=== PATIENT | female | born 1955 | race Caucasian/White ===

== ENCOUNTER 2024-07-16 16:19 | Inpatient (IN) | payer OTHER, MEDICARE, SELFPAY ==
[2024-07-16 16:20] VITALS: BP 182/98; PULSE 89; RESP 18; TEMP 37; O2SAT 95; BMI 32.1
--- NOTE | 2024-07-16 16:36 | EX.ED.GENINJ ---
HPI History of Present Illness Chief Complaint: Fall Narrative Narrative: 69-year-old female past medical history of hypertension, hypercholesterolemia, arthritis, previous remote left TKA performed in [place] presents with injury to her right hip status post fall. She states that she fell down a stair or step out onto concrete as she was walking backwards, carrying a chair because she was going to go outside and read a book. She denies hitting of her head or loss of consciousness. She was unable to sit up or move her right lower extremity as she has pain in her hip. She states she might have scraped her left foot as well. Initially, she denied any shoulder pain, neck pain, loss of consciousness, or other injury. The pain is concentrated in her right hip. [facility] Medical History History of diabetes mellitus Obesity GERD (gastroesophageal reflux disease) HLD (hyperlipidemia) Hypertension Home Medications ?Medication ?Instructions ?Recorded ?Last Taken ?Type diclofenac sodium 50 mg 50 mg PO BID 07/16/24 07/16/24 History tablet,delayed release lisinopril 40 mg tablet 40 mg PO DAILY 07/16/24 07/16/24 History metoprolol succinate 50 mg 75 mg PO DAILY 07/16/24 07/16/24 History tablet,extended release 24 hr pantoprazole 40 mg tablet,delayed 40 mg PO DAILY 07/16/24 07/16/24 History release rosuvastatin 20 mg tablet 20 mg PO QHS 07/16/24 07/16/24 History tirzepatide (weight loss) 5 mg/0.5 5 mg subcut QWEEK 07/16/24 07/13/24 History mL subcutaneous pen injector (Zepbound) Allergy/AdvReac Type Severity Reaction Status Date / Time No Known Allergies Allergy Verified 07/16/24 16:20 Family History Mother MORENO (nonalcoholic steatohepatitis) Heart failure Hypertension Heart disease Father Heart disease Hypertension CAD (coronary artery disease) Myocardial infarction Surgical History H/O wrist surgery History of hysterectomy History of left knee replacement S/P left knee arthroscopy Social History household members: spouse Smoking Status: Never smoker alcohol intake: never substance use type: does not use ROS ROS ED ROS Narrative Review of systems, focused, positive for right hip pain worse with any type of movement/unable to move right hip. No hitting of head, no loss of consciousness, denies shoulder pain. May have scraped the left foot. No prodromal symptoms of chest pain or shortness of breath. witnessed fall. EXAM Physical Exam Narrative Exam Narrative: GCS 15. ABCs are intact. Neck soft and supple without vertebral point tenderness or bony step-off. Able to raise arms above head in supine position. Cardiovascular examination regular rate and rhythm. Lungs are clear to auscultation bilaterally anteriorly. Abdomen is soft nontender without guarding or rebound, positive bowel sounds. Pelvis stable. Right hip held in flexion with flexion of right knee. EHL intact bilaterally. Palpable dorsalis pedis pulse, right. Const Vital Signs: 07/16/24 16:20 07/16/24 16:34 07/16/24 17:19 Temperature 98.6 F 98.9 F Temperature Source Oral Oral Pulse Rate 89 64 Respiratory Rate 18 18 Respiratory Effort Normal Respiratory Depth Normal Respiratory Pattern Normal Blood Pressure 182/98 H 167/78 H Blood Pressure Mean 126 107 Pulse Ox 95 97 Oxygen Delivery Method Room Air Room Air Room Air 07/16/24 18:00 07/16/24 18:00 Temperature 97.8 F Temperature Source Pulse Rate 78 66 Respiratory Rate 16 18 Respiratory Effort Respiratory Depth Respiratory Pattern Blood Pressure 138/76 H 138/76 H Blood Pressure Mean 96 96 Pulse Ox 98 100 Oxygen Delivery Method Room Air MDM MDM MDM Narrative Medical decision making narrative: Differential diagnosis includes but not limited to right hip contusion versus fracture versus left foot fracture versus contusion versus abrasion. Patient was administered Dilaudid 1 mg intravenously for analgesia and x-rays were obtained of the right hip as well as the left foot and interpreted by myself independently. On my independent interpretation of the right hip x-ray and pelvis, there is a subcapital/femoral neck fracture noted. X-ray of the left foot on my independent interpretation shows no evidence of fracture. I reviewed the radiology report of the x-ray of the right hip and pelvis which comments on the femoral neck fracture. I reviewed the radiology report of the x-ray of the left foot which confirms my independent interpretation of no acute fracture. On my independent interpretation of the chest x-ray in 1 view preoperatively, no acute disease, no pneumothorax, no pneumonia. Patient stated she needed more pain medication as Dilaudid 1 mg was ineffective so she was administered 50 mcg of fentanyl intravenously. Given the right hip fracture, patient will be discussed with the on-call orthopod, Dr. Eloy Hamm. I will obtain chest x-ray and basic laboratory work with EKG and type and screen for preop clearance, I discussed the patient with the hospitalist for admission. Patient was discussed with Dr. Avendaño. Disposition is admit to medical surgical floor in stable condition. I reviewed her laboratory work she has normal white count of 4.8 with hemoglobin normal at 12.7, electrolyte panel grossly unremarkable, with exception of AST slightly elevated at 35 which I think is nonspecific, blood type a positive. History & Record Review Discussion w/independent historian: Patient and Family Lab Data Attestation: I reviewed the patient's lab results. Labs: Laboratory Results - last 24 hr 07/16/24 07/16/24 17:14 17:17 WBC 4.8 RBC 4.39 Hgb 12.7 Hct 37.5 MCV 85.4 MCH 28.9 MCHC 33.9 RDW Std Deviation 38.1 RDW Coeff of Juany 12.3 Plt Count 179 MPV 9.2 Immature Gran % (Auto) 0.400 Neut % (Auto) 56.8 Lymph % (Auto) 32.5 [place] % (Auto) 6.9 Eos % (Auto) 2.1 Baso % (Auto) 1.3 H Absolute Neuts (auto) 2.7 Absolute Lymphs (auto) 1.55 Nucleated RBC % 0 Sodium 135 Potassium 3.9 Chloride 101 Carbon Dioxide 21.9 Anion Gap 13 BUN 17 Creatinine 1.01 Estim Creat Clear Calc 67.61 Est GFR (MDRD) Non-Af 61 BUN/Creatinine Ratio 16.8 Glucose 92 Calcium 9.4 Total Bilirubin 0.54 AST 35 H ALT 19 Alkaline Phosphatase 80 Troponin T High Sens 6 Total Protein 7.2 Albumin 4.2 Globulin 3.0 Albumin/Globulin Ratio 1.4 Blood Type A POSITIVE Antibody Screen NEGATIVE Radiography Chest X-Ray - ED: 1 View, Read by ED Physician and No Acute Disease Diagnostic Testing: Clinical Impression(s) from Imaging Studies Foot X-Ray 07/16/24 16:45 IMPRESSION: No acute findings. Reading [facility] Hip/Pelvis X-Ray 07/16/24 16:45 IMPRESSION: See above Reading Location: [facility] Chest X-Ray 07/16/24 17:06 IMPRESSION: 1. Central vascular prominence without overt pulmonary edema. 2. Recommend outpatient CT chest, ideally with IV contrast for above mediastinal findings, unless prior outside imaging is available to further delineate or establish long-term stability. 3. Additional description as above. Reading Location: [id number] Management Discussion w/another healthcare provider: Hospitalist (Dr. Mayi Avendaño) and Ski Molder (Dr. Hamm, orthopedics) Discharge Plan Dx/Rx/DC Orders Clinical Impression: Fracture of femoral neck, closed, Fall, Hypertension Disposition Disposition: Acute Care Hospital [facility] Discharge Date/Time: 07/16/24 19:17
[2024-07-16] MEDS: HYDROmorphone 1 MG/ML Syringe IV (16:42)
--- NOTE | 2024-07-16 16:45 | RAD_ITS ---
PROCEDURE: HIP, UNI W/ PELVIS 2-3 VIEWS 07/16/2024 REASON FOR EXAM: TRAUMA TECHNIQUE: 3 views of the right hip COMPARISON: None FINDINGS: Mildly displaced and angulated fracture right femoral neck. There is moderate medial angulation of the proximal fracture fragment. No other fractures are noted. Degenerative changes of the hip joints. Mild degenerative changes SI joints and lower lumbar spine. Indeterminate sclerotic lesion overlying right the femoral head. RAD/HIP, UNI W/ Pelvis 2-3 Views IMPRESSION: See above Reading Location: [facility]
--- NOTE | 2024-07-16 16:45 | RAD_ITS ---
PROCEDURE: FOOT MIN 3 VIEWS 07/16/2024 REASON FOR EXAM: TRAUMA TECHNIQUE: 3 views of the left foot. COMPARISON: None FINDINGS: No acute fracture or dislocation. Mild multifocal osteoarthritis. No significant soft tissue swelling. No radiopaque foreign body. RAD/Foot min 3 Views IMPRESSION: No acute findings. Reading Location: [facility]
--- NOTE | 2024-07-16 17:06 | RAD_ITS ---
PROCEDURE: CHEST 1 VIEW (PORTABLE), 07/16/2024 REASON FOR EXAM: PREOPERATIVE, CAD TECHNIQUE: A single portable AP view of the chest was obtained. COMPARISON: None FINDINGS: Heart: Unremarkable. Mediastinum: Widening of the RIGHT paratracheal stripe could be related to vascular prominence, mediastinal lipomatosis, may be projectional, related to mediastinal lymphadenopathy, or other mediastinal process. Central vascular prominence. Lungs/pleura: No focal consolidation. No sizeable pleural effusion or visible pneumothorax. Suspect a skin fold the RIGHT. Bones: Multilevel spondylosis. Suspected demineralization. Lines and support devices: None. Other: None. RAD/Chest 1 View (Portable) IMPRESSION: 1. Central vascular prominence without overt pulmonary edema. 2. Recommend outpatient CT chest, ideally with IV contrast for above mediastina l findings, unless prior outside imaging is available to further delineate or establish long-term stability. 3. Additional description as above. Reading Location: [id number]
--- NOTE | 2024-07-16 17:06 | EKG12_ITS ---
Test Reason : Blood Pressure : */* mmHG Vent. Rate : 65 BPM Atrial Rate : 65 BPM P-R Int : 172 ms QRS Dur : 88 ms QT Int : 402 ms P-R-T Axes : 48 3 53 degrees QTcB Int : 418 ms Normal sinus rhythm Normal ECG Confirmed by KEVEN GRAY, NANCY ([id number]), marketing editor LAUREN VELIZ ([id number]) on 07/20/2024 8:40:30 AM Referred By: Confirmed By: NANCY BACA MD
[2024-07-16] MEDS: fentaNYL 100 MCG/2 ML Ampul 50 MCG IV ×2 (17:17→18:52)
[2024-07-16 17:19] VITALS: BP 167/78; PULSE 64; RESP 18; TEMP 37.2; O2SAT 97
[2024-07-16 17:48] LABS: Absolute Lymphocyte Count 1.55 X10^3/uL (0.83-4.51); Absolute Neutrophil Count 2.7 X10^3/uL (2.0-7.7); Basophil# 0.06 X10^3/uL; Basophil% 1.3 % (0-1); Eosinophils% 2.1 % (0-5); Hematocrit 37.5 % (37-47); Hemoglobin 12.7 g/dL (12.0-15.0); Lymphocyte # 1.55 X10^3/ul (0.83-4.51); Lymphocyte % 32.5 % (19-41); Mean Corp Hgb Conc 33.9 g/dL (32-36); Mean Corpuscular Hgb 28.9 pg (27.0-32.0); Mean Corpuscular Volume 85.4 fL (81-99); Mean Platelet Vol. 9.2 fl (6.2-12.0); Monocyte# 0.33 X10^3/uL; Monocyte% 6.9 % (0-10); NRBC Flagged by Analyzer 0 % (0-5); Neutrophil # 2.71 X10^3/uL (2.7-7.7); Neutrophil % 56.8 % (47-70); Platelet Count 179 K/mm3 (150-450); RBC Distribution Width CV 12.3 % (11.6-14.6); RBC Distribution Width SD 38.1 fl (35.1-43.9); Red Blood Count 4.39 M/mm3 (4.2-5.4); White Blood Count 4.8 K/mm3 (4.4-11.0)
[2024-07-16 17:58] LABS: Troponin T High Sensitivity 6 ng/L (<=14)
[2024-07-16 18:00] VITALS: BP 138/76; PULSE 66; PULSE 78; RESP 16; RESP 18; TEMP 36.6; O2SAT 100; O2SAT 98
[2024-07-16 18:01] LABS: ALB/GLOB Ratio 1.4 RATIO (0.9-2.4); AST(SGOT) 35 U/L (<=31); Alanine Aminotransfer ALT/SGPT 19 U/L (<=34); Albumin, Serum 4.2 g/dL (3.4-4.8); Alkaline Phosphatase 80 U/L (35-104); Anion Gap 13 (5-15); BUN 17 mg/dL (4-19); BUN/Creat Ratio 16.8 RATIO (10-20); Calcium,Total 9.4 mg/dL (7.6-11.0); Carbon Dioxide 21.9 mmol/L (21.0-32.0); Chloride 101 mmol/L (98-108); Creatinine, Serum 1.01 mg/dL (0.70-1.20); EST Glomerular Filtration Rate 61 (>60); Estimated Creatinine Clearance 67.61 ml/min (50-250); Glucose 92 mg/dL (70-99); Potassium 3.9 mmol/L (3.3-5.1); Protein, Total 7.2 g/dL (5.9-8.4); Sodium Level 135 mmol/L (133-145); Total Bilirubin 0.54 mg/dL (0.00-1.30)
--- NOTE | 2024-07-16 18:10 | PCM.HP.STD ---
HPI - General General Date of Admission: 07/16/24 Date of Service: 07/16/24 Chief Complaint: Fall, Hip pain. HPI Narrative The patient is a 69 y/o F w/ PMHx: HTN, HLD, GERD, Obesity, Hx Diabetes mellitus type II who presents to the [facility] ED on 07/16/2024 with history of unfortunate mechanical fall, taking a chair outside to read a book unfortunately she fell down a stair and stepped on it concrete as she was walking backwards landing on her right lower extremity especially on her hip and potentially twisting her left ankle with significant debility and inability to bear weight prompting ED evaluation. In the ED despite current pain medication being administered she does rate her pain to the right hip is 8 of 10 in severity. She denies any extremity paresthesias. Workup in the ED included T98.6, heart rate 89, BP 182/98 initially, respiratory rate 18, 95% on room air with most recent repeat vitals T98.9, heart rate 64, BP 167/78, respiratory rate 18, 97% on room air, CBC with WC 4.8, hemoglobin 12.7, platelet 179 without marked shift, CMP not marked appearing aside from AST 35, troponin 6, pending EKG upon evaluation, plain film of the left foot with no acute findings, plain film of the right hip and pelvis with a mildly displaced and angulated fracture of the right femoral neck with moderate medial angulation of the proximal fracture fragment. [facility] Medical History History of diabetes mellitus Obesity GERD (gastroesophageal reflux disease) HLD (hyperlipidemia) Hypertension Home Medications ?Medication ?Instructions ?Recorded ?Last Taken ?Type diclofenac sodium 50 mg 50 mg PO BID 07/16/24 07/16/24 History tablet,delayed release lisinopril 40 mg tablet 40 mg PO DAILY 07/16/24 07/16/24 History metoprolol succinate 50 mg 75 mg PO DAILY 07/16/24 07/16/24 History tablet,extended release 24 hr pantoprazole 40 mg tablet,delayed 40 mg PO DAILY 07/16/24 07/16/24 History release rosuvastatin 20 mg tablet 20 mg PO QHS 07/16/24 07/16/24 History tirzepatide (weight loss) 5 mg/0.5 5 mg subcut QWEEK 07/16/24 07/13/24 History mL subcutaneous pen injector (Zepbound) Allergy/AdvReac Type Severity Reaction Status Date / Time No Known Allergies Allergy Verified 07/16/24 16:20 Family History Mother MORENO (nonalcoholic steatohepatitis) Heart failure Hypertension Heart disease Father Heart disease Hypertension CAD (coronary artery disease) Myocardial infarction Surgical History H/O wrist surgery History of hysterectomy History of left knee replacement S/P left knee arthroscopy Social History household members: spouse Smoking Status: Never smoker alcohol intake: never substance use type: does not use ROS ROS Narrative Admission Review of Systems: CONSTITUTIONAL: No weight loss, fever, chills, + weakness or fatigue. HEENT: Eyes: No visual loss, blurred vision, double vision or yellow sclerae. Ears, Nose, Throat: No hearing loss, sneezing, congestion, runny nose or sore throat. SKIN: No rash or itching, lesions, wounds. CARDIOVASCULAR: No chest pain, chest pressure or chest discomfort, palpitations, edema, orthopnea, syncopal events. RESPIRATORY: No shortness of breath, cough or sputum, wheezing, hemoptysis. GASTROINTESTINAL: No anorexia, nausea, vomiting or diarrhea, abdominal pain, melena, BRBPR. GENITOURINARY: No dysuria, frequency, urgency or retention. NEUROLOGICAL: No headache, dizziness, syncope, paralysis, ataxia, numbness or tingling in the extremities, focal weakness, change in bowel or bladder control, seizure. MUSCULOSKELETAL: + muscle, back pain, joint pain or stiffness. HEMATOLOGIC: No anemia, bleeding or bruising. LYMPHATICS: No enlarged nodes. No history of splenectomy. PSYCHIATRIC: No history of depression or anxiety. ENDOCRINOLOGIC: No reports of sweating, cold or heat intolerance. No polyuria or polydipsia. ALLERGIES: No history of asthma, hives, eczema or rhinitis. Vital Signs Vital Signs Vital Signs: 07/16/24 16:20 07/16/24 16:34 07/16/24 17:19 Temperature 98.6 F 98.9 F Temperature Source Oral Oral Pulse Rate 89 64 Respiratory Rate 18 18 Respiratory Effort Normal Respiratory Depth Normal Respiratory Pattern Normal Blood Pressure 182/98 H 167/78 H Blood Pressure Mean 126 107 Pulse Ox 95 97 Oxygen Delivery Method Room Air Room Air Room Air Weight Weight: 217 lb 13.067 oz Body Mass Index (BMI) 32.1 Physical Exam Narrative Physical Examination: General: Awake, alert, oriented x 3 and cooperative, laying in the ED bed, fatigued, notes ongoing right hip pain 8 of 10 in severity Skin: Normal color, normal turgor, no icterus, no cyanosis except various abrasions with recent fall HEENT: AT/NC, EOMI, PERRLA, mildly dry MM, no carotid bruits, difficult to discern JVD given thickened neck. Lungs: Mildly diminished, greater bases, appropriate effort, no rales, ronchi or wheezing. Heart: Regular rate and rhythm; no gallop, rub audible. Abdomen: Soft, obese, NTTP, mildly hyperactive BS, no obvious distention or HSM however habitus makes evaluation difficult. Extremities: No cyanosis, no clubbing, mild bilateral ankle not markedly pitting edema, status post fall with right hip fracture. Neurological: Patient awake, alert, oriented as noted, cognitive function intact; pupils equally reactive to light and accommodation, cranial nerves gross normal, moving all 4 extremities except expected limitation right lower extremity given fall with hip fracture but able to move toes, strength accordingly severely globally decreased. Psychiatric: Affect appears mildly uncomfortable otherwise normal, no acute evidence of depressive or anxiety feelings. Results Lab / Micro Data 07/16/24 17:14 07/16/24 17:14 Labs: Laboratory Results - last 24 hr 07/16/24 17:14: WBC 4.8, RBC 4.39, Hgb 12.7, Hct 37.5, MCV 85.4, MCH 28.9, MCHC 33.9, RDW Std Deviation 38.1, RDW Coeff of Juany 12.3, Plt Count 179, MPV 9.2, Immature Gran % (Auto) 0.400, Neut % (Auto) 56.8, Lymph % (Auto) 32.5, [place] % (Auto) 6.9, Eos % (Auto) 2.1, Baso % (Auto) 1.3 H, Absolute Neuts (auto) 2.7, Absolute Lymphs (auto) 1.55, Nucleated RBC % 0, Sodium 135, Potassium 3.9, Chloride 101, Carbon Dioxide 21.9, Anion Gap 13, BUN 17, Creatinine 1.01, Estim Creat Clear Calc 67.61, Est GFR (MDRD) Non-Af 61, BUN/Creatinine Ratio 16.8, Glucose 92, Calcium 9.4, Total Bilirubin 0.54, AST 35 H, ALT 19, Alkaline Phosphatase 80, Troponin T High Sens 6, Total Protein 7.2, Albumin 4.2, Globulin 3.0, Albumin/Globulin Ratio 1.4 07/16/24 17:17: Blood Type A POSITIVE Imaging Radiology Impression Foot X-Ray 07/16/24 16:45 IMPRESSION: No acute findings. Reading [facility] Hip/Pelvis X-Ray 07/16/24 16:45 IMPRESSION: See above Reading Location: [facility] Assessment & Plan Assessment/Plan (1) Fracture of femoral neck, closed: (2) Fall: PLAN: Plan The patient is a 69 y/o F w/ PMHx: HTN, HLD, GERD, Obesity, Hx Diabetes mellitus type II who presents to the [facility] ED on 07/16/2024 with history of unfortunate mechanical fall, taking a chair outside to read a book unfortunately she fell down a stair and stepped on it concrete as she was walking backwards landing on her right lower extremity especially on her hip and potentially twisting her left ankle with significant debility and inability to bear weight prompting ED evaluation. #1. General debility, right hip pain s/p mechanical fall w/ mildly displaced and angulated fracture of the right femoral neck with moderate medial angulation of the proximal fracture fragment: Orthopedic surgery consulted from ED. Will admit to MS, maintain NPO after midnight, continue gentle IVFs, davis placement, monitor I/Os, frequent positioning, fall precautions, Pain, anti-emetic regimen as needed. PT/OT following operative intervention. CM consulted for discharge planning. Per NSQIP guidelines patient is low risk for transition to OR, healthy, active with no current complaints of dyspnea or routine chest discomfort, awaiting EKG and as long as this is appropriate agree with progression to OR. #2. History of diabetes mellitus type 2: Patient notes that she did have diabetes in the past and has been on weight loss medication with 60 pound weight loss and since then has been under control, will obtain he will A1c to be cautious, in the interim will maintain on ADA diet with Accu-Cheks with insulin sliding scale but may de-escalate off if it is low. #3. Hypertension: Continue home regimen including metoprolol, lisinopril, PRN hydralazine. #4. Hyperlipidemia: Will continue patient on statin therapy. #5. Obesity: Weight loss and lifestyle changes encouraged. #6. GERD: Will continue patient on PPI. #7. DVT prophylaxis: SCDs, hold chemoprophylaxis per surgery intervention planned. #8. CODE status: Patient ISHA is her who is and living will is currently in place. Discussed CODE status at length including difference between FULL code, DNR-CCA and DNR-CC status. Following discussions about the differences in these status, requested Full Code status. Charges/Coding Visit Charges Inpatient E&M: 68842 Init Hosp L3
--- NOTE | 2024-07-16 18:53 | ED.RN ---
UNABLE TO SCAN SECOND DOSE OF FENTANYL D/T COMPUTER DOWNTIME/SCANNER NOT WORKING
[2024-07-16 19:27] VITALS: BMI 30.1
[2024-07-16 19:57] VITALS: BP 191/97; PULSE 81; RESP 22; TEMP 36.5; O2SAT 99
[2024-07-16] MEDS: oxyCODONE 5 MG Tablet PO (20:24)
[2024-07-16] MEDS: Acetaminophen 325 MG Tablet 650 MG PO (20:25)
[2024-07-16] MEDS: MELATONIN 3 MG TABLET PO (20:27)
[2024-07-16] MEDS: Pantoprazole Sodium 40 MG Tablet PO (20:30)
[2024-07-16] MEDS: Senna/Docusate Sodium 1 Tablet 2 TABLET PO (20:31)
[2024-07-16] MEDS: Atorvastatin Calcium 40 MG Tablet PO (20:35)
[2024-07-16 20:37] VITALS: BP 191/97; PULSE 81
[2024-07-16] MEDS: hydrALAZINE 20 MG/ML Vial 10 MG IV (20:37)
[2024-07-16] MEDS: 0.9% Saline Lock 10 ML Syringe IV ×2 (20:44→21:05)
[2024-07-16 21:34] LABS: Bedside Glucose 106 mg/dL (74-106)
[2024-07-16 21:50] LABS: Troponin T High Sens 2 HR 6 ng/L (<=14)
[2024-07-16 21:52] LABS: Anion Gap 11 (5-15); BUN 15 mg/dL (4-19); BUN/Creat Ratio 16.6 RATIO (10-20); Calcium,Total 9.4 mg/dL (7.6-11.0); Carbon Dioxide 25.6 mmol/L (21.0-32.0); Chloride 98 mmol/L (98-108); Creatinine, Serum 0.91 mg/dL (0.70-1.20); EST Glomerular Filtration Rate 69 (>60); Estimated Creatinine Clearance 72.65 ml/min (50-250); Glucose 139 mg/dL (70-99); Potassium 3.9 mmol/L (3.3-5.1); Sodium Level 135 mmol/L (133-145)
[2024-07-16 22:14] VITALS: BMI 30.1
[2024-07-16 23:22] VITALS: BP 142/76; PULSE 88; RESP 20; TEMP 36.5; O2SAT 96
[2024-07-16] MEDS: Morphine 4 MG/ML Syringe IV (23:25)
[2024-07-16 23:27] LABS: Troponin T High Sens 4 HR < 6 ng/L (<=14)
[2024-07-16] MEDS: 0.9% Normal Saline (1000mL) 1,000 ML 100 ML IV (23:28)
[2024-07-17] VITALS (18 sets, daily range): BP systolic 110–163; BP diastolic 66–93; PULSE 72–106; RESP 16–20; TEMP 36.1–37.4; O2SAT 91–99; BMI 30.2
[2024-07-17] MEDS: Acetaminophen 325 MG Tablet 650 MG PO (02:50)
[2024-07-17] MEDS: oxyCODONE 5 MG Tablet PO (02:50)
[2024-07-17 05:06] LABS: Absolute Lymphocyte Count 1.22 X10^3/uL (0.83-4.51); Absolute Neutrophil Count 5.6 X10^3/uL (2.0-7.7); Basophil# 0.03 X10^3/uL; Basophil% 0.4 % (0-1); Eosinophil# 0.01 X10^3/uL; Eosinophils% 0.1 % (0-5); Hematocrit 39.7 % (37-47); Hemoglobin 13.4 g/dL (12.0-15.0); Lymphocyte # 1.22 X10^3/ul (0.83-4.51); Lymphocyte % 16.6 % (19-41); Mean Corp Hgb Conc 33.8 g/dL (32-36); Mean Corpuscular Hgb 28.6 pg (27.0-32.0); Mean Corpuscular Volume 84.6 fL (81-99); Mean Platelet Vol. 9.2 fl (6.2-12.0); Monocyte% 6.8 % (0-10); NRBC Flagged by Analyzer 0 % (0-5); Neutrophil # 5.56 X10^3/uL (2.7-7.7); Neutrophil % 75.8 % (47-70); Platelet Count 194 K/mm3 (150-450); RBC Distribution Width CV 12.4 % (11.6-14.6); RBC Distribution Width SD 37.2 fl (35.1-43.9); Red Blood Count 4.69 M/mm3 (4.2-5.4); White Blood Count 7.3 K/mm3 (4.4-11.0)
[2024-07-17 05:30] LABS: ALB/GLOB Ratio 1.4 RATIO (0.9-2.4); AST(SGOT) 27 U/L (<=31); Alanine Aminotransfer ALT/SGPT 17 U/L (<=34); Albumin, Serum 4.1 g/dL (3.4-4.8); Alkaline Phosphatase 79 U/L (35-104); Anion Gap 11 (5-15); BUN 14 mg/dL (4-19); BUN/Creat Ratio 17.5 RATIO (10-20); Calcium,Total 9.4 mg/dL (7.6-11.0); Carbon Dioxide 22.1 mmol/L (21.0-32.0); Chloride 100 mmol/L (98-108); EST Glomerular Filtration Rate 81 (>60); Estimated Creatinine Clearance 82.65 ml/min (50-250); Globulin 2.8 g/dL (2.2-4.2); Glucose 118 mg/dL (70-99); Potassium 3.9 mmol/L (3.3-5.1); Protein, Total 6.9 g/dL (5.9-8.4); Sodium Level 133 mmol/L (133-145); Total Bilirubin 0.62 mg/dL (0.00-1.30)
[2024-07-17] MEDS: Morphine 4 MG/ML Syringe IV ×2 (06:30→09:22)
[2024-07-17 07:31] LABS: Hemoglobin A1c 5.3 % (<=5.6)
[2024-07-17] MEDS: Metoprolol(XL)Succ 25 MG Tablet 75 MG PO (09:20)
--- NOTE | 2024-07-17 10:48 | CASEMGMT ---
Discharge Planning A list of?SNF providers including quality and resource use data and consistent with the patient's preferred geographic region, medical needs, and insurance network was created in [employer]Port Guide.? This list was provided to the SW. Lorelei Rodriguez Discharge Planning Asst.
[2024-07-17 12:50] LABS: Bedside Glucose 93 mg/dL (74-106)
--- NOTE | 2024-07-17 13:23 | CASEMGMT ---
Social Work SW?to room to meet with patient for initial transition planning/care coordination?assessment.?SW?introduced self and role at [facility].? Pt voices understanding and consents to?assessment.? Pt is A/Ox4 and answers all questions appropriately.?? Care providers, pharmacy, and demographics verified. PCP: Shama Piper ([place], [place]) Specialists: Pain Management, out of the area Preferred Pharmacy: [facility] Insurance: MMO, commercial Prescription Benefit:?yes LNOK: , Zachary Blankenship (lives in [place]) and daughter Leah Guerra (lives in [place]) Living Arrangements: Pt lives in a one story home with one step to enter in [place]. 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 Pt lives with her who is retired and able to assist with transportation and care as needed. Pt and spouse recently bought a house in [place] and are in the process of remodeling this home and this is where the pt fell. Due to previous back issues, pt does not sleep in a bed and has been sleeping in a gravity chair. Transportation:?Pt drives. is able to transport as needed. DME: ? none HHC/SNF: pt has had home health services after a knee replacement a few years ago in [place]. Pt has never been to SNF PLAN: Pt is uncertain of discharge plan at this time. SW educated pt to all levels of care including RU, SNF, Outpatient therapy and home health. SW did explain that MMO is very unlikely to approve RU stay. Pt states that she has had home health in the past and does not feel this will be helpful for her. Pt is leaning toward returning to her home in [place] and following up with Outpt PT. Pt will consider SNF if she does not do well with therapy after surgery. A list of SNF providers including quality and resource use data and consistent with the patient?s preferred geographic region, medical needs, and insurance network were provided from the [employer]Port Guide. SW to follow up after surgery and therapy for discharge planning. KUSH Abbasi
--- NOTE | 2024-07-17 14:44 | PCM.POST.ANE ---
Anesthesia: Postop Eval I Current Vital Signs Temperature: 97 F Pulse Rate: 72 Blood Pressure: 126/76 Respiratory Rate: 16 Pulse Ox: 96 Oxygen Delivery Method: Simple Mask Oxygen Flow Rate (L/min): 6 Assessment Airway patent: Yes Spontaneous unlabored respirations: Yes Mental status: Awake and Calm nausea: No Vomiting: No Anesthesia Complication: No Fluid Hydration Crystalloid volume administer (ml): 2,000 Total IV fluid infused: 2,000 Progress Note Anesthesia document: Postop Eval 1 completed: Yes
--- NOTE | 2024-07-17 15:12 | PCM.PRE.AN2 ---
ASA Classification* ASA Classification ASA Classification: 3 and E Assessment & Plan Anesthesia* Anesthesia Assessment Anesthesia Assessment: Discussed sedation and/or anesthesia options, risks, benefits, and alternatives with patient/parents/legal guardian/POA. Questions invited. The patient/parents/legal guardian/POA seems to understand and agrees to proceed with anesthesia plan. Reviewed the physical assessment, medical history, allergy history and patient home medications list prior to surgery/procedure/anesthetic and documented any changes. Performed airway and anesthesia risk assessments. Anesthesia Type Anesthesia Type: General (glidescope/RSI/induction on hospital bed) Anesthesia Focused Assessment* Temperature: 97 F Pulse Rate: 72 Blood Pressure: 126/76 Respiratory Rate: 16 Pulse Ox: 96 Oxygen Flow Rate (L/min): 6 Airway Assessment Mouth opens: >3 cm Mallampati Score: III Focused Labs Anesthesia Preop lab: CBC WBC 7.3 K/mm3 (4.4-11.0) 07/17/24 04:19 07/17/24 RBC 4.69 M/mm3 (4.2-5.4) 07/17/24 04:19 07/17/24 Hgb 13.4 g/dL (12.0-15.0) 07/17/24 04:19 07/17/24 Hct 39.7 % (37-47) 07/17/24 04:19 07/17/24 Plt Count 194 K/mm3 (150-450) 07/17/24 04:19 07/17/24 CHEMISTRY Potassium 3.9 mmol/L (3.3-5.1) 07/17/24 04:19 07/17/24 Sodium 133 mmol/L (133-145) 07/17/24 04:19 07/17/24 BUN 14 mg/dL (4-19) 07/17/24 04:19 07/17/24 Creatinine 0.80 mg/dL (0.70-1.20) 07/17/24 04:19 07/17/24 Glucose 118 mg/dL (70-99) H 07/17/24 04:19 07/17/24 POC Glucose 93 mg/dL (74-106) 07/17/24 11:21 07/17/24 COAG Pre-Assessment Diagnosis/Proposed Procedure Planned Operative Procedure(s): ORIF of a Hip Anesthesia History 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 When Was Last Pacemaker Check QUESTION #4 FULL TEXT: You/Your Family Experience fever (hyperthermia) with Anesthesia Last Oral Intake Last Oral intake: Last Oral Intake NPO since 00:00 07/17/24 13:26 Meds taken in AM with sips of Yes 07/17/24 13:26 water? 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 Female HX of Motion Sickness HX of N/V After Surgery Non-Smoker Duration of Surgery greater than 60 minutes Number of Risk Factors PONV Score Height & Weight Height & Weight: Anesthesia: Height & Weight Height 5 ft 8.9 in 07/17/24 13:26 Weight: 92.5 kg 07/17/24 13:26 Body Mass Index (BMI) 30.2 07/17/24 13:26 Respiratory Assessment Respiratory Assessment - computer technology teacher: Respiratory Tract Infection Hx - computer technology teacher Hx Respiratory Tract Infection No 07/16/24 19:57 STOP Sleep Apnea STOP Sleep Apnea - computer technology teacher: STOP Sleep Apnea - computer technology teacher Hx Hypertension Yes 07/16/24 19:27 Hx Sleep Apnea No 07/16/24 19:27 CPAP BIPAP Do you snore loudly (louder Yes 07/16/24 19:27 than talking or can be heard Do you often feel tired/ No 07/16/24 19:27 fatigued/ sleepy during daytime? Has anyone observed you stop No 07/16/24 19:27 breathing during sleep? STOP Results Positive 07/16/24 19:27 QUESTION #5 FULL TEXT : Do you snore loudly (louder than talking or can be heard through closed doors)? 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 Specify any problems Hx of Preganancy in last 3 N/A 07/16/24 19:27 Months Nurse Filling Out Transfusion FSTEINER 07/16/24 19:27 & Questions: Date: 07/16/24 07/16/24 19:27 Time: 19:54 07/16/24 19:27 Patient unable to answer at this time (ie. confused, unrespo /Reproduction History /Reproductive History - computer technology teacher: /Reproductive Hx- computer technology teacher Hx Now No 07/16/24 19:57 Gestational Age (in weeks): EDC: Hx Hx Para Hx Section SAB No 07/16/24 19:57 Active Medications Active Medications: Current Medications Generic Name Dose Route Start Last Admin Trade Name Freq PRN Reason Stop Dose Admin Acetaminophen 650 mg 07/16/24 19:37 07/17/24 02:50 Acetaminophen 325 Mg Tablet PO 650 mg Q4H PRN PRN Administration Fever, pain 1-10/10 Al Hydroxide/Mg Hydroxide 30 ml 07/16/24 19:37 Mag Hydrox/Al Hydrox/Simeth 30 Ml Udc PO Q6H PRN PRN Gastric Burning Albuterol Sulfate 2.5 mg 07/16/24 19:37 Albuterol 2.5 Mg/3 Ml Vial.Neb. INHALATION Q2H PRN PRN Dyspnea, wheezing Atorvastatin Calcium 40 mg 07/16/24 22:00 07/16/24 20:35 Atorvastatin Calcium 40 Mg Tablet PO 40 mg QHS RADHA Administration Glucagon 1 mg 07/16/24 19:37 Glucagon 1 Mg/Ml Syringe IM X1 PRN HYPOGLYCEMIA Protocol Guaifenesin 20 ml 07/16/24 19:37 Guaifenesin 10 Ml Udc (200mg/10ml) PO Q4H PRN PRN COUGH Hydralazine HCl 10 mg 07/16/24 19:37 07/16/24 20:37 Hydralazine 20 Mg/Ml Vial IV 10 mg Q4H PRN PRN Administration SBP > 160 Protocol Dextrose 250 mls @ 0 mls/hr 07/16/24 19:37 Dextrose 10%-Water IV .Q0M PRN HYPOGLYCEMIA Protocol As Directed Sodium Chloride 250 mls @ 15 mls/hr 07/16/24 19:42 IV .[id number] PRN Saline Flush Sodium Chloride 250 mls @ 15 mls/hr 07/16/24 19:42 IV .[id number] PRN Additional IVPB Infusion Insulin Human Lispro 0 unit 07/16/24 22:00 07/17/24 05:46 Insulin Lispro 100 Unit/Ml Insuln.Pen SC Not Given ACHS RADHA Protocol Lisinopril 40 mg 07/17/24 10:00 Lisinopril 40 Mg Tablet PO DAILY RADHA Protocol Melatonin 3 mg 07/16/24 19:37 07/16/24 20:27 Melatonin 3 Mg Tablet PO 3 mg QHS PRN PRN Administration INSOMNIA Metoprolol Succinate 75 mg 07/17/24 10:00 07/17/24 09:20 Metoprolol(Xl)Succ 25 Mg Tablet PO 75 mg DAILY RADHA Administration Protocol Morphine Sulfate 2 - 4 mg 07/16/24 19:37 07/17/24 09:22 Morphine 4 Mg/Ml Syringe IV 4 mg Q2H PRN PRN Administration MODSEVPAIN Ondansetron HCl 4 mg 07/16/24 19:37 Ondansetron 4 Mg/2 Ml Vial IV Q8H PRN PRN NAUSEA/VOMITING Oxycodone HCl 5 - 10 mg 07/16/24 19:37 07/17/24 02:50 Oxycodone 5 Mg Tablet PO 10 mg Q4H PRN PRN Administration MODSEVPAIN Pantoprazole Sodium 40 mg 07/16/24 19:37 07/16/24 20:30 Pantoprazole Sodium 40 Mg Tablet PO 40 mg DAILY RADHA Administration Prochlorperazine Edisylate 5 mg 07/16/24 19:37 Prochlorperazine 10 Mg/2 Ml Vial IV Q4H PRN PRN Breakthrough nausea/vomiting Senna/Docusate Sodium 2 tablet 07/16/24 22:00 07/16/24 20:31 Senna/Docusate Sodium 1 Tablet PO 2 tablet BID RADHA Administration Sodium Chloride 10 - 40 ml 07/16/24 19:42 07/16/24 21:05 0.9% Saline Lock 10 Ml Syringe IV 10 ml UD PRN Administration SALINE FLUSH PFS Medical History Non-smoker Hypertension History of diabetes mellitus Obesity GERD (gastroesophageal reflux disease) HLD (hyperlipidemia) Hypertension Home Medications ?Medication ?Instructions ?Recorded ?Last Taken ?Type diclofenac sodium 50 mg 50 mg PO BID 07/16/24 07/16/24 History tablet,delayed release lisinopril 40 mg tablet 40 mg PO DAILY 07/16/24 07/16/24 History metoprolol succinate 50 mg 75 mg PO DAILY 07/16/24 07/16/24 History tablet,extended release 24 hr pantoprazole 40 mg tablet,delayed 40 mg PO DAILY 07/16/24 07/16/24 History release rosuvastatin 20 mg tablet 20 mg PO QHS 07/16/24 07/16/24 History tirzepatide (weight loss) 5 mg/0.5 5 mg subcut QWEEK 07/16/24 07/13/24 History mL subcutaneous pen injector (Zepbound) Allergy/AdvReac Type Severity Reaction Status Date / Time No Known Allergies Allergy Verified 07/16/24 16:20 Family History Mother MORENO (nonalcoholic steatohepatitis) Heart failure Hypertension Heart disease Father Heart disease Hypertension CAD (coronary artery disease) Myocardial infarction Surgical History H/O wrist surgery History of hysterectomy History of left knee replacement S/P left knee arthroscopy Social History household members: spouse Smoking Status: Never smoker alcohol intake: never substance use type: does not use Review of Systems (Anesthesia) ROS Narrative System reviewed and no additional complaints, except as documented.
--- NOTE | 2024-07-17 15:30 | FEM_PTH ---
PATIENT: CAROLEE JIMENEZ LOC: MS3 U#:[id number] AGE/SX: 69/F ROOM: [facility] [place]07/16/[address]: Dr. Conor Noland DO : 1955 BED: 1 DIS: 07/19/2024 SPEC #: [id number] RECD: 07/20/24 07:33 STATUS: DIANA JOVEL #: [id number] JOSEFA: 07/17/24 15:[address]: Conor Noland DEPT: SURGICAL PATHOLOGY RECD BY: [place] ENTERED: 07/20/24 08:15 SP TYPE: FEM HEAD OTHR DR: MD Dr. Eloy Swenson MD Tissues: A - Femoral region, NOS Procedures: Decalcification bone/plaque Surgery Specimen Level IV HEADER OPERATION: Total hip anterior approach PRE-OP DIAGNOSIS: Fracture of femoral neck, closed TISSUE SUBMITTED: A- Right femoral head MICROSCOPIC DIAGNOSIS A. Right femoral head, fracture, total hip arthroplasty: * Articular bone with reactive/degenerative changes, patchy trilineage hematopoiesis, and focal marrow hemorrhage. MICROSCOPIC DESCRIPTION Slides are reviewed. GROSS DESCRIPTION A. Received in formalin in a container labeled with the patient's name, date of , and right femoral head is a 4.8 x 4.7 x 3.8 cm femoral head with partial attached shaggy and hemorrhagic femoral neck measuring approximately 1 cm in length by 3.5 cm in diameter. The cortical surface is cervantes, somewhat pitted and granular, and otherwise smooth. Sectioning reveals firm and focally hemorrhagic cut surfaces.Received in the same container is a 3.7 x 2.5 x 2.5 cm possible additional femoral neck. One surface is shaggy and hemorrhagic and the opposing surface is firm and smooth. Sectioning reveals hemorrhagic and firm cut surfaces. Irrigation Laborer sections of each are submitted in A1 following decalcification. [facility] 07-20-2024 CPT:01903,11562
--- NOTE | 2024-07-17 15:33 | CHAPLAIN ---
Type of Pastoral Visit ___ Initial Visit ___ Follow-up Visit ___ On-call Visit ___ General Patient Visit ___ Spiritual Assessment ___ Family Conference ___ Bereavement ___ Rapid Response ___ Code Blue ___ Other (describe below) Pastoral Care Referral From ___ Patient ___ Family ___ Nurse ___ Physician ___ Enforcement Manager ___ Geomagnetist ___ Other (describe below) Sacrament/Intervention ___ Active listening ___ Anointing ___ Zoroastrianism ___ Bereavement ___ Communion ___ Debbie exploration ___ ___ Life review ___ Prayer ___ Reconciliation ___ Sacrament of Sick ___ Supportive presence ___ Wedding ___ Other (describe below) Pastoral Comments patient is out of the room for surgery; left a calling card
--- NOTE | 2024-07-17 16:31 | CONS.ORTHO ---
HPI Consult Data Date of Consult: 07/17/24 HPI Narrative Reason for Consultation: Right hip pain HPI Narrative: CAROLEE JIMENEZ, is a 69 F who presents with right hip pain status post fall yesterday. Patient lives at home ambulates independently. Prior to yesterday had minimal history of pain. Does have a history of spinal stenosis which patient notes has been under control since radiofrequency ablation. Patient reports they were pushing something yesterday stumbled and fell and sustained an injury to the right hip. They were unable to bear weight. They were brought to the emergency department and had a x-ray which showed a displaced right femoral neck fracture. Patient reports 7 out of 10 pain better with pain medications worse with motion. No numbness and tingling is noted distally. Patient does have a left total knee replacement [facility] Medical History Non-smoker Hypertension History of diabetes mellitus Obesity GERD (gastroesophageal reflux disease) HLD (hyperlipidemia) Hypertension Home Medications ?Medication ?Instructions ?Recorded ?Last Taken ?Type diclofenac sodium 50 mg 50 mg PO BID 07/16/24 07/16/24 History tablet,delayed release lisinopril 40 mg tablet 40 mg PO DAILY 07/16/24 07/16/24 History metoprolol succinate 50 mg 75 mg PO DAILY 07/16/24 07/16/24 History tablet,extended release 24 hr pantoprazole 40 mg tablet,delayed 40 mg PO DAILY 07/16/24 07/16/24 History release rosuvastatin 20 mg tablet 20 mg PO QHS 07/16/24 07/16/24 History tirzepatide (weight loss) 5 mg/0.5 5 mg subcut QWEEK 07/16/24 07/13/24 History mL subcutaneous pen injector (Zepbound) Allergy/AdvReac Type Severity Reaction Status Date / Time No Known Allergies Allergy Verified 07/16/24 16:20 Family History Mother MORENO (nonalcoholic steatohepatitis) Heart failure Hypertension Heart disease Father Heart disease Hypertension CAD (coronary artery disease) Myocardial infarction Surgical History H/O wrist surgery History of hysterectomy History of left knee replacement S/P left knee arthroscopy Social History household members: spouse Smoking Status: Never smoker alcohol intake: never substance use type: does not use ROS Constitutional Constitutional: Reports systems reviewed and no addt'l complaints, except as documented and as per HPI Eyes Eyes: Reports systems reviewed and no addt'l complaints, except as documented ENT HEENT: Reports systems reviewed and no addt'l complaints, except as documented Cardiovascular Cardiovascular: Reports systems reviewed and no addt'l complaints, except as documented Respiratory/Chest Respiratory/Chest: Reports systems reviewed and no addt'l complaints, except as documented Gastrointestinal Gastrointestinal: Reports systems reviewed and no addt'l complaints, except as documented Genitourinary Genitourinary: Reports systems reviewed and no addt'l complaints, except as documented Musculoskeletal Musculoskeletal: Reports systems reviewed and no addt'l complaints, except as documented Integumentary Integumentary: Reports systems reviewed and no addt'l complaints, except as documented Neurologic Neurologic: Reports systems reviewed and no addt'l complaints, except as documented Psychiatric Psychiatric: Reports systems reviewed and no addt'l complaints, except as documented Endocrine Endocrinology: Reports systems reviewed and no addt'l complaints, except as documented Vital Signs Vital Signs Vital Signs: 07/16/24 16:34 07/16/24 17:19 07/16/24 18:00 Temperature 98.9 F Temperature Source Oral Pulse Rate 64 78 Respiratory Rate 18 16 Respiratory Effort Normal Respiratory Depth Normal Respiratory Pattern Normal Blood Pressure 167/78 H 138/76 H Blood Pressure Mean 107 96 Blood Pressure Source Blood Pressure Position Blood Pressure Location Pulse Ox 97 98 Oxygen Delivery Method Room Air Room Air Room Air Oxygen Flow Rate (L/min) 07/16/24 18:00 07/16/24 19:27 07/16/24 19:57 Temperature 97.8 F 97.7 F L Temperature Source Oral Pulse Rate 66 81 Respiratory Rate 18 22 H Respiratory Effort Normal Non-Labored Respiratory Depth Shallow Respiratory Pattern Normal Blood Pressure 138/76 H 191/97 H Blood Pressure Mean 96 128 Blood Pressure Source Monitor Blood Pressure Position Semi-Fowlers Blood Pressure Location Right Arm Pulse Ox 100 99 Oxygen Delivery Method Room Air Room Air Oxygen Flow Rate (L/min) 07/16/24 20:37 07/16/24 23:22 07/17/24 02:47 Temperature 97.7 F L 97.9 F Temperature Source Oral Oral Pulse Rate 81 88 87 Respiratory Rate 20 H 18 Respiratory Effort Respiratory Depth Respiratory Pattern Blood Pressure 191/97 H 142/76 H 148/79 H Blood Pressure Mean 98 102 Blood Pressure Source Monitor Monitor Blood Pressure Position Semi-Fowlers Semi-Fowlers Blood Pressure Location Left Arm Right Arm Pulse Ox 96 96 Oxygen Delivery Method Room Air Room Air Oxygen Flow Rate (L/min) 07/17/24 06:27 07/17/24 07:40 07/17/24 08:53 Temperature 97.7 F L 98.4 F Temperature Source Oral Oral Pulse Rate 79 77 Respiratory Rate 18 16 Respiratory Effort Respiratory Depth Respiratory Pattern Blood Pressure 161/89 H 161/81 H Blood Pressure Mean 113 107 Blood Pressure Source Monitor Monitor Blood Pressure Position Semi-Fowlers Supine Blood Pressure Location Right Arm Right Arm Pulse Ox 99 97 97 Oxygen Delivery Method Room Air Room Air Room Air Oxygen Flow Rate (L/min) 07/17/24 09:20 07/17/24 13:26 07/17/24 14:44 Temperature 97.9 F 97 F L Temperature Source Oral Pulse Rate 77 79 72 Respiratory Rate 16 16 Respiratory Effort Respiratory Depth Respiratory Pattern Blood Pressure 163/81 H 126/76 H Blood Pressure Mean 108 Blood Pressure Source Monitor Blood Pressure Position Semi-Fowlers Blood Pressure Location Right Forearm Pulse Ox 96 96 Oxygen Delivery Method Room Air Simple Mask Oxygen Flow Rate (L/min) 6 07/17/24 15:12 Temperature 97 F L Temperature Source Pulse Rate 72 Respiratory Rate 16 Respiratory Effort Respiratory Depth Respiratory Pattern Blood Pressure 126/76 H Blood Pressure Mean Blood Pressure Source Blood Pressure Position Blood Pressure Location Pulse Ox 96 Oxygen Delivery Method Oxygen Flow Rate (L/min) 6 Weight Weight: 203 lb 14.841 oz Body Mass Index (BMI) 30.2 Physical Exam Const alert and oriented x3 General Appearance: cooperative HEENT normocephalic Eyes PERRL Neck no JVD Resp normal respiratory effort Effort and Inspection: able to speak in complete sentences Cardio regular rate Cardio Narrative: Regular pulse rate distal pulses GI non-distended Extremity Extremity Narrative: Right lower extremity: Skin clean, dry, and intact. Limb is shortened and externally rotated Motor is intact dorsiflexion, EHL and plantar flexion. Sensation is intact to light touch saphenous, kenya,l superficial peroneal, deep peroneal and tibial distributions. Calves are soft and supple. Skin no wounds Neuro CN's II-XII intact bilaterally Psych affect normal Medical Records Data Attestation: I reviewed the patient's medical records Lab / Micro Data Attestation: I reviewed the patient's lab results. 07/17/24 04:19 07/17/24 04:19 Labs: Laboratory Results - last 24 hr 07/16/24 17:14: WBC 4.8, RBC 4.39, Hgb 12.7, Hct 37.5, MCV 85.4, MCH 28.9, MCHC 33.9, RDW Std Deviation 38.1, RDW Coeff of Juany 12.3, Plt Count 179, MPV 9.2, Immature Gran % (Auto) 0.400, Neut % (Auto) 56.8, Lymph % (Auto) 32.5, Toole % (Auto) 6.9, Eos % (Auto) 2.1, Baso % (Auto) 1.3 H, Absolute Neuts (auto) 2.7, Absolute Lymphs (auto) 1.55, Nucleated RBC % 0, Sodium 135, Potassium 3.9, Chloride 101, Carbon Dioxide 21.9, Anion Gap 13, BUN 17, Creatinine 1.01, Estim Creat Clear Calc 67.61, Est GFR (MDRD) Non-Af 61, BUN/Creatinine Ratio 16.8, Glucose 92, Calcium 9.4, Total Bilirubin 0.54, AST 35 H, ALT 19, Alkaline Phosphatase 80, Troponin T High Sens 6, Total Protein 7.2, Albumin 4.2, Globulin 3.0, Albumin/Globulin Ratio 1.4 07/16/24 17:17: Blood Type A POSITIVE, Antibody Screen NEGATIVE 07/16/24 20:42: POC Glucose 106 07/16/24 21:00: Sodium 135, Potassium 3.9, Chloride 98, Carbon Dioxide 25.6, Anion Gap 11, BUN 15, Creatinine 0.91, Estim Creat Clear Calc 72.65, Est GFR (MDRD) Non-Af 69, BUN/Creatinine Ratio 16.6, Glucose 139 H, Calcium 9.4, Troponin T Hi Sens 2 Hr 6 07/16/24 23:00: Troponin T Hi Sens 4Hr < 6 07/17/24 04:19: WBC 7.3, RBC 4.69, Hgb 13.4, Hct 39.7, MCV 84.6, MCH 28.6, MCHC 33.8, RDW Std Deviation 37.2, RDW Coeff of Juany 12.4, Plt Count 194, MPV 9.2, Immature Gran % (Auto) 0.300, Neut % (Auto) 75.8 H, Lymph % (Auto) 16.6 L, Toole % (Auto) 6.8, Eos % (Auto) 0.1, Baso % (Auto) 0.4, Absolute Neuts (auto) 5.6, Absolute Lymphs (auto) 1.22, Nucleated RBC % 0, Sodium 133, Potassium 3.9, Chloride 100, Carbon Dioxide 22.1, Anion Gap 11, BUN 14, Creatinine 0.80, Estim Creat Clear Calc 82.65, Est GFR (MDRD) Non-Af 81, BUN/Creatinine Ratio 17.5, Glucose 118 H, Hemoglobin A1c 5.3, Calcium 9.4, Total Bilirubin 0.62, AST 27, ALT 17, Alkaline Phosphatase 79, Total Protein 6.9, Albumin 4.1, Globulin 2.8, Albumin/Globulin Ratio 1.4 07/17/24 11:21: POC Glucose 93 Imaging Radiology Impression Foot X-Ray 07/16/24 16:45 IMPRESSION: No acute findings. Reading Location: [facility] Hip/Pelvis X-Ray 07/16/24 16:45 IMPRESSION: See above Reading [facility] Chest X-Ray 07/16/24 17:06 IMPRESSION: 1. Central vascular prominence without overt pulmonary edema. 2. Recommend outpatient CT chest, ideally with IV contrast for above mediastinal findings, unless prior outside imaging is available to further delineate or establish long-term stability. 3. Additional description as above. Reading Location: [id number] Independent review of right hip films denotes a displaced right femoral neck fracture with noted degenerative changes of the right hip joint Assessment & Plan Assessment/Plan (1) Fracture of femoral neck, closed: PLAN: Natural history of the disease process and treatment options were discussed the patient. We discussed nonoperative as well as operative interventions. We discussed close duction (pinning which was not recommended based on displacement the fracture pre we discussed hip total replacement versus hemiarthroplasty. Based on patient's age and overall activity level and health I did recommend total replacement as appropriate treatment option. Patient understands a higher dislocation rate with hip dislocation however better longevity. Risks and benefits of the procedure were discussed the patient clued but not limited to blood loss, DVTs, PEs, neurovascular damage, the risk of anesthesia including loss of life, dislocations, fractures and leg length discrepancies. Patient's spouse at the bedside. All parties agree. Antibiotics on-call to the operating room. Patient's been appropriate consented this time. Will proceed with surgery this evening. (2) Osteoarthritis of right hip:
[2024-07-17] MEDS: Cefazolin 2 GM in 0.9% Normal Saline (100mL Bag) 100 ML IV (16:50)
[2024-07-17] MEDS: TXA in NS 100ml (Placed in Wound) OPERA.SITE (17:05)
--- NOTE | 2024-07-17 17:25 | RAD_ITS ---
PROCEDURE: HIP 1 VIEW WITH PELVIS 07/17/2024 REASON FOR EXAM: ANTERIOR HIP TECHNIQUE: Fluoroscopy with 4 spot images right hip replacement FINDINGS: Fluoroscopy time 7.3 seconds Cumulative dose 1.12 mGy 4 spot images with right hip replacement appears intact and anatomic. No fracture or dislocation identified. RAD/Hip 1 view with Pelvis IMPRESSION: Fluoroscopy as above. Reading Location: [id number]
[2024-07-17] MEDS: JPS (Morphine 10mg/ml) OPERA.SITE (18:04)
--- NOTE | 2024-07-17 18:16 | PCM.OPRPT ---
Operative Report (Standard) Operative Information Date of Procedure: 07/17/24 Pre-Operative Diagnosis: Right displaced femoral neck fracture, right hip osteoarthritis Post-Operative Diagnosis: Right displaced femoral neck fracture, right hip osteoarthritis Surgery/Procedure Performed: Right direct anterior total hip replacement realty specialist: Yes Presidential Support Specialist: Jeronimo Barber Tasks completed by retail assistant store manager: Other (See body of operative report) Additional store administrative assistant?: No Type of Anesthesia: General RN Documented Start/Stop Times: Operation Date: 07/17/24 15:30 Case Time Into Pre-Op 07/17/24 14:39 Anesthesia Start 07/17/24 16:36 Into Room 07/17/24 16:36 Procedure Start 07/17/24 17:14 Procedure End 07/17/24 18:38 Anesthesia End 07/17/24 18:47 Out of Room 07/17/24 18:47 Into Recovery 07/17/24 18:51 Out of Recovery 07/17/24 19:47 Procedure Start Time: 17:14 Procedure Stop Time: 18:38 Select all DRAINS/GRAFTS/IMPLANTS that apply: Prosthetic device Prosthetic device details: See body of operative report Special Medications: Ancef, TXA lavage Estimated Blood Loss: 300 mL Fluids Replaced: 1500 mL crystalloid Specimen collected: Yes Description of specimen(s) removed: Femoral head and fracture Description of surgery: Components used: 1. Accolade 2 [place] femoral stem size 5/127 2. Dereje trident 2 acetabular shell size 52 mm 3. [place] X3 polyethylene E 4. [place] Biolox delta 36 mm, 5 mm femoral head Brief history operative indications: 62yo female who sustained a displaced total hip replacement with pre-existing osteoarthritis noted on x-rays. Total hip replacement was discussed with the patient with risks and benefits including but not limited to blood loss, DVTs, PEs, neurovascular damage, dislocation, general risks of anesthesia including loss of life. Patient demonstrated an understanding medical clearance is obtained the patient was consented for surgery. Procedure: On the date of procedure the patient's right hip was marked in the preoperative area. Patient was then taken back to the operating room where anesthesia assumed control of the C-spine and airway and administered anesthetic. Patient was transferred to the operating table and placed in the supine position. The hips were placed at the break of the bed and a sacral bump was placed. The right lower extremity was then prepped out in a sterile fashion using chlorhexidine while the surgeon scrubbed. The PA was vital in the positioning of the patient. Upon reentering the room the right lower extremity was draped in the standard orthopedic fashion and the incision was marked. A timeout was called and everyone agreed upon the side, the site, the procedure be performed, antibody given, and patient's identity. At this time incision was made through skin, subcutaneous tissue, and fat down to fascia. The fascia was then incised and the TFL was retracted laterally. A retractor was placed on the lateral border of the femoral neck. Attention was directed to the inferior portion of the approach and all crossing vessels were identified and appropriately coagulated. A retractor was then placed on the medial portion of the femoral neck. The anterior capsule was then cleared of all soft tissue and then H shaped capsulotomy was made. The retractors were then placed inside the capsule. The femoral neck was identified and a cleanup cut was made. At this time a power corkscrew was used to remove the femoral head. Attention was then turned toward the acetabulum where the soft tissues were appropriately retracted and the acetabulum was sequentially reamed to 52 mm. A 52 mm cup was then selected and impacted into place. Acetabular liner was impacted into place and locking mechanism was verified. The position of the acetabular cup was then verified under live fluoroscopy. Attention was then turned to the femur. Soft tissue releases on the medial and lateral femoral neck were appropriately done, the leg was externally rotated and lateralized. A Lin retractor was placed medially and proximally to the greater trochanter this allowed appropriate visualization and exposure of the femoral canal. Rongeour was then used to remove excess lateral bone. A canal finder and entry broach were used to open the proximal canal. Once we verified we were down the femoral canal we subsequently broached up to a size 5 femur. The appropriate neck was placed in the previously selected head was trialed with a 5 mm neck. Traction was pulled and the hip was reduced with internal rotation. Once it was appropriately reduced and stability was checked. There was minimal shuck, equal leg lengths and appropriate stability with hyperextension and external rotation as well as with 90? flexion and internal rotation. Fluoroscopy was then also used to verify the position of the components and leg lengths using the contralateral side for comparison. The trial components were then dislocated the proximal femur was again exposed and the components were removed from the wound. The final components were verified and opened. The wound was copiously irrigated out with normal saline. The acetabulum was checked for any residual debris. The final components were placed and impacted. Traction and internal rotation were again used to reduce the hip. After adequate reduction the hip remained stable with appropriate leg lengths. The final components were once again checked with live fluoroscopy and were found to be satisfactory. The wound was then copiously irrigated with normal saline once more, and hemostasis was obtained. Closure was then done using #1 Vicryl runner to close the fascia. A 2-0 vicryl interuppted sutures were used to close the subcutaneous skin. A 3-0 barbed Monocryl and nylon were used for final skin closure. A Silverlon dressing was placed. Patient was awakened by anesthesia and transferred to the [facility]. Patient was then transferred to the PACU for recovery. Postoperative plan: Patient will get 24 hours postop antibiotics. Patient will get in-house physical therapy and will be weight-bear as tolerated. Patient will follow up in office in 2 weeks for a wound check and x-rays. Aspirin 81 mg twice daily. During the course of the procedure the physician sticker machine operator (PE) played a vital role. Their intimate knowledge of my steps in the procedure aided in safe and expedient completion of the procedure. The PE played a vital rolls in positioning particularly in obtaining the appropriate positioning of the sacral bump. The PE was also vital in the retraction of soft tissues during the exposure and especially the femoral work as this is a vital part of the procedure to prevent complications and fractures. The PE was also vital and protecting soft tissues during times of bony cuts and reaming. He also played a vital role in closure with my direct supervision. The PE was also important during reduction and dislocation of the joint and trials intraoperatively. Surgical Findings: Complete displaced subcapital femoral neck fracture Complications Complications: No Admit VTE Documentation VTE Present on Admission: No VTE Mechan Device Prophylaxis: SCD's and Thigh High TESS Hose VTE Pharm Prophylaxis ordered?: Yes
--- NOTE | 2024-07-17 18:56 | PCM.POST.ANE ---
Anesthesia: Postop Eval I Current Vital Signs Temperature: 98.2 F Pulse Rate: 103 Blood Pressure: 154/79 Respiratory Rate: 16 Pulse Ox: 91 Assessment Airway patent: Yes Spontaneous unlabored respirations: Yes nausea: No Vomiting: No Anesthesia Complication: No Fluid Hydration Crystalloid volume administer (ml): 1,500 Total IV fluid infused: 1,500 Progress Note Anesthesia document: Postop Eval 1 completed: Yes
--- NOTE | 2024-07-17 18:57 | PCM.POSTANE2 ---
Anesthesia Postop Eval I Sum Postop Eval Completion status Anesthesia document: Postop Eval 1 completed: Yes Anesthesia Postop Eval I Summary Anesthesia Postop Eval I Summary: Anesthesia Postop Eval I: Assessment Summary Airway patent Yes 07/17/24 18:56 Spontaneous unlabored Yes 07/17/24 18:56 respirations Mental status Awake,Calm 07/17/24 14:44 BERNARD nausea No 07/17/24 18:56 Vomiting No 07/17/24 18:56 Anesthesia Postop Eval I: Fluid Summary Crystalloid volume administer 1,500 07/17/24 18:56 (ml) Colloids volume administered ( ml) Blood Product volume administered (ml) Total IV fluid infused 1,500 07/17/24 18:56 Anesthesia Postop Eval I: Summary Notes Anesthesia Complication No 07/17/24 18:56 Anesthesia Complication Comment: Post-operative progress note Anesthesia: Postop Eval II Evaluation Mental status: Awake Pain Level: 0 nausea: No Vomiting: No
--- NOTE | 2024-07-17 19:00 | RAD_ITS ---
PROCEDURE: HIP MIN 2 VIEWS (PORTABLE) 07/17/2024 REASON FOR EXAM: POST OP TECHNIQUE: Two views of the right hip COMPARISON: Right hip radiographs 07/17/2024 FINDINGS: See below. RAD/Hip Min 2 Views (Portable) IMPRESSION: Interval postoperative changes from right total hip arthroplasty, without immed iate hardware complication. Soft tissues are unremarkable. Degenerative changes of the left hip. Reading Location: [facility]
--- NOTE | 2024-07-17 19:26 | PN.HOSP_ITS ---
Reason for Visit Reason for Visit: Diagnoses Unilateral primary osteoarthritis, right hip (07/16/24) Fracture of unspecified part of neck of unspecified femur, initial encounter for closed fracture (07/16/24) Unspecified fall, initial encounter (07/16/24) Subjective Subjective Patient was examined today, her daughter was in the room at the time my examination, patient underwent a right direct anterior total hip replacement today. Patient's insurance will will not approve her to go to the rehab unit at [facility], patient feels that she would like to go home with possible, she may have to go to TCU for rehab services if she does not do well. Objective Data Objective Data Vital Signs: Vital Signs Temp Pulse Resp BP Pulse Ox O2 Del Method O2 Flow Rate 98.2 F 95 16 115/68 96 Nasal Cannula 2 07/17/24 18:56 07/17/24 19:15 07/17/24 19:15 07/17/24 19:15 07/17/24 19:15 07/17/24 19:15 07/17/24 19:15 Oxygen Flow Rate (L/min) 2 Oxygen Delivery Method Nasal Cannula Weight: 92.5 kg Body Mass Index (BMI) 30.2 Intake & Output: Intake and Output for Last 24 Hours 07/15/24 07/16/24 07/17/24 23:59 23:59 23:59 Intake Total 0 / 0 110 / 110 Output Total 600 / 600 500 / 500 Balance -600 / -600 -390 / -390 Lab / Micro Data 07/17/24 04:19 07/17/24 04:19 Labs: Laboratory Results - last 24 hr 07/16/24 20:42: POC Glucose 106 07/16/24 21:00: Sodium 135, Potassium 3.9, Chloride 98, Carbon Dioxide 25.6, Anion Gap 11, BUN 15, Creatinine 0.91, Estim Creat Clear Calc 72.65, Est GFR (MDRD) Non-Af 69, BUN/Creatinine Ratio 16.6, Glucose 139 H, Calcium 9.4, Troponin T Hi Sens 2 Hr 6 07/16/24 23:00: Troponin T Hi Sens 4Hr < 6 07/17/24 04:19: WBC 7.3, RBC 4.69, Hgb 13.4, Hct 39.7, MCV 84.6, MCH 28.6, MCHC 33.8, RDW Std Deviation 37.2, RDW Coeff of Juany 12.4, Plt Count 194, MPV 9.2, Immature Gran % (Auto) 0.300, Neut % (Auto) 75.8 H, Lymph % (Auto) 16.6 L, [place] % (Auto) 6.8, Eos % (Auto) 0.1, Baso % (Auto) 0.4, Absolute Neuts (auto) 5.6, Absolute Lymphs (auto) 1.22, Nucleated RBC % 0, Sodium 133, Potassium 3.9, Chloride 100, Carbon Dioxide 22.1, Anion Gap 11, BUN 14, Creatinine 0.80, Estim Creat Clear Calc 82.65, Est GFR (MDRD) Non-Af 81, BUN/Creatinine Ratio 17.5, G lucose 118 H, Hemoglobin A1c 5.3, Calcium 9.4, Total Bilirubin 0.62, AST 27, ALT 17, Alkaline Phosphatase 79, Total Protein 6.9, Albumin 4.1, Globulin 2.8, Albumin/Globulin Ratio 1.4 07/17/24 11:21: POC Glucose 93 Physical Exam Const alert, oriented x3, no apparent distress and healthy appearing General Appearance: cooperative, well kempt and well developed Orientation / Consciousness: awake, oriented to person, oriented to place and oriented to time HEENT normocephalic, head/scalp atraumatic and moist oral mucous membranes Eyes PERRL, EOMs intact bilaterally and conjunctivae normal Neck supple, no JVD, thyroid normal and no carotid bruits General: trachea midline Resp normal respiratory effort, no retractions, no use of accessory muscles and clear to auscultation bilaterally Auscultation: Negative for rales, rhonchi or wheezes Cardio regular rate, regular rhythm, S1 normal heart sound, S2 normal heart sound, no murmurs, no rub and no gallops GI normal to inspection, nondistended, normoactive bowel sounds, soft to palpation, non-tender and non-distended Extremity no clubbing, cyanosis or edema Skin no rashes or lesions noted General Skin Exam: no breakdown Neuro oriented x3, CN's II-XII intact bilaterally, moves all extremities, no focal motor deficits and no sensory deficits noted Sensorium / Orientation: awake and alert Speech: speech normal Psych affect normal Assessment & Plan Assessment/Plan (1) Fracture of femoral neck, closed: PLAN: Plan 1. Fracture of the femoral neck-patient is expected to undergo surgery today, PT and OT will see the patient afterwards and patient may need temporary placement in a [facility] facility #2 essential hypertension-patient will remain on her present medications, the blood pressure medicines will be adjusted as needed #3 hyperlipidemia-patient is on Crestor as an outpatient, she will receive atorvastatin Total clinical time spent by myself addressing the patient's medical issues, reviewing all of his data, and collaborating with patient's care team: 35 minutes Charges/Coding Visit Charges Inpatient E&M: 33144 Subs Hosp L2
[2024-07-17] MEDS: Senna/Docusate Sodium 1 Tablet 2 TABLET PO (22:41)
[2024-07-17] MEDS: Acetaminophen 500 MG Tablet 1000 MG PO (22:41)
[2024-07-17] MEDS: Atorvastatin Calcium 40 MG Tablet PO (22:41)
[2024-07-17] MEDS: Lisinopril 40 MG Tablet PO (22:42)
[2024-07-17] MEDS: Pantoprazole Sodium 40 MG Tablet PO (22:42)
[2024-07-17] MEDS: Aspirin 81 MG TAB.CHEW PO (22:44)
[2024-07-17 23:18] LABS: Bedside Glucose 136 mg/dL (74-106)
[2024-07-18] VITALS (8 sets, daily range): BP systolic 125–137; BP diastolic 62–82; PULSE 67–78; RESP 16–18; TEMP 36.5–36.9; O2SAT 92–97; BMI 30.7
[2024-07-18] MEDS: Cefazolin 1 GM/50 ML BAG IV ×2 (01:20→08:39)
[2024-07-18] MEDS: Acetaminophen 500 MG Tablet 1000 MG PO ×3 (05:48→20:48)
[2024-07-18] MEDS: oxyCODONE 5 MG Tablet 2.5 MG PO (06:05)
[2024-07-18] MEDS: Senna/Docusate Sodium 1 Tablet 2 TABLET PO ×2 (08:30→20:48)
[2024-07-18] MEDS: Metoprolol(XL)Succ 25 MG Tablet 75 MG PO (08:30)
[2024-07-18] MEDS: Pantoprazole Sodium 40 MG Tablet PO (08:30)
[2024-07-18] MEDS: Lisinopril 40 MG Tablet PO (08:31)
[2024-07-18] MEDS: Famotidine 20 MG Tablet PO (08:32)
[2024-07-18] MEDS: Aspirin 81 MG TAB.CHEW PO ×2 (08:32→16:49)
[2024-07-18] MEDS: Ensure Surgery 237 ML LIQUID PO ×3 (08:39→16:49)
--- NOTE | 2024-07-18 13:30 | CASEMGMT ---
Social Work- SW met with pt to discuss discharge planning. Pt reports that she feels comfortable d/c home to [facility], which is a ranch-style home and accessible. Pt reports that she has a shower chair, elevated toilet seat, walker, and cane at that home from a prior knee surgery. Pt reports that she has a PT that she has worked with in the past. Pt would like to stay until tomorrow so that her can get everything ready today & to ensure that pain will not increase throughout the day to an unmanageable level. AMANUEL collaborated with RNCM for OP script. Pt reports no other needs at this time. KUSH Godoy
--- NOTE | 2024-07-18 13:43 | PN.HOSP_ITS ---
Reason for Visit Reason for Visit: Diagnoses Unilateral primary osteoarthritis, right hip (07/16/24) Fracture of unspecified part of neck of unspecified femur, initial encounter for closed fracture (07/16/24) Unspecified fall, initial encounter (07/16/24) Subjective Subjective Patient was seen and examined today, she states that she has been getting around pretty well since her hip replacement. She would like to be discharged early in the morning so that she can drive to [place] to her old house. Patient will be reevaluated in the morning for possible discharge. Objective Data Objective Data Vital Signs: Vital Signs Temp Pulse Resp BP Pulse Ox O2 Del Method O2 Flow Rate 98.1 F 67 16 126/65 H 94 Room Air 2 07/18/24 11:24 07/18/24 11:24 07/18/24 11:24 07/18/24 11:24 07/18/24 11:24 07/18/24 11:24 07/17/24 20:08 Oxygen Flow Rate (L/min) 2 Oxygen Delivery Method Room Air Weight: 94 kg Body Mass Index (BMI) 30.7 Intake & Output: Intake and Output for Last 24 Hours 07/16/24 07/17/24 07/18/24 23:59 23:59 23:59 Intake Total 0 / 0 1110 / 1110 1850 / 1850 Output Total 600 / 600 775 / 775 600 / 600 Balance -600 / -600 335 / 335 1250 / 1250 Lab / Micro Data 07/17/24 04:19 07/17/24 04:19 Labs: Laboratory Results - last 24 hr 07/17/24 22:40: POC Glucose 136 H Radiography Diagnostic Testing: Radiology Impression Hip/Pelvis X-Ray 07/17/24 17:25 IMPRESSION: Fluoroscopy as above. Reading Location: [id number] Hip X-Ray 07/17/24 19:00 IMPRESSION: Interval postoperative changes from right total hip arthroplasty, without immediate hardware complication. Soft tissues are unremarkable. Degenerative changes of the left hip. Reading Location: [id number] Physical Exam Const alert, oriented x3, no apparent distress, average body habitus and healthy appearing General Appearance: cooperative, well kempt and well developed Orientation / Consciousness: awake, oriented to person, oriented to place and oriented to time HEENT normocephalic, head/scalp atraumatic and moist oral mucous membranes Eyes PERRL, EOMs intact bilaterally and conjunctivae normal Neck supple, no JVD, thyroid normal and no carotid bruits General: trachea midline Resp normal respiratory effort, no retractions, no use of accessory muscles and clear to auscultation bilaterally Auscultation: Negative for rales, rhonchi or wheezes Cardio regular rate, regular rhythm, S1 normal heart sound, S2 normal heart sound, no murmurs, no rub and no gallops GI normal to inspection, nondistended, normoactive bowel sounds, soft to palpation, non-tender and non-distended Extremity no clubbing, cyanosis or edema Skin no rashes or lesions noted General Skin Exam: no breakdown Neuro oriented x3, CN's II-XII intact bilaterally, no focal motor deficits and no sensory deficits noted Sensorium / Orientation: awake and alert Speech: speech normal Psych affect normal Assessment & Plan Assessment/Plan (1) Osteoarthritis of right hip: (2) Fracture of femoral neck, closed: PLAN: Plan 1. Fracture of the right femoral neck-patient underwent a total hip replacement, PT and OT will see the patient afterwards- patient would like to be discharged home rather than go to a rehab facility for short-term rehab #2 essential hypertension-patient will remain on her present medications, the blood pressure medicines will be adjusted as needed #3 hyperlipidemia-patient is on Crestor as an outpatient, she will receive atorvastatin Total clinical time spent by myself addressing the patient's medical issues, reviewing all of his data, and collaborating with patient's care team: 35 minutes Charges/Coding Visit Charges Inpatient E&M: 75267 Subs Hosp L2
--- NOTE | 2024-07-18 14:43 | PN.ORTHO_ITS ---
Subjective Subjective Patient doing well. No acute events overnight. Medically stable. Discussed case with medicine physician. Plan for discharge likely home tomorrow morning. Objective Data Objective Data Vital Signs: Vital Signs Temp Pulse Resp BP Pulse Ox O2 Del Method O2 Flow Rate 97.9 F 77 16 134/62 H 94 Room Air 2 07/18/24 14:25 07/18/24 14:25 07/18/24 14:25 07/18/24 14:25 07/18/24 14:25 07/18/24 14:07/17/24 20:08 Oxygen Flow Rate (L/min) 2 Oxygen Delivery Method Room Air Weight: 207 lb 3.752 oz Body Mass Index (BMI) 30.7 Intake & Output: Intake and Output for Last 24 Hours 07/16/24 07/17/24 07/18/24 23:59 23:59 23:59 Intake Total 0 / 0 1110 / 1110 1850 / 1850 Output Total 600 / 600 775 / 775 600 / 600 Balance -600 / -600 335 / 335 1250 / 1250 Lab / Micro Data Attestation: I reviewed the patient's lab results. 07/17/24 04:19 07/17/24 04:19 Labs: Laboratory Results - last 24 hr 07/17/24 22:40: POC Glucose 136 H Radiography Diagnostic Testing: Radiology Impression Hip/Pelvis X-Ray 07/17/24 17:25 IMPRESSION: Fluoroscopy as above. Reading Location: [facility] Hip X-Ray 07/17/24 19:00 IMPRESSION: Interval postoperative changes from right total hip arthroplasty, without immediate hardware complication. Soft tissues are unremarkable. Degenerative changes of the left hip. Reading Location: [id number] Physical Exam Narrative Right lower extremity: Dressing is clean dry and intact Sensations intact to light touch saphenous, sural, superficial peroneal, deep peroneal, and tibial distributions Motors intact EHL, DF, PF calves are soft and supple Const alert, oriented x3 and no apparent distress Assessment & Plan Assessment/Plan (1) Fracture of femoral neck, closed: PLAN: Postop day 1 direct anterior total replacement right side 1. Pain control: Patient is currently control, primary service manage pain 2. DVT prophylaxis: Patient is currently on aspirin 81 mg p.o. twice daily for DVT prophylaxis continue for 4 weeks postoperatively 3. Physical therapy: Patient is weight-bear as tolerated 4. Disposition: Patient be ready for discharge when medically stable. No further orthopedic intervention needed. Patient should follow-up in the office in 2 weeks. Patient should be set up for outpatient physical therapy upon discharge. Patient can remove dressing on postop day 5. If waterproof dressing remains in place patient can continue to shower. If dressing has to be changed to a nonocclusive dressing discontinue showering till incision is clean dry and intact. Sutures or placido to be removed on postop day 14 this will likely be done in the office at the 2-week postoperative visit. Recommend Ensure type supplements upon discharge till wound is adequately healed. Recommend stool softener upon discharge until bowel movements are regular. Recommend probiotic upon discharge. Please contact orthopedics with any further questions or concerns.
[2024-07-18] MEDS: Atorvastatin Calcium 40 MG Tablet PO (20:48)
[2024-07-19] MEDS: oxyCODONE 5 MG Tablet 2.5 MG PO ×2 (00:35→09:28)
[2024-07-19] MEDS: Acetaminophen 500 MG Tablet 1000 MG PO (05:05)
[2024-07-19 05:40] VITALS: BP 141/63; PULSE 72; RESP 16; TEMP 36.6; O2SAT 96
--- NOTE | 2024-07-19 07:52 | DCINST_ITS ---
Discharge Instructions Diet Discharge Diet: No restrictions DC O2, CPAP, BIPAP needs Home O2 Discharge instructions: No Dressing / Incision Discharge Activity: Return to Normal Activity Weight Bearing Status: Weight bearing as tolerated Follow Up Care Test Results: Test results from this visit will be discussed in further detail at your follow- up appointment, if applicable. Discharge Plan Admission Admit Date/Time: 07/16/24 18:10 Primary Reason for Your Visit: right hip fracture Attending Provider: Conor Noland Primary Care Provider: BEVERLEY WALKER Consulting Providers: Eloy Hamm; Mayi Avendaño Instructions Additional Instructions / Restrictions: Remove dressing on postop day 5, if waterproof dressing remains in place you can continue to shower. If dressing is to be changed to a nonocclusive dressing, discontinue showering until incision is clean and dry Recommend you take Os-Erich 600 (or generic equivalent) twice a day Advise you consider not taking your diclofenac while you are on 1 aspirin twice a day, you can resume it after you finish the aspirin You will need to call Dr. Hamm's office next week and have them set up physical therapy for you, tell them you were released on a Saturday and physical therapy was not set up for you Discharge Orders/Prescriptions Prescriptions: New acetaminophen 500 mg Tablet 1,000 mg PO Q8 Qty: 0 0RF aspirin 81 mg Tablet,Chewable 81 mg PO BIDCM Qty: 0 0RF Rx Instructions: Continue x 30 days then discontinue oxycodone 5 mg Tablet 5 mg PO Q4H PRN PRN (Reason: Pain Score 4-10) 7 Days Qty: 20 0RF Continued metoprolol succinate 50 mg tablet extended release 24 hr 75 mg PO DAILY pantoprazole 40 mg tablet,delayed release (DR/EC) 40 mg PO DAILY diclofenac sodium 50 mg tablet,delayed release (DR/EC) 50 mg PO BID lisinopril 40 mg tablet 40 mg PO DAILY Zepbound 5 mg/0.5 mL pen injector 5 mg SUBCUT QWEEK Patient Comments: [NO ORIGINAL SIG] rosuvastatin 20 mg tablet 20 mg PO QHS Referrals / Follow Up: BEVERLEY WALKER [Other] BEVERLEY WALKER [Other] Eloy Hamm MD [Med Staff - Active Staff] - See Referral Note (In 2 weeks, call for an appointment) Disposition Disposition (needs filled in before D/C Order can be placed): Home, Self Care
--- NOTE | 2024-07-19 08:08 | PCM.DC.SUM ---
Providers Date of Admission: 07/16/24 Date of Discharge: 07/19/24 Primary Care Physician: BEVERLEY WALKER Consultations 07/16/24 19:37 Consult: Orthopedics Routine Consulting Provider: Eloy Hamm Reason for Consult: Fall, hip fracture EMERGENT Consult: No MD Notified: Yes Date Notified: 07/16/24 Time Notified: 18:12 Method of Notification: ED Physician Initiated Reason For Visit: FALL, HIP FRACTURE Diagnosis Discharge Diagnosis (1) Fracture of femoral neck, closed: Status: Acute Code(s): S72.009A - Fracture of unspecified part of neck of unspecified femur, initial encounter for closed fracture Plan 1. Fracture of the right femoral neck secondary to osteoporosis-patient underwent a total hip replacement, PT and OT will see the patient afterwards- patient would like to be discharged home rather than go to a rehab facility for short-term rehab #2 essential hypertension-patient will remain on her present medications, the blood pressure medicines will be adjusted as needed #3 hyperlipidemia-patient is on Crestor as an outpatient, she will receive atorvastatin #4 osteoarthritis Total clinical time spent by myself addressing the patient's medical issues, reviewing all of his data, and collaborating with patient's care team: 35 minutes Medications at Discharge Home Medications diclofenac sodium 50 mg tablet,delayed release 50 mg PO BID 07/16/24 lisinopril 40 mg tablet 40 mg PO DAILY 07/16/24 metoprolol succinate 50 mg tablet,extended release 24 hr 75 mg PO DAILY 07/16/24 pantoprazole 40 mg tablet,delayed release 40 mg PO DAILY 07/16/24 rosuvastatin 20 mg tablet 20 mg PO QHS 07/16/24 tirzepatide (weight loss) 5 mg/0.5 mL subcutaneous pen injector (Zepbound) 5 mg subcut QWEEK 07/16/24 acetaminophen 500 mg tablet 1,000 mg (2 x 500 mg) PO Q8 #0 tabs 07/19/24 aspirin 81 mg chewable tablet 81 mg PO BIDCM #0 tabs 07/19/24 oxycodone 5 mg tablet 5 mg PO Q4H PRN PRN Pain Score 4-10 7 days #20 tabs 07/19/24 Hospital Course Operations - (Right hip arthroplasty) Procedures None Summary of Care Provided Minutes Spent on Discharge: 31 Hospital Course: This 69-year-old white female was seen in the emergency room at [facility] after suffering a fall at home, patient been walking backwards with a chair and fell striking her right hip. She was unable to bear weight and had severe pain in her right hip. Examination in the ER included x-rays of the right hip which showed a femoral neck fracture along with osteoarthritis. Patient was admitted to [place] [id number] and seen in consultation by orthopedic surgery, patient underwent a right hip arthroplasty-there were no complications and the patient did well postop. On 07/19/2024, patient was seen and examined: On examination she appeared in good health and spirits, she does not appear to be in any distress. Vital signs as documented. Skin warm and dry and without overt rashes. Neck without JVD, thyroid appears normal, trachea is midline, neck is supple. Lungs clear, normal air movement was noted. Heart exam notable for regular rhythm, normal sounds and absence of murmurs, rubs or gallops. Abdomen unremarkable and without evidence of organomegaly, masses, or abdominal aortic enlargement, bowel sounds are present in all 4 quadrants, no abdominal tenderness was noted. Extremities nonedematous, no cyanosis was noted, no clubbing was noted. Neuro: Cranial nerves II through XII are grossly intact, no focal motor deficits were noted, sensation to light touch and pinprick is intact, motor exam 5/5 throughout. Psych: Patient is alert and oriented x3, she does not appear anxious or depressed, she does not appear agitated. Patient was discharged in stable condition on 07/19/2024 to home. Weight / BMI Weight Weight: 94 kg Body Mass Index (BMI) 30.7 ABG / Lab / Microbiology Data 07/17/24 04:19 07/17/24 04:19 D/C Instructions Discharge Diet: No restrictions Weight Bearing Status: Weight bearing as tolerated DC O2, CPAP, BIPAP Needs Home O2 Discharge instructions: No Meaningful Use Info Meaningful Use Meaningful Use Diagnoses (Choose all that apply): None applicable Ischemic Stroke Statin Dosing Therapy Reference: STATIN DOSE THERAPY REFERENCE: * Patients > 75 years receive moderate or high dose statin therapy. * Patients 75 years or YOUNGER should receive HIGH intensity statin dose unless contraindicated. You will be required to document reason for non-treatment if statin daily dose does not meet guidelines. HIGH DOSE STATIN THERAPY DAILY Atorvastatin > than or = to 40 mg Rosuvastatin > than or = to 20 mg Amlodipine + Atorvastatin > than or = to 2.5/40 mg Ezetimibe + Simvastatin 10/80 mg Simvastatin 80mg Discharge Plan Admission Admit Date/Time: 07/16/24 18:10 Primary Reason for Your Visit: right hip fracture Attending Provider: Conor Noland Primary Care Provider: BEVERLEY WALKER Consulting Providers: Eloy Hamm; Mayi Avendaño Instructions Additional Instructions / Restrictions: Remove dressing on postop day 5, if waterproof dressing remains in place you can continue to shower. If dressing is to be changed to a nonocclusive dressing, discontinue showering until incision is clean and dry Recommend you take Os-Erich 600 (or generic equivalent) twice a day Advise you consider not taking your diclofenac while you are on 1 aspirin twice a day, you can resume it after you finish the aspirin You will need to call Dr. Hamm's office next week and have them set up physical therapy for you, tell them you were released on a Saturday and physical therapy was not set up for you Discharge Orders/Prescriptions Prescriptions: New acetaminophen 500 mg Tablet 1,000 mg PO Q8 Qty: 0 0RF aspirin 81 mg Tablet,Chewable 81 mg PO BIDCM Qty: 0 0RF Rx Instructions: Continue x 30 days then discontinue oxycodone 5 mg Tablet 5 mg PO Q4H PRN PRN (Reason: Pain Score 4-10) 7 Days Qty: 20 0RF Continued metoprolol succinate 50 mg tablet extended release 24 hr 75 mg PO DAILY pantoprazole 40 mg tablet,delayed release (DR/EC) 40 mg PO DAILY diclofenac sodium 50 mg tablet,delayed release (DR/EC) 50 mg PO BID lisinopril 40 mg tablet 40 mg PO DAILY Zepbound 5 mg/0.5 mL pen injector 5 mg SUBCUT QWEEK Patient Comments: [NO ORIGINAL SIG] rosuvastatin 20 mg tablet 20 mg PO QHS Referrals / Follow Up: BEVERLEY WALKER [Other] BEVERLEY WALKER [Other] Eloy Hamm MD [Med Staff - Active Staff] - See Referral Note (In 2 weeks, call for an appointment) Disposition Disposition (needs filled in before D/C Order can be placed): Home, Self Care Charges/Coding Visit Charges Inpatient E&M: 54982 Disch Hosp >30min
[2024-07-19 09:02] VITALS: BP 120/52; PULSE 77; RESP 18; TEMP 36.7; O2SAT 97
[2024-07-19 09:08] VITALS: BP 120/52; PULSE 77; RESP 18; TEMP 36.7; O2SAT 97
[2024-07-19] MEDS: Famotidine 20 MG Tablet PO (09:12)
[2024-07-19 09:13] VITALS: PULSE 77
[2024-07-19] MEDS: Metoprolol(XL)Succ 25 MG Tablet 75 MG PO (09:13)
[2024-07-19] MEDS: Meloxicam 7.5 MG Tablet PO (09:13)
[2024-07-19] MEDS: Aspirin 81 MG TAB.CHEW PO (09:13)
[2024-07-19] MEDS: Lisinopril 40 MG Tablet PO (09:14)
[2024-07-19] MEDS: Ensure Surgery 237 ML LIQUID PO (09:15)
[2024-07-19] MEDS: Pantoprazole Sodium 40 MG Tablet PO (09:15)
== END 2024-07-19 09:58 | disposition home or self-care (01) | DRG 522 ==
LOC: ED 17:23 → MS3 19:09
PROVIDERS: Specialist; Admitting Provider Family Medicine; Emergency Provider Emergency Medicine; Visit Provider Internal Medicine
PROC: 0SR904A Replacement of Right Hip Joint with Ceramic on Polyethylene Synthetic Substitute, Uncemented, Open Approach (ICD-10-PCS; CPT 27284; principal; 2024-07-17 15:05)
DX: S72.001A Fracture of unspecified part of neck of right femur, initial encounter for closed fracture (principal); E66.9 Obesity, unspecified; I10 Essential (primary) hypertension; E78.00 Pure hypercholesterolemia, unspecified; K21.9 Gastro-esophageal reflux disease without esophagitis; W10.9XXA Fall (on) (from) unspecified stairs and steps, initial encounter; M16.11 Unilateral primary osteoarthritis, right hip; Z79.899 Other long term (current) drug therapy; Z68.32 Body mass index [BMI] 32.0-32.9, adult
CPT/HCPCS: 36415; 71045; 73501; 73502; 73630; 76000; 80048; 80053; 82962; 83036; 84484; 85025; 86850; 86900; 86901; 88304; 88307; 88311; 93005; 94668; 97116; 97162; 97165; 97530; 97535; 99285; C1776; A4216; J2405

== ENCOUNTER 2024-07-31 16:27 | Emergency (ER) | payer OTHER, SELFPAY ==
[2024-07-31] VITALS (7 sets, daily range): BP systolic 148–208; BP diastolic 72–97; PULSE 69–80; RESP 12–18; TEMP 36.8–36.9; O2SAT 89–100; BMI 35.9
--- NOTE | 2024-07-31 16:45 | ED.VIS.LOWEX ---
HPI History of Present Illness Chief Complaint: Lower Extremity Injury Detail of Chief Complaint: Right hip dislocation Informant: patient Narrative Narrative: Patient presents the emergency department complaint of right hip dislocation. Patient states that she was sitting in a chair when it spontaneously popped out of place. She complaining of pain. EMS was called and brought her to the ER to be evaluated. Patient states that she fell and broke her hip about 2 weeks ago and it was repaired by Dr. Hamm at our facility. Patient also lives in [facility] and dislocated the hip 2 days ago and went to their local facility where she had it reduced. Patient had a visit with orthopedics this morning where they took her stitches out. They repeated the x-ray this morning and apparently all looked well. [facility] Medical History Non-smoker Hypertension History of diabetes mellitus Obesity GERD (gastroesophageal reflux disease) HLD (hyperlipidemia) Hypertension Home Medications ?Medication ?Instructions ?Recorded ?Last Taken ?Type diclofenac sodium 50 mg 50 mg PO BID 07/16/24 07/16/24 History tablet,delayed release lisinopril 40 mg tablet 40 mg PO DAILY 07/16/24 07/16/24 History metoprolol succinate 50 mg 75 mg PO DAILY 07/16/24 07/16/24 History tablet,extended release 24 hr pantoprazole 40 mg tablet,delayed 40 mg PO DAILY 07/16/24 07/16/24 History release rosuvastatin 20 mg tablet 20 mg PO QHS 07/16/24 07/16/24 History tirzepatide (weight loss) 5 mg/0.5 5 mg subcut QWEEK 07/16/24 07/13/24 History mL subcutaneous pen injector (Zepbound) acetaminophen 500 mg tablet 1,000 mg (2 x 500 mg) PO Q8 #0 tabs 07/19/24 Unknown Rx aspirin 81 mg chewable tablet 81 mg PO BIDCM #0 tabs 07/19/24 Unknown Rx oxycodone 5 mg tablet 5 mg PO Q4H PRN PRN Pain Score 07/19/24 Unknown Rx 4-10 7 days #20 tabs Allergy/AdvReac Type Severity Reaction Status Date / Time No Known Allergies Allergy Verified 07/31/24 16:32 Family History Mother MORENO (nonalcoholic steatohepatitis) Heart failure Hypertension Heart disease Father Heart disease Hypertension CAD (coronary artery disease) Myocardial infarction Surgical History H/O wrist surgery History of hysterectomy History of left knee replacement S/P left knee arthroscopy Social History household members: spouse Smoking Status: Never smoker alcohol intake: never substance use type: does not use ROS ROS ED Review of Systems ROS Unobtainable: other Constitutional Constitutional ED: Reports lethargy; Denies chills, fever(s), sweats or weight loss Eyes Eyes: Denies blurry vision, change in vision or diplopia ENT ENT ED: Denies rhinorrhea or sore throat Cardiovascular Cardiovascular: Denies chest pain, orthopnea or racing heartbeat Respiratory/Chest Respiratory/Chest: Denies cough, dyspnea, dyspnea on exertion, orthopnea or sputum Gastrointestinal Gastrointestinal: Denies abdominal pain, diarrhea, nausea or vomiting Genitourinary Genitourinary ED: Denies dysuria, hematuria or urinary frequency Musculoskeletal Musculoskeletal: Reports other Details: Right hip dislocation/pain ; Denies arthralgias, back pain, myalgias or neck pain Integumentary Denies abscess, Abrasions or rash Neurologic Neurologic: Denies headache(s) or weakness Psychiatric Psychiatric: Denies anxiety, depression or suicidal thoughts Endocrine Endocrinology: Denies polydipsia, polyphagia or polyuria Hematologic/Lymphatic Hematologic/Lymphatic: Denies easy bleeding, easy bruising or lymphadenopathy Allergic/Immunologic Allergic/Immunologic ED: Denies mouth swelling, tongue swelling or urticaria EXAM Physical Exam Const Vital Signs: 07/31/24 16:28 07/31/24 17:20 07/31/24 17:20 Temperature 98.2 F 98.5 F Temperature Source Oral Pulse Rate 69 73 Respiratory Rate 18 16 Blood Pressure 191/93 H 191/87 H Blood Pressure Mean 125 Baseline BP 191/87 Pulse Ox 98 100 Oxygen Delivery Method Room Air Nasal Cannula Oxygen Flow Rate (L/min) 2 EtCo2 - Document during CPR and with ROSC 38 42 Positive well nourished and well developed General Appearance ED: well developed and NAD HEENT Reports TM's clear and moist mucous membranes normocephalic and atraumatic; Negative for trauma or tenderness Tympanic Membrane ED: Yes TM's clear Eyes PERRL and EOMs intact bilaterally General Eye ED: Negative for pale conjunctiva or scleral icterus Neck no lymphadenopathy, supple and no JVD General: Negative for tenderness Chest Wall inspection of chest normal and palpation of chest normal Chest: Negative for tenderness Resp normal respiratory effort and clear to auscultation bilaterally Effort and Inspection: Negative for respiratory distress or pain with movement Auscultation: Negative for rhonchi, wheezes or diminished lung sounds Cardio regular rate, regular rhythm, S1 normal heart sound, S2 normal heart sound and no murmurs Peripheral Pulses: pulses 2+ throughout GI normal to inspection, nondistended, normoactive bowel sounds, soft to palpation, non-tender, non-distended and no masses Back/Spine no CVA tenderness and no thoracic nor lumbar tenderness Extremity Extremity Narrative: Right hip-right lower extremity held flexed at the hip and the knee is flexed. Pain with range of motion. Neurovascular intact distally. General Extremety ED: Negative for edema General Extremity: Negative for edema Neuro oriented x3, CN's II-XII intact bilaterally, no sensory deficits noted and gait normal Sensorium / Orientation: awake, alert, oriented to person, oriented to place and oriented to time Motor Exam: strength 5/5 throughout and strength abnormal Psych mental status grossly normal Skin no rashes or lesions noted and no wounds MDM MDM MDM Narrative Medical decision making narrative: Patient presents with a dislocated right hip with prior dislocation 2 days ago. Clinically dislocated. X-rays obtained does show dislocation. Patient was consented for procedural sedation. She was given propofol 120 mg IV. She had good sedation. Dr. Chambers help reduce the hip with gentle traction was easily reduced. Patient tolerated procedure well. Post reduction x-rays obtained showed good reduction without fractures. Discussed case with Dr. Serrato. Will place patient in knee immobilizer and advised to sit as high as possible when seated and follow-up with Dr. Hamm in the office in 3 days. Lab Data Attestation: I reviewed the patient's lab results. Radiography Diagnostic Testing: Three-view x-rays of the right hip and pelvis obtained interpreted by myself is dislocation of the prosthetic hip. No fractures noted. Radiology in agreement. 2 view x-rays postreduction x-rays of the right hip obtained interpreted by myself is good reduction without periprosthetic fractures. Radiology in agreement. Procedures Procedural Sedation 1 (Initial Baseline): Consent Signed: Yes Any Problems With Anesthesia: No You/Your family experience fever (hyperthermia) w/anesthesia: No Sedation medication: Propofol Dose: 120 Route: IV Maliampati Score: Class II ASA Classification: II Discharge Plan Triage Chief Complaint: Lower Extremity Injury ED Provider: Arelis Silva Dx/Rx/DC Orders Clinical Impression: Dislocation, hip Instructions: ED Hip Replace Dislocation Reduc Prescriptions: No Action metoprolol succinate 50 mg tablet extended release 24 hr 75 mg PO DAILY pantoprazole 40 mg tablet,delayed release (DR/EC) 40 mg PO DAILY diclofenac sodium 50 mg tablet,delayed release (DR/EC) 50 mg PO BID lisinopril 40 mg tablet 40 mg PO DAILY Zepbound 5 mg/0.5 mL pen injector 5 mg SUBCUT QWEEK Patient Comments: [NO ORIGINAL SIG] rosuvastatin 20 mg tablet 20 mg PO QHS acetaminophen 500 mg Tablet 1,000 mg PO Q8 Qty: 0 0RF aspirin 81 mg Tablet,Chewable 81 mg PO BIDCM Qty: 0 0RF Rx Instructions: Continue x 30 days then discontinue oxycodone 5 mg Tablet 5 mg PO Q4H PRN PRN (Reason: Pain Score 4-10) 7 Days Qty: 20 0RF Primary Care Provider: BEVERLEY WALKER Referrals: BEVERLEY WALKER [Other] Eloy Hamm MD [Med Staff - Active Staff] - 3-5 Days Print Language: Macedonian Disposition Disposition: Home, Self Care
--- NOTE | 2024-07-31 16:55 | RAD_ITS ---
PROCEDURE: HIP, UNI W/ PELVIS 2-3 VIEWS 07/31/2024 REASON FOR EXAM: DISSLOCATION TECHNIQUE: Three views of the right hip. COMPARISON: None. FINDINGS: Right hip arthroplasty. Dislocated femoral component. Mild degenerative changes of the left hip. Partially visualized degenerative changes of the spine. No evidence of acute fracture or dislocation. RAD/HIP, UNI W/ Pelvis 2-3 Views IMPRESSION: Right hip arthroplasty with dislocated femoral component. Reading Location: [id number]
[2024-07-31] MEDS: Morphine 4 MG/ML Syringe IV (17:24)
[2024-07-31] MEDS: Propofol 200 MG/20 ML Vial IV BOLUS (17:28)
--- NOTE | 2024-07-31 17:45 | RAD_ITS ---
PROCEDURE: HIP MIN 2 VIEWS (PORTABLE) 07/31/2024 REASON FOR EXAM: POST REDUCTION TECHNIQUE: One (1) view of the right hip COMPARISON: 07/31/2024 RAD/Hip Min 2 Views (Portable) IMPRESSION: Total right hip prosthesis status post reduction with interval resolution of pr osthetic dislocation. No hardware complications. No acute fracture or dislocations. Reading Location: [id number]
== END 2024-07-31 18:19 | disposition home or self-care (01) ==
PROVIDERS: Emergency Provider Emergency Medicine; Visit Provider Emergency Medicine
DX: S73.004A Unspecified dislocation of right hip, initial encounter (principal); E11.9 Type 2 diabetes mellitus without complications; W19.XXXA Unspecified fall, initial encounter
CPT/HCPCS: 73502; 96374; 99285; A4216

== ENCOUNTER 2024-08-07 14:45 | Inpatient (IN) | payer OTHER, MEDICARE, SELFPAY ==
[2024-08-07] VITALS (14 sets, daily range): BP systolic 120–152; BP diastolic 63–85; PULSE 69–91; RESP 14–18; TEMP 36.3–37.1; O2SAT 95–100; BMI 30.4; BMI 32.8
--- NOTE | 2024-08-07 11:15 | PRE.ANES_ITS ---
ASA Classification* ASA Classification ASA Classification: 2 Assessment & Plan Anesthesia* Anesthesia Assessment Anesthesia Assessment: Discussed sedation and/or anesthesia options, risks, benefits, and alternatives with patient/parents/legal guardian/POA. Questions invited. The patient/parents/legal guardian/POA seems to understand and agrees to proceed with anesthesia plan. Reviewed the physical assessment, medical history, allergy history and patient home medications list prior to surgery/procedure/anesthetic and documented any changes. Performed airway and anesthesia risk assessments. Anesthesia Type Anesthesia Type: General Anesthesia Focused Assessment* Airway Assessment Mouth opens: >3 cm Mallampati Score: II Focused Labs Anesthesia Preop lab: CBC WBC 7.3 K/mm3 (4.4-11.0) 07/17/24 04:19 07/17/24 RBC 4.69 M/mm3 (4.2-5.4) 07/17/24 04:19 07/17/24 Hgb 13.4 g/dL (12.0-15.0) 07/17/24 04:19 07/17/24 Hct 39.7 % (37-47) 07/17/24 04:19 07/17/24 Plt Count 194 K/mm3 (150-450) 07/17/24 04:19 07/17/24 CHEMISTRY Potassium 3.9 mmol/L (3.3-5.1) 07/17/24 04:19 07/17/24 Sodium 133 mmol/L (133-145) 07/17/24 04:19 07/17/24 BUN 14 mg/dL (4-19) 07/17/24 04:19 07/17/24 Creatinine 0.80 mg/dL (0.70-1.20) 07/17/24 04:19 07/17/24 Glucose 118 mg/dL (70-99) H 07/17/24 04:19 07/17/24 POC Glucose 136 mg/dL (74-106) H 07/17/24 22:40 07/17/24 COAG Pre-Assessment Diagnosis/Proposed Procedure Planned Operative Procedure(s): REVISION RIGHT TOTAL HIP ARTHROPLASTY Anesthesia History Anesthesia History - court supervisor: Anesthesia History - court supervisor Hx Hospitalization Yes: 07/16/2024 08/05/24 10:30 Any Problems With Anesthesia [ No 07/31/24 18:04 1 (Initial Baseline)] Any Problems With Anesthesia No 08/05/24 10:30 Cholinesterase deficiency No 08/05/24 10:30 You/Your Family Experience No 08/05/24 10:30 fever (hyperthermia) with Relationship Recent Exposure to Contagious No 07/16/24 19:57 Disease Does patient have nerve No 08/05/24 10:30 stimulator Patient instructed to have device shut off --Does patient have Pacemaker or ICD? When Was Last Pacemaker Check QUESTION #4 FULL TEXT: You/Your Family Experience fever (hyperthermia) with Anesthesia Last Oral Intake Last Oral intake: Last Oral Intake NPO since Meds taken in AM with sips of water? Meds patient instructed to take am of surgery PONV PONV - court supervisor: PONV - court supervisor Female Yes 08/05/24 10:30 HX of Motion Sickness Yes 08/05/24 10:30 HX of N/V After Surgery No 08/05/24 10:30 Non-Smoker Yes 08/05/24 10:30 Duration of Surgery greater Yes 08/05/24 10:30 than 60 minutes Number of Risk Factors 4 08/05/24 10:30 PONV Score Severe Risk 08/05/24 10:30 Height & Weight Height & Weight: Anesthesia: Height & Weight Height 5 ft 9 in 07/31/24 16:28 Respiratory Assessment Respiratory Assessment - court supervisor: Respiratory Tract Infection Hx - court supervisor Hx Respiratory Tract Infection No 08/05/24 10:30 STOP Sleep Apnea STOP Sleep Apnea - court supervisor: STOP Sleep Apnea - court supervisor Hx Hypertension Yes: CONTROLLED ON MED 08/05/24 10:30 Hx Sleep Apnea No 08/05/24 10:30 CPAP BIPAP Do you snore loudly (louder No 08/05/24 10:30 than talking or can be heard Do you often feel tired/ No 08/05/24 10:30 fatigued/ sleepy during daytime? Has anyone observed you stop No 08/05/24 10:30 breathing during sleep? STOP Results Negative 08/05/24 10:30 QUESTION #5 FULL TEXT : Do you snore loudly (louder than talking or can be heard through closed doors)? Tobacco Use History Tobacco Use History - court supervisor: Tobacco Use History - court supervisor Tobacco Use Smoking Status Never smoker 08/05/24 10:30 Hx Tobacco Use No 08/05/24 10:30 Years Smoking Packs Smoked per Day Smoking Cessation Date was within the last 15 years Hx Smoking Cessation Date Hx Smoking Cessation Counseling Hematologic Medial History Hematologic Hx - court supervisor: Hematologic Medical Hx - training and documentation specialist Hx of Blood Transfusion No 08/05/24 10:30 Hx of Transfusion in last 3 No 08/05/24 10:30 Months Date of Last Transfusion (if within last 3 months) Ever experience any problems No 08/05/24 10:30 with transfusion(s)? Specify any problems Hx of Preganancy in last 3 No 08/05/24 10:30 Months Nurse Filling Out Transfusion VCHRISTIN 08/05/24 10:30 & Questions: Date: 08/05/24 08/05/24 10:30 Time: 10:34 08/05/24 10:30 Patient unable to answer at this time (ie. confused, unrespo /Reproduction History /Reproductive History - court supervisor: /Reproductive Hx- court supervisor Hx Now No 08/05/24 10:30 Gestational Age (in weeks): EDC: Hx Hx Para Hx Section SAB No 08/05/24 10:30 Active Medications Active Medications: Current Medications Generic Name Dose Route Start Last Admin Trade Name Freq PRN Reason Stop Dose Admin Acetaminophen 1,000 mg 08/07/24 13:00 Acetaminophen 500 Mg Tablet PO 08/07/24 13:01 PREOP ONE Celecoxib 400 mg 08/07/24 13:00 Celecoxib 200 Mg Capsule PO 08/07/24 13:01 PREOP ONE Sodium Chloride 77.4 ml/ 0 ml 08/07/24 13:00 Ropivacaine 200 mg/ OPERA.SITE 08/07/24 13:01 Epinephrine HCl 0.6 mg/ INTRAOP ONE Ketorolac Tromethamine 30 mg/ Morphine Sulfate 5 mg Dexamethasone Sodium Phosphate 10 mg 08/07/24 13:00 Dexamethasone 10 Mg/Ml Vial IV 08/07/24 13:01 INTRAOP ONE Gabapentin 600 mg 08/07/24 13:00 Gabapentin 600 Mg Tablet PO 08/07/24 13:01 PREOP ONE Lactated Ringer's 1,000 mls @ 999 mls/hr 08/07/24 13:00 IV 08/07/24 14:00 .Q1H1M RADHA Cefazolin Sodium 2 gm/ Sodium 110 mls @ 150 mls/hr 08/07/24 13:00 Chloride IV 08/07/24 13:43 INTRAOP ONE Tranexamic Acid 1,000 mg/ 110 mls @ 660 mls/hr 08/07/24 13:00 Sodium Chloride IV 08/07/24 13:09 INTRAOP ONE Tranexamic Acid 1,000 mg/ 110 mls @ 660 mls/hr 08/07/24 13:00 Sodium Chloride IV 08/07/24 13:09 INTRAOP ONE Lactated Ringer's 1,000 mls @ 75 mls/hr 08/07/24 13:00 IV 08/08/24 02:19 .[id number] RADHA Lactated Ringer's 1,000 mls @ 15 mls/hr 08/07/24 11:15 IV .Q48H RADHA Insulin Human Lispro 1 - 6 unit 08/07/24 13:00 Insulin Lispro 100 Unit/Ml Insuln.Pen SC 08/07/24 18:00 Q4H PRN PRN BG>/= 180, SEE PROTOCOL Protocol PFSH Medical History Post-menopausal Arthritis Back pain Injury of head and neck Gastric reflux Osteoarthritis of right hip Non-smoker Hypertension Obesity GERD (gastroesophageal reflux disease) HLD (hyperlipidemia) Hypertension Fall Fracture of femoral neck, closed Home Medications ?Medication ?Instructions ?Recorded ?Last Taken ?Type diclofenac sodium 50 mg 50 mg PO BID PAIN 07/16/24 0 07/16/24 History tablet,delayed release lisinopril 40 mg tablet 40 mg PO DAILY BP 07/16/24 0 07/16/24 History metoprolol succinate 50 mg 75 mg PO DAILY BP 07/16/24 07/16/24 History tablet,extended release 24 hr pantoprazole 40 mg tablet,delayed 40 mg PO DAILY GERD 07/16/24 07/16/24 History release rosuvastatin 20 mg tablet 20 mg PO QHS CHOLESTEROL 07/16/24 History tirzepatide (weight loss) 5 mg/0.5 5 mg subcut QWEEK W EIGHT LOSS 07/16/24 07/26/24 History mL subcutaneous pen injector (Zepbound) aspirin 81 mg chewable tablet 81 mg PO BIDCM BLOOD THI NNER #0 07/19/24 Unknown R x tabs oxycodone 5 mg tablet 5 mg PO Q4H PRN PRN Pain Sco re 07/19/24 Unknown Rx 4-10 7 days #20 tabs acetaminophen 500 mg tablet 1,000 mg PO Q8 PRN pain Unknown History Allergy/AdvReac Type Severity Reaction Status Date / Time No Known Allergies Allergy Verified 08/05/24 10:14 Family History Mother MORENO (nonalcoholic steatohepatitis) Heart failure Hypertension Heart disease Father Heart disease Hypertension CAD (coronary artery disease) Myocardial infarction Surgical History Hx of surgical procedure History of cardiac catheterization H/O wrist surgery History of hysterectomy History of left knee replacement S/P left knee arthroscopy Social History household members: spouse Smoking Status: Never smoker alcohol intake: never substance use type: does not use Review of Systems (Anesthesia) ROS Narrative System reviewed and no additional complaints, except as documented.
[2024-08-07] MEDS: LR 1,000 ML - BOLUS PREOP 999 ML IV (11:31)
[2024-08-07] MEDS: Gabapentin 600 MG Tablet PO (11:37)
[2024-08-07] MEDS: Acetaminophen 500 MG Tablet 1000 MG PO ×2 (11:37→22:21)
[2024-08-07] MEDS: Celecoxib 200 MG Capsule 400 MG PO (11:37)
[2024-08-07] MEDS: Heparin 10,000 UNITS/10 ML Vial 10000 UNITS (11:54)
[2024-08-07 12:59] LABS: Bedside Glucose 82 mg/dL (74-106)
[2024-08-07] MEDS: Magnesium 1 GM over 15 mins IV (13:17)
[2024-08-07] MEDS: Cefazolin 2 GM in 0.9% Normal Saline (100mL Bag) 100 ML IV (13:29)
[2024-08-07] MEDS: TXA 1000mg in NS100 100ml (IVPB at Closure) 660 MG IV (13:31)
[2024-08-07] MEDS: TXA 1000mg in NS100 100ml (IVPB at Incision) 660 MG IV (13:33)
[2024-08-07] MEDS: dexAMETHasone 10 MG/ML Vial IV (13:48)
--- NOTE | 2024-08-07 14:06 | RAD_ITS ---
EXAM: XR Right Hip With Pelvis When Performed, 1 View CLINICAL INDICATION: REVISION ANTERIOR RIGHT TOTAL HIP ARTHROPLASTY TECHNIQUE: Frontal view of the right hip with pelvis when performed. COMPARISON: No relevant prior studies available. FINDINGS: BONES/JOINTS: Unremarkable. No acute fracture. No dislocation. SOFT TISSUES: Unremarkable. OTHER FINDINGS: Fluoroscopic guidance was used intraoperatively. A total of 3 images were obtained. Total fluoroscopy time was 4.3 seconds. Total radiation dose was 0.69 mGy. RAD/Hip Min 2 Views (Portable) IMPRESSION: Fluoroscopic guidance was used intraoperatively. Please refer to operative not e for further details. Reading Location: [id number]
[2024-08-07] MEDS: JPS (Morphine 10mg/ml) OPERA.SITE (14:08)
--- NOTE | 2024-08-07 14:51 | PCM.OPRPT ---
Operative Report (Standard) Operative Information Date of Procedure: 08/07/24 Pre-Operative Diagnosis: Right total hip replacement instability Post-Operative Diagnosis: Right total hip replacement instability Surgery/Procedure Performed: Right direct anterior revision total hip replacement acetabular and femoral components electronics research engineer: Yes Ballistic Expert: Jeronimo Barber Tasks completed by first line supervisor: Other (See body of operative report) Additional volunteer assistant?: No Type of Anesthesia: General RN Documented Start/Stop Times: Operation Date: 08/07/24 13:00 Case Time Into Pre-Op 08/07/24 11:00 Out of Pre-Op 08/07/24 13:10 Anesthesia Start 08/07/24 13:13 Into Room 08/07/24 13:13 Procedure Start 08/07/24 13:48 Procedure End 08/07/24 15:13 Anesthesia End 08/07/24 15:21 Out of Room 08/07/24 15:21 Into Recovery 08/07/24 15:25 Out of Recovery 08/07/24 17:01 Procedure Start Time: 13:48 Procedure Stop Time: 15:13 Select all DRAINS/GRAFTS/IMPLANTS that apply: Prosthetic device Prosthetic device details: See body of operative report Special Medications: 2 g Ancef, 1 g TXA at incision, 1 g TXA closure, 10 mg Decadron, joint cocktail (5 mg Duramorph, 30 mL of 0.5% Ropivicaine, 1000 units of epinephrine, 30 mg of Toradol) Estimated Blood Loss: 150 mL Fluids Replaced: 1500 mL crystalloid Specimen collected: No Description of surgery: Components used: 1. Derry cobalt-chromium 28 mm, a mm femoral head 2. Derry MDM cobalt-chromium shell size 42E mm 3. Dereje X3 polyethylene MDM 42E Brief history operative indications: 69 yo F who a previous right hip fracture with subsequent total replacement. Patient had 2 acute dislocations. For this reason we elected to proceed with a revision total replacement of both components. We needed to revise the femur to a dual mobility femoral head in the acetabulum to a acetabular dual mobility liner. Revision total hip replacement was discussed with the patient with risks and benefits including but not limited to blood loss, DVTs, PEs, neurovascular damage, dislocation, general risks of anesthesia including loss of life. Patient demonstrated an understanding medical clearance is obtained the patient was consented for surgery. Procedure: On the date of procedure the patient's R hip was marked in the preoperative area. Patient was then taken back to the operating room where anesthesia assumed control of the C-spine and airway and administered anesthetic. Patient was transferred to the operating table and placed in the supine position. The hips were placed at the break of the bed and a sacral bump was placed. The R lower extremity was then prepped out in a sterile fashion using chlorhexidine while the surgeon scrubbed. The PA was vital in the positioning of the patient. Once the patient was appropriately positioned we did take the hip through range of motion. With flexion internal rotation there was no instability. With extremes of external rotation patient did dislocate. She reduced very easily with internal rotation of the hip. Suggesting the anterior dislocation was the appropriate mechanism. Upon reentering the room the R lower extremity was draped in the standard orthopedic fashion and the incision was marked. A timeout was called and everyone agreed upon the side, the site, the procedure be performed, antibody given, and patient's identity. At this time incision was made through skin, subcutaneous tissue, and fat down to fascia. The fascia was then incised and the TFL was retracted laterally. A retractor was placed on the lateral border of the femoral neck. A retractor was then placed on the medial portion of the femoral neck. The excess synovium was then cleared of all soft tissue and then the hip could be appropriate identified. With all the retractors then the hip was not easily dislocated. A bone hook was used to dislocate the hip. Femur was exposed with a Lin over the medial femur and a long prong Lin over the proximal greater trochanter elevating the femur out of the wound. Bone tamp was used to dissociate the Biolox 36 mm nonmodular femoral head. Attention was then turned toward the acetabulum where the soft tissues were appropriately retracted and the acetabular liner was removed with an osteotome. Excess debris was removed from around the acetabulum and a trial acetabular liner was impacted into place. The position of the acetabular cup was then verified under live fluoroscopy additionally, we palpated the anterior lip of the acetabular component and felt that there was minimal bony coverage in his current position. Based on previous assessment of the radiographic position we elected not to remove the acetabular component until we had adequately trialed in its current position. The concern was that if we retroverted the cup any further patient would be at risk for iliopsoas tendinopathy. Attention was then turned to the femur. The femur was externally rotated and elevated out of the wound. A 42 mm MDM head with +8 mm traumatic with assembled input into place. This gave us an increase in femoral head diameter with the MDM components as well as a slight increase in offset and length. Traction was pulled and the hip was reduced with internal rotation. Once it was appropriately reduced and stability was checked. There was minimal shuck, equal leg lengths and appropriate stability with hyperextension and external rotation as well as with 90? flexion and internal rotation. External rotation stability was checked multiple times and found to be considerably more stable than with the previous components. Fluoroscopy was then also used to verify the position of the components and leg lengths using the contralateral side for comparison. The trial components were then dislocated the proximal femur was again exposed and the components were removed from the wound. The final components were verified and opened. The wound was copiously irrigated out with normal saline. The acetabulum was checked for any residual debris. Acetabulum was exposed and the acetabular MDM liner was impacted into place. Femur was again exposed, the final components were placed and impacted. Traction and internal rotation were again used to reduce the hip. After adequate reduction the hip remained stable with appropriate leg lengths. The final components were once again checked with live fluoroscopy and were found to be satisfactory. The wound was then copiously irrigated with normal saline once more, and hemostasis was obtained. Closure was then done using #1 Vicryl runner to close the fascia. A 2-0 vicryl interuppted sutures were used to close the subcutaneous skin. A 3-0 Monocryl and nylon sutures were used for final skin closure. A Silverlon dressing was placed. Patient was awakened by anesthesia and transferred to the [facility]. Patient was then transferred to the PACU for recovery. Postoperative plan: Patient will get 24 hours postop antibiotics. Patient will get in-house physical therapy and will be weight-bear as tolerated. Patient will follow up in office in 2 weeks for a wound check and x-rays. Aspirin 81 mg twice daily. During the course of the procedure the physician ram car operator (PE) played a vital role. Their intimate knowledge of my steps in the procedure aided in safe and expedient completion of the procedure. The PE played a vital rolls in positioning particularly in obtaining the appropriate positioning of the sacral bump. The PE was also vital in the retraction of soft tissues during the exposure and especially the femoral work as this is a vital part of the procedure to prevent complications and fractures. The PE was also vital and protecting soft tissues during times of bony cuts and reaming. He also played a vital role in closure with my direct supervision. The PE was also important during reduction and dislocation of the joint and trials intraoperatively. Surgical Findings: Patient was examined after anesthesia was administered and found to be dislocating anteriorly with external rotation. She was reduced and quite simply. This was corrected with dual mobility implants. X-rays showed appropriate alignment of implants. 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 Polyethylene acetabular component was revised to a MDM metal component and traditional ceramic unipolar 36 mm +5 mm femoral head was revised to a dual mobility 42 mm, +8 mm femoral head. Complications Complications: No Admit VTE Documentation VTE Present on Admission: No VTE Mechan Device Prophylaxis: SCD's and Thigh High TESS Hose VTE Pharm Prophylaxis ordered?: Yes
--- NOTE | 2024-08-07 15:23 | PCM.POST.ANE ---
Anesthesia: Postop Eval I Current Vital Signs Temperature: 97.4 F Pulse Rate: 91 Blood Pressure: 141/69 Respiratory Rate: 16 Pulse Ox: 95 Assessment Airway patent: Yes Spontaneous unlabored respirations: Yes nausea: No Vomiting: No Anesthesia Complication: No Fluid Hydration Crystalloid volume administer (ml): 1,000 Total IV fluid infused: 1,000 Progress Note Anesthesia document: Postop Eval 1 completed: Yes
--- NOTE | 2024-08-07 15:40 | RAD_ITS ---
PROCEDURE: HIP MIN 2 VIEWS (PORTABLE) N/A REASON FOR EXAM: POST OP TECHNIQUE: Two-view postoperative portable right hip to include a low centered pelvis. COMPARISON: Preoperative study of 07/31/2024 and intraoperative images 08/07/2024. RAD/Hip Min 2 Views (Portable) IMPRESSION: Interval placement of the acetabular component of the right total hip prosthesi s is seen, without apparent complication. Satisfactory alignment is noted. No fracture site is evident Reading Location: [id number]
--- NOTE | 2024-08-07 16:03 | POSTOPAN2_ITS ---
Anesthesia Postop Eval I Sum Postop Eval Completion status Anesthesia document: Postop Eval 1 completed: Yes Anesthesia Postop Eval I Summary Anesthesia Postop Eval I Summary: Anesthesia Postop Eval I: Assessment Summary Airway patent Yes 08/07/24 15:24 OFFSET PRESS OPERATOR.CSIR Spontaneous unlabored Yes 08/07/24 15:24 OFFSET PRESS OPERATOR.CSIR respirations Mental status nausea No 08/07/24 15:24 OFFSET PRESS OPERATOR.CSIR Vomiting No 08/07/24 15:24 OFFSET PRESS OPERATOR.CSIR Anesthesia Postop Eval I: Fluid Summary Crystalloid volume administer 1,000 08/07/24 15:24 OFFSET PRESS OPERATOR.CSIR (ml) Colloids volume administered ( ml) Blood Product volume administered (ml) Total IV fluid infused 1,000 08/07/24 15:24 OFFSET PRESS OPERATOR.CSIR Anesthesia Postop Eval I: Summary Notes Anesthesia Complication No 08/07/24 15:24 OFFSET PRESS OPERATOR.CSIR Anesthesia Complication Comment: Post-operative progress note Anesthesia: Postop Eval II Evaluation Mental status: Awake Pain Level: 4 nausea: No Vomiting: No
--- NOTE | 2024-08-07 16:03 | PCM.POSTANE2 ---
Anesthesia Postop Eval I Sum Postop Eval Completion status Anesthesia document: Postop Eval 1 completed: Yes Anesthesia Postop Eval I Summary Anesthesia Postop Eval I Summary: Anesthesia Postop Eval I: Assessment Summary Airway patent Yes 08/07/24 15:24 CIVIL ENGINEERING SPECIALIST.CSIR Spontaneous unlabored Yes 08/07/24 15:24 CIVIL ENGINEERING SPECIALIST.CSIR respirations Mental status nausea No 08/07/24 15:24 CIVIL ENGINEERING SPECIALIST.CSIR Vomiting No 08/07/24 15:24 CIVIL ENGINEERING SPECIALIST.CSIR Anesthesia Postop Eval I: Fluid Summary Crystalloid volume administer 1,000 08/07/24 15:24 CIVIL ENGINEERING SPECIALIST.CSIR (ml) Colloids volume administered ( ml) Blood Product volume administered (ml) Total IV fluid infused 1,000 08/07/24 15:24 CIVIL ENGINEERING SPECIALIST.CSIR Anesthesia Postop Eval I: Summary Notes Anesthesia Complication No 08/07/24 15:24 CIVIL ENGINEERING SPECIALIST.CSIR Anesthesia Complication Comment: Post-operative progress note Anesthesia: Postop Eval II Evaluation Mental status: Awake Pain Level: 4 nausea: No Vomiting: No
--- OUTSIDE RECORDS SUMMARY | 2024-08-07 17:30 | XMS RPT_ITS | CCD ---
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 hematuria or urinary frequency Musculoskeletal Musculoskeletal: Reports other Details: Right hip dislocation/pain ; Denies arthralgias, back pain, myalgias or neck pain Integumentary Denies abscess, Abrasions or rash Neurologic Neurologic: Denies headache(s) or weakness Psychiatric Psychiatric: Denies anxiety, depression or suicidal thoughts Endocrine Endocrinology: Denies polydipsia, polyphagia or polyuria Hematologic/Lymphatic Hematologic/Lymphatic: Denies easy bleeding, easy bruising or lymphadenopathy Allergic/Immunologic Allergic/Immunologic ED: Denies mouth swelling, tongue swelling or urticaria EXAM Physical Exam Const Vital Signs: 07/31/24 16:28 07/31/24 17:20 07/31/24 17:20 Temperature 98.2 F 98.5 F Temperature Source Oral Pulse Rate 69 73 Respiratory Rate 18 16 Blood Pressure 191/93 H 191/87 H Blood Pressure Mean 125 Baseline BP 191/87 Pulse Ox 98 100 Oxygen Delivery Method Room Air Nasal Cannula Oxygen Flow Rate (L/min) 2 EtCo2 - Document during CPR and with ROSC 38 42 Positive well nourished and well developed General Appearance ED: well developed and NAD HEENT Reports TM's clear and moist mucous membran (more content not included)... [facility] HIP, UNI W/ Pelvis 2-3 Views on 07-31-2024 HIP, UNI W/ Pelvis 2-3 Views [facility] Imaging Services [address] [place] [address] HIP, UNI W/ Pelvis 2-3 Views MR#: [id number] Acct: [id number] Name: EFRAIN GILLIAM Rep #: [id number] : 1955 F 69 From: Nikita Barbosa MD PCP: BEVERLEY WALKER Status: REG ER Study: HIP, UNI W/ Pelvis 2-3 Views Date of Exam: Exam# [id number] Ordering Dr: Arelis Silva DO PROCEDURE: HIP, UNI W/ PELVIS 2-3 VIEWS 07/31/2024 REASON FOR EXAM: DISSLOCATION TECHNIQUE: Three views of the right hip. COMPARISON: None. FINDINGS: Right hip arthroplasty. Dislocated femoral component. Mild degenerative changes of the left hip. Partially visualized degenerative changes of the spine. No evidence of acute fracture or dislocation. RAD/HIP, UNI W/ Pelvis 2-3 Views IMPRESSION: Right hip arthroplasty with dislocated femoral component. Reading Location: [id number] CC: Dr. Arelis Silva DO; BEVERLEY WALKER Director Chemistry: Signed Normal [facility] Hip Min 2 Views (Portable)on 07-31-2024 Hip Min 2 Views (Portable) [facility] Imaging Services [address] [place] [id number] Hip Min 2 Views (Portable) MR#: [id number] Acct: [id number] Name: EFRAIN GILLIAM Rep #: [id number] : 1955 F 69 From: Larissa Falk PCP: BEVERLEY WALKER Status: REG ER Study: Hip Min 2 Views (Portable) Date of Exam: 07/31 Exam# [id number] Ordering Dr: Arelis Silva DO PROCEDURE: HIP MIN 2 VIEWS (PORTABLE) 07/31/2024 REASON FOR EXAM: POST REDUCTION TECHNIQUE: One (1) view of the right hip COMPARISON: 07/31/2024 RAD/Hip Min 2 Views (Portable) IMPRESSION: Total right hip prosthesis status post reduction with interval resolution of prosthetic dislocation. No hardware complications. No acute fracture or dislocations. Reading Location: [facility] CC: Dr. Arelis Silva DO; BEVERLEY WALKER Director Chemistry: Signed Normal [facility] Discharge Instructionon 07-02 Discharge Instruction [facility] Medical Records Department [address] [place] [address] Instructions for Home/Discharge Instructions 07/19/24 0752 MR#: [id number] Acct: [id number] Name: EFRAIN GILLIAM Rep #: [id number] : 1955 69 From: Conor Noland DO PCP: BEVERLEY WALKER Status:ADM IN Discharge Instructions Diet Discharge Diet: No restrictions DC O2, CPAP, BIPAP needs Home O2 Discharge instructions: No Dressing / Incision Discharge Activity: Return to Normal Activity Weight Bearing Status: Weight bearing as tolerated Follow Up Care Test Results: Test results from this visit will be discussed in further detail at your follow-up appointment, if applicable. Discharge Plan Admission Admit Date/Time: 07/16/24 18:10 Primary Reason for Your Visit: right hip fracture Attending Provider: Conor Noland Primary Care Provider: BEVERLEY WALKER Consulting Providers: Eloy Hamm; Mayi Avendaño Instructions Additional Instructions / Restrictions: Remove dressing on postop day 5, if waterproof dressing remains in place you can continue to shower. If dressing is to be changed to a nonocclusive dressing, discontinue showering until incision is clean and dry Recommend you take Os-Erich 600 (or generic equivalent) twice a day Advise you consider not taking your diclofenac while you are on 1 aspirin twice a day, you can resume it after you finish the aspirin You will need to call Dr. Hamm's office next week and have them set up physical therapy for you, tell them you were released on a Saturday and physical therapy was not set up for you Discharge Orders/Prescriptions Prescriptions: New acetaminophen 500 mg Tablet 1,000 mg PO Q8 Qty: 0 0RF aspirin 81 mg Tablet,Chewable 81 mg PO BIDCM Qty: 0 0RF Rx Instructions: Continue x 30 days then discontinue oxycodone 5 mg Tablet 5 mg PO Q4H PRN PRN (Reason: Pain Score 4-10) 7 Days Qty: 20 0RF Continued metoprolol succinate 50 mg tablet extended release 24 hr 75 mg PO DAILY pantoprazole 40 mg tablet,delayed release (DR/EC) 40 mg PO DAILY diclofenac sodium 50 mg tablet,delayed release (DR/EC) 50 mg PO BID lisinopril 40 mg tablet 40 mg PO DAILY Zepbound 5 mg/0.5 mL pen injector 5 mg SUBCUT QWEEK Patient Comments: [NO ORIGINAL SIG] rosuvastatin 20 mg tablet 20 mg PO QHS Referrals / Follow Up: BEVERLEY WALKER [Other] BEVERLEY WALKER [Other] Eloy Hamm MD [Med Staff - Active Staff] - See Referral Note (In 2 weeks, call for an appointment) Disposition Disposition (needs filled in before D/C Order can be placed): Home, Self Care 07/19/24 0808 Conor Noland DO CC: Dr. Mayi Avendaño MD; Dr. Eloy Hamm MD; BEVERLEY WALKER Signed Normal [facility] Absolute lymphocyte countOrd ered By: Mayi Avendaño on 07-17-2024 Lymphocytes Auto (Unsp spec) [#/Vol] 1.22 10*3/uL 0.83-4.51 [facility] Absolute neutrophil countOrd ered By: [facility] Kateryna on 07-17-2024 Neutrophils (Bld) [#/Vol] 5.6 10*3/uL 2.0-7.7 [facility] Anion gap in Serum or Plasma Ordered By: Mayi Kateryna on 07-17-2024 Anion gap [Moles/Vol] 11 mmol/L 5-15 [facility] Automated lymphocyte count a s percentage of total leukocytesOrdered By: [facility] Kateryna on 07-17-2024 Lymphocytes/100 WBC Auto (Unsp spec) 16.6 % Low 19-41 [facility] BUN/creatinine ratioOrdered By: Mayi Kateryna on 07-17-2024 Urea nitrogen/Creatinine [Mass ratio] 17.5 mg/mg 10-20 [facility] Basophil percentageOrdered B y: Mayi Kateryna on 07-17-2024 Basophils/100 WBC (Bld) 0.4 % 0-1 [facility] Bedside Glucoseon 07-17-2024 FINGERSTICK GLU 136 mg/dL High 74-106 [facility] Comment on above: Result Comment: SWAPNA GEMENT OF PATIENT CARE PER NURSING PROTOCOL Performed By: #### L 501.080 #### [facility] [address] [place], [address] FINGERSTICK GLU 93 mg/dL Normal 74-106 [facility] Comment on above: Result Comment: SWAPNA ORELLANA OF PATIENT CARE PER NURSING PROTOCOL Performed By: #### L 501.080 #### [facility] [address] [place], [address] Bilirubin, totalOrdered By: Mayi Avendaño on 07-17-2024 Bilirubin [Mass/Vol] 0.62 mg/dL 0.00-1.30 [facility] CBC W/Diff, Automatedon 07-02 Absolute Lymph 1.22 X10 3/uL Normal 0.83-4.51 [facility] Comment on above: Performed By: #### L 501.9985, L100.0100, L500.4050 #### [facility] [address] [place], [address] Absolute Neut 5.6 X10 3/uL Normal 2.0-7.7 [facility] Comment on above: Performed By: #### L 501.9985, L100.0100, L500.4050 #### [facility] [address] [place], [address] Basophils/100 WBC (Bld) 0.4 % Normal 0-1 [facility] Comment on above: Performed By: #### L 501.9985, L100.0100, L500.4050 #### [facility] [address] [place], [address] Eosinophils/100 WBC (Bld) 0.1 % Normal 0-5 [facility] Comment on above: Performed By: #### L 501.9985, L100.0100, L500.4050 #### [facility] [address] [place], [address] Erythrocyte distribution width (RBC) [Ratio] 12.4 % Normal 11.6-14.6 [facility] Comment on above: Performed By: #### L 501.9985, L100.0100, L500.4050 #### [facility] [address] [place], [address] Hematocrit (Bld) [Volume fraction] 39.7 % Normal 37-47 [facility] Comment on above: Performed By: #### L 501.9985, L100.0100, L500.4050 #### [facility] [address] [place], [address] Hemoglobin (Bld) [Mass/Vol] 13.4 g/dL Normal 12.0-15.0 [facility] Comment on above: Performed By: #### L 501.9985, L100.0100, L500.4050 #### [facility] [address] [place], [address] IG% 0.300 Normal 0.0-0.9 [facility] Comment on above: Result Comment: IG% - Immature Granulocytes (promyelocytes, myelocytes and metamyelocytes) > 1% indicates that a LEFT SHIFT is Present. Performed By: #### L 501.9985, L100.0100, L500.4050 #### [facility] [address] [place], [address] Lymphocytes/100 WBC (Bld) 16.6 % Low 19-41 [facility] Comment on above: Performed By: #### L 501.9985, L100.0100, L500.4050 #### [facility] [address] [place], [address] MCH (RBC) [Entitic mass] 28.6 pg Normal 27.0-32.0 [facility] Comment on above: Performed By: #### L 501.9985, L100.0100, L500.4050 #### [facility] [address] [place], [address] MCHC (RBC) [Mass/Vol] 33.8 g/dL Normal 32-36 [facility] Comment on above: Performed By: #### L 501.9985, L100.0100, L500.4050 #### [facility] [address] [place], [address] MCV (RBC) [Entitic vol] 84.6 fL Normal 81-99 [facility] Comment on above: Performed By: #### L 501.9985, L100.0100, L500.4050 #### [facility] [address] [place], [address] Monocytes/100 WBC (Bld) 6.8 % Normal 0-10 [facility] Comment on above: Performed By: #### L 501.9985, L100.0100, L500.4050 #### [facility] [address] [place], [address] Neutrophils/100 WBC (Bld) 75.8 % High 47-70 [facility] Comment on above: Performed By: #### L 501.9985, L100.0100, L500.4050 #### [facility] [address] [place], [address] Nucleated RBC (Bld) [#/Vol] 0 10*3/uL Normal 0-5 [facility] Comment on above: Performed By: #### L 501.9985, L100.0100, L500.4050 #### [facility] [address] [place], [address] Platelet mean volume (Bld) [Entitic vol] 9.2 fL Normal 6.2-12.0 [facility] Comment on above: Performed By: #### L 501.9985, L100.0100, L500.4050 #### [facility] [address] [place], [address] Platelets (Bld) [#/Vol] 194 10*3/uL Normal 150-450 [facility] Comment on above: Performed By: #### L 501.9985, L100.0100, L500.4050 #### [facility] [address] [place], [address] RBC (Bld) [#/Vol] 4.69 10*6/uL Normal 4.2-5.[address] [facility] Comment on above: Performed By: #### L 501.9985, L100.0100, L500.4050 #### [facility] [address] [place], [address] RDW SD 37.2 fl Normal 35.1-43.9 [facility] Comment on above: Performed By: #### L 501.9985, L100.0100, L500.4050 #### [facility] [address] [place], [address] WBC (Bld) [#/Vol] 7.3 10*3/uL Normal 4.4-11.0 [facility] Comment on above: Performed By: #### L 501.9985, L100.0100, L500.4050 #### [facility] [address] [place], [address] Carbon dioxide, total [Moles /volume] in Central venous bloodOrdered By: Mayi Avendaño on 07-17-2024 CO2 [Moles/Vol] 22.1 mmol/L 21.0-32.0 [facility] Chloride assayOrdered By: Viviana Avendaño on 07-17-2024 Chloride [Moles/Vol] 100 mmol/L 98-108 [facility] Comprehensive Metabolic Prof ilon 07-17-2024 Albumin [Mass/Vol] 4.1 g/dL Normal 3.4-4.8 [facility] Comment on above: Performed By: #### L 501.9985, L100.0100, L500.4050 #### [facility] [address] [place], [address] Albumin/Globulin [Mass ratio] 1.4 {ratio} Normal 0.9-2.4 [facility] Comment on above: Performed By: #### L 501.9985, L100.0100, L500.4050 #### [facility] [address] [place], [address] ALK PHOS 79 U/L Normal 35-104 [facility] Comment on above: Performed By: #### L 501.9985, L100.0100, L500.4050 #### [facility] [address] [place], [address] ALT [Catalytic activity/Vol] 17 U/L Normal <=34 [facility] Comment on above: Performed By: #### L 501.9985, L100.0100, L500.4050 #### [facility] [address] [place], [address] AST [Catalytic activity/Vol] 27 U/L Normal <=31 [facility] Comment on above: Performed By: #### L 501.9985, L100.0100, L500.4050 #### [facility] [address] [place], [address] Bilirubin [Mass/Vol] 0.62 mg/dL Normal 0.00-1.30 [facility] Comment on above: Performed By: #### L 501.9985, L100.0100, L500.4050 #### [facility] [address] [place], [address] BUN/CRE 17.5 RATIO Normal 10-20 [facility] Comment on above: Performed By: #### L 501.9985, L100.0100, L500.4050 #### [facility] [address] [place], [address] Calcium [Mass/Vol] 9.4 mg/dL Normal 7.6-11.0 [facility] Comment on above: Performed By: #### L 501.9985, L100.0100, L500.4050 #### [facility] [address] [place], [address] Chloride [Moles/Vol] 100 mmol/L Normal 98-108 [facility] Comment on above: Performed By: #### L 501.9985, L100.0100, L500.4050 #### [facility] [address] [place], [address] CO2 [Moles/Vol] 22.1 mmol/L Normal 21.0-32.0 [facility] Comment on above: Performed By: #### L 501.9985, L100.0100, L500.4050 #### [facility] [address] [place], [address] Creatinine [Mass/Vol] 0.80 mg/dL Normal 0.70-1.20 [facility] Comment on above: Performed By: #### L 501.9985, L100.0100, L500.4050 #### [facility] [address] [place], [address] ECRCL 82.65 ml/min Normal 50-250 [facility] Comment on above: Performed By: #### L 501.9985, L100.0100, L500.4050 #### [facility] [address] [place], [address] GAP 11 Normal 5-15 [facility] Comment on above: Performed By: #### L 501.9985, L100.0100, L500.4050 #### [facility] [address] [place], [address] GFR/1.73 sq M.predicted among non-blacks MDRD (S/P/Bld) [Vol rate/Area] 81 mL/min/{1.73_m2} Normal >60 [facility] Comment on above: Result Comment: mL/m in/1.73m2 CKD-EPI Creatinine Equation (2020) Performed By: #### L 501.9985, L100.0100, L500.4050 #### [facility] [address] [place], [address] Globulin (S) [Mass/Vol] 2.8 g/dL Normal 2.2-4.2 [facility] Comment on above: Performed By: #### L 501.9985, L100.0100, L500.4050 #### [facility] [address] [place], [address] Glucose [Mass/Vol] 118 mg/dL High 70-99 [facility] Comment on above: Performed By: #### L 501.9985, L100.0100, L500.4050 #### [facility] [address] [place], [address] Potassium [Moles/Vol] 3.9 mmol/L Normal 3.3-5.1 [facility] Comment on above: Performed By: #### L 501.9985, L100.0100, L500.4050 #### [facility] [address] [place], [address] Sodium [Moles/Vol] 133 mmol/L Normal 133-145 [facility] Comment on above: Performed By: #### L 501.9985, L100.0100, L500.4050 #### [facility] [address] [place], [address] T PROT 6.9 g/dL Normal 5.9-8.4 [facility] Comment on above: Performed By: #### L 501.9985, L100.0100, L500.4050 #### [facility] [address] [place], [address] Urea nitrogen [Mass/Vol] 14 mg/dL Normal 4-19 [facility] Comment on above: Performed By: #### L 501.9985, L100.0100, L500.4050 #### [facility] [address] [place], [address] Consultation - Orthopedicson 07-17-2024 Consultation - Orthopedics [facility] Medical Records Department [address] [place] [address] Consultation - Orthopedics 07/17/24 1631 MR#: [id number] Acct: [id number] Name: EFRAIN GILLIAM Rep #: [id number] : 1955 69 From: Eloy Hamm MD PCP: BEVERLEY WALKER Status:ADM IN Location: [facility] [place] [id number] HPI Consult Data Date of Consult: 07/17/24 HPI Narrative Reason for Consultation: Right hip pain HPI Narrative: EFRAIN GILLIAM, is a 69 F who presents with right hip pain status post fall yesterday. Patient lives at home ambulates independently. Prior to yesterday had minimal history of pain. Does have a history of spinal stenosis which patient notes has been under control since radiofrequency ablation. Patient reports they were pushing something yesterday stumbled and fell and sustained an injury to the right hip. They were unable to bear weight. They were brought to the emergency department and had a x-ray which showed a displaced right femoral neck fracture. Patient reports 7 out of 10 pain better with pain medications worse with motion. No numbness and tingling is noted distally. Patient does have a left total knee replacement [facility] Medical History Non-smoker Hypertension History of diabetes mellitus Obesity GERD (gastroesophageal reflux disease) HLD (hyperlipidemia) Hypertension Home Medications ???Medication ???Instructions ???Recorded ???Last Taken ???Type diclofenac sodium 50 mg 50 mg PO BID 07/16/24 07/16/24 His tory tablet,delayed release lisinopril 40 mg tablet 40 mg PO DAILY 07/16/24 07/16/24 H istory metoprolol succinate 50 mg 75 mg PO DAILY 07/16/24 07/16/24 H istory tablet,extended release 24 hr pantoprazole 40 mg tablet,delayed 40 mg PO DAILY 07/16/24 07/16/24 History release rosuvastatin 20 mg tablet 20 mg PO QHS 07/16/24 07/16/24 His tory tirzepatide (weight loss) 5 mg/0.5 5 mg subcut QWEEK 07/16/2407/13 History mL subcutaneous pen injector (Zepbound) Allergy/AdvReac Type Severity Reaction Status Date / Time No Known Allergies Allergy Verified 07/16/24 16:20 Family History Mother MORENO (nonalcoholic steatohepatitis) Heart failure Hypertension Heart disease Father Heart disease Hypertension CAD (coronary artery disease) Myocardial infarction Surgical History H/O wrist surgery History of hysterectomy History of left knee replacement S/P left knee arthroscopy Social History household members: spouse Smoking Status: Never smoker alcohol intake: never substance use type: does not use ROS Constitutional Constitutional: Reports systems reviewed and no addt'l complaints, except as documented and as per HPI Eyes Eyes: Reports systems reviewed and no addt'l complaints, except as documented ENT HEENT: Reports systems reviewed and no addt'l complaints, except as documented Cardiovascular Cardiovascular: Reports systems reviewed and no addt'l complaints, except as documented Respiratory/Chest Respiratory/Chest: Reports systems reviewed and no addt'l complaints, except as documented Gastrointestinal Gastrointestinal: Reports systems reviewed and no addt'l complaints, except as documented Genitourinary Genitourinary: Reports systems reviewed and no addt'l complaints, except as documented Musculoskeletal Musculoskeletal: Reports systems reviewed and no addt'l complaints, except as documented Integumentary Integumentary: Reports systems reviewed and no addt'l complaints, except as documented Neurologic Neurologic: Reports systems reviewed and no addt'l complaints, except as documented Psychiatric Psychiatric: Reports systems reviewed and no addt'l complaints, except as documented Endocrine Endocrinology: Reports systems reviewed and no addt'l complaints, except as documented Vital Signs Vital Signs Vital Signs: 07/16/24 16:34 07/16/24 17:19 07/16/24 18:00 Temperature 98.9 F Temperature Source Oral Pulse Rate 64 78 Respiratory Rate 18 16 Respiratory Effort Normal Respiratory Depth Normal Respiratory Pattern Normal Blood Pressure 167/78 H 138/76 H Blood Pressure Mean 107 96 Blood Pressure Source Blood Pressure Position Blood Pressure Location Pulse Ox 97 98 Oxygen Delivery Method Room Air Room Air Room Air Oxygen Flow Rate (L/min) 07/16/24 18:00 07/16/24 19:27 07/16/24 19:57 Temperature 97.8 F 97.7 F L Temperature Source Oral Pulse Rate 66 81 Respiratory Rate 18 22 H Respiratory Effort Normal Non-Labored Respiratory Depth Shallow Respiratory Pattern Normal Blood P (more content not included)... [facility] Decalcification bone/plaqueo n 07-17-2024 Decalcification bone/plaque ---- Patient Age/Sex Location Account Attending Physician ---- EFRAIN GILLIAM 69/F MS3 [id number] Dr. Conor Noland, DO ---- Specimen: [id number] Received: 07/20/24 Status: DIANA Jj Num: [id number] Spec Type: FEM HEAD Subm Dr: Dr. Conor Noland, [facility] OPERATION: Total hip anterior approach PRE-OP DIAGNOSIS: Fracture of femoral neck, closed TISSUE SUBMITTED: A- Right femoral head ---- MICROSCOPIC DIAGNOSIS A. Right femoral head, fracture, total hip arthroplasty: * Articular bone with reactive/degenerative changes, patchy trilineage hematopoiesis, and focal marrow hemorrhage. MICROSCOPIC DESCRIPTION Slides are reviewed. GROSS DESCRIPTION A. Received in formalin in a container labeled with the patient's name, date of , and right femoral head is a 4.8 x 4.7 x 3.8 cm femoral head with partial attached shaggy and hemorrhagic femoral neck measuring approximately 1 cm in length by 3.5 cm in diameter. The cortical surface is cervantes, somewhat pitted and granular, and otherwise smooth. Sectioning reveals firm and focally hemorrhagic cut surfaces.Received in the same container is a 3.7 x 2.5 x 2.5 cm possible additional femoral neck. One surface is shaggy and hemorrhagic and the opposing surface is firm and smooth. Sectioning reveals hemorrhagic and firm cut surfaces. Head [employer] Trainer sections of each are submitted in A1 following decalcification. [facility] 07-20-2024 CPT:66219,02104 ---- Patient Age/Sex Location Account Attending Physician ---- EFRAIN GILLIAM 69/F MS3 [id number] Dr. Conor Noland, DO ---- Signed (signature on file) Dr. Phyllis Cooper MD 07/28/24 0838 ---- [facility] Comment on above: Performed By: #### L 501.080 #### [facility] [address] [place] [address], [address] Eosinophil percentageOrdered By: on 07-17-2024 Eosinophils/100 WBC (Bld) 0.1 % 0-5 [facility] Erythrocyte distribution wid th ratioOrdered By: on 07-17-2024 Erythrocyte distribution width (RBC) [Ratio] 12.4 % 11.6-14.6 [facility] Erythrocyte distribution wid th standard deviationOrdered By: on 07-17-2024 Erythrocyte distribution width (RBC) [Ratio] 37.2 fl 35.1-43.9 [facility] Glomerular filtration rate ( GFR) estimation/1.73 sq m using serum, plasma, or whole bOrdered By: Mayi Avendaño on 07-17-2024 GFR/1.73 sq M.predicted among non-blacks MDRD (S/P/Bld) [Vol rate/Area] 81 mL/min/{1.73_m2} >60 [facility] Comment on above: mL/min/1.73m2 CKD-EP I Creatinine Equation (2020) [facility] deOrdered By: Conor Noland on 07-17-2024 Glucose [Mass/Vol] 136 mg/dL High 74-106 [facility] Comment on above: MANAGEMENT OF PATIEN T CARE PER NURSING PROTOCOL Hematocrit Auto (Bld) [Volum e fraction]Ordered By: Mayi Avendaño on 07-17-2024 Hematocrit (Bld) [Volume fraction] 39.7 % 37-47 [facility] Hemoglobin A1con 07-17-2024 HbA1c (Bld) [Mass fraction] 5.3 % Normal <=5.6 [facility] Comment on above: Result Comment: Norm al < 5.7 % Prediabetic 5.7 - 6.4 % Diabetic >or= 6.5 % Please note range changes. Performed By: #### L 501.9985, L100.0100, L500.4050 #### [facility] [address] [facility] [place], [address] Hemoglobin A1c percentageOrd ered By: Mayi Avendaño on 07-17-2024 HbA1c (Bld) [Mass fraction] 5.3 % <5.7 [facility] Comment on above: Normal < 5.7 % Predi abetic 5.7 - 6.4 % Diabetic >or= 6.5 % Please note range changes. Hemoglobin measurementOrdere d By: Mayi Avendaño on 07-17-2024 Hemoglobin (Bld) [Mass/Vol] 13.4 g/dL 12.0-15.0 [facility] Hip 1 view with Pelvison Hip 1 view with Pelvis [facility] Imaging Services [address] [place] [address] Hip 1 view with Pelvis MR#: [id number] Acct: [id number] Name: EFRAIN GILLIAM Rep #: [id number] : 1955 F 69 From: Timo Moore MD PCP: BEVERLEY WALKER Status: ADM IN Study: Hip 1 view with Pelvis Date of Exam: 07/17/24 Exam# [id number] Ordering Dr: Eloy Hamm MD PROCEDURE: HIP 1 VIEW WITH PELVIS 07/17/2024 REASON FOR EXAM: ANTERIOR HIP TECHNIQUE: Fluoroscopy with 4 spot images right hip replacement FINDINGS: Fluoroscopy time 7.3 seconds Cumulative dose 1.12 mGy 4 spot images with right hip replacement appears intact and anatomic. No fracture or dislocation identified. RAD/Hip 1 view with Pelvis IMPRESSION: Fluoroscopy as above. Reading Location: [facility] CC: Dr. Eloy Hamm MD; BEVERLEY WALKER Director Chemistry: Signed Normal [facility] Hip Min 2 Views (Portable)on 07-17-2024 Hip Min 2 Views (Portable) [facility] Imaging Services [address] [place] [address] Hip Min 2 Views (Portable) MR#: [id number] Acct: [id number] Name: EFRAIN GILLIAM Rep #: [id number] : 1955 F 69 From: Misael Espinal MD PCP: BEVERLEY WALKER Status: ADM IN Study: Hip Min 2 Views (Portable) Date of Exam: 07/17 Exam# [id number] Ordering Dr: Eloy Hamm MD PROCEDURE: HIP MIN 2 VIEWS (PORTABLE) 07/17/2024 REASON FOR EXAM: POST OP TECHNIQUE: Two views of the right hip COMPARISON: Right hip radiographs 07/17/2024 FINDINGS: See below. RAD/Hip Min 2 Views (Portable) IMPRESSION: Interval postoperative changes from right total hip arthroplasty, without immediate hardware complication. Soft tissues are unremarkable. Degenerative changes of the left hip. Reading Location: [facility] CC: Dr. Eloy Hamm MD; BEVERLEY WALKER Director Chemistry: Signed Normal [facility] Immature granulocytes/100 WB C Auto (Bld)Ordered By: Mayi Kateryna on 07-17-2024 Immature granulocytes/100 WBC (Bld) 0.300 % 0.0-0.9 [facility] Comment on above: IG% - Immature Granu locytes (promyelocytes, myelocytes and metamyelocytes) > 1% indicates that a LEFT SHIFT is Present. Laboratory - Chemistry and C hemistry - challengeOrdered By: Mayi Kateryna on 07-17-2024 AST [Catalytic activity/Vol] 27 U/L <32 [facility] MCV (mean corpuscular volume ) determinationOrdered By: Mayi Kateryna on 07-17-2024 MCV (RBC) [Entitic vol] 84.6 fL 81-99 [facility] MR/POSTOP.ANEon 07-17-2024 MR/POSTOP.[facility] Medical Records Department [address] [place] [address] Anesthesia Postop Eval I 07/17/241855 MR#: [id number] Acct: [id number] Name: EFRAIN GILLIAM Yomaira Rep #: [id number] : 1955 69 From: Zelalem Monroy MD PCP: BEVERLEY WALKER Status:ADM IN Y Race: C Location: [place] [address] Anesthesia: Postop Eval I Current Vital Signs Temperature: 98.2 F Pulse Rate: 103 Blood Pressure: 154/79 Respiratory Rate: 16 Pulse Ox: 91 Assessment Airway patent: Yes Spontaneous unlabored respirations: Yes nausea: No Vomiting: No Anesthesia Complication: No Fluid Hydration Crystalloid volume administer (ml): 1,500 Total IV fluid infused: 1,500 Progress Note Anesthesia document: Postop Eval 1 completed: Yes 07/17/241856 Date Zelalem Monroy MD Cosigner Signature: Date CC: Signed Normal [facility] MR/POSTOP.ANE [facility] Medical Records Department [address] [place] [address] Anesthesia Postop Eval I 07/17/24 1444 MR#: [id number] Acct: [id number] Name: RACHELEFRAIN SCHERER Yomaira Rep #: [id number] : 1955 69 From: Ofelia Dowd CRNA PCP: BEVERLEY WALKER Status:ADM IN Y Race: C Location: MS3 [id number] Anesthesia: Postop Eval I Current Vital Signs Temperature: 97 F Pulse Rate: 72 Blood Pressure: 126/76 Respiratory Rate: 16 Pulse Ox: 96 Oxygen Delivery Method: Simple Mask Oxygen Flow Rate (L/min): 6 Assessment Airway patent: Yes Spontaneous unlabored respirations: Yes Mental status: Awake and Calm nausea: No Vomiting: No Anesthesia Complication: No Fluid Hydration Crystalloid volume administer (ml): 2,000 Total IV fluid infused: 2,000 Progress Note Anesthesia document: Postop Eval 1 completed: Yes 07/17/24 144 Date Ofelia Dowd CRNA Cosigner Signature: Date CC: Signed Normal [facility] MR/[id number] 07-17-2024 [facility] Medical Records Department [address] [place] [address] Anesthesia Postop Eval II 07/17/24 1857 MR#: [id number] Acct: [id number] Name: EFRAIN GILLIAM Rep #: [id number] : 1955 69 From: Zelalem Monroy MD PCP: BEVERLEY WALKER Status:ADM IN Y Race: C Location: [facility] [id number] Anesthesia Postop Eval I Sum Postop Eval Completion status Anesthesia document: Postop Eval 1 completed: Yes Anesthesia Postop Eval I Summary Anesthesia Postop Eval I Summary: Anesthesia Postop Eval I: Assessment Summary Airway patent Yes 07/17/24 18:56 Spontaneous unlabored Yes 07/17/24 18:56 respirations Mental status Awake,Calm 07/17/24 14:44 BERNARD nausea No 07/17/24 18:56 Vomiting No 07/17/24 18:56 Anesthesia Postop Eval I: Fluid Summary Crystalloid volume administer 1,500 07/17/24 18:56 (ml) Colloids volume administered ( ml) Blood Product volume administered (ml) Total IV fluid infused 1,500 07/17/24 18:56 Anesthesia Postop Eval I: Summary Notes Anesthesia Complication No 07/17/24 18:56 Anesthesia Complication Comment: Post-operative progress note Anesthesia: Postop Eval II Evaluation Mental status: Awake Pain Level: 0 nausea: No Vomiting: No 07/17/241856 Date Zelalem Ballardignmicheal Signature: Date CC: Signed Normal [facility] Mean corpuscular hemoglobin (MCH) determinationOrdered By: Kateryna on 07-17-2024 MCH (RBC) [Entitic mass] 28.6 pg 27.0-32.0 [facility] Mean corpuscular hemoglobin concentration (MCHC) determinationOrdered By: on 07-17-2024 MCHC (RBC) [Mass/Vol] 33.8 g/dL 32-36 [facility] Mean platelet volume determi nationOrdered By: Kateryna on 07-17-2024 Platelet mean volume (Bld) [Entitic vol] 9.2 fL 6.2-12.0 [facility] Monocyte percentageOrdered B y: White on 07-17-2024 Monocytes/100 WBC (Bld) 6.8 % 0-10 [facility] Neutrophil percentageOrdered By: White on 07-17-2024 Neutrophils/100 WBC (Bld) 75.8 % High 47-70 [facility] Nucleated red blood cell per centageOrdered By: White on 07-17-2024 Nucleated RBC/100 WBC (Bld) [Ratio] 0 % 0-5 [facility] Operative Reporton 5 Operative Report [facility] Medical Records Department [address] [facility] [place] [address] Operative Report 07/17/24 1816 MR#: [id number] Acct: [id number] Name: EFRAIN GILLIAM Rep #: [id number] : 1955 69 From: Eloy Hamm MD PCP: BEVERLEY WALKER Status:ADM IN Location: [place] [address] Operative Report (Standard) Operative Information Date of Procedure: 07/17/24 Pre-Operative Diagnosis: Right displaced femoral neck fracture, right hip osteoarthritis Post-Operative Diagnosis: Right displaced femoral neck fracture, right hip osteoarthritis Surgery/Procedure Performed: Right direct anterior total hip replacement environmental research scientist: Yes Spoon Maker: Jeronimo Barber Tasks completed by first grade teacher: Other (See body of operative report) Additional plumber assistant?: No Type of Anesthesia: General RN Documented Start/Stop Times: Operation Date: 07/17/24 15:30 Case Time Into Pre-Op 07/17/24 14:39 Anesthesia Start 07/17/24 16:36 Into Room 07/17/24 16:36 Procedure Start 07/17/24 17:14 Procedure End 07/17/24 18:38 Anesthesia End 07/17/24 18:47 Out of Room 07/17/24 18:47 Into Recovery 07/17/24 18:51 Out of Recovery 07/17/24 19:47 Procedure Start Time: 17:14 Procedure Stop Time: 18:38 Select all DRAINS/GRAFTS/IMPLANTS that apply: Prosthetic device Prosthetic device details: See body of operative report Special Medications: Ancef, TXA lavage Estimated Blood Loss: 300 mL Fluids Replaced: 1500 mL crystalloid Specimen collected: Yes Description of specimen(s) removed: Femoral head and fracture Description of surgery: Components used: 1. Accolade 2 Dereje femoral stem size 5/127 2. Dereje trident 2 acetabular shell size 52 mm 3. Breckenridge X3 polyethylene E 4. Breckenridge Biolox delta 36 mm, 5 mm femoral head Brief history operative indications: 62yo female who sustained a displaced total hip replacement with pre-existing osteoarthritis noted on x-rays. Total hip replacement was discussed with the patient with risks and benefits including but not limited to blood loss, DVTs, PEs, neurovascular damage, dislocation, general risks of anesthesia including loss of life. Patient demonstrated an understanding medical clearance is obtained the patient was consented for surgery. Procedure: On the date of procedure the patient's right hip was marked in the preoperative area. Patient was then taken back to the operating room where anesthesia assumed control of the C-spine and airway and administered anesthetic. Patient was transferred to the operating table and placed in the supine position. The hips were placed at the break of the bed and a sacral bump was placed. The right lower extremity was then prepped out in a sterile fashion using chlorhexidine while the surgeon scrubbed. The PA was vital in the positioning of the patient. Upon reentering the room the right lower extremity was draped in the standard orthopedic fashion and the incision was marked. A timeout was called and everyone agreed upon the side, the site, the procedure be performed, antibody given, and patient's identity. At this time incision was made through skin, subcutaneous tissue, and fat down to fascia. The fascia was then incised and the TFL was retracted laterally. A retractor was placed on the lateral border of the femoral neck. Attention was directed to the inferior portion of the approach and all crossing vessels were identified and appropriately coagulated. A retractor was then placed on the medial portion of the femoral neck. The anterior capsule was then cleared of all soft tissue and then H shaped capsulotomy was made. The retractors were then placed inside the capsule. The femoral neck was identified and a cleanup cut was made. At this time a power corkscrew was used to remove the femoral head. Attention was then turned toward the acetabulum where the soft tissues were appropriately retracted and the acetabulum was sequentially reamed to 52 mm. A 52 mm cup was then selected and impacted into place. Acetabular liner was impacted into place and locking mechanism was verified. The position of the acetabular cup was then verified under live fluoroscopy. Attention was then turned to the femur. Soft tissue releases on the medial and lateral femoral neck were appropriately done, the leg was externally rotated and lateralized. A Lin retractor was placed medially and proximally to the greater trochanter this allowed appropriate visualization and exposure of the femoral canal. Rongeour was then used to remove excess lateral bone. A canal finder and entry broach were used to open the proximal canal. Once we verified we were down the femoral canal we subsequently broached up to a size 5 femur. The appropriate neck was placed in the previously selected head was trialed with a 5 mm neck. Traction was pulled and the hip was reduced with (more content not included)... Normal [facility] Platelet countOrdered By: Viviana Avendaño on 07-17-2024 Platelets (Bld) [#/Vol] 194 10*3/uL 150-450 [facility] Potassium measurement (mass/ volume)Ordered By: Mayi Avendaño on 07-17-2024 Potassium (Unsp spec) [Mass/Vol] 3.9 mmol/L 3.3-5.1 [facility] RBC Auto (Bld) [#/Vol]Ordere d By: Mayi Avendaño on 07-17-2024 RBC (Bld) [#/Vol] 4.69 10*6/uL 4.2-5.[address] [facility] Serum creatinine measurement (mass/volume)Ordered By: Mayi Avendaño on 07-17-2024 Creatinine [Mass/Vol] 0.80 mg/dL 0.70-1.20 [facility] Serum globulin measurementOr dered By: Mayi Avendaño on 07-17-2024 Globulin (S) [Mass/Vol] 2.8 g/dL 2.2-4.2 [facility] Serum glucose measurement (m ass/volume)Ordered By: Mayi Avendaño on 07-17-2024 Glucose [Mass/Vol] 118 mg/dL High 70-99 [facility] Serum or plasma alanine dumont otransferase (ALT) measurementOrdered By: Mayi Avendaño on 07-17-2024 ALT [Catalytic activity/Vol] 17 U/L <35 [facility] Serum or plasma albumin moody urement (mass/volume)Ordered By: Mayi Avendaño on 07-17-2024 Albumin [Mass/Vol] 4.1 g/dL 3.4-4.8 [facility] Serum or plasma albumin/glob ulin mass ratioOrdered By: Mayi Kateryna on 07-17-2024 Albumin/Globulin [Mass ratio] 1.4 {ratio} 0.9-2.4 [facility] Serum or plasma alkaline ramon sphatase measurementOrdered By: Mayi Kateryna on 07-17-2024 ALP [Catalytic activity/Vol] 79 U/L 35-104 [facility] Serum or plasma calcium moody urement (mass/volume)Ordered By: Mayi Kateryna on 07-17-2024 Calcium [Mass/Vol] 9.4 mg/dL 7.6-11.0 [facility] Serum or plasma urea nitroge n measurement (mass/volume)Ordered By: Mayi Kateryna on 07-17-2024 Urea nitrogen [Mass/Vol] 14 mg/dL 4-19 [facility] Sodium levelOrdered By: Elizabetu mn Kateryna on 07-17-2024 Sodium [Moles/Vol] 133 mmol/L 133-145 [facility] Total proteinOrdered By: Aut umn Kateryna on 07-17-2024 Protein [Mass/Vol] 6.9 g/dL 5.9-8.4 [facility] White blood cell (WBC) count Ordered By: Mayi Kateryna on 07-17-2024 WBC (Bld) [#/Vol] 7.3 10*3/uL 4.4-11.0 [facility] 12 Lead EKGon 07-16-2024 12 Lead EKG [facility] Cardiovascular Services [address] [place] [address] 12 Lead EKG 07/16/24 1834 MR#: [id number] Acct: [id number] Name: EFRAIN GILLIAM Rep #: [id number] : 1955 69 From: Demetrius London MD Attending Dr: Dr. Conor Noland, Status: D IS IN Ordering Dr: Tian Evans MD Date: 07/16/24 Location[place] [facility] [place] Sex: F C Admitted: 07/16/24 Test Reason : Blood Pressure : */* mmHG Vent. Rate : 65 BPM Atrial Rate : 65 BPM P-R Int : 172 ms QRS Dur : 88 ms QT Int : 402 ms P-R-T Axes : 48 3 53 degrees QTcB Int : 418 ms Normal sinus rhythm Normal ECG Confirmed by KEVEN GRAY, DEMETRIUS ([id number]), make up editor LAUREN VELIZ ([id number]) on 07/20/2024 8:40:30 AM Referred By: Confirmed By: DEMETRIUS LONDON MD 07/20/24 0840 Date Demetrius London MD CC: Dr. Tian Evans MD; Dr. Conor Noland DO; BEVERLEY WALKER Signed Normal [facility] Absolute lymphocyte countOrd ered By: Tian Evans on 07-16-2024 Lymphocytes Auto (Unsp spec) [#/Vol] 1.55 10*3/uL 0.83-4.51 [facility] Absolute neutrophil countOrd ered By: Tian Evans on 07-16-2024 Neutrophils (Bld) [#/Vol] 2.7 10*3/uL 2.0-7.7 [facility] Anion gap in Serum or Plasma Ordered By: Tian Evans on 07-16-2024 Anion gap [Moles/Vol] 13 mmol/L 07-16 [facility] Automated lymphocyte count a s percentage of total leukocytesOrdered By: Tian Evans on 07-16-2024 Lymphocytes/100 WBC Auto (Unsp spec) 32.5 % [facility] BUN/creatinine ratioOrdered By: Tian Evans on 07-16-2024 Urea nitrogen/Creatinine [Mass ratio] 16.8 mg/mg 12-21 [facility] Basic Metabolic Profile (BMP )on 07-16-2024 BUN/CRE 16.6 RATIO Normal 12-21 [facility] Comment on above: Order Comment: mariah burnette run from CBC done earlier Performed By: #### L 500.2500 #### [facility] [address] [place], [address] Calcium [Mass/Vol] 9.4 mg/dL Normal 7.6-11.0 [facility] Comment on above: Order Comment: can w e run from CBC done earlier Performed By: #### L 500.2500 #### [facility] [address] [place], [address] Chloride [Moles/Vol] 98 mmol/L Normal 98-108 [facility] Comment on above: Order Comment: can w e run from CBC done earlier Performed By: #### L 500.2500 #### [facility] [address] [place], [address] CO2 [Moles/Vol] 25.6 mmol/L Normal 21.0-32.0 [facility] Comment on above: Order Comment: can w e run from CBC done earlier Performed By: #### L 500.2500 #### [facility] [address] [place], [address] Creatinine [Mass/Vol] 0.91 mg/dL Normal 0.70-1.20 [facility] Comment on above: Order Comment: can w e run from CBC done earlier Performed By: #### L 500.2500 #### [facility] [address] [place], [address] ECRCL 72.65 ml/min Normal 50-250 [facility] Comment on above: Order Comment: can w e run from CBC done earlier Performed By: #### L 500.2500 #### [facility] [address] [place], [address] GAP 11 Normal 5-15 [facility] Comment on above: Order Comment: can w e run from CBC done earlier Performed By: #### L 500.2500 #### [facility] [address] [place], [address] GFR/1.73 sq M.predicted among non-blacks MDRD (S/P/Bld) [Vol rate/Area] 69 mL/min/{1.73_m2} Normal >60 [facility] Comment on above: Order Comment: can w e run from CBC done earlier Result Comment: mL/m in/1.73m2 CKD-EPI Creatinine Equation (2020) Performed By: #### L 500.2500 #### [facility] [address] [place], [address] Glucose [Mass/Vol] 139 mg/dL High 70-99 [facility] Comment on above: Order Comment: can w e run from CBC done earlier Performed By: #### L 500.2500 #### [facility] [address] [place], [address] Potassium [Moles/Vol] 3.9 mmol/L Normal 3.3-5.1 [facility] Comment on above: Order Comment: can w e run from CBC done earlier Performed By: #### L 500.2500 #### [facility] [address] [place], [address] Sodium [Moles/Vol] 135 mmol/L Normal 133-145 [facility] Comment on above: Order Comment: can w e run from CBC done earlier Performed By: #### L 500.2500 #### [facility] [address] [place], [address] Urea nitrogen [Mass/Vol] 15 mg/dL Normal 4-19 [facility] Comment on above: Order Comment: can w e run from CBC done earlier Performed By: #### L 500.2500 #### [facility] [address] [place], [address] Basophil percentageOrdered B y: Tian Evans on 07-16-2024 Basophils/100 WBC (Bld) 1.3 % High 0-1 [facility] Bedside Glucoseon 07-16-2024 FINGERSTICK GLU 106 mg/dL Normal 74-106 [facility] Comment on above: Result Comment: SWAPNA ORELLANA OF PATIENT CARE PER NURSING PROTOCOL Performed By: #### L 501.080 #### [facility] [address] [place], [address] Bilirubin, totalOrdered By: Tian Evans on 07-16-2024 Bilirubin [Mass/Vol] 0.54 mg/dL 0.00-1.30 [facility] CBC W/Diff, Automatedon 07-02 Absolute Lymph 1.55 X10 3/uL Normal 0.83-4.51 [facility] Comment on above: Performed By: #### L 501.4021, L500.4050, L100.0100 #### [facility] [address] [place], [address] Absolute Neut 2.7 X10 3/uL Normal 2.0-7.7 [facility] Comment on above: Performed By: #### L 501.4021, L500.4050, L100.0100 #### [facility] [address] [place], [address] Basophils/100 WBC (Bld) 1.3 % High 0-1 [facility] Comment on above: Performed By: #### L 501.4021, L500.4050, L100.0100 #### [facility] [address] [place], [address] Eosinophils/100 WBC (Bld) 2.1 % Normal 0-5 [facility] Comment on above: Performed By: #### L 501.4021, L500.4050, L100.0100 #### [facility] [address] [place], [address] Erythrocyte distribution width (RBC) [Ratio] 12.3 % Normal 11.6-14.6 [facility] Comment on above: Performed By: #### L 501.4021, L500.4050, L100.0100 #### [facility] [address] [place], [address] Hematocrit (Bld) [Volume fraction] 37.5 % Normal 37-47 [facility] Comment on above: Performed By: #### L 501.4021, L500.4050, L100.0100 #### [facility] [address] [place], [address] Hemoglobin (Bld) [Mass/Vol] 12.7 g/dL Normal 12.0-15.0 [facility] Comment on above: Performed By: #### L 501.4021, L500.4050, L100.0100 #### [facility] [address] [place], [address] IG% 0.400 Normal 0.0-0.9 [facility] Comment on above: Result Comment: IG% - Immature Granulocytes (promyelocytes, myelocytes and metamyelocytes) > 1% indicates that a LEFT SHIFT is Present. Performed By: #### L 501.4021, L500.4050, L100.0100 #### [facility] [address] [place], [address] Lymphocytes/100 WBC (Bld) 32.5 % Normal 19-41 [facility] Comment on above: Performed By: #### L 501.4021, L500.4050, L100.0100 #### [facility] [address] [place], [address] MCH (RBC) [Entitic mass] 28.9 pg Normal 27.0-32.0 [facility] Comment on above: Performed By: #### L 501.4021, L500.4050, L100.0100 #### [facility] [address] [place], [address] MCHC (RBC) [Mass/Vol] 33.9 g/dL Normal 32-36 [facility] Comment on above: Performed By: #### L 501.4021, L500.4050, L100.0100 #### [facility] [address] [place], [address] MCV (RBC) [Entitic vol] 85.4 fL Normal 81-99 [facility] Comment on above: Performed By: #### L 501.4021, L500.4050, L100.0100 #### [facility] [address] [place], [address] Monocytes/100 WBC (Bld) 6.9 % Normal 0-10 [facility] Comment on above: Performed By: #### L 501.4021, L500.4050, L100.0100 #### [facility] [address] [place], [address] Neutrophils/100 WBC (Bld) 56.8 % Normal 47-70 [facility] Comment on above: Performed By: #### L 501.4021, L500.4050, L100.0100 #### [facility] [address] [place], [address] Nucleated RBC (Bld) [#/Vol] 0 10*3/uL Normal 0-5 [facility] Comment on above: Performed By: #### L 501.4021, L500.4050, L100.0100 #### [facility] [address] [place], [address] Platelet mean volume (Bld) [Entitic vol] 9.2 fL Normal 6.2-12.0 [facility] Comment on above: Performed By: #### L 501.4021, L500.4050, L100.0100 #### [facility] [address] [place], [address] Platelets (Bld) [#/Vol] 179 10*3/uL Normal 150-450 [facility] Comment on above: Performed By: #### L 501.4021, L500.4050, L100.0100 #### [facility] [address] [place], [address] RBC (Bld) [#/Vol] 4.39 10*6/uL Normal 4.2-5.[address] [facility] Comment on above: Performed By: #### L 501.4021, L500.4050, L100.0100 #### [facility] [address] [place], [address] RDW SD 38.1 fl Normal 35.1-43.9 [facility] Comment on above: Performed By: #### L 501.4021, L500.4050, L100.0100 #### [facility] [address] [place], [address] WBC (Bld) [#/Vol] 4.8 10*3/uL Normal 4.4-11.0 [facility] Comment on above: Performed By: #### L 501.4021, L500.4050, L100.0100 #### [facility] [address] [place], [address] Carbon dioxide, total [Moles /volume] in Central venous bloodOrdered By: Tian Evans on 07-16-2024 CO2 [Moles/Vol] 21.9 mmol/L 21.0-32.0 [facility] Chest 1 View (Portable)on Chest 1 View (Portable) [facility] Imaging Services [address] [place] [address] Chest 1 View (Portable) MR#: [id number] Acct: [id number] Name: EFRAIN GILLIAM Yomaira Rep #: [id number] : 1955 F 69 From: Conor Vicente MD PCP: BEVERLEY WALKER Status: [facility] ER Study: Chest 1 View (Portable) Date of Exam: 07/16/24 Exam# [id number] Ordering Dr: Tian Evans MD PROCEDURE: CHEST 1 VIEW (PORTABLE), 07/16/2024 REASON FOR EXAM: PREOPERATIVE, CAD TECHNIQUE: A single portable AP view of the chest was obtained. COMPARISON: None FINDINGS: Heart: Unremarkable. Mediastinum: Widening of the RIGHT paratracheal stripe could be related to vascular prominence, mediastinal lipomatosis, may be projectional, related to mediastinal lymphadenopathy, or other mediastinal process. Central vascular prominence. Lungs/pleura: No focal consolidation. No sizeable pleural effusion or visible pneumothorax. Suspect a skin fold the RIGHT. Bones: Multilevel spondylosis. Suspected demineralization. Lines and support devices: None. Other: None. RAD/Chest 1 View (Portable) IMPRESSION: 1. Central vascular prominence without overt pulmonary edema. 2. Recommend outpatient CT chest, ideally with IV contrast for above mediastinal findings, unless prior outside imaging is available to further delineate or establish long-term stability. 3. Additional description as above. Reading Location: [id number] CC: Dr. Tian Evans MD; BEVERLEY WALKER Director Chemistry: Signed Normal [facility] Chloride assayOrdered By: Lucien Evans on 07-16-2024 Chloride [Moles/Vol] 101 mmol/L 98-108 [facility] Comprehensive Metabolic Prof ilon 07-16-2024 Albumin [Mass/Vol] 4.2 g/dL Normal 3.4-4.8 [facility] Comment on above: Performed By: #### L 501.4021, L500.4050, L100.0100 #### [facility] [address] [place], [address] Albumin/Globulin [Mass ratio] 1.4 {ratio} Normal 0.9-2.4 [facility] Comment on above: Performed By: #### L 501.4021, L500.4050, L100.0100 #### [facility] [address] [place], [address] ALK PHOS 80 U/L Normal 35-104 [facility] Comment on above: Performed By: #### L 501.4021, L500.4050, L100.0100 #### [facility] [address] [place], [address] ALT [Catalytic activity/Vol] 19 U/L Normal <=34 [facility] Comment on above: Performed By: #### L 501.4021, L500.4050, L100.0100 #### [facility] [address] [place], [address] AST [Catalytic activity/Vol] 35 U/L High <=31 [facility] Comment on above: Result Comment: Hemo lysis present, Results??could be affected. ?? Performed By: #### L 501.4021, L500.4050, L100.0100 #### [facility] [address] [place], [address] Bilirubin [Mass/Vol] 0.54 mg/dL Normal 0.00-1.30 [facility] Comment on above: Performed By: #### L 501.4021, L500.4050, L100.0100 #### [facility] [address] [place], [address] BUN/CRE 16.8 RATIO Normal 10-20 [facility] Comment on above: Performed By: #### L 501.4021, L500.4050, L100.0100 #### [facility] [address] [place], [address] Calcium [Mass/Vol] 9.4 mg/dL Normal 7.6-11.0 [facility] Comment on above: Performed By: #### L 501.4021, L500.4050, L100.0100 #### [facility] [address] [place], [address] Chloride [Moles/Vol] 101 mmol/L Normal 98-108 [facility] Comment on above: Performed By: #### L 501.4021, L500.4050, L100.0100 #### [facility] [address] [place], [address] CO2 [Moles/Vol] 21.9 mmol/L Normal 21.0-32.0 [facility] Comment on above: Performed By: #### L 501.4021, L500.4050, L100.0100 #### [facility] [address] [place], [address] Creatinine [Mass/Vol] 1.01 mg/dL Normal 0.70-1.20 [facility] Comment on above: Performed By: #### L 501.4021, L500.4050, L100.0100 #### [facility] [address] [place], [address] ECRCL 67.61 ml/min Normal 50-250 [facility] Comment on above: Performed By: #### L 501.4021, L500.4050, L100.0100 #### [facility] [address] [place], [address] GAP 13 Normal 5-15 [facility] Comment on above: Performed By: #### L 501.4021, L500.4050, L100.0100 #### [facility] [address] [place], [address] GFR/1.73 sq M.predicted among non-blacks MDRD (S/P/Bld) [Vol rate/Area] 61 mL/min/{1.73_m2} Normal >60 [facility] Comment on above: Result Comment: mL/m in/1.73m2 CKD-EPI Creatinine Equation (2020) Performed By: #### L 501.4021, L500.4050, L100.0100 #### [facility] [address] [place], [address] Globulin (S) [Mass/Vol] 3.0 g/dL Normal 2.2-4.2 [facility] Comment on above: Performed By: #### L 501.4021, L500.4050, L100.0100 #### [facility] [address] [place], [address] Glucose [Mass/Vol] 92 mg/dL Normal 70-99 [facility] Comment on above: Performed By: #### L 501.4021, L500.4050, L100.0100 #### [facility] [address] [place], [address] Potassium [Moles/Vol] 3.9 mmol/L Normal 3.3-5.1 [facility] Comment on above: Result Comment: Hemo lysis present, Results??could be affected. ?? Performed By: #### L 501.4021, L500.4050, L100.0100 #### [facility] [address] [place], [address] Sodium [Moles/Vol] 135 mmol/L Normal 133-145 [facility] Comment on above: Performed By: #### L 501.4021, L500.4050, L100.0100 #### [facility] [address] [place], [address] T PROT 7.2 g/dL Normal 5.9-8.4 [facility] Comment on above: Performed By: #### L 501.4021, L500.4050, L100.0100 #### [facility] [address] [place], [address] Urea nitrogen [Mass/Vol] 17 mg/dL Normal 4-19 [facility] Comment on above: Performed By: #### L 501.4021, L500.4050, L100.0100 #### [facility] [address] [place], [address] Emergency Department Summary on 07-16-2024 Emergency Department Summary [facility] Medical Records Department [address] [place] [address] Emergency Department Summary 07/16/24 MR#: [id number] Acct: [id number] Name: EFRAIN GILLIAM Rep #: [id number] : 1955 69 From: Tian Evans MD PCP: BEVERLEY WALKER Status:ADM IN Location: MS3 [id number] Tian Evans MD on 07/16/24 at 6 Preop EKG obtained and interpreted by myself independently as normal sinus rhythm at 65 bpm without ectopy or acute ST changes. No STEMI. 07/16/241955 Cosigner Signature (if applicable): cc: DHARMESHEMBER DENISE * Signed HPI History of Present Illness Chief Complaint: Fall Narrative Narrative: 69-year-old female past medical history of hypertension, hypercholesterolemia, arthritis, previous remote left TKA performed in [place] presents with injury to her right hip status post fall. She states that she fell down a stair or step out onto concrete as she was walking backwards, carrying a chair because she was going to go outside and read a book. She denies hitting of her head or loss of consciousness. She was unable to sit up or move her right lower extremity as she has pain in her hip. She states she might have scraped her left foot as well. Initially, she denied any shoulder pain, neck pain, loss of consciousness, or other injury. The pain is concentrated in her right hip. [facility] Medical History History of diabetes mellitus Obesity GERD (gastroesophageal reflux disease) HLD (hyperlipidemia) Hypertension Home Medications ???Medication ???Instructions ???Recorded ???Last Taken ???Type diclofenac sodium 50 mg 50 mg PO BID 07/16/24 07/16/24 His tory tablet,delayed release lisinopril 40 mg tablet 40 mg PO DAILY 07/16/24 07/16/24 H istory metoprolol succinate 50 mg 75 mg PO DAILY 07/16/24 07/16/24 H istory tablet,extended release 24 hr pantoprazole 40 mg tablet,delayed 40 mg PO DAILY 07/16/24 07/16/24 History release rosuvastatin 20 mg tablet 20 mg PO QHS 07/16/24 07/16/24 His tory tirzepatide (weight loss) 5 mg/0.5 5 mg subcut QWEEK 07/16/2407/13 History mL subcutaneous pen injector (Zepbound) Allergy/AdvReac Type Severity Reaction Status Date / Time No Known Allergies Allergy Verified 07/16/24 16:20 Family History Mother MORENO (nonalcoholic steatohepatitis) Heart failure Hypertension Heart disease Father Heart disease Hypertension CAD (coronary artery disease) Myocardial infarction Surgical History H/O wrist surgery History of hysterectomy History of left knee replacement S/P left knee arthroscopy Social History household members: spouse Smoking Status: Never smoker alcohol intake: never substance use type: does not use ROS ROS ED ROS Narrative Review of systems, focused, positive for right hip pain worse with any type of movement/unable to move right hip. No hitting of head, no loss of consciousness, denies shoulder pain. May have scraped the left foot. No prodromal symptoms of chest pain or shortness of breath. witnessed fall. EXAM Physical Exam Narrative Exam Narrative: GCS 15. ABCs are intact. Neck soft and supple without vertebral point tenderness or bony step-off. Able to raise arms above head in supine position. Cardiovascular examination regular rate and rhythm. Lungs are clear to auscultation bilaterally anteriorly. Abdomen is soft nontender without guarding or rebound, positive bowel sounds. Pelvis stable. Right hip held in flexion with flexion of right knee. EHL intact bilaterally. Palpable dorsalis pedis pulse, right. Const Vital Signs: 07/16/24 16:20 07/16/24 16:34 07/16/24 17:19 Temperature 98.6 F 98.9 F Temperature Source Oral Oral Pulse Rate 89 64 Respiratory Rate 18 18 Respiratory Effort Normal Respiratory Depth Normal Respiratory Pattern Normal Blood Pressure 182/98 H 167/78 H Blood Pressure Mean 126 107 Pulse Ox 95 97 Oxygen Delivery Method Room Air Room Air Room Air 07/16/24 18:00 07/16/24 18:00 Temperature 97.8 F Temperature Source Pulse Rate 78 66 Respiratory Rate 16 18 Respiratory Effort Respiratory Depth Respiratory Pattern Blood Pressure 138/76 H 138/76 H Blood Pressure Mean 96 96 Pulse Ox 98 100 Oxygen Delivery Method Room Air MDM MDM MDM Narrative Medical decision making narrative: Differential diagnosis includes but not limited to right hip contusion versus fracture versus left foot fracture versus contusion versus abrasion. Patient was administered Dilaudid 1 m (more content not included)... Normal [facility] Eosinophil percentageOrdered By: Tian Evans on 07-16-2024 Eosinophils/100 WBC (Bld) 2.1 % 0-5 [facility] Erythrocyte distribution wid th ratioOrdered By: Tian Evans on 07-16-2024 Erythrocyte distribution width (RBC) [Ratio] 12.3 % 11.6-14.6 [facility] Erythrocyte distribution wid th standard deviationOrdered By: Tian Evans on 07-16-2024 Erythrocyte distribution width (RBC) [Ratio] 38.1 fl 35.1-43.9 [facility] Foot min 3 Viewson Foot min 3 Views [facility] Imaging Services [address] [place] [address] Foot min 3 Views MR#: [id number] Acct: [id number] Name: EFRAIN GILLIAM Rep #: [id number] : 1955 F 69 From: Flako burnette MD PCP: BEVERLEY WALKER Status: REG ER Study: Foot min 3 Views Date of Exam: 07/16/24 Exam# [id number] Ordering Dr: Tian Evans MD PROCEDURE: FOOT MIN 3 VIEWS 07/16/2024 REASON FOR EXAM: TRAUMA TECHNIQUE: 3 views of the left foot. COMPARISON: None FINDINGS: No acute fracture or dislocation. Mild multifocal osteoarthritis. No significant soft tissue swelling. No radiopaque foreign body. RAD/Foot min 3 Views IMPRESSION: No acute findings. Reading Location: [facility] CC: Dr. Tian Evans MD; BEVERLEY WALKER Director Chemistry: Signed Normal [facility] Glomerular filtration rate ( GFR) estimation/1.73 sq m using serum, plasma, or whole bOrdered By: Tian Evans on 07-16-2024 GFR/1.73 sq M.predicted among non-blacks MDRD (S/P/Bld) [Vol rate/Area] 61 mL/min/{1.73_m2} >60 [facility] Comment on above: mL/min/1.73m2 CKD-EP I Creatinine Equation (2020) H AND P Exam - [facility] 07-16-2024 H&P Exam - Hospitalist [facility] Medical Records Department [address] [place] [address] H P Exam - Hospitalist 07/16/24 1810 MR#: [id number] Acct: [id number] Name: EFRAIN GILLIAM Rep #: [id number] : 1955 69 From: Mayi Avendaño MD PCP: BEVERLEY WALKER Status:REG ER Location: ED HPI - General General Date of Admission: 07/16/24 Date of Service: 07/16/24 Chief Complaint: Fall, Hip pain. HPI Narrative The patient is a 69 y/o F w/ PMHx: HTN, HLD, GERD, Obesity, Hx Diabetes mellitus type II who presents to the [facility] ED on 07/16/2024 with history of unfortunate mechanical fall, taking a chair outside to read a book unfortunately she fell down a stair and stepped on it concrete as she was walking backwards landing on her right lower extremity especially on her hip and potentially twisting her left ankle with significant debility and inability to bear weight prompting ED evaluation. In the ED despite current pain medication being administered she does rate her pain to the right hip is 8 of 10 in severity. She denies any extremity paresthesias. Workup in the ED included T98.6, heart rate 89, BP 182/98 initially, respiratory rate 18, 95% on room air with most recent repeat vitals T98.9, heart rate 64, BP 167/78, respiratory rate 18, 97% on room air, CBC with WC 4.8, hemoglobin 12.7, platelet 179 without marked shift, CMP not marked appearing aside from AST 35, troponin 6, pending EKG upon evaluation, plain film of the left foot with no acute findings, plain film of the right hip and pelvis with a mildly displaced and angulated fracture of the right femoral neck with moderate medial angulation of the proximal fracture fragment. [facility] Medical History History of diabetes mellitus Obesity GERD (gastroesophageal reflux disease) HLD (hyperlipidemia) Hypertension Home Medications ???Medication ???Instructions ???Recorded ???Last Taken ???Type diclofenac sodium 50 mg 50 mg PO BID 07/16/24 07/16/24 His tory tablet,delayed release lisinopril 40 mg tablet 40 mg PO DAILY 07/16/24 07/16/24 H istory metoprolol succinate 50 mg 75 mg PO DAILY 07/16/24 07/16/24 H istory tablet,extended release 24 hr pantoprazole 40 mg tablet,delayed 40 mg PO DAILY 07/16/24 07/16/24 History release rosuvastatin 20 mg tablet 20 mg PO QHS 07/16/24 07/16/24 His tory tirzepatide (weight loss) 5 mg/0.5 5 mg subcut QWEEK 07/16/2407/13 History mL subcutaneous pen injector (Zepbound) Allergy/AdvReac Type Severity Reaction Status Date / Time No Known Allergies Allergy Verified 07/16/24 16:20 Family History Mother MORENO (nonalcoholic steatohepatitis) Heart failure Hypertension Heart disease Father Heart disease Hypertension CAD (coronary artery disease) Myocardial infarction Surgical History H/O wrist surgery History of hysterectomy History of left knee replacement S/P left knee arthroscopy Social History household members: spouse Smoking Status: Never smoker alcohol intake: never substance use type: does not use ROS ROS Narrative Admission Review of Systems: CONSTITUTIONAL: No weight loss, fever, chills, + weakness or fatigue. HEENT: Eyes: No visual loss, blurred vision, double vision or yellow sclerae. Ears, Nose, Throat: No hearing loss, sneezing, congestion, runny nose or sore throat. SKIN: No rash or itching, lesions, wounds. CARDIOVASCULAR: No chest pain, chest pressure or chest discomfort, palpitations, edema, orthopnea, syncopal events. RESPIRATORY: No shortness of breath, cough or sputum, wheezing, hemoptysis. GASTROINTESTINAL: No anorexia, nausea, vomiting or diarrhea, abdominal pain, melena, BRBPR. GENITOURINARY: No dysuria, frequency, urgency or retention. NEUROLOGICAL: No headache, dizziness, syncope, paralysis, ataxia, numbness or tingling in the extremities, focal weakness, change in bowel or bladder control, seizure. MUSCULOSKELETAL: + muscle, back pain, joint pain or stiffness. HEMATOLOGIC: No anemia, bleeding or bruising. LYMPHATICS: No enlarged nodes. No history of splenectomy. PSYCHIATRIC: No history of depression or anxiety. ENDOCRINOLOGIC: No reports of sweating, cold or heat intolerance. No polyuria or polydipsia. ALLERGIES: No history of asthma, hives, eczema or rhinitis. Vital Signs Vital Signs Vital Signs: 07/16/24 16:20 07/16/24 16:34 07/16/24 17:19 Temperature 98.6 F 98.9 F Temperature Source Oral Oral Pulse Rate 89 64 Respiratory Rate 18 18 Respiratory Effort Normal Respiratory Depth Normal Respiratory Pattern Normal Blood Pressure 182/9 (more content not included)... Normal [facility] HIP, UNI W/ Pelvis 2-3 Views on 07-16-2024 HIP, UNI W/ Pelvis 2-3 Views [facility] Imaging Services [address] [place] [address] HIP, UNI W/ Pelvis 2-3 Views MR#: [id number] Acct: [id number] Name: EFRAIN GILLIAM Rep #: [id number] : 1955 F 69 From: Flako burnette MD PCP: BEVERLEY WALKRE Status: REG ER Study: HIP, UNI W/ Pelvis 2-3 Views Date of Exam: Exam# [id number] Ordering Dr: Tian Evans MD PROCEDURE: HIP, UNI W/ PELVIS 2-3 VIEWS 07/16/2024 REASON FOR EXAM: TRAUMA TECHNIQUE: 3 views of the right hip COMPARISON: None FINDINGS: Mildly displaced and angulated fracture right femoral neck. There is moderate medial angulation of the proximal fracture fragment. No other fractures are noted. Degenerative changes of the hip joints. Mild degenerative changes SI joints and lower lumbar spine. Indeterminate sclerotic lesion overlying right the femoral head. RAD/HIP, UNI W/ Pelvis 2-3 Views IMPRESSION: See above Reading Location: [facility] CC: Dr. Tian Evans MD; BEVERLEY WALKER Director Chemistry: Signed Normal [facility] Hematocrit Auto (Bld) [Volum e fraction]Ordered By: Tian Evans on 07-16-2024 Hematocrit (Bld) [Volume fraction] 37.5 % 37-47 [facility] Hemoglobin measurementOrdere d By: Tian Evans on 07-16-2024 Hemoglobin (Bld) [Mass/Vol] 12.7 g/dL 12.0-15.0 [facility] Immature granulocytes/100 WB C Auto (Bld)Ordered By: Tian Evans on 07-16-2024 Immature granulocytes/100 WBC (Bld) 0.400 % 0.0-0.9 [facility] Comment on above: IG% - Immature Granu locytes (promyelocytes, myelocytes and metamyelocytes) > 1% indicates that a LEFT SHIFT is Present. L499.0042on 07-16-2024 Trop T High Sen 6 ng/L Normal <=14 [facility] Comment on above: Order Comment: PT GO T INTO ROOM AT 2000 PER RN Performed By: #### L 499.0042 #### [facility] [address] [place], [address] L499.0043on 07-16-2024 Trop T High Sen < 6 Normal <=14 [facility] Comment on above: Order Comment: TWO H R DRAWN AT 2100 Performed By: #### L 501.080 #### [facility] [address] [place], [address] L501.4021on 07-16-2024 Trop T High Sen 6 ng/L Normal <=14 [facility] Comment on above: Performed By: #### L 501.4021, L500.4050, L100.0100 #### [facility] [address] [place], [address] Laboratory - Chemistry and C hemistry - challengeOrdered By: Tian Evans on 07-16-2024 AST [Catalytic activity/Vol] 35 U/L High <32 [facility] Comment on above: Hemolysis present, R esults could be affected. MCV (mean corpuscular volume ) determinationOrdered By: Tian Evans on 07-16-2024 MCV (RBC) [Entitic vol] 85.4 fL 81-99 [facility] Mean corpuscular hemoglobin (MCH) determinationOrdered By: Tian Evans on 07-16-2024 MCH (RBC) [Entitic mass] 28.9 pg 27.0-32.0 [facility] Mean corpuscular hemoglobin concentration (MCHC) determinationOrdered By: Tian Evans on 07-16-2024 MCHC (RBC) [Mass/Vol] 33.9 g/dL 32-36 [facility] Mean platelet volume determi nationOrdered By: Tian Evans on 07-16-2024 Platelet mean volume (Bld) [Entitic vol] 9.2 fL 6.2-12.0 [facility] Monocyte percentageOrdered B y: Tian Evans on 07-16-2024 Monocytes/100 WBC (Bld) 6.9 % 0-10 [facility] Neutrophil percentageOrdered By: Tian Evans on 07-16-2024 Neutrophils/100 WBC (Bld) 56.8 % 47-70 [facility] Nucleated red blood cell per centageOrdered By: Tian Evans on 07-16-2024 Nucleated RBC/100 WBC (Bld) [Ratio] 0 % 0-5 [facility] Platelet countOrdered By: Lucien Evans on 07-16-2024 Platelets (Bld) [#/Vol] 179 10*3/uL 150-450 [facility] Potassium measurement (mass/ volume)Ordered By: Tian Evans on 07-16-2024 Potassium (Unsp spec) [Mass/Vol] 3.9 mmol/L 3.3-5.1 [facility] Comment on above: Hemolysis present, R esults could be affected. RBC Auto (Bld) [#/Vol]Ordere d By: Tian Evans on 07-16-2024 RBC (Bld) [#/Vol] 4.39 10*6/uL 4.2-5.[address] [facility] Serum creatinine measurement (mass/volume)Ordered By: Tian Evans on 07-16-2024 Creatinine [Mass/Vol] 1.01 mg/dL 0.70-1.20 [facility] Serum globulin measurementOr dered By: Tian Evans on 07-16-2024 Globulin (S) [Mass/Vol] 3.0 g/dL 2.2-4.2 [facility] Serum glucose measurement (m ass/volume)Ordered By: Tian Evans on 07-16-2024 Glucose [Mass/Vol] 92 mg/dL 70-99 [facility] Serum or plasma alanine dumont otransferase (ALT) measurementOrdered By: Tian Evans on 07-16-2024 ALT [Catalytic activity/Vol] 19 U/L <35 [facility] Serum or plasma albumin moody urement (mass/volume)Ordered By: Tian Evans on 07-16-2024 Albumin [Mass/Vol] 4.2 g/dL 3.4-4.8 [facility] Serum or plasma albumin/glob ulin mass ratioOrdered By: Tian Evans on 07-16-2024 Albumin/Globulin [Mass ratio] 1.4 {ratio} 0.9-2.4 [facility] Serum or plasma alkaline ramon sphatase measurementOrdered By: Tian Evans on 07-16-2024 ALP [Catalytic activity/Vol] 80 U/L 35-104 [facility] Serum or plasma calcium moody urement (mass/volume)Ordered By: Tian Evans on 07-16-2024 Calcium [Mass/Vol] 9.4 mg/dL 7.6-11.0 [facility] Serum or plasma urea nitroge n measurement (mass/volume)Ordered By: iTan Evans on 07-16-2024 Urea nitrogen [Mass/Vol] 17 mg/dL 4-19 [facility] Sodium levelOrdered By: Tian Evans on 07-16-2024 Sodium [Moles/Vol] 135 mmol/L 133-145 [facility] Total proteinOrdered By: Jessa Evans on 07-16-2024 Protein [Mass/Vol] 7.2 g/dL 5.9-8.4 [facility] Troponin T.cardiac [Mass/vol ume] in Serum or Plasma by High sensitivity methodOrdered By: Tian Evans on 07-16-2024 Troponin T.cardiac High sensitivity method [Mass/Vol] < 6 ng/L <14 [facility] Troponin T.cardiac High sensitivity method [Mass/Vol] 6 ng/L <14 [facility] Type AND Screenon 07-16-2024 Ab SCREEN GEL Negative Normal [facility] Comment on above: Order Comment: S Performed By: #### L 501.080 #### [facility] [address] [place], [address] White blood cell (WBC) count Ordered By: Tian Evans on 07-16-2024 WBC (Bld) [#/Vol] 4.8 10*3/uL 4.4-11.0 [facility] Surgical Pathologyon 020 Surgical Pathology (NOTE) -- Diagnosis -- SKIN, RIGHT NASAL ALA, EXCISION: - FOCAL DERMAL SCAR, CONSISTENT WITH PRIOR BIOPSY SITE. - ACTINIC INJURY. - BENIGN SURGICAL MARGINS. - NO EVIDENCE OF RESIDUAL BASAL CELL CARCINOMA. Kerwin Zhang, Electronically Signed Out [facility]/08/06/2019 Clinical Information Pre-op Diagnosis: BASAL CELL RIGHT NASAL BRIDGE Operative Findings: BCC RIGHT NASAL ALA SHORT SUPERIOR, LONG LATERAL Operation Performed: NASAL LESION BIOPSY EXCISION, NASAL BRIDGE WITH FROZEN SECTION POSSIBLE Source of Specimen 1: BCC RIGHT NASAL ALA Gross Description EFRAIN GILLIAM BCC RIGHT NASAL ALA Received fresh is an oval cervantes skin excision, 1.4 x 1.0 x 0.4 cm, with a 0.8 cm central mottled zone. Serially sectioned from lateral to medial. FS x 2, 2cs. tm Intraoperative Diagnosis FS DX: Sebaceous gland hyperplasia, actinic keratosis. Margins negative for basal cell carcinoma. ([facility], 08/05/2019) Microscopic Description Scar is present in the dermis in the center of the specimen, consistent with prior biopsy site. Solar elastosis and focal chronic inflammation are present in the surrounding dermis, with actinic injury in the squamous epithelium. No evidence of residual basal cell carcinoma is identified. The surgical margins are benign. SURGICAL PATHOLOGY CONSULTATION Patient Name: BLESSING GILLIAMDARIELA [facility] Rec: [id number] Path Number: [id number] [facility] ANATOMIC [facility] [address] [place] [id number] [facility] Comment on above: Performed By: #### P PPVS #### [address] [address] Traveling Clerk: Bebeto Sharp MD COVID-19on 08-04-2019 SARS-CoV-2 Not Detected Not Detected [place], [place] Comment on above: The specimen is NEGATIVE for SARS-CoV-2, the novel coronavirus associated with COVID-19. A negative result does not rule out COVID-19. This test has been authorized by the FDA under an Emergency Use Authorization (EUA) for use by authorized laboratories. Fact sheet for Healthcare Providers: https://www.fda.gov/media/778929/download Fact sheet for Patients: https://www.fda.gov/media/429628/download METHODOLOGY: RT-PCR SARS-CoV-2, PCR [place], [place] SARS-CoV-2, Rapid [place], [place] Source .NASOPHARYNGEAL SWAB [place], [place] [id number] 08-04-2019 SARS-CoV-2 Not Detected [facility] Comment on above: Result Comment: The specimen is NEGATIVE for SARS-CoV-2, the novel coronavirus associated with COVID-19. A negative result does not rule out COVID-19. This test has been authorized by the FDA under an Emergency Use Authorization (EUA) for use by authorized laboratories. Fact sheet for Healthcare Providers: https://www.fda.gov/media/074322/download Fact sheet for Patients: https://www.fda.gov/media/093677/download METHODOLOGY: RT-PCR Performed By: #### C OVID #### [address] [address] Traveling Clerk: Bebeto Sharp MD SARS-CoV-2,Rapid [facility] Comment on above: Performed By: #### C OVID #### [facility] [address] [place], [place] [id number] Traveling Clerk: Bebeto Sharp MD SARS-CoV-2 Normal [facility] Comment on above: Performed By: #### C OVID #### [facility] [address] [place], [place] [id number] Traveling Clerk: Bebeto Sharp MD SARS-CoV-2 Source .NASOPHARYNGEAL SWAB Normal [facility] Comment on above: Performed By: #### C OVID #### [facility] [address] [place], [place] [id number] Traveling Clerk: Bebeto Sharp MD XR ABDOMEN 1 VIEWon 08-14-19 18 XR ABDOMEN 1 VIEW IMAGES REVIEWED: XR ABDOMEN 1 VIEW COMPARISON: Abdomen radiograph dated 09/25/2012. CLINICAL INDICATION: Dysuria and back pain. FINDINGS: There is a nonspecific bowel gas pattern without evidence of bowel obstruction. No definite calcifications are seen to overlie the renal shadows or the expected courses of the ureters. No intraperitoneal free air is seen. The imaged lung bases are clear. No acute osseous abnormality is seen. IMPRESSION: 1. No definite calcifications are seen to overlie the renal shadows or the expected courses of the ureters. If there is persistent concern, consider a CT examination. 2. Nonspecific bowel gas pattern without evidence of bowel obstruction. Normal [facility] CBCon 08-12-2017 ABSOLUTE BAS 0.0 X10 Normal [facility] Comment on above: Performed By: #### A CBC, CHEM7F #### Testing performed at [address] [address] ABSOLUTE EOS 0.10 X10 Normal [facility] Comment on above: Performed By: #### A CBC, CHEM7F #### Testing performed at [address] [address] ABSOLUTE NEUTROPHIL COUNT 3.9 x10 Normal 1.0-7.0 [facility] Comment on above: Performed By: #### A CBC, CHEM7F #### Testing performed at [address] [address] Basophils/100 WBC (Bld) 0.7 % Normal 0.0-2.0 A [facility] Comment on above: Performed By: #### A CBC, CHEM7F #### Testing performed at [address] [place] [address] DTYPE AUTO DIFF Normal [facility] Comment on above: Performed By: #### A CBC, CHEM7F #### Testing performed at [address] [address] Eosinophils/100 WBC (Bld) 1.3 % Normal 0.0-11.0 [facility] Comment on above: Performed By: #### A CBC, CHEM7F #### Testing performed at [address] [address] Lymphocytes #/vol (Bld) 1.50 X10 Normal [facility] Comment on above: Performed By: #### A CBC, CHEM7F #### Testing performed at [address] [address] Lymphocytes/100 WBC (Bld) 24.6 % Normal 20.0-55.0 [facility] Comment on above: Performed By: #### A CBC, CHEM7F #### Testing performed at [address] [address] Monocytes #/vol (Bld) 0.5 X10 Normal [facility] Comment on above: Performed By: #### A CBC, CHEM7F #### Testing performed at [address] [address] Monocytes/100 WBC (Bld) 8.7 % Normal 0.0-10.0 [facility] Comment on above: Performed By: #### A CBC, CHEM7F #### Testing performed at [address] [address] Neutrophils/100 WBC (Bld) 64.7 % Normal 37.0-75.0 [facility] Comment on above: Performed By: #### A CBC, CHEM7F #### Testing performed at [address] [place] [address] Erythrocyte distribution width Ratio (RBC) 14.2 % Normal 11.5-14.5 [facility] Comment on above: Performed By: #### A CBC, CHEM7F #### Testing performed at [address] [address] Hematocrit Volume Fraction (Bld) 37.9 % Normal 36.0-48.0 [facility] Comment on above: Performed By: #### A CBC, CHEM7F #### Testing performed at [address] [address] Hemoglobin mass conc (Bld) 12.7 g/dL Normal 12.0-16.0 [facility] Comment on above: Performed By: #### A CBC, CHEM7F #### Testing performed at [address] [address] MCH Entitic mass (RBC) 28.9 pg Normal 26.0-35.0 [facility] Comment on above: Performed By: #### A CBC, CHEM7F #### Testing performed at [address] [address] MCHC mass conc (RBC) 33.6 g/dL Normal 27.0-37.0 [facility] Comment on above: Performed By: #### A CBC, CHEM7F #### Testing performed at [address] [address] MCV Entitic volume (RBC) 86.0 fL Normal 80.0-100.0 [facility] Comment on above: Performed By: #### A CBC, CHEM7F #### Testing performed at [address] [address] Platelet mean volume Entitic volume (Bld) 7.3 fL Low 7.4-11.0 [facility] Comment on above: Performed By: #### A CBC, CHEM7F #### Testing performed at [address] [address] Platelets #/vol (Bld) 187 /cmm Normal 130.0-400.0 [facility] Comment on above: Performed By: #### A CBC, CHEM7F #### Testing performed at [address] [address] RBC #/vol (Bld) 4.41 /cmm Normal 4.0-5.4 [facility] Comment on above: Performed By: #### A CBC, CHEM7F #### Testing performed at [address] [address] WBC #/vol (Bld) 6.0 /cmm Normal 3.6-11.0 [facility] Comment on above: Performed By: #### A CBC, CHEM7F #### Testing performed at [address] [address] CHEM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 08-03-2019 COVID-19 NILSA GONCALVESGUI Start: 08-03-2019 COVID-19 AntoniaYomaira Kincaid Work Phone: Start: 08-02-2019 COVID-19 NILSA KINCAID Start: 07-08-2017 H/O: artificial joint Knee joint replacement status Coby Rush GRAVEL HAULER-DANCE STUDIO MANAGER Work Phone: Start: 07-08-2017 History of operative procedure on knee Knee joint replacement status Coby Rush GRAVEL HAULER-[facility] Work Phone: Plan of Treatment Date Care Activity Detail Author Start: 2032 RSV VACCINE (1 - 1-d ose 75+ series) RSV VACCINE (1 - 1-dose 75+ series) [facility] Start: 07-23-2028 Tetanus vaccination TETANUS [facility] Start: 05-19-2026 Fasting lipid profile LIPID SCREENIN G [facility] Start: 05-08-2025 Screening for malign ant neoplasm of breast MAMMOGRAM SCREENING DISCUSSION [facility] Start: 05-08-2025 Screening for malign ant neoplasm of colon COLORECTAL CANCER SCREENING DISCUSSION [facility] Start: 05-08-2025 Screening for osteoporosis DEXA SCAN DISCUSSION [facility] Start: 03-17-2025 Glaucoma screening EYE EXAM [facility] Start: 12-04-2024 End: 12-04-2024 Patient encounter procedure 12/04/2024 7:00 AM EDT Office Visit [facility] [address] [facility] [place] [address] Rosalee Malave, GRAVEL HAULER-DANCE STUDIO MANAGER [address] [address] [facility] Start: 07-19-2024 Patient discharge [facility] Start: 07-18-2024 [facility] Start: 07-18-2024 [facility] Start: 07-18-2024 [facility] Start: 07-18-2024 [facility] Start: 07-18-2024 [facility] Start: 07-18-2024 [facility] Start: 07-18-2024 [facility] Start: 07-18-2024 [facility] Start: 07-18-2024 [facility] Start: 07-18-2024 [facility] Start: 07-17-2024 [facility] Start: 07-17-2024 [facility] Start: 07-17-2024 Provision of overbed trapeze [facility] Start: 07-17-2024 End: 07-17-2024 [facility] Start: 07-17-2024 Recommendation to continue with treatment [facility] Start: 07-17-2024 Ambulation therapy management [facility] Start: 07-17-2024 Application of device [facility] Start: 07-17-2024 Assessment of risk o f venous thromboembolism [facility] Start: 07-17-2024 Catheterization of vein [facility] Start: 07-17-2024 Exercises [facility] Start: 07-17-2024 Following clinical pathway protocol [facility] Start: 07-17-2024 Introduction of urin sanjana catheter [facility] Start: 07-17-2024 Measuring intake and output [facility] Start: 07-17-2024 Neurovascular assessment [facility] Start: 07-17-[address] [facility] Start: 07-17-2024 Procedure discontinued [facility] Start: 07-17-2024 Provision of activit y privileges [facility] Start: 07-17-2024 Referral to occupati onal therapist [facility] Start: 07-17-2024 Referral to service [facility] Start: 07-17-2024 Vital signs measurements [facility] Start: 07-17-2024 Wound care [facility] Start: 07-17-2024 Measuring intake and output [facility] Start: 07-17-2024 Measuring intake and output [facility] Start: 07-17-2024 Measuring intake and output [facility] Start: 07-16-2024 Application of intermittent pneumatic compression device [facility] Start: 07-16-2024 Following clinical pathway protocol [facility] Start: 07-16-2024 Application of ice collar, cap or bag [facility] Start: 07-16-2024 Assessment of risk o f venous thromboembolism [facility] Start: 07-16-2024 Bedrest [facility] Start: 07-16-2024 Consultation [facility] Start: 07-16-2024 Fall prevention [facility] Start: 07-16-2024 Inhalation therapy procedure [facility] Start: 07-16-2024 Insertion of cathete r into peripheral vein [facility] Start: 07-16-2024 Introduction of urin sanjana catheter [facility] Start: 07-16-2024 Neurovascular assessment [facility] Start: 07-16-2024 Oxygen therapy [facility] Start: 07-16-2024 Providing care accor ding to standard [facility] Start: 07-16-2024 Provision of activit y privileges [facility] Start: 07-16-2024 Referral to occupati onal therapist [facility] Start: 07-16-2024 Referral to service [facility] Start: 07-16-2024 Skin care [facility] Start: 07-16-2024 Measuring intake and output [facility] Start: 07-16-2024 End: 07-16-2024 [facility] Start: 07-16-2024 Admission procedure [facility] Start: 07-16-2024 Verification routine [facility] Start: 07-16-2024 Hospital admission, emergency, from emergency room, medical nature [facility] Start: 07-16-2024 End: 07-16-2024 [facility] Start: 05-06-2024 End: 05-06-2025 Complete blood count with white cell differential, automated CBC, EDIF, PLATELET Lab Routine Essential hypertension, benign Mixed hyperlipidemia Expected: 05/06/2024, Expires: 05/06/2025 [facility] Comment on above: Expected: 05/06/2024 , Expires: 05/06/2025 Start: 05-06-2024 End: 05-06-2025 Comprehensive metabolic 2000 panel - Serum or Plasma COMPREHENSIVE METABOLIC PANEL Lab Routine Mixed hyperlipidemia Type 2 diabetes mellitus without complication, without long-term current use of insulin Expected: 05/06/2024, Expires: 05/06/2025 [facility] Comment on above: Expected: 05/06/2024 , Expires: 05/06/2025 Start: 05-06-2024 End: 05-06-2025 Hemoglobin A1c/Hemoglobin.total in Blood HEMOGLOBIN A1C Lab Routine Type 2 diabetes mellitus without complication, without long-term current use of insulin Expected: 05/06/2024, Expires: 05/06/2025 [facility] Comment on above: Expected: 05/06/2024 , Expires: 05/06/2025 Start: 05-06-2024 End: 05-06-2025 LIPID PANEL W CALCULATED LDL LIPID PANEL W CALCULATED LDL Lab Routine Mixed hyperlipidemia Expected: 05/06/2024, Expires: 05/06/2025 [facility] Comment on above: Expected: 05/06/2024 , Expires: 05/06/2025 Start: 05-06-2024 End: 05-06-2025 MICROALBUMIN,RANDOM URINE MICROALBUMIN,RANDOM URINE Fluids Routine Type 2 diabetes mellitus without complication, without long-term current use of insulin Expected: 05/06/2024, Expires: 05/06/2025 [facility] Comment on above: Expected: 05/06/2024 , Expires: 05/06/2025 Start: 04-30-2024 End: 04-30-2024 Patient encounter procedure 04/30/2024 7:00 AM EST Office Visit [facility] [address] [place] [address] Rosalee Malave, GRAVEL HAULER-DANCE STUDIO MANAGER [address] [place] [address] [place] [address] [facility] Start: 04-03-2024 Diabetic foot examination DIABETIC F OOT EXAM [facility] Start: 03-12-2024 Screening for osteoporosis DEXA SCAN DISCUSSION [facility] Start: 01-17-2024 Glaucoma screening EYE EXAM [facility] Start: 11-03-2023 Influenza vaccination INFLUENZA VACC INE (#1) [facility] Start: 10-22-2023 End: 10-21-2024 Complete blood count with white cell differential, automated CBC, EDIF, PLATELET Lab Routine Essential hypertension, benign Mixed hyperlipidemia Expected: 10/22/2023, Expires: 10/21/2024 [facility] Comment on above: Expected: 10/22/2023 , Expires: 10/21/2024 Start: 10-22-2023 End: 10-21-2024 Comprehensive metabolic 2000 panel - Serum or Plasma COMPREHENSIVE METABOLIC PANEL Lab Routine Essential hypertension, benign Mixed hyperlipidemia Expected: 10/22/2023, Expires: 10/21/2024 [facility] Comment on above: Expected: 10/22/2023 , Expires: 10/21/2024 Start: 10-22-2023 End: 10-21-2024 LIPID PANEL W CALCULATED LDL LIPID PANEL W CALCULATED LDL Lab Routine Mixed hyperlipidemia Expected: 10/22/2023, Expires: 10/21/2024 [facility] Comment on above: Expected: 10/22/2023 , Expires: 10/21/2024 Start: 08-07-2023 Screening for malign ant neoplasm of colon COLORECTAL CANCER SCREENING DISCUSSION [facility] Start: 07-26-2023 Screening for malign ant neoplasm of breast MAMMOGRAM SCREENING DISCUSSION [facility] Start: 07-16-2023 End: 07-16-2023 Patient encounter procedure 07/16/2023 1:00 PM EDT Office Visit [facility] [address] [place] [address] Coby Rush APRN-DANCE STUDIO MANAGER [address] [place] [address] [facility] Start: 04-23-2023 COVID-19 VACCINE ( season) COVID-19 VACCINE ( season) [facility] Start: 05-31-2022 Colonoscopy COLORECTAL CAN CER SCREENING DISCUSSION [facility] Start: 05-31-2022 Screening mammography MAMMOGRA M SCREENING DISCUSSION [facility] Start: 03-16-2022 End: 03-16-2022 Patient encounter procedure 03/16/2022 Office Visit Family Medicine Coby Rush APRN-DANCE STUDIO MANAGER [address] [place] [address] [facility] Start: 11-02-2021 Influenza vaccination INFLUENZA VACC INE (#1) [facility] Start: 08-31-2021 Potassium [Moles/vol ume] in Serum or Plasma POTASSIUM [facility] Start: 08-30-2021 End: 08-30-2021 Patient encounter procedure 08/30/2021 Office Visit Family Medicine Coby Rush APRN-DANCE STUDIO MANAGER [address] [place] [address] [facility] Start: 05-10-2021 COVID-19 VACCINE (4 - Booster for Moderna series) COVID-19 VACCINE (4 - Booster for Moderna series) [facility] Start: 08-12-2019 End: 08-12-2019 Office Visit 08/12/2019 Office Visit Plastic Surgery Hank Catherine MD [address] [place] [address] [facility] Start: 04-19-2019 Shingles Vaccine (2 of 2) Aceves gles Vaccine (2 of 2) [facility] [place] Start: 08-12-2018 Potassium [Moles/vol ume] in Serum or Plasma POTASSIUM [facility] Start: 12-20-2017 Hemoglobin A1c measurement HBA1C TEST [facility] Start: 2017 RSV VACCINE (1 - 1-d ose 60+ series) RSV VACCINE (1 - 1-dose 60+ series) [facility] Start: 06-09-2016 Creatinine measurement Creatinine mo nitoring [place], [place] Start: 06-09-2016 Potassium monitoring Potassium monit oring [place], [place] Start: 07-03-2007 Screening for malign ant neoplasm of breast Breast cancer screen [place], [place] Start: 07-03-2007 Screening for malign ant neoplasm of colon Colon cancer screen colonoscopy [place], [place] Start: 1997 Diabetes screen Diabetes screen [place], [place] Start: 1978 Screening for malign ant neoplasm of cervix Cervical cancer screen [place], [place] Start: 1976 DTaP/Tdap/Td vaccine (1 - Tdap) DTaP/Tdap/Td vaccine (1 - Tdap) [place], [place] Start: 1972 HIV screening HIV screen [place], [place] Start: 07-03-1967 Lipid panel Lipid screen [place], [place] Start: 1957 Hepatitis C screening Hepatitis C sc reen [place], [place] Start: 1957 Lipid panel LIPIDS [facility] Start: 1957 Urine screening for protein URINE MICROALBUMIN TEST [facility] End: 08-05-2019 Blood glucose - POCT Blood glucose - POCT Point of Care Testing Routine One Time for 1 Occurrences starting 08/05/2019 until 08/05/2019 [place], [place] Comment on above: One Time for 1 Occur rences starting 08/05/2019 until 08/05/2019 Complete blood count with white cell differential, automated CBC, EDIF, PLATELET Lab Routine Anemia, unspecified type Ordered: 09/22/2021 [facility] Comment on above: Ordered: 09/22/2021 Comprehensive metabo lic 2000 panel - Serum or Plasma COMPREHENSIVE METABOLIC PANEL Lab Routine Hyponatremia Ordered: 09/22/2021 [facility] Comment on above: Ordered: 09/22/2021 End: 08-03-2019 COVID-19 COVID-19 Lab Routine One Time for 1 Occurrences starting 08/03/2019 until 08/03/2019 [facility]: One Time for 1 Occur rences starting 08/03/2019 until 08/03/2019 Ferritin [Mass/volum e] in Serum or Plasma FERRITIN Lab Routine Anemia, unspecified type Ordered: 09/22/2021 [facility] Comment on above: Ordered: 09/22/2021 Hemoglobin A1c/Hemoglobin.total in Blood HEMOGLOBIN A1C Lab Routine Prediabetes Ordered: 09/22/2021 [facility] Comment on above: Ordered: 09/22/2021 Hemoglobin A1c/Hemoglobin.total in Blood HEMOGLOBIN A1C Lab Routine Type 2 diabetes mellitus without complication, without long-term current use of insulin Ordered: 04/03/2023 [facility] Comment on above: Ordered: 04/03/2023 Initiate Oxygen Ther apy Protocol Initiate Oxygen Therapy Protocol Respiratory Care Routine Daily until discontinued starting 08/05/2019 [facility] on above: Daily until disconti nued starting 08/05/2019 LIPID PANEL W CALCUL ATED LDL LIPID PANEL W CALCULATED LDL Lab Routine Mixed hyperlipidemia Ordered: 04/03/2023 [facility] Comment on above: Ordered: 04/03/2023 Patient Education ED Hip Replace Dislocation Reduc [facility] Work Phone: Patient referral [facility] Work Phone: Phase I & II - meter ed glucose Phase I & II - metered glucose Point of Care Testing Routine As Needed until discontinued starting 08/05/2019 [facility] Comment on above: As Needed until disc ontinued starting 08/05/2019 Potassium [Moles/vol ume] in Serum or Plasma POTASSIUM Lab Routine Benign hypertension Mixed hyperlipidemia Heartburn Prediabetes Ordered: 05/31/2021 [facility] Comment on above: Ordered: 05/31/2021 End: 08-05-2019 , urine POCT , urine POCT Point of Care Testing Routine One Time for 1 Occurrences starting 08/05/2019 until 08/05/2019 [facility] Comment on above: One Time for 1 Occur rences starting 08/05/2019 until 08/05/2019 Surgical Pathology Surgical Path ology Lab Routine Release Upon Ordering for 1 Occurrences starting 08/05/2019 [facility], [place] Comment on above: Release Upon Orderin g for 1 Occurrences starting 08/05/2019 Troponin T.cardiac [Mass/volume] in Serum or Plasma by High sensitivity method [facility] Troponin T.cardiac [Mass/volume] in Serum or Plasma by High sensitivity method [facility] Immunizations Immunization Date Immunization Notes Care Provider [facility] 12-21-2022 influenza virus vaccine, unspecified formulation Rosalee Ananda GRAVEL HAULER-DANCE STUDIO MANAGER Work Phone: [facility] 07-25-2022 Pneumococcal Conjuga te 20-Valent Vaccine Coby Trubachik GRAVEL HAULER-DANCE STUDIO MANAGER Work Phone: [facility] 07-25-2022 pneumococcal Conjuga te, unspecified formulation Rosalee Ananda GRAVEL HAULER-DANCE STUDIO MANAGER Work Phone: [facility] 07-07-2021 COVID-19 monovalent vaccine, mRNA, Moderna, 50 mcg/0.25 mL booster Coby Trubachik GRAVEL HAULER-DANCE STUDIO MANAGER Work Phone: [facility] 01-10-2021 COVID-19 vaccine, mR NA, Moderna 0.5 ML Coby Trubachik GRAVEL HAULER-DANCE STUDIO MANAGER Work Phone: [facility] 11-17-2020 Seasonal, quadrivale nt, recombinant, injectable influenza vaccine, preservative free Coby Trubachik GRAVEL HAULER-DANCE STUDIO MANAGER Work Phone: [facility] 11-17-2020 influenza virus vaccine, unspecified formulation Coby Trubachik GRAVEL HAULER-DANCE STUDIO MANAGER Work Phone: [facility] 06-01-2020 COVID-19 vaccine, mR NA, Moderna 0.5 ML Coby Trubachik [employer]UDIO MANAGER Work Phone: [facility] 05-04-2020 COVID-19 vaccine, mR NA, Moderna 0.5 ML Coby Trubachik [employer]VEL [employer] STUDIO MANAGER Work Phone: [facility] 11-20-2019 influenza, injectabl e, quadrivalent, preservative free Coby Trubachik [employer]EL [employer]DANCE STUDIO MANAGER Work Phone: [facility] 08-11-2019 zoster vaccine recombinant Coby Georgechik [employer]DANCE STUDIO MANAGER Work Phone: [facility] 02-22-2019 zoster vaccine recombinant Coby Trubachik [employer]EL [employer]DANCE STUDIO MANAGER Work Phone: [facility] 01-20-2019 influenza, injectabl e, quadrivalent, preservative free Coby Trubachik [employer]VEL HA[employer]DANCE STUDIO MANAGER Work Phone: [facility] Payers Date Payer Category Payer Medicare [id number] 2024 Self-pay 2015 Unknown [employer] M [employer] [address] xxxxxxxxxxxx 2015-Present [phone] [address] [place] [address] [id number] 2014 Managed Care (unspecified) MMO [id number] 2014 Unknown [employer] [place] [id number] 2014-Present [address] [place] [address] [id number] 2014 Unknown [id number] 1955 Unknown [id number]. 175 1955 Unknown [id number]. 177 1955 Unknown [id number]. 983 1955 Unknown [id number]. 983 Unknown [id number] 2.16.840.1.296271.3.579.2. 462 Unknown [id number] 2.16.840.1.229027.3.579.2. 462 Unknown [id number] 2.16.840.1.275669.3.579.2. 462 Unknown [id number] 2.16.840.1.109331.3.579.2. 462 Unknown [id number] 2.16.840.1.392796.3.579.2. 462 Unknown [id number] 2.16.840.1.930685.3.579.2. 462 Unknown [id number]. 462 Social History Date Type Detail Facility Start: 08-05-2019 End: 07-31-2024 Tobacco smoking status NHIS Never smoker [place], [place] Start: 08-05-2019 End: 08-06-2019 Alcohol intake Current drinker of alcohol (finding) [place] Start: 06-10-2015 Alcohol Comment Social drinker [place], [place] Start: 1955 Sex Assigned At Not on file [place], [place] Exposure to SARS-CoV-2 (event) Unable to assess [place] Start: 10-26-2016 End: 07-25-2022 Tobacco use and exposure Smokeless tobacco non-user [facility] Start: 05-31-2021 End: 05-08-2024 Alcohol intake Current non-drinker of alcohol (finding) [facility] Start: 04-03-2023 End: 05-08-2024 History of Social function [facility] Start: 04-03-2023 End: 05-08-2024 Tobacco use panel [facility] Start: 08-22-2016 Gender identity Identifies as female gender (finding) [facility] Start: 04-06-2012 Sex Female (finding) [facility] Start: 1955 Sex Assigned At Female [facility] NEGATED: Highlighted row Not [facility] Medical Equipment Procedure Code Equipment Code Equipment Origin al Text Equipment Identifier Dates Minimally invasive total replacement of hip joint by anterior approach Ceramic Femoral Head FDA Start: 07-17-2024 Minimally invasive total replacement of hip joint by anterior approach Hip Stem FDA Start: 07-17-2024 Minimally invasive total replacement of hip joint by anterior approach ([id number]) Non-constrained polyethylene acetabular liner ()[id number] FDA Start: 07-17-2024 Minimally invasive total replacement of hip joint by anterior approach ([id number]) Acetabular shell ()[id number] FDA Start: 07-17-2024 Insert - Knee - [id number] Start: 07-08-2017 Attune Knee Syst em Revision Tibial Base Fixed Bearing Size 5 Cemented [id number] Start: 07-08-2017 Attune Femoral Cruciate Retaining Size 6 Left Cemented [id number] Start: 07-08-2017 Attune Patella Medialized Dome 35mm Cemented [id number] Start: 07-08-2017 Palacos R Bone Cement [id number] Start: 07-08-2017 Goals Date Patient Goal Desired Activity /State Functional Status Date Assessment Result Facility 07-19-2024 Functional status Chair [facility] Work Phone: 07-19-2024 Functional status Assistive Radhika dalia Standard Walker [facility] Work Phone: 07-08-2017 Are you deaf, or do you have serious difficulty hearing No 07/08/2017 8:13 AM Divina Manzo RN No [facility] 07-08-2017 Are you blind, or do you have serious difficulty seeing, even when wearing glasses No 07/08/2017 8:13 AM Divina Manzo RN [facility] 07-08-2017 Do you have serious difficulty walking or climbing stairs No 07/08/2017 8:13 AM Divina Manzo RN [facility] 07-08-2017 Do you have difficul ty dressing or bathing No 07/08/2017 8:13 AM Divina Manzo RN [facility] 07-08-2017 Because of a physica l, mental, or emotional condition, do you have difficulty doing errands alone such as visiting a physician's office or shopping No 07/08/2017 8:13 AM Divina Manzo RN [facility] Mental Status Date Assessment Result Facility 07-31-2024 Cognitive function Awake;Alert;A [facility] Work Phone: 07-19-2024 Cognitive function Voice/Name [facility] Work Phone: 07-08-2017 Because of a physica l, mental, or emotional condition, do you have serious difficulty concentrating, remembering, or making decisions No 07/08/2017 8:13 AM Divina Manzo RN [facility] Clinical Notes 05-31-2021 to 07-31-2024 Note Date & Type Note Facility 07-31-2024 Radiology Diagnostic study note [facility] Imaging Services [address] [place] [address] [id number] Hip Min 2 Views (Portable) MR#: [id number] Acct: [id number] Name: EFRAIN GILLIAM Rep #: [id number] : 1955 F 69 From: Riri Marcus MD PCP: BEVERLEY WALKER Status: REG ER Study:Hip Min 2 Views (Portable) Date of Exam : 07/31/24 Exam# [id number] Ordering Dr: April Silva DO PROCEDURE: HIP MIN 2 VIEWS (PORTABLE) 07/31/2024 REASON FOR EXAM: POST REDUCTION TECHNIQUE: One (1) view of the right hip COMPARISON: 07/31/2024 RAD/Hip Min 2 Views (Portable) IMPRESSION: Total right hip prosthesis status post reduction with interval resolution of prosthetic dislocation. No hardware complications. No acute fracture or dislocations. Reading Location: [id number] CC: Dr. Arelis Silva DO; BEVERLEY WALKER ~ Director Chemistry: Signed [facility] 07-31-2024 Radiology Diagnostic study note [facility] Imaging Services [address] [place], [place] [address] HIP, UNI W/ Pelvis 2-3 Views MR#: [id number] Acct: [id number] Name: EFRAIN GILLIAM Rep #: [id number] : 1955 F 69 From: Kaiser Barbosa MD PCP: BEVERLEY WALKER Status: REG ER Study:HIP, UNI W/ Pelvis 2-3 Views Date of Ex am: 07/31/24 Exam# [id number] Ordering Dr: April Silva DO PROCEDURE: HIP, UNI W/ PELVIS 2-3 VIEWS 07/31/2024 REASON FOR EXAM: DISSLOCATION TECHNIQUE: Three views of the right hip. COMPARISON: None. FINDINGS: Right hip arthroplasty. Dislocated femoral component. Mild degenerative changes of the left hip. Partially visualized degenerative changes of the spine. No evidence of acute fracture or dislocation. RAD/HIP, UNI W/ Pelvis 2-3 Views IMPRESSION: Right hip arthroplasty with dislocated femoral component. Reading Location: [id number] CC: Dr. Arelis Silva DO; BEVERLEY WALKER ~ Director Chemistry: Signed [facility] 07-19-2024 Discharge summary Note Date/Time July 19, 2024 8:08a m [facility] Medical Records Department [address] [place] [address] Instructions for Home/Discharge Instructions 07/19/24 0752 MR#: [id number] Acct: [id number] Name: RACHELTINOTORYBLESSINGDARIELA Burnette Rep #:[id number] : 1955 69 From: Conor Noland DO PCP: BEVERLEY WALKER Status:ADM IN Discharge Instructions Diet Discharge Diet: No restrictions DC O2, CPAP, BIPAP needs Home O2 Discharge instructions: No Dressing / Incision Discharge Activity: Return to Normal Activity Weight Bearing Status: Weight bearing as tolerated Follow Up Care Test Results: Test results from this visit will be discussed in further detail at your follow-up appointment, if applicable. Discharge Plan Admission Admit Date/Time: 07/16/24 18:10 Primary Reason for Your Visit: right hip fracture Attending Provider: Conor Noland Primary Care Provider: BEVERLEY WALKER Consulting Providers: Eloy Hamm; Mayi Avendaño Instructions Additional Instructions / Restrictions: Remove dressing on postop day 5, if waterproof dressing remains in place you cancontinue to shower. If dressing is to be changed to a nonocclusive dressing, discontinue showering until incision is clean and dry Recommend you take Os-Erich 600 (or generic equivalent) twice a day Advise you consider not taking your diclofenac while you are on 1 aspirin twice a day, you can resume it after you finish the aspirin You will need to call Dr. Hamm's office next week and have them set up physical therapy for you, tell them you were released on a Saturday and physical therapy was not set up for you Discharge Orders/Prescriptions Prescriptions: New acetaminophen 500 mg Tablet 1,000 mg PO Q8 Qty: 0 0RF aspirin 81 mg Tablet,Chewable 81 mg PO BIDCM Qty: 0 0RF Rx Instructions: Continue x 30 days then discontinue oxycodone 5 mg Tablet 5 mg PO Q4H PRN PRN (Reason: Pain Score 4-10) 7 Days Qty: 20 0RF Continued metoprolol succinate 50 mg tablet extended release 24 hr 75 mg PO DAILY pantoprazole 40 mg tablet,delayed release (DR/EC) 40 mg PO DAILY diclofenac sodium 50 mg tablet,delayed release (DR/EC) 50 mg PO BID lisinopril 40 mg tablet 40 mg PO DAILY Zepbound 5 mg/0.5 mL pen injector 5 mg SUBCUT QWEEK Patient Comments: [NO ORIGINAL SIG] rosuvastatin 20 mg tablet 20 mg PO QHS Referrals / Follow Up: BEVERLEY WALKER [Other] BEVERLEY WALKER [Other] Eloy Hamm MD [Med Staff - Active Staff] - See Referral Note (In 2 weeks, call for an appointment) Disposition Disposition (needs filled in before D/C Order can be placed): Home, Self Care 07/19/24 0808<Electronically signed by Conor Noland DO>Conor Noland DO CC: Dr. Mayi Avendaño MD; Dr. Eloy Hamm MD; BEVERLEY WALKER ~ Signed [facility] Work Phone: 1(356) 717-745705-18-2025 Discharge summary [facility] Medical Records Department [address] [place] [address] Instructions for Home/Discharge Instructions 07/19/24 0752 MR#: [id number] Acct: [id number] Name: EFRAIN GILLIAM Rep #:[id number] : 1955 69 From: Conor Noland DO PCP: BEVERLEY WALKER Status:ADM IN Discharge Instructions Diet Discharge Diet: No restrictions DC O2, CPAP, BIPAP needs Home O2 Discharge instructions: No Dressing / Incision Discharge Activity: Return to Normal Activity Weight Bearing Status: Weight bearing as tolerated Follow Up Care Test Results: Test results from this visit will be discussed in further detail at your follow- up appointment, if applicable. Discharge Plan Admission Admit Date/Time: 07/16/24 18:10 Primary Reason for Your Visit: right hip fracture Attending Provider: Conor Noland Primary Care Provider: BEVERLEY WALKER Consulting Providers: Eloy Hamm; Mayi Avendaño Instructions Additional Instructions / Restrictions: Remove dressing on postop day 5, if waterproof dressing remains in place you cancontinue to shower.If dressing is to be changed to a nonocclusive dressing, discontinue showering until incision is clean and dry Recommend you take Os-Erich 600 (or generic equivalent) twice a day Advise you consider not taking your diclofenac while you are on 1 aspirin twice a day, you can resume it after you finish the aspirin You will need to call Dr. Hamm's office next week and have them set up physical therapy for you, tell them you were released on a Saturday and physical therapy was not set up for you Discharge Orders/Prescriptions Prescriptions: New acetaminophen 500 mg Tablet 1,000 mg PO Q8 Qty: 0 0RF aspirin 81 mg Tablet,Chewable 81 mg PO BIDCM Qty: 0 0RF Rx Instructions: Continue x 30 days then discontinue oxycodone 5 mg Tablet 5 mg PO Q4H PRN PRN (Reason: Pain Score 4-10) 7 Days Qty: 20 0RF Continued metoprolol succinate 50 mg tablet extended release 24 hr 75 mg PO DAILY pantoprazole 40 mg tablet,delayed release (DR/EC) 40 mg PO DAILY diclofenac sodium 50 mg tablet,delayed release (DR/EC) 50 mg PO BID lisinopril 40 mg tablet 40 mg PO DAILY Zepbound 5 mg/0.5 mL pen injector 5 mg SUBCUT QWEEK Patient Comments: [NO ORIGINAL SIG] rosuvastatin 20 mg tablet 20 mg PO QHS Referrals / Follow Up: BEVERLEY WALKER [Other] BEVERLEY WALKER [Other] Eloy Hamm MD [Med Staff - Active Staff] - See Referral Note (In 2 weeks, call for an appointment) Disposition Disposition (needs filled in before D/C Order can be placed): Home, Self Care 07/19/24 0808Conor Noland DO CC: Dr. Mayi Avendaño MD; Dr. Eloy Hamm MD; BEVERLEY WALKER ~ [facility]05-18-2025 [facility] Medical Records Department [address] [place] [address] Discharge Summary 07/19/24 0808 MR#: [id number] Acct: [id number] Name: EFRAIN GILLIAM Yomaira Rep #: [id number] : 1955 69 From: Conor Noland DO PCP: BEVERLEY WALKER Status:DIS IN Location: [facility] [id number] Providers Date of Admission: 07/16/24 Date of Discharge: 07/19/24 Primary Care Physician: BEVERLEY WALKER Consultations 07/16/24 19:37 Consult: Orthopedics Routine Consulting Provider: lEoy Hamm Reason for Consult: Fall, hip fracture EMERGENT Consult: No MD Notified: Yes Date Notified: 07/16/24 Time Notified: 18:12 Method of Notification: ED Physician Initiated Reason For Visit: FALL, HIP FRACTURE Diagnosis Discharge Diagnosis (1) Fracture of femoral neck, closed: Status: Acute Code(s): S72.009A - Fracture of unspecified part of neck of unspecified femur, initial encounter for closed fracture Plan 1. Fracture of the right femoral neck secondary to osteoporosis-patient underwent a total hip replacement, PT and OT will see the patient afterwards- patient would like to be discharged home rather than go to a rehab facility for short-term rehab #2 essential hypertension-patient will remain on her present medications, the blood pressure medicines will be adjusted as needed #3 hyperlipidemia-patient is on Crestor as an outpatient, she will receive atorvastatin #4 osteoarthritis Total clinical time spent by myself addressing the patient's medical issues, reviewing all of his data, and collaborating with patient's care team: 35 minutes Medications at Discharge Home Medications diclofenac sodium 50 mg tablet,delayed release 50 mg PO BID 07/16/24 lisinopril 40 mg tablet 40 mg PO DAILY 07/16/24 metoprolol succinate 50 mg tablet,extended release 24 hr 75 mg PO DAILY 07/16/24 pantoprazole 40 mg tablet,delayed release 40 mg PO DAILY 07/16/24 rosuvastatin 20 mg tablet 20 mg PO QHS 07/16/24 tirzepatide (weight loss) 5 mg/0.5 mL subcutaneous pen injector (Zepbound) 5 mg subcut QWEEK 07/16/24 acetaminophen 500 mg tablet 1,000 mg (2 x 500 mg) PO Q8 #0 tabs 07/19/24 aspirin 81 mg chewable tablet 81 mg PO BIDCM #0 tabs 07/19/24 oxycodone 5 mg tablet 5 mg PO Q4H PRN PRN Pain Score 4-10 7 days #20 tabs 07/19/24 Hospital Course Operations - (Right hip arthroplasty) Procedures None Summary of Care Provided Minutes Spent on Discharge: 31 Hospital Course: This 69-year-old white female was seen in the emergency room at [facility] after suffering a fall at home, patient been walking backwards with a chair and fell striking her right hip. She was unable to bear weight and had severe pain in her right hip. Examination in the ER included x-rays of the right hip which showed a femoral neck fracture along with osteoarthritis. Patient was admitted to [place] [address] and seen in consultation by orthopedic surgery, patient underwent a right hip arthroplasty-there were no complications and the patient did well postop. On 07/19/2024, patient was seen and examined: On examination she appeared in good health and spirits, she does not appear to be in any distress. Vital signs as documented. Skin warm and dry and without overt rashes. Neck without JVD, thyroid appears normal, trachea is midline, neck is supple. Lungs clear, normal air movement was noted. Heart exam notable for regular rhythm, normal sounds and absence of murmurs, rubs or gallops. Abdomen unremarkable and without evidence of organomegaly, masses, or abdominal aortic enlargement, bowel sounds are present in all 4 quadrants, no abdominal tenderness was noted. Extremities nonedematous, no cyanosis was noted, no clubbing was noted. Neuro: Cranial nerves II through XII are grossly intact, no focal motor deficits were noted, sensation to light touch and pinprick is intact, motor exam 5/5 throughout. Psych: Patient is alert and oriented x3, she does not appear anxious or depressed, she does not appear agitated. Patient was discharged in stable condition on 07/19/2024 to home. Weight / BMI Weight Weight: 94 kg Body Mass Index (BMI) 30.7 ABG / Lab / Microbiology Data 07/17/24 04:19 07/17/24 04:19 D/C Instructions Discharge Diet: No restrictions Weight Bearing Status: Weight bearing as tolerated DC O2, CPAP, BIPAP Needs Home O2 Discharge instructions: No Meaningful Use Info Meaningful Use Meaningful Use Diagnoses (Choose all that apply): None applicable Ischemic Stroke Statin Dosing Therapy Reference: STATIN DOSE THERAPY REFERENCE: * Patients > 75 years receive moderate or high dose statin therapy. * Patients 75 years or YOUNGER should receive HIGH intensity statin dose unless contraindicated. You will be required to document reason for non-treatment if statin daily dose does not meet guid (morecontent not included)...[facility]05-17-2025 Progress note Author Eloy Hamm [facility] Note Date/Time July 18, 2024 3:19p m [facility] Medical Records Department [address] [place] [address] Progress Note - Orthopedic 07/18/24 1443 MR#: [id number] Acct: [id number] Name: EFRAIN GILLIAM Rep #:[id number] : 1955 69 From: Eloy Falk PCP: BEVERLEY WALKER Status:ADM IN Location: MS3 [id number] Subjective Subjective Patient doing well. No acute events overnight. Medically stable. Discussed case with medicine physician. Plan for discharge likely home tomorrow morning. Objective Data Objective Data Vital Signs: Vital Signs Temp Pulse Resp BP Pulse Ox O2 Del Method O2 Flow Rate 97.9 F 77 16 134/62 H 94 Room Air 2 07/18/24 14:25 07/18/24 14:25 07/18/24 14:25 07/18/24 14:25 07/18/24 14:25 07/18/24 14:07/17/24 20:08 Oxygen Flow Rate (L/min) 2 Oxygen Delivery Method Room Air Weight: 207 lb 3.752 oz Body Mass Index (BMI) 30.7 Intake & Output: Intake and Output for Last 24 Hours 07/16/24 07/17/24 07/18/24 23:59 23:59 23:59 Intake Total 0 / 0 1110 / 1110 1850 / 1850 Output Total 600 / 600 775 / 775 600 / 600 Balance -600 / -600 335 / 335 1250 / 1250 Lab / Micro Data Attestation: I reviewed the patient's lab results. 07/17/24 04:19 07/17/24 04:19 Labs: Laboratory Results - last 24 hr 07/17/24 22:40: POC Glucose 136 H Radiography Diagnostic Testing: Radiology Impression Hip/Pelvis X-Ray 07/17/24 17:25 IMPRESSION: Fluoroscopy as above. Reading Location: [id number] Hip X-Ray 07/17/24 19:00 IMPRESSION: Interval postoperative changes from right total hip arthroplasty, without immediate hardware complication. Soft tissues are unremarkable. Degenerative changes of the left hip. Reading Location: [id number] Physical Exam Narrative Right lower extremity: Dressing is clean dry and intact Sensations intact to light touch saphenous, sural, superficial peroneal, deep peroneal, and tibial distributions Motors intact EHL, DF, PF calves are soft and supple Const alert, oriented x3 and no apparent distress Assessment & Plan Assessment/Plan (1) Fracture of femoral neck, closed: PLAN: Postop day 1 direct anterior total replacement right side 1. Pain control: Patient is currently control, primary service manage pain 2. DVT prophylaxis: Patient is currently on aspirin 81 mg p.o. twice daily for DVT prophylaxis continue for 4 weeks postoperatively 3. Physical therapy: Patient is weight-bear as tolerated 4. Disposition: Patient be ready for discharge when medically stable. No further orthopedic intervention needed. Patient should follow-up in the office in 2 weeks. Patient should be set up for outpatient physical therapy upon discharge. Patient can remove dressing on postop day 5. If waterproof dressingremains in place patient can continue to shower. If dressing has to be changed to a nonocclusive dressing discontinue showering till incision is clean dry and intact. Sutures or placido to be removed on postop day 14 this will likely be done in the office at the 2-week postoperative visit. Recommend Ensure type supplements upon discharge till wound is adequately healed. Recommend stool softener upon discharge until bowel movements are regular. Recommend probiotic upon discharge. Please contact orthopedics with any further questions or concerns. 07/18/24 1827 <Electronically signed by Eloy Hamm MD> Cosigner Signature (if applicable): CC: ~ Signed [facility] Work Phone: 1(587) 804-317405-17-2025 Progress note Author [facility] Note Date/Time July 18, 2024 2:00p m [facility] Medical Records Department [address] [place] [address] Progress Note - Hospitalist 07/18/24 1343 MR#: [id number] Acct: [id number] Name: EFRAIN GILLIAM Rep #:[id number] : 1955 69 From: Conor Noland DO PCP: BEVERLEY WALKER Status:ADM IN [id number] Reason for Visit Reason for Visit: Diagnoses Unilateral primary osteoarthritis, right hip (07/16/24) Fracture of unspecified part of neck of unspecified femur, initial encounter forclosed fracture (07/16/24) Unspecified fall, initial encounter (07/16/24) Subjective Subjective Patient was seen and examined today, she states that she has been getting aroundpretty well since her hip replacement. She would like to be discharged early inthe morning so that she can drive to [place] [facility] to her old house. Patient will be reevaluated in the morning for possible discharge. Objective Data Objective Data Vital Signs: Vital Signs Temp Pulse Resp BP Pulse Ox O2 Del Method O2 Flow Rate 98.1 F 67 16 126/65 H 94 Room Air 2 07/18/24 11:24 07/18/24 11:24 07/18/24 11:24 07/18/24 11:24 07/18/24 11:24 07/18/24 11:24 07/17/24 20:08 Oxygen Flow Rate (L/min) 2 Oxygen Delivery Method Room Air Weight: 94 kg Body Mass Index (BMI) 30.7 Intake & Output: Intake and Output for Last 24 Hours 07/16/24 07/17/24 07/18/24 23:59 23:59 23:59 Intake Total 0 / 0 1110 / 1110 1850 / 1850 Output Total 600 / 600 775 / 775 600 / 600 Balance -600 / -600 335 / 335 1250 / 1250 Lab / Micro Data 07/17/24 04:19 07/17/24 04:19 Labs: Laboratory Results - last 24 hr 07/17/24 22:40: POC Glucose 136 H Radiography Diagnostic Testing: Radiology Impression Hip/Pelvis X-Ray 07/17/24 17:25 IMPRESSION: Fluoroscopy as above. Reading Location: [id number] Hip X-Ray 07/17/24 19:00 IMPRESSION: Interval postoperative changes from right total hip arthroplasty, without immediate hardware complication. Soft tissues are unremarkable. Degenerative changes of the left hip. Reading Location: [id number] Physical Exam Const alert, oriented x3, no apparent distress, average body habitus and healthy appearing General Appearance: cooperative, well kempt and well developed Orientation / Consciousness: awake, oriented to person, oriented to place and oriented to time HEENT normocephalic, head/scalp atraumatic and moist oral mucous membranes Eyes PERRL, EOMs intact bilaterally and conjunctivae normal Neck supple, no JVD, thyroid normal and no carotid bruits General: trachea midline Resp normal respiratory effort, no retractions, no use of accessory muscles and clearto auscultation bilaterally Auscultation: Negative for rales, rhonchi or wheezes Cardio regular rate, regular rhythm, S1 normal heart sound, S2 normal heart sound, no murmurs, no rub and no gallops GI normal to inspection, nondistended, normoactive bowel sounds, soft to palpation,non-tender and non-distended Extremity no clubbing, cyanosis or edema Skin no rashes or lesions noted General Skin Exam: no breakdown Neuro oriented x3, CN's II-XII intact bilaterally, no focal motor deficits and no sensory deficits noted Sensorium / Orientation: awake and alert Speech: speech normal Psych affect normal Assessment & Plan Assessment/Plan (1) Osteoarthritis of right hip: (2) Fracture of femoral neck, closed: PLAN: Plan 1. Fracture of the right femoral neck-patient underwent a total hip replacement, PT and OT will see the patient afterwards- patient would like to bedischarged home rather than go to a rehab facility for short-term rehab #2 essential hypertension-patient will remain on her present medications, the blood pressure medicines will be adjusted as needed #3 hyperlipidemia-patient is on Crestor as an outpatient, she will receive atorvastatin Total clinical time spent by myself addressing the patient's medical issues, reviewing all of his data, and collaborating with patient's care team: 35 minutes Charges/Coding Visit Charges Inpatient E&M: 77802 Subs Hosp L2 07/18/24 1400 <Electronically signed by Conor Noland DO> Cosigner Signature (if applicable): CC: ~ Signed [facility] Work Phone: 1(567) 904-138505-17-2025 Progress note [facility] Medical Records Department [address] [place] [address] Progress Note - Orthopedic 07/18/24 1443 MR#: [id number] Acct: [id number] Name: EFRAIN GILLIAM Rep #:[id number] : 1955 69 From: Eloy Falk PCP: BEVERLEY WALKER Status:ADM IN Location: [place] [address]1 Subjective Subjective Patient doing well. No acute events overnight. Medically stable. Discussed case with medicine physician. Plan for discharge likely home tomorrow morning. Objective Data Objective Data Vital Signs: Vital Signs Temp Pulse Resp BP Pulse Ox O2 Del Method O2 Flow Rate 97.9 F 77 16 134/62 H 94 Room Air 2 07/18/24 14:25 07/18/24 14:25 07/18/24 14:25 07/18/24 14:25 07/18/24 14:25 07/18/24 14:07/17/24 20:08 Oxygen Flow Rate (L/min) 2 Oxygen Delivery Method Room Air Weight: 207 lb 3.752 oz Body Mass Index (BMI) 30.7 Intake & Output: Intake and Output for Last 24 Hours 07/16/24 07/17/24 07/18/24 23:59 23:59 23:59 Intake Total 0 / 0 1110 / 1110 1850 / 1850 Output Total 600 / 600 775 / 775 600 / 600 Balance -600 / -600 335 / 335 1250 / 1250 Lab / Micro Data Attestation: I reviewed the patient's lab results. 07/17/24 04:19 07/17/24 04:19 Labs: Laboratory Results - last 24 hr 07/17/24 22:40: POC Glucose 136 H Radiography Diagnostic Testing: Radiology Impression Hip/Pelvis X-Ray 07/17/24 17:25 IMPRESSION: Fluoroscopy as above. Reading Location: [id number] Hip X-Ray 07/17/24 19:00 IMPRESSION: Interval postoperative changes from right total hip arthroplasty, without immediate hardware complication. Soft tissues are unremarkable. Degenerative changes of the left hip. Reading Location: [id number] Physical Exam Narrative Right lower extremity: Dressing is clean dry and intact Sensations intact to light touch saphenous, sural, superficial peroneal, deep peroneal, and tibial distributions Motors intact EHL, DF, PF calves are soft and supple Const alert, oriented x3 and no apparent distress Assessment & Plan Assessment/Plan (1) Fracture of femoral neck, closed: PLAN: Postop day 1 direct anterior total replacement right side 1. Pain control: Patient is currently control, primary service manage pain 2. DVT prophylaxis: Patient is currently on aspirin 81 mg p.o. twice daily for DVT prophylaxis continue for 4 weeks postoperatively 3. Physical therapy: Patient is weight-bear as tolerated 4. Disposition: Patient be ready for discharge when medically stable. No further orthopedic intervention needed. Patient should follow-up in the office in 2 weeks. Patient should be set up for outpatient physical therapy upon discharge. Patient can remove dressing on postop day 5. If waterproof dressingremains in place patient can continue to shower. If dressing has to be changed to a nonocclusive dressing discontinue showering till incision is clean dry and intact. Sutures or placido to be removed on postop day 14 this will likely be done in the office at the 2-week postoperative visit. Recommend Ensure type supplements upon discharge till wound is adequately healed. Recommend stool softener upon discharge until bowel movements are regular. Recommend probiotic upon discharge. Please contact orthopedics with any further questions or concerns. 07/18/24 1517 Cosigner Signature (if applicable): CC: ~ Signed [facility]05-17-2025 Progress note [facility] Medical Records Department [address] [place] [address] Progress Note - Hospitalist 07/18/24 1343 MR#: [id number] Acct: [id number] Name: EFRAIN GILLIAM Rep #:[id number] : 1955 69 From: Conor Noland DO PCP: BEVERLEY WALKER Status:ADM IN Location: [address] Reason for Visit Reason for Visit: Diagnoses Unilateral primary osteoarthritis, right hip (07/16/24) Fracture of unspecified part of neck of unspecified femur, initial encounter forclosed fracture (07/16/24) Unspecified fall, initial encounter (07/16/24) Subjective Subjective Patient was seen and examined today, she states that she has been getting aroundpretty well since her hip replacement. She would like to be discharged early inthe morning so that she can drive to [facility] [facility] to her old house. Patient will be reevaluated in the morning for possible discharge. Objective Data Objective Data Vital Signs: Vital Signs Temp Pulse Resp BP Pulse Ox O2 Del Method O2 Flow Rate 98.1 F 67 16 126/65 H 94 Room Air 2 07/18/24 11:24 07/18/24 11:24 07/18/24 11:24 07/18/24 11:24 07/18/24 11:24 07/18/24 11:24 07/17/24 20:08 Oxygen Flow Rate (L/min) 2 Oxygen Delivery Method Room Air Weight: 94 kg Body Mass Index (BMI) 30.7 Intake & Output: Intake and Output for Last 24 Hours 07/16/24 07/17/24 07/18/24 23:59 23:59 23:59 Intake Total 0 / 0 1110 / 1110 1850 / 1850 Output Total 600 / 600 775 / 775 600 / 600 Balance -600 / -600 335 / 335 1250 / 1250 Lab / Micro Data 07/17/24 04:19 07/17/24 04:19 Labs: Laboratory Results - last 24 hr 07/17/24 22:40: POC Glucose 136 H Radiography Diagnostic Testing: Radiology Impression Hip/Pelvis X-Ray 07/17/24 17:25 IMPRESSION: Fluoroscopy as above. Reading Location: [facility] Hip X-Ray 07/17/24 19:00 IMPRESSION: Interval postoperative changes from right total hip arthroplasty, without immediate hardware complication. Soft tissues are unremarkable. Degenerative changes of the left hip. Reading Location: [facility] Physical Exam Const alert, oriented x3, no apparent distress, average body habitus and healthy appearing General Appearance: cooperative, well kempt and well developed Orientation / Consciousness: awake, oriented to person, oriented to place and oriented to time HEENT normocephalic, head/scalp atraumatic and moist oral mucous membranes Eyes PERRL, EOMs intact bilaterally and conjunctivae normal Neck supple, no JVD, thyroid normal and no carotid bruits General: trachea midline Resp normal respiratory effort, no retractions, no use of accessory muscles and clearto auscultation bilaterally Auscultation: Negative for rales, rhonchi or wheezes Cardio regular rate, regular rhythm, S1 normal heart sound, S2 normal heart sound, no murmurs, no rub and no gallops GI normal to inspection, nondistended, normoactive bowel sounds, soft to palpation,non-tender and non-distended Extremity no clubbing, cyanosis or edema Skin no rashes or lesions noted General Skin Exam: no breakdown Neuro oriented x3, CN's II-XII intact bilaterally, no focal motor deficits and no sensory deficits noted Sensorium / Orientation: awake and alert Speech: speech normal Psych affect normal Assessment & Plan Assessment/Plan (1) Osteoarthritis of right hip: (2) Fracture of femoral neck, closed: PLAN: Plan 1. Fracture of the right femoral neck-patient underwent a total hip replacement, PT and OT will seethe patient afterwards- patient would like to bedischarged home rather than go to a rehab facility for short-term rehab #2 essential hypertension-patient will remain on her present medications, the blood pressure medicines will be adjusted as needed #3 hyperlipidemia-patient is on Crestor as an outpatient, she will receive atorvastatin Total clinical time spent by myself addressing the patient's medical issues, reviewing all of his data, and collaborating with patient's care team: 35 minutes Charges/Coding Visit Charges Inpatient E&M: 16845 Subs Hosp L2 07/18/24 1400 Cosigner Signature (if applicable): CC: ~ Signed [facility]05-17-2025 Progress note [facility] Note Date/Time July 18, 2024 9:17a m [facility] Medical Records Department [address] [place] [address] Progress Note - Hospitalist 07/17/241925 MR#: [id number] Acct: [id number] Name: EFRAIN GILLIAM Rep #:[id number] : 1955 69 From: Conor Noland DO PCP: BEVERLEY WALKER Status:ADM IN Location: [place] [address]-1 Reason for Visit Reason for Visit: Diagnoses Unilateral primary osteoarthritis, right hip (07/16/24) Fracture of unspecified part of neck of unspecified femur, initial encounter forclosed fracture (07/16/24) Unspecified fall, initial encounter (07/16/24) Subjective Subjective Patient was examined today, her daughter was in the room at the time my examination, patient underwent a right direct anterior total hip replacement today. [facility], patient feels that she would like to go home with possible, she may have to go to TCU for rehab services if she does not do well. Objective Data Objective Data Vital Signs: Vital Signs Temp Pulse Resp BP Pulse Ox O2 Del Method O2 Flow Rate 98.2 F 95 16 115/68 96 Nasal Cannula 2 07/17/24 18:56 07/17/24 19:15 07/17/24 19:15 07/17/24 19:15 07/17/24 19:15 07/17/24 19:15 07/17/24 19:15 Oxygen Flow Rate (L/min) 2 Oxygen Delivery Method Nasal Cannula Weight: 92.5 kg Body Mass Index (BMI) 30.2 Intake & Output: Intake and Output for Last 24 Hours 07/15/24 07/16/24 07/17/24 23:59 23:59 23:59 Intake Total 0 / 0 110 / 110 Output Total 600 / 600 500 / 500 Balance -600 / -600 -390 / -390 Lab / Micro Data 07/17/24 04:19 07/17/24 04:19 Labs: Laboratory Results - last 24 hr 07/16/24 20:42: POC Glucose 106 07/16/24 21:00: Sodium 135, Potassium 3.9, Chloride 98, Carbon Dioxide 25.6, Anion Gap 11, BUN 15, Creatinine 0.91, Estim Creat Clear Calc 72.65, Est GFR (MDRD) Non-Af 69, BUN/Creatinine Ratio 16.6, Glucose 139 H, Calcium 9.4, Troponin T Hi Sens 2 Hr 6 07/16/24 23:00: Troponin T Hi Sens 4Hr < 6 07/17/24 04:19: WBC 7.3, RBC 4.69, Hgb 13.4, Hct 39.7, MCV 84.6, MCH 28.6, MCHC 33.8, RDW Std Deviation 37.2, RDW Coeff of Juany 12.4, Plt Count 194, MPV 9.2, Immature Gran % (Auto) 0.300, Neut % (Auto) 75.8 H, Lymph % (Auto) 16.6 L, [place] % (Auto) 6.8, Eos % (Auto) 0.1, Baso % (Auto) 0.4, Absolute Neuts (auto) 5.6, Absolute Lymphs (auto) 1.22, Nucleated RBC % 0, Sodium 133, Potassium 3.9, Chloride 100, Carbon Dioxide 22.1, Anion Gap 11, BUN 14, Creatinine 0.80, Estim Creat Clear Calc 82.65, Est GFR (MDRD) Non-Af 81, BUN/Creatinine Ratio 17.5, Glucose 118 H, Hemoglobin A1c 5.3, Calcium 9.4, Total Bilirubin 0.62, AST 27, ALT17, Alkaline Phosphatase 79, Total Protein 6.9, Albumin 4.1, Globulin 2.8, Albumin/Globulin Ratio 1.4 07/17/24 11:21: POC Glucose 93 Physical Exam Const alert, oriented x3, no apparent distress and healthy appearing General Appearance: cooperative, well kempt and well developed Orientation / Consciousness: awake, oriented to person, oriented to place and oriented to time HEENT normocephalic, head/scalp atraumatic and moist oral mucous membranes Eyes PERRL, EOMs intact bilaterally and conjunctivae normal Neck supple, no JVD, thyroid normal and no carotid bruits General: trachea midline Resp normal respiratory effort, no retractions, no use of accessory muscles and clearto auscultation bilaterally Auscultation: Negative for rales, rhonchi or wheezes Cardio regular rate, regular rhythm, S1 normal heart sound, S2 normal heart sound, no murmurs, no rub and no gallops GI normal to inspection, nondistended, normoactive bowel sounds, soft to palpation,non-tender and non-distended Extremity no clubbing, cyanosis or edema Skin no rashes or lesions noted General Skin Exam: no breakdown Neuro oriented x3, CN's II-XII intact bilaterally, moves all extremities, no focal motor deficits and no sensory deficits noted Sensorium / Orientation: awake and alert Speech: speech normal Psych affect normal Assessment & Plan Assessment/Plan (1) Fracture of femoral neck, closed: PLAN: Plan 1. Fracture of the femoral neck-patient is expected to undergo surgery today, PT and OT will see the patient afterwards and patient may need temporary placement in a usp facility #2 essential hypertension-patient will remain on her present medications, the blood pressure medicines will be adjusted as needed #3 hyperlipidemia-patient is on Crestor as an outpatient, she will receive atorvastatin Total clinical time spent by myself addressing the patient's medical issues, reviewing all of his data, and collaborating with patient's care team: 35 minutes Charges/Coding Visit Charges Inpatient E&M: 15398 Subs Hosp L2 07/18/24 0917 <Electronically signed by Conor Noland DO> Cosigner Signature (if applicable): CC: ~ Signed [facility] Work Phone: 1(763) 601-294505-17-2025 Progress note [facility] Medical Records Department [address] [place] [address] Progress Note - Hospitalist 07/17/241925 MR#: [id number] Acct: [id number] Name: EFRAIN GILLIAM Rep #:[id number] : 1955 69 From: Conor Noland DO PCP: BEVERLEY WALKER Status:ADM IN Location[place] [facility] [id number] Reason for Visit Reason for Visit: Diagnoses Unilateral primary osteoarthritis, right hip (07/16/24) Fracture of unspecified part of neck of unspecified femur, initial encounter forclosed fracture (07/16/24) Unspecified fall, initial encounter (07/16/24) Subjective Subjective Patient was examined today, her daughter was in the room at the time my examination, patient underwent a right direct anterior total hip replacement today. Patient[facility], patient feels that she would like to go home with possible, she may have to go to TCU for rehab services if she does not do well. Objective Data Objective Data Vital Signs: Vital Signs Temp Pulse Resp BP Pulse Ox O2 Del Method O2 Flow Rate 98.2 F 95 16 115/68 96 Nasal Cannula 2 07/17/24 18:56 07/17/24 19:15 07/17/24 19:15 07/17/24 19:15 07/17/24 19:15 07/17/24 19:15 07/17/24 19:15 Oxygen Flow Rate (L/min) 2 Oxygen Delivery Method Nasal Cannula Weight: 92.5 kg Body Mass Index (BMI) 30.2 Intake & Output: Intake and Output for Last 24 Hours 07/15/24 07/16/24 07/17/24 23:59 23:59 23:59 Intake Total 0 / 0 110 / 110 Output Total 600 / 600 500 / 500 Balance -600 / -600 -390 / -390 Lab / Micro Data 07/17/24 04:19 07/17/24 04:19 Labs: Laboratory Results - last 24 hr 07/16/24 20:42: POC Glucose 106 07/16/24 21:00: Sodium 135, Potassium 3.9, Chloride 98, Carbon Dioxide 25.6, Anion Gap 11, BUN 15, Creatinine 0.91, Estim Creat Clear Calc 72.65, Est GFR (MDRD) Non-Af 69, BUN/Creatinine Ratio 16.6, Glucose 139 H, Calcium 9.4, Troponin T Hi Sens 2 Hr 6 07/16/24 23:00: Troponin T Hi Sens 4Hr < 6 07/17/24 04:19: WBC 7.3, RBC 4.69, Hgb 13.4, Hct 39.7, MCV 84.6, MCH 28.6, MCHC 33.8, RDW Std Deviation 37.2, RDW Coeff of Juany 12.4, Plt Count 194, MPV 9.2, Immature Gran % (Auto) 0.300, Neut % (Auto) 75.8 H, Lymph % (Auto) 16.6 L, [place] % (Auto) 6.8, Eos % (Auto) 0.1, Baso % (Auto) 0.4, Absolute Neuts (auto) 5.6, Absolute Lymphs (auto) 1.22, Nucleated RBC % 0, Sodium 133, Potassium 3.9, Chloride 100, Carbon Dioxide 22.1, Anion Gap 11, BUN 14, Creatinine 0.80, Estim Creat Clear Calc 82.65, Est GFR (MDRD) Non-Af 81, BUN/Creatinine Ratio 17.5, Glucose 118 H, Hemoglobin A1c 5.3, Calcium 9.4, Total Bilirubin 0.62, AST 27, ALT17, Alkaline Phosphatase 79, Total Protein 6.9, Albumin 4.1, Globulin 2.8, Albumin/Globulin Ratio 1.4 07/17/24 11:21: POC Glucose 93 Physical Exam Const alert, oriented x3, no apparent distress and healthy appearing General Appearance: cooperative, well kempt and well developed Orientation / Consciousness: awake, oriented to person, oriented to place and oriented to time HEENT normocephalic, head/scalp atraumatic and moist oral mucous membranes Eyes PERRL, EOMs intact bilaterally and conjunctivae normal Neck supple, no JVD, thyroid normal and no carotid bruits General: trachea midline Resp normal respiratory effort, no retractions, no use of accessory muscles and clearto auscultation bilaterally Auscultation: Negative for rales, rhonchi or wheezes Cardio regular rate, regular rhythm, S1 normal heart sound, S2 normal heart sound, no murmurs, no rub and no gallops GI normal to inspection, nondistended, normoactive bowel sounds, soft to palpation,non-tender and non-distended Extremity no clubbing, cyanosis or edema Skin no rashes or lesions noted General Skin Exam: no breakdown Neuro oriented x3, CN's II-XII intact bilaterally, moves all extremities, no focal motor deficits and no sensory deficits noted Sensorium / Orientation: awake and alert Speech: speech normal Psych affect normal Assessment & Plan Assessment/Plan (1) Fracture of femoral neck, closed: PLAN: Plan 1. Fracture of the femoral neck-patient is expected to undergo surgery today, PT and OT will see the patient afterwards and patient may need temporary placement in a usp facility #2 essential hypertension-patient will remain on her present medications, the blood pressure medicines will be adjusted as needed #3 hyperlipidemia-patient is on Crestor as an outpatient, she will receive atorvastatin Total clinical time spent by myself addressing the patient's medical issues, reviewing all of his data, and collaborating with patient's care team: 35 minutes Charges/Coding Visit Charges Inpatient E&M: 12990 Subs Hosp L2 07/18/24 0917 Cosigner Signature (if applicable): CC: ~ Signed [facility]05-17-2025 Radiology Diagnostic study note [facility] Imaging Services [address] [place], [place] [id number] Hip 1 view with Pelvis MR#: [id number] Acct: [id number] Name: EFRAIN GILLIAM Yomaira Rep #: [id number] : 1955 F 69 From: To Moore MD PCP: BEVERLEY WALKER Status: ADM IN Study:Hip 1 view with Pelvis Date of Exam: 07/17/24 Exam# [id number] Ordering Dr: Porsche Hamm MD PROCEDURE: HIP 1 VIEW WITH PELVIS 07/17/2024 REASON FOR EXAM: ANTERIOR HIP TECHNIQUE: Fluoroscopy with 4 spot images right hip replacement FINDINGS: Fluoroscopy time 7.3 seconds Cumulative dose 1.12 mGy 4 spot images with right hip replacement appears intact and anatomic. No fracture or dislocation identified. RAD/Hip 1 view with Pelvis IMPRESSION: Fluoroscopy as above. Reading Location: [id number] CC: Dr. Eloy Hamm MD; BEVERLEY WALKER ~ Director Chemistry: Signed [facility]05-16-2025 Procedure note [facility] Medical Records Department [address] [place] [address] Operative Report 07/17/24 1816 MR#: [id number] Acct: [id number] Name: EFRAIN GILLIAM Rep #:[id number] : 1955 69 From: Eloy Falk PCP: BEVERLEY WALKER Status:ADM IN Location: [facility] [id number] Operative Report (Standard) Operative Information Date of Procedure: 07/17/24 Pre-Operative Diagnosis: Right displaced femoral neck fracture, right hip osteoarthritis Post-Operative Diagnosis: Right displaced femoral neck fracture, right hip osteoarthritis Surgery/Procedure Performed: Right direct anterior total hip replacement environmental research scientist: Yes Spoon Maker: Jeronimo Barber Tasks completed by first grade teacher: Other (See body of operative report) Additionalassistant?: No Type of Anesthesia: General RN Documented Start/Stop Times: Operation Date: 07/17/24 15:30 Case Time Into Pre-Op 07/17/24 14:39 Anesthesia Start 07/17/24 16:36 Into Room 07/17/24 16:36 Procedure Start 07/17/24 17:14 Procedure End 07/17/24 18:38 Anesthesia End 07/17/24 18:47 Out of Room 07/17/24 18:47 Into Recovery 07/17/24 18:51 Out of Recovery 07/17/24 19:47 Procedure Start Time: 17:14 Procedure Stop Time: 18:38 Select all DRAINS/GRAFTS/IMPLANTS that apply: Prosthetic device Prosthetic device details: See bodyof operative report Special Medications: Ancef, TXA lavage Estimated Blood Loss: 300 mL Fluids Replaced: 1500 mL crystalloid Specimen collected: Yes Description of specimen(s) removed: Femoral head and fracture Description of surgery: Components used: 1. Accolade 2 Dereje femoral stem size 5/127 2. Breckenridge trident 2 acetabular shell size 52 mm 3. Breckenridge X3 polyethylene E 4. Dereje Biolox delta 36 mm, 5 mm femoral head Brief history operative indications: 62yo female who sustained a displaced total hip replacement with pre-existing osteoarthritis noted on x-rays. Total hip replacement was discussed with the patient with risks and benefits including but not limited to blood loss, DVTs, PEs, neurovascular damage, dislocation, general risks of anesthesia including loss of life. Patient demonstrated an understanding medical clearance is obtained the patient was consented for surgery. Procedure: On the date of procedure the patient's right hip was marked in the preoperative area. Patient was then taken back to the operating room where anesthesia assumed control of the C-spine and airway and administered anesthetic. Patient was transferred to the operating table and placed in the supine position. The hips were placed at the break of the bed and a sacral bump was placed. The right lower extremity was then prepped out in a sterile fashion using chlorhexidine while the surgeon scrubbed. The PA was vital in the positioning ofthe patient. Upon reentering the room the right lower extremity was draped in the standard orthopedic fashion and the incision was marked. A timeout was called and everyone agreed upon the side, the site, the procedure be performed, antibody given, and patient's identity. At this time incision was made through skin, subcutaneous tissue, and fat down to fascia. The fascia was then incised and the TFL was retracted laterally. A retractor was placed on the lateral border of the femoral neck. Attention was directed to the inferior portion of the approach and all crossing vessels were identified and appropriately coagulated. A retractor was then placed on the medial portion of the femoral neck. The anterior capsule was then cleared of all soft tissue and then H shaped capsulotomy was made. The retractors were then placed inside the capsule. The femoral neck was identified and a cleanup cut was made. At this time a power corkscrew was used to remove the femoral head. Attention was then turned toward the acetabulum where the soft tissues were appropriately retractedand the acetabulum was sequentially reamed to 52 mm. A 52 mm cup was then selected and impacted into place. Acetabular liner was impacted into place and locking mechanism was verified. The position of the acetabular cup was then verified under live fluoroscopy. Attention was then turned to the femur. Soft tissue releases on the medial and lateral femoral neckwere appropriately done, the leg was externally rotated andlateralized. A Lin retractor was placed medially and proximally to the greater trochanter this allowed appropriate visualization and exposure of the femoral canal. Rongeour was then used to remove excess lateral bone. A canal finder andentry broach were used to open the proximal canal. Once we verified we were down the femoral canal we subsequently broached up to a size 5 femur. The appropriate neck was placed in the previously selected head was trialed witha 5 mm neck. Traction was pulled and the hip was reduced with internal rotation. Once it was appropriately reduced and stability was checked. There was minimal shuck, equal leg lengths and appropriate stability with hyperextension and external rotation as well as with 90? flexion and internal rotation. Fluoroscopy was then also used to verify the position of the components and leg lengths using the contralateral side for comparison. The trial components were then dislocated the proximal femur was again exposed and the components were removed from the wound. The final components were verified and opened. The wound was copiously irrigated out with normal saline. The acetabulum was checked for any residual debris. The final components were placed and impacted. Traction and internal rotation were again used to reduce the hip. After adequate reduction the hip remained stable with appropriate leg lengths. The final components were once again checked with live fluoroscopy andwere found to be satisfactory. The wound was then copiously irrigated with normal saline once more, and hemostasis was obtained. Closure was then done using #1 Vicryl runner to close the fascia. A 2-0 vicryl interuppted sutures were used to close the subcutaneous skin. A 3-0 barbed Monocryl and nylon were used for final skin closure. A Silverlon dressing was placed. Patient was awakened by anesthesia and transferred to the [facility]. Patient was then transferred to the PACU for recovery. Postoperative plan: Patient will get 24 hours postop antibiotics. Patient will get in-house physical therapy and will be weight-bear as tolerated. Patient will follow up in office in 2 weeks for a wound check and x-rays. Aspirin 81 mg twice daily. During the course of the procedure the physician drilling field operator (PE) played a vital role. Their intimate knowledge of my steps in the procedure aided in safe and expedient completion of the procedure. The PE played a vital rolls in positioning particularly in obtaining the appropriate positioning of the sacral bump. The PE was also vital in the retraction of soft tissues during the exposure and especially the femoral work as this is a vital part of the procedure to prevent complications and fractures. The PE was also vital and protecting soft tissues during times of bony cuts and reaming. He also played juan manuel role in closure with my direct supervision. The PE was also important during reduction and dislocation of the joint and trials intraoperatively. Surgical Findings: Complete displaced subcapital femoral neck fracture Complications Complications: No Admit VTE Documentation VTE Present on Admission: No VTE Mechan Device Prophylaxis: SCD's and Thigh High TESS Hose VTE Pharm Prophylaxis ordered?: Yes 07/17/242152 Cosigner Signature (if applicable): CC: Dr. Mayi Avendaño MD; Dr. Eloy Hamm MD; BEVERLEY WALKER~ Signed [facility]05-16-2025 Consult note Author Zelalem Monroy [facility] Note Date/Time July 17, 2024 6:57p m [facility] Medical Records Department [address] [place] [address] Anesthesia Postop Eval I 07/17/241855 MR#: [id number] Acct: [id number] Name: EFRAIN GILLIAM Rep #:[id number] : 1955 69 From: Zelalem Monroy MD PCP: BEVERLEY WALKER Status:ADM IN Y Race: C [place] [facility] [place] [place] Anesthesia: Postop Eval I Current Vital Signs Temperature: 98.2 F Pulse Rate: 103 Blood Pressure: 154/79 Respiratory Rate: 16 Pulse Ox: 91 Assessment Airway patent: Yes Spontaneous unlabored respirations: Yes nausea: No Vomiting: No Anesthesia Complication: No Fluid Hydration Crystalloid volume administer (ml): 1,500 Total IV fluid infused: 1,500 Progress Note Anesthesia document: Postop Eval 1 completed: Yes 07/17/241856 <Electronically signed by Zelalem Monroy MD> Date _ Zelalem [facility]roy MD [facility] Signature: Date CC: ~ Signed [facility] Work Phone: 1(234) 334-843905-16-2025 Consult note Author Zelalem Retanaalbaro [facility] Note Date/Time July 17, 2024 6:57p m [facility] Medical Records Department [address] [place] [address] Anesthesia Postop Eval II 07/17/24 1857 MR#: [id number] Acct: [id number] Name: EFRAIN GILLIAM Rep #:[id number] : 1955 69 From: Zelalem Monroy MD PCP: BEVERLEY WALKER Status:ADM IN Y Race: C Location: [place] [address] Anesthesia Postop Eval I Sum Postop Eval Completion status Anesthesia document: Postop Eval 1 completed: Yes Anesthesia Postop Eval I Summary Anesthesia Postop Eval I Summary: Anesthesia Postop Eval I: Assessment Summary Airway patent Yes 07/17/24 18:56 Spontaneous unlabored Yes 07/17/24 18:56 respirations Mental status Awake,Calm 07/17/24 14:44 BERNARD nausea No 07/17/24 18:56 Vomiting No 07/17/24 18:56 Anesthesia Postop Eval I: Fluid Summary Crystalloid volume administer 1,500 07/17/24 18:56 (ml) Colloids volume administered ( ml) Blood Product volume administered (ml) Total IV fluid infused 1,500 07/17/24 18:56 Anesthesia Postop Eval I: Summary Notes Anesthesia Complication No 07/17/24 18:56 Anesthesia Complication Comment: Post-operative progress note Anesthesia: Postop Eval II Evaluation Mental status: Awake Pain Level: 0 nausea: No Vomiting: No 07/17/241856 <Electronically signed by Zelalem Monroy MD> Date _ Zelalem Monroy MD Cosigner Signature: Date CC: ~ Signed [facility] Work Phone: 1(994) 297-870205-16-2025 Radiology Diagnostic study note [facility] Imaging Services [address] [place] [id number] Hip Min 2 Views (Portable) MR#: [id number] Acct: [id number] Name: EFRAIN GILLIAM Rep #: [id number] : 1955 F 69 From: Lani Espinal MD PCP: BEVERLEY WALKER Status: ADM IN Study:Hip Min 2 Views (Portable) Date of Exam : 07/17/24 Exam# [id number] Ordering Dr: Porsche Hamm MD PROCEDURE: HIP MIN 2 VIEWS (PORTABLE) 07/17/2024 REASON FOR EXAM: POST OP TECHNIQUE: Two views of the right hip COMPARISON: Right hip radiographs 07/17/2024 FINDINGS: See below. RAD/Hip Min 2 Views (Portable) IMPRESSION: Interval postoperative changes from right total hip arthroplasty, without immediate hardware complication. Soft tissues are unremarkable. Degenerative changes of the left hip. Reading Location: [facility] CC: Dr. Eloy Hamm MD; BEVERLEY WALKER ~ Director Chemistry: Signed [facility]05-16-2025 Consult note [facility] Medical Records Department [address] [place] [address] Anesthesia Postop Eval I 07/17/241855 MR#: [id number] Acct: [id number] Name: TONYTRINDARIELA E Rep #:[id number] : 1955 69 From: Zelalem Monroy MD PCP: BEVERLEY WALKER Status:ADM IN Y Race: C Location[place] [facility] [place] - Anesthesia: Postop Eval I Current Vital Signs Temperature: 98.2 F Pulse Rate: 103 Blood Pressure: 154/79 Respiratory Rate: 16 Pulse Ox: 91 Assessment Airway patent: Yes Spontaneous unlabored respirations: Yes nausea: No Vomiting: No Anesthesia Complication: No Fluid Hydration Crystalloid volume administer (ml): 1,500 Total IV fluid infused: 1,500 Progress Note Anesthesia document: Postop Eval 1 completed: Yes 07/17/241856 > Date _ Zelalem Monroy MD Cosigner Signature: Date CC: ~ Signed [facility]05-16-2025 Consult note [facility] Medical Records Department [address] [place] [address] Anesthesia Postop Eval II 07/17/241856 MR#: [id number] Acct: [id number] Name: RACHELTINOEFRAIN SPEARS E Rep #:[id number] : 1955 69 From: Zelalem Monroy MD PCP: BEVERLEY WALKER Status:ADM IN Y Race: C Location: [facility] [place] - Anesthesia Postop Eval I Sum Postop Eval Completion status Anesthesia document: Postop Eval 1 completed: Yes Anesthesia Postop Eval I Summary Anesthesia Postop Eval I Summary: Anesthesia Postop Eval I: Assessment Summary Airway patent Yes 07/17/24 18:56 Spontaneous unlabored Yes 07/17/24 18:56 respirations Mental status Awake,Calm 07/17/24 14:44 AUTO SERVICE DISPATCHERAddieSKOBY nausea No 07/17/24 18:56 Vomiting No 07/17/24 18:56 Anesthesia Postop Eval I: Fluid Summary Crystalloid volume administer 1,500 07/17/24 18:56 (ml) Colloids volume administered ( ml) Blood Product volume administered (ml) Total IV fluid infused 1,500 07/17/24 18:56 Anesthesia Postop Eval I: Summary Notes Anesthesia Complication No 07/17/24 18:56 Anesthesia Complication Comment: Post-operative progress note Anesthesia: Postop Eval II Evaluation Mental status: Awake Pain Level: 0 nausea: No Vomiting: No 07/17/24 1857 > Date _ Zelalem Ballardignmicheal Signature: Date CC: ~ Signed [facility]05-16-2025 Consult note Author Eloy Hamm [facility] Note Date/Time July 17, 2024 4:38p [facility] Medical Records Department [address] [place] [address] Consultation - Orthopedics 07/17/24 1631 MR#: [id number] Acct: [id number] Name: EFRAIN GILLIAM Yomaira Rep #:[id number] : 1955 69 From: Eloy Falk PCP: BEVERLEY WALKER Status:ADM IN [facility] Consult Data Date of Consult: 07/17/24 HPI Narrative Reason for Consultation: Right hip pain HPI Narrative: EFRAIN GILLIAM, is a 69 F who presents with right hip pain status post fallyesterday. Patient lives at home ambulates independently. Prior to yesterday had minimal history of pain. Does have a history of spinal stenosis which patient notes has been under control since radiofrequency ablation. Patient reports they were pushing something yesterday stumbled and fell and sustained aninjury to the right hip. They were unable to bear weight. They were brought tot emergency department and had a x-ray which showed a displaced right femoral neck fracture. Patient reports 7 out of 10 pain better with pain medications worse with motion. No numbness and tingling is noted distally. Patient does have a left total knee replacement [facility] Medical History Non-smoker Hypertension History of diabetes mellitus Obesity GERD (gastroesophageal reflux disease) HLD (hyperlipidemia) Hypertension Home Medications ?Medication ?Instructions ?Recorded ?Last Taken ?Type diclofenac sodium 50 mg 50 mg PO BID 07/16/24 History tablet,delayed release lisinopril 40 mg tablet 40 mg PO DAILY 07/16/2407/02 History metoprolol succinate 50 mg 75 mg PO DAILY 07/16/24 History tablet,extended release 24 hr pantoprazole 40 mg tablet,delayed 40 mg PO DAILY 07/1607/16/24 History release rosuvastatin 20 mg tablet 20 mg PO QHS 07/16/24 History tirzepatide (weight loss) 5 mg/0.5 5 mg subcut QWEEK 0 07/16/24 07/13/24 History mL subcutaneous pen injector (Zepbound) Allergy/AdvReac Type Severity Reaction Status Date / Time No Known Allergies Allergy Verified 07/16/24 16:20 Family History Mother MORENO (nonalcoholic steatohepatitis) Heart failure Hypertension Heart disease Father Heart disease Hypertension CAD (coronary artery disease) Myocardial infarction Surgical History H/O wrist surgery History of hysterectomy History of left knee replacement S/P left knee arthroscopy Social History household members: spouse Smoking Status: Never smoker alcohol intake: never substance use type: does not use ROS Constitutional Constitutional: Reports systems reviewed and no addt'l complaints, except as documented and as per HPI Eyes Eyes: Reports systems reviewed and no addt'l complaints, except as documented ENT HEENT: Reports systems reviewed and no addt'l complaints, except as documented Cardiovascular Cardiovascular: Reports systems reviewed and no addt'l complaints, except as documented Respiratory/Chest Respiratory/Chest: Reports systems reviewed and no addt'l complaints, except as documented Gastrointestinal Gastrointestinal: Reports systems reviewed and no addt'l complaints, except as documented Genitourinary Genitourinary: Reports systems reviewed and no addt'l complaints, except as documented Musculoskeletal Musculoskeletal: Reports systems reviewed and no addt'l complaints, except as documented Integumentary Integumentary: Reports systems reviewed and no addt'l complaints, except as documented Neurologic Neurologic: Reports systems reviewed and no addt'l complaints, except as documented Psychiatric Psychiatric: Reports systems reviewed and no addt'l complaints, except as documented Endocrine Endocrinology: Reports systems reviewed and no addt'l complaints, except as documented Vital Signs Vital Signs Vital Signs: 07/16/24 16:34 07/16/24 17:19 07/16/24 18:00 Temperature 98.9 F Temperature Source Oral Pulse Rate 64 78 Respiratory Rate 18 16 Respiratory Effort Normal Respiratory Depth Normal Respiratory Pattern Normal Blood Pressure 167/78 H 138/76 H Blood Pressure Mean 107 96 Blood Pressure Source Blood Pressure Position Blood Pressure Location Pulse Ox 97 98 Oxygen Delivery Method Room Air Room Air Room Air Oxygen Flow Rate (L/min) 07/16/24 18:00 07/16/24 19:27 07/16/24 19:57 Temperature 97.8 F 97.7 F L Temperature Source Oral Pulse Rate 66 81 Respiratory Rate 18 22 H Respiratory Effort Normal Non-Labored Respiratory Depth Shallow Respiratory Pattern Normal Blood Pressure 138/76 H 191/97 H Blood Pressure Mean 96 128 Blood Pressure Source Monitor Blood Pressure Position Semi-Fowlers Blood Pressure Location Right Arm Pulse Ox 100 99 Oxygen Delivery Method Room Air Room Air Oxygen Flow Rate (L/min) 07/16/24 20:37 07/16/24 23:22 07/17/24 02:47 Temperature 97.7 F L 97.9 F Temperature Source Oral Oral Pulse Rate 81 88 87 Respiratory Rate 20 H 18 Respiratory Effort Respiratory Depth Respiratory Pattern Blood Pressure 191/97 H 142/76 H 148/79 H Blood Pressure Mean 98 102 Blood Pressure Source Monitor Monitor Blood Pressure Position Semi-Fowlers Semi-Fowlers Blood Pressure Location Left Arm Right Arm Pulse Ox 96 96 Oxygen Delivery Method Room Air Room Air Oxygen Flow Rate (L/min) 07/17/24 06:27 07/17/24 07:40 07/17/24 08:53 Temperature 97.7 F L 98.4 F Temperature Source Oral Oral Pulse Rate 79 77 Respiratory Rate 18 16 Respiratory Effort Respiratory Depth Respiratory Pattern Blood Pressure 161/89 H 161/81 H Blood Pressure Mean 113 107 Blood Pressure Source Monitor Monitor Blood Pressure Position Semi-Fowlers Supine Blood Pressure Location Right Arm Right Arm Pulse Ox 99 97 97 Oxygen Delivery Method Room Air Room Air Room Air Oxygen Flow Rate (L/min) 07/17/24 09:20 07/17/24 13:26 07/17/24 14:44 Temperature 97.9 F 97 F L Temperature Source Oral Pulse Rate 77 79 72 Respiratory Rate 16 16 Respiratory Effort Respiratory Depth Respiratory Pattern Blood Pressure 163/81 H 126/76 H Blood Pressure Mean 108 Blood Pressure Source Monitor Blood Pressure Position Semi-Fowlers Blood Pressure Location Right Forearm Pulse Ox 96 96 Oxygen Delivery Method Room Air Simple Mask Oxygen Flow Rate (L/min) 6 07/17/24 15:12 Temperature 97 F L Temperature Source Pulse Rate 72 Respiratory Rate 16 Respiratory Effort Respiratory Depth Respiratory Pattern Blood Pressure 126/76 H Blood Pressure Mean Blood Pressure Source Blood Pressure Position Blood Pressure Location Pulse Ox 96 Oxygen Delivery Method Oxygen Flow Rate (L/min) 6 Weight Weight: 203 lb 14.841 oz Body Mass Index (BMI) 30.2 Physical Exam Const alert and oriented x3 General Appearance: cooperative HEENT normocephalic Eyes PERRL Neck no JVD Resp normal respiratory effort Effort and Inspection: able to speak in complete sentences Cardio regular rate Cardio Narrative: Regular pulse rate distal pulses GI non-distended Extremity Extremity Narrative: Right lower extremity: Skin clean, dry, and intact. Limb is shortened and externally rotated Motor is intact dorsiflexion, EHL and plantar flexion. Sensation is intact to light touch saphenous, kenya,l superficial peroneal, deep peroneal and tibial distributions. Calves are soft and supple. Skin no wounds Neuro CN's II-XII intact bilaterally Psych affect normal Medical Records Data Attestation: I reviewed the patient's medical records Lab / Micro Data Attestation: I reviewed the patient's lab results. 07/17/24 04:19 07/17/24 04:19 Labs: Laboratory Results - last 24 hr 07/16/24 17:14: WBC 4.8, RBC 4.39, Hgb 12.7, Hct 37.5, MCV 85.4, MCH 28.9, MCHC 33.9, RDW Std Deviation 38.1, RDW Coeff of Juany 12.3, Plt Count 179, MPV 9.2, Immature Gran % (Auto) 0.400, Neut % (Auto) 56.8, Lymph % (Auto) 32.5, [place] % (Auto) 6.9, Eos % (Auto) 2.1, Baso % (Auto) 1.3 H, Absolute Neuts (auto) 2.7, Absolute Lymphs (auto) 1.55, Nucleated RBC % 0, Sodium 135, Potassium 3.9, Chloride 101, Carbon Dioxide 21.9, Anion Gap 13, BUN 17, Creatinine 1.01, Estim Creat Clear Calc 67.61, Est GFR (MDRD) Non-Af 61, BUN/Creatinine Ratio 16.8, Glucose 92, Calcium 9.4, Total Bilirubin 0.54, AST 35 H, ALT 19, Alkaline Phosphatase 80, Troponin T High Sens 6, Total Protein 7.2, Albumin 4.2, Globulin3.0, Albumin/Globulin Ratio 1.4 07/16/24 17:17: Blood Type A POSITIVE, Antibody Screen NEGATIVE 07/16/24 20:42: POC Glucose 106 07/16/24 21:00: Sodium 135, Potassium 3.9, Chloride 98, Carbon Dioxide 25.6, Anion Gap 11, BUN 15, Creatinine 0.91, Estim Creat Clear Calc 72.65, Est GFR (MDRD) Non-Af 69, BUN/Creatinine Ratio 16.6, Glucose 139 H, Calcium 9.4, Troponin T Hi Sens 2 Hr 6 07/16/24 23:00: Troponin T Hi Sens 4Hr < 6 07/17/24 04:19: WBC 7.3, RBC 4.69, Hgb 13.4, Hct 39.7, MCV 84.6, MCH 28.6, MCHC 33.8, RDW Std Deviation 37.2, RDW Coeff of Juany 12.4, Plt Count 194, MPV 9.2, Immature Gran % (Auto) 0.300, Neut % (Auto) 75.8 H, Lymph % (Auto) 16.6 L, [place] % (Auto) 6.8, Eos % (Auto) 0.1, Baso % (Auto) 0.4, Absolute Neuts (auto) 5.6, Absolute Lymphs (auto) 1.22, Nucleated RBC % 0, Sodium 133, Potassium 3.9, Chloride 100, Carbon Dioxide 22.1, Anion Gap 11, BUN 14, Creatinine 0.80, Estim Creat Clear Calc 82.65, Est GFR (MDRD) Non-Af 81, BUN/Creatinine Ratio 17.5, Glucose 118 H, Hemoglobin A1c 5.3, Calcium 9.4, Total Bilirubin 0.62, AST 27, ALT17, Alkaline Phosphatase 79, Total Protein 6.9, Albumin 4.1, Globulin 2.8, Albumin/Globulin Ratio 1.4 07/17/24 11:21: POC Glucose 93 Imaging Radiology Impression Foot X-Ray 07/16/24 16:45 IMPRESSION: No acute findings. Reading Location: [facility] Hip/Pelvis X-Ray 07/16/24 16:45 IMPRESSION: See above Reading Location: [facility] Chest X-Ray 07/16/24 17:06 IMPRESSION: 1. Central vascular prominence without overt pulmonary edema. 2. Recommend outpatient CT chest, ideally with IV contrast for above mediastinalfindings, unless prior outside imaging is available to further delineate or establish long-term stability. 3. Additional description as above. Reading Location: [id number] Independent review of right hip films denotes a displaced right femoral neck fracture with noted degenerative changes of the right hip joint Assessment & Plan Assessment/Plan (1) Fracture of femoral neck, closed: PLAN: Natural history of the disease process and treatment options were discussed the patient. We discussed nonoperative as well as operative interventions. We discussed close duction (pinning which was not recommended based on displacement the fracture pre we discussed hip total replacement versushemiarthroplasty. Based on patient's age and overall activity level and health I did recommend total replacement as appropriate treatment option. Patient understands a higher dislocation rate with hip dislocation however better longevity. Risks and benefits of the procedure were discussed the patient cluedbut not limited to blood loss, DVTs, PEs, neurovascular damage, the risk of anesthesia including loss of life, dislocations, fractures and leg length discrepancies. Patient's spouse at the bedside. All parties agree. Antibiotics on-call to the operating room. Patient's been appropriate consentedthis time. Will proceed with surgery this evening. (2) Osteoarthritis of right hip: 07/17/24 1638 <Electronically signed by Eloy Hamm MD> Cosigner Signature (if applicable): CC: BEVERLEY WALKER~ Signed [facility] Work Phone: 1(506) 580-644205-16-2025 Consult note Author Zelalem Monroy [facility] Note Date/Time July 17, 2024 3:14p m [facility] Medical Records Department [address] [place] [address] Pre-Anesthesia Evaluation 07/17/24 1512 MR#: [id number] Acct: [id number] Name: EFRAIN GILLIAM Yomaira Rep #:[id number] : 1955 69 From: Zelalem Monroy MD PCP: BEVERLEY WALKER Status:ADM IN Y Race: C Location: [place] [address] ASA Classification* ASA Classification ASA Classification: 3 and E Assessment & Plan Anesthesia* Anesthesia Assessment Anesthesia Assessment: Discussed sedation and/or anesthesia options, risks, benefits, and alternatives with patient/parents/legal guardian/POA. Questions invited. The patient/parents/legal guardian/POA seems to understand and agrees to proceedwith anesthesia plan. Reviewed the physical assessment, medical history, allergy history and patient home medications list prior to surgery/procedure/anesthetic and documented any changes. Performed airway and anesthesia risk assessments. Anesthesia Type Anesthesia Type: General (glidescope/RSI/induction on hospital bed) Anesthesia Focused Assessment* Temperature: 97 F Pulse Rate: 72 Blood Pressure: 126/76 Respiratory Rate: 16 Pulse Ox: 96 Oxygen Flow Rate (L/min): 6 Airway Assessment Mouth opens: >3 cm Mallampati Score: III Focused Labs Anesthesia Preop lab: CBC WBC 7.3 K/mm3 (4.4-11.0) 07/17/24 04:19 07/17/24 RBC 4.69 M/mm3 (4.2-5.4) 07/17/24 04:19 07/17/24 Hgb 13.4 g/dL (12.0-15.0) 07/17/24 04:19 07/17/24 Hct 39.7 % (37-47) 07/17/24 04:19 07/17/24 Plt Count 194 K/mm3 (150-450) 07/17/24 04:19 07/17/24 CHEMISTRY Potassium 3.9 mmol/L (3.3-5.1) 07/17/24 04:07/17/24 Sodium 133 mmol/L (133-145) 07/17/24 04:19 07/17/24 BUN 14 mg/dL (4-19) 07/17/24 04:19 07/17/24 Creatinine 0.80 mg/dL (0.70-1.20) 07/17/24 04:19 07/17/24 Glucose 118 mg/dL (70-99) H 07/17/24 04:19 07/17/24 POC Glucose 93 mg/dL (74-106) 07/17/24 11:21 07/17/24 COAG Pre-Assessment Diagnosis/Proposed Procedure Planned Operative Procedure(s): ORIF of a Hip Anesthesia History 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 When Was Last Pacemaker Check QUESTION #4 FULL TEXT: You/Your Family Experience fever (hyperthermia) with Anesthesia Last Oral Intake Last Oral intake: Last Oral Intake NPO since 00:00 07/17/24 13:26 Meds taken in AM with sips of Yes 07/17/24 13:26 water? Meds patient instructed to metoprolol 07/17/24 13:26 take am of surgery PONV PONV - animal anatomy teacher: PONV - animal anatomy teacher Female HX of Motion Sickness HX of N/V After Surgery Non-Smoker Duration of Surgery greater than 60 minutes Number of Risk Factors PONV Score Height & Weight Height & Weight: Anesthesia: Height & Weight Height 5 ft 8.9 in 07/17/24 13:26 Weight: 92.5 kg 07/17/24 13:26 Body Mass Index (BMI) 30.2 07/17/24 13:26 Respiratory Assessment Respiratory Assessment - animal anatomy teacher: Respiratory Tract Infection Hx - animal anatomy teacher Hx Respiratory Tract Infection No 07/16/24 19:57 STOP Sleep Apnea STOP Sleep Apnea - animal anatomy teacher: STOP Sleep Apnea - animal anatomy teacher Hx Hypertension Yes 07/16/24 19:27 Hx Sleep Apnea No 07/16/24 19:27 CPAP BIPAP Do you snore loudly (louder Yes 07/16/24 19:27 than talking or can be heard Do you often feel tired/ No 07/16/24 19:27 fatigued/ sleepy during daytime? Has anyone observed you stop No 07/16/24 19:27 breathing during sleep? STOP Results Positive 07/16/24 19:27 QUESTION #5 FULL TEXT : Do you snore loudly (louder than talking or can be heard through closed doors)? 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 Specify any problems Hx of Preganancy in last 3 N/A 07/16/24 19:27 Months Nurse Filling Out Transfusion FSTEINER 07/16/24 19:27 & Questions: Date: 07/16/24 07/16/24 19:27 Time: 19:54 07/16/24 19:27 Patient unable to answer at this time (ie. confused, unrespo /Reproduction History /Reproductive History - animal anatomy teacher: /Reproductive Hx- animal anatomy teacher Hx Now No 07/16/24 19:57 Gestational Age (in weeks): EDC: Hx Hx Para Hx Section SAB No 07/16/24 19:57 Active Medications Active Medications: Current Medications Generic Name Dose Route Start Last Admin Trade Name Freq PRN Reason Stop Dose Admin Acetaminophen 650 mg 07/16/24 19:37 07/17/24 02:50 Acetaminophen 325 Mg Tablet PO 650 mg Q4H PRN PRN Administration Fever, pain 1-12/11 Al Hydroxide/Mg Hydroxide 30 ml 07/16/24 19:37 Mag Hydrox/Al Hydrox/Simeth 30 Ml Udc PO Q6H PRN PRN Gastric Burning Albuterol Sulfate 2.5 mg 07/16/24 19:37 Albuterol 2.5 Mg/3 Ml Vial.Neb. INHALATION Q2H PRN PRN Dyspnea, wheezing Atorvastatin Calcium 40 mg 07/16/24 22:00 07/16/24 20:35 Atorvastatin Calcium 40 Mg Tablet PO 40 mg QHS RADHA Administration Glucagon 1 mg 07/16/24 19:37 Glucagon 1 Mg/Ml Syringe IM X1 PRN HYPOGLYCEMIA Protocol Guaifenesin 20 ml 07/16/24 19:37 Guaifenesin 10 Ml Udc (200mg/10ml) PO Q4H PRN PRN COUGH Hydralazine HCl 10 mg 07/16/24 19:37 07/16/24 20:37 Hydralazine 20 Mg/Ml Vial IV 10 mg Q4H PRN PRN Administration SBP > 160 Protocol Dextrose 250 mls @ 0 mls/hr 07/16/24 19:37 Dextrose 10%-Water IV .Q0M PRN HYPOGLYCEMIA Protocol As Directed Sodium Chloride 250 mls @ 15 mls/hr 07/16/24 19:42 IV .[id number] PRN Saline Flush Sodium Chloride 250 mls @ 15 mls/hr 07/16/24 19:42 IV .[id number] PRN Additional IVPB Infusion Insulin Human Lispro 0 unit 07/16/24 22:00 07/17/24 05:46 Insulin Lispro 100 Unit/Ml Insuln.Pen SC Not Given ACHS RADHA Protocol Lisinopril 40 mg 07/17/24 10:00 Lisinopril 40 Mg Tablet PO DAILY RADHA Protocol Melatonin 3 mg 07/16/24 19:37 07/16/24 20:27 Melatonin 3 Mg Tablet PO 3 mg QHS PRN PRN Administration INSOMNIA Metoprolol Succinate 75 mg 07/17/24 10:00 07/17/24 09:20 Metoprolol(Xl)Succ 25 Mg Tablet PO 75 mg DAILY RADHA Administration Protocol Morphine Sulfate 2 - 4 mg 07/16/24 19:37 07/17/24 09:22 Morphine 4 Mg/Ml Syringe IV 4 mg Q2H PRN PRN Administration MODSEVPAIN Ondansetron HCl 4 mg 07/16/24 19:37 Ondansetron 4 Mg/2 Ml Vial IV Q8H PRN PRN NAUSEA/VOMITING Oxycodone HCl 5 - 10 mg 07/16/24 19:37 07/17/24 02:50 Oxycodone 5 Mg Tablet PO 10 mg Q4H PRN PRN Administration MODSEVPAIN Pantoprazole Sodium 40 mg 07/16/24 19:37 07/16/24 20:30 Pantoprazole Sodium 40 Mg Tablet PO 40 mg DAILY RADHA Administration Prochlorperazine Edisylate 5 mg 07/16/24 19:37 Prochlorperazine 10 Mg/2 Ml Vial IV Q4H PRN PRN Breakthrough nausea/vomiting Senna/Docusate Sodium 2 tablet 07/16/24 22:00 07/16/24 20:31 Senna/Docusate Sodium 1 Tablet PO 2 tablet BID RADHA Administration Sodium Chloride 10 - 40 ml 07/16/24 19:42 07/16/24 21:05 0.9% Saline Lock 10 Ml Syringe IV 10 ml UD PRN Administration SALINE FLUSH [facility] Medical History Non-smoker Hypertension History of diabetes mellitus Obesity GERD (gastroesophageal reflux disease) HLD (hyperlipidemia) Hypertension Home Medications ?Medication ?Instructions ?Recorded ?Last Taken ?Type diclofenac sodium 50 mg 50 mg PO BID 07/16/24 History tablet,delayed release lisinopril 40 mg tablet 40 mg PO DAILY 07/16/2407/02 History metoprolol succinate 50 mg 75 mg PO DAILY 07/16/24 History tablet,extended release 24 hr pantoprazole 40 mg tablet,delayed 40 mg PO DAILY 07/1607/16/24 History release rosuvastatin 20 mg tablet 20 mg PO QHS 07/16/24 History tirzepatide (weight loss) 5 mg/0.5 5 mg subcut QWEEK 0 07/16/24 07/13/24 History mL subcutaneous pen injector (Zepbound) Allergy/AdvReac Type Severity Reaction Status Date / Time No Known Allergies Allergy Verified 07/16/24 16:20 Family History Mother MORENO (nonalcoholic steatohepatitis) Heart failure Hypertension Heart disease Father Heart disease Hypertension CAD (coronary artery disease) Myocardial infarction Surgical History H/O wrist surgery History of hysterectomy History of left knee replacement S/P left knee arthroscopy Social History household members: spouse Smoking Status: Never smoker alcohol intake: never substance use type: does not use Review of Systems (Anesthesia) ROS Narrative System reviewed and no additional complaints, except as documented. 07/17/24 1514 <Electronically signed by Zelalem Monroy MD> Date _ Zelalem Monroy MD Cosigner Signature: Date CC: ~ Signed [facility] Work Phone: [phone]) 389-984205-16-2025 Consult note Author Ofelia Dowd [facility] Note Date/Time July 17, 2024 2:44p [facility] Medical Records Department [address] [place] [address] Anesthesia Postop Eval I 07/17/24 1444 MR#: [id number] Acct: [id number] Name: EFRAIN GILLIAM Rep #:[id number] : 1955 69 From: Ofelia driscoll CRNA PCP: BEVERLEY WALKER Status:ADM IN Y Race: C Location: [place] [address] Anesthesia: Postop Eval I Current Vital Signs Temperature: 97 F Pulse Rate: 72 Blood Pressure: 126/76 Respiratory Rate: 16 Pulse Ox: 96 Oxygen Delivery Method: Simple Mask Oxygen Flow Rate (L/min): 6 Assessment Airway patent: Yes Spontaneous unlabored respirations: Yes Mental status: Awake and Calm nausea: No Vomiting: No Anesthesia Complication: No Fluid Hydration Crystalloid volume administer (ml): 2,000 Total IV fluid infused: 2,000 Progress Note Anesthesia document: Postop Eval 1 completed: Yes 07/17/241443 <Electronically signed by Ofelai mendoza [employer] SERVICE DISPATCHER> Date _ Ofelia Dowd [employer] SERVICE DISPATCHER Cosigner Signature: Date CC: ~ Signed [facility] Work Phone: 1(952) 323-720105-16-2025 Consult note [facility] Medical Records Department [address] [place] [id number] Consultation - Orthopedics 07/17/24 1631 MR#: [id number] Acct: [id number] Name: EFRAIN GILLIAM Rep #:[id number] : 1955 69 From: Eloy Falk PCP: BEVERLEY WALKER Status:ADM IN Location: [place] [address] HPI Consult Data Date of Consult: 07/17/24 HPI Narrative Reason for Consultation: Right hip pain HPI Narrative: EFRAIN GILLIAM is a 69 F who presents with right hip pain status post fallyesterday. Patient lives at home ambulates independently. Prior to yesterday had minimal history of pain. Does have a history of spinal stenosis which patient notes has been under control since radiofrequency ablation. Patient reports they were pushing something yesterday stumbled and fell and sustained aninjury to the right hip. They were unable to bear weight. They were brought tot emergency department and had ax-ray which showed a displaced right femoral neck fracture. Patient reports 7 out of 10 pain betterwith pain medications worse with motion. No numbness and tingling is noted distally. Patient does have a left total knee replacement [facility] Medical History Non-smoker Hypertension History of diabetes mellitus Obesity GERD (gastroesophageal reflux disease) HLD (hyperlipidemia) Hypertension Home Medications ?Medication ?Instructions ?Recorded ?Last Taken ?Type diclofenac sodium 50 mg 50 mg PO BID 07/16/24 History tablet,delayed release lisinopril 40 mg tablet 40 mg PO DAILY 07/16/24/07/26 History metoprolol succinate 50 mg 75 mg PO DAILY 07/16/24 History tablet,extended release 24 hr pantoprazole 40 mg tablet,delayed 40 mg PO DAILY 07/1607/16/24 History release rosuvastatin 20 mg tablet 20 mg PO QHS 07/16/24 History tirzepatide (weight loss) 5 mg/0.5 5 mg subcut QWEEK 0 07/16/24 07/13/24 History mL subcutaneous pen injector (Zepbound) Allergy/AdvReac Type Severity Reaction Status Date / Time No Known Allergies Allergy Verified 07/16/24 16:20 Family History Mother MORENO (nonalcoholic steatohepatitis) Heart failure Hypertension Heart disease Father Heart disease Hypertension CAD (coronary artery disease) Myocardial infarction Surgical History H/O wrist surgery History of hysterectomy History of left knee replacement S/P left knee arthroscopy Social History household members: spouse Smoking Status: Never smoker alcohol intake: never substance use type: does not use ROS Constitutional Constitutional: Reports systems reviewed and no addt'l complaints, except as documented and as per HPI Eyes Eyes: Reports systems reviewed and no addt'l complaints, except as documented ENT HEENT: Reports systems reviewed and no addt'l complaints, except as documented Cardiovascular Cardiovascular: Reports systems reviewed and no addt'l complaints, except as documented Respiratory/Chest Respiratory/Chest: Reports systems reviewed and no addt'l complaints, except as documented Gastrointestinal Gastrointestinal: Reports systems reviewed and no addt'l complaints, except as documented Genitourinary Genitourinary: Reports systems reviewed and no addt'l complaints, except as documented Musculoskeletal Musculoskeletal: Reports systems reviewed and no addt'l complaints, except as documented Integumentary Integumentary: Reports systems reviewed and no addt'l complaints, except as documented Neurologic Neurologic: Reports systems reviewed and no addt'l complaints, except as documented Psychiatric Psychiatric: Reports systems reviewed and no addt'l complaints, except as documented Endocrine Endocrinology: Reports systems reviewed and no addt'l complaints, except as documented Vital Signs Vital Signs Vital Signs: 07/16/24 16:34 07/16/24 17:19 07/16/24 18:00 Temperature 98.9 F Temperature Source Oral Pulse Rate 64 78 Respiratory Rate 18 16 Respiratory Effort Normal Respiratory Depth Normal Respiratory Pattern Normal Blood Pressure 167/78 H 138/76 H Blood Pressure Mean 107 96 Blood Pressure Source Blood Pressure Position Blood Pressure Location Pulse Ox 97 98 Oxygen Delivery Method Room Air Room Air Room Air Oxygen Flow Rate (L/min) 07/16/24 18:00 07/16/24 19:27 07/16/24 19:57 Temperature 97.8 F 97.7 F L Temperature Source Oral Pulse Rate 66 81 Respiratory Rate 18 22 H Respiratory Effort Normal Non-Labored Respiratory Depth Shallow Respiratory Pattern Normal Blood Pressure 138/76 H 191/97 H Blood Pressure Mean 96 128 Blood Pressure Source Monitor Blood Pressure Position Semi-Fowlers Blood Pressure Location Right Arm Pulse Ox 100 99 Oxygen Delivery Method Room Air Room Air Oxygen Flow Rate (L/min) 07/16/24 20:37 07/16/24 23:22 07/17/24 02:47 Temperature 97.7 F L 97.9 F Temperature Source Oral Oral Pulse Rate 81 88 87 Respiratory Rate 20 H 18 Respiratory Effort Respiratory Depth Respiratory Pattern Blood Pressure 191/97 H 142/76 H 148/79 H Blood Pressure Mean 98 102 Blood Pressure Source Monitor Monitor Blood Pressure Position Semi-Fowlers Semi-Fowlers Blood Pressure Location Left Arm Right Arm Pulse Ox 96 96 Oxygen Delivery Method Room Air Room Air Oxygen Flow Rate (L/min) 07/17/24 06:27 07/17/24 07:40 07/17/24 08:53 Temperature 97.7 F L 98.4 F Temperature Source Oral Oral Pulse Rate 79 77 Respiratory Rate 18 16 Respiratory Effort Respiratory Depth Respiratory Pattern Blood Pressure 161/89 H 161/81 H Blood Pressure Mean 113 107 Blood Pressure Source Monitor Monitor Blood Pressure Position Semi-Fowlers Supine Blood Pressure Location Right Arm Right Arm Pulse Ox 99 97 97 Oxygen Delivery Method Room Air Room Air Room Air Oxygen Flow Rate (L/min) 07/17/24 09:20 07/17/24 13:26 07/17/24 14:44 Temperature 97.9 F 97 F L Temperature Source Oral Pulse Rate 77 79 72 Respiratory Rate 16 16 Respiratory Effort Respiratory Depth Respiratory Pattern Blood Pressure 163/81 H 126/76 H Blood Pressure Mean 108 Blood Pressure Source Monitor Blood Pressure Position Semi-Fowlers Blood Pressure Location Right Forearm Pulse Ox 96 96 Oxygen Delivery Method Room Air Simple Mask Oxygen Flow Rate (L/min) 6 07/17/24 15:12 Temperature 97 F L Temperature Source Pulse Rate 72 Respiratory Rate 16 Respiratory Effort Respiratory Depth Respiratory Pattern Blood Pressure 126/76 H Blood Pressure Mean Blood Pressure Source Blood Pressure Position Blood Pressure Location Pulse Ox 96 Oxygen Delivery Method Oxygen Flow Rate (L/min) 6 Weight Weight: 203 lb 14.841 oz Body Mass Index (BMI) 30.2 Physical Exam Const alert and oriented x3 General Appearance: cooperative HEENT normocephalic Eyes PERRL Neck no JVD Resp normal respiratory effort Effort and Inspection: able to speak in complete sentences Cardio regular rate Cardio Narrative: Regular pulse rate distal pulses GI non-distended Extremity Extremity Narrative: Right lower extremity: Skin clean, dry, and intact. Limb is shortened and externally rotated Motor is intact dorsiflexion, EHL and plantar flexion. Sensation is intact to light touch saphenous, kenya,l superficial peroneal, deep peroneal and tibialdistributions. Calves are soft and supple. Skin no wounds Neuro CN's II-XII intact bilaterally Psych affect normal Medical Records Data Attestation: I reviewed the patient's medical records Lab / Micro Data Attestation: I reviewed the patient's lab results. 07/17/24 04:19 07/17/24 04:19 Labs: Laboratory Results - last 24 hr 07/16/24 17:14: WBC 4.8, RBC 4.39, Hgb 12.7, Hct 37.5, MCV 85.4, MCH 28.9, MCHC 33.9, RDW Std Deviation 38.1, RDW Coeff of Juany 12.3, Plt Count 179, MPV 9.2, Immature Gran % (Auto) 0.400, Neut % (Auto) 56.8, Lymph % (Auto) 32.5, [place] % (Auto) 6.9, Eos % (Auto) 2.1, Baso % (Auto) 1.3 H, Absolute Neuts (auto) 2.7, Absolute Lymphs (auto) 1.55, Nucleated RBC % 0, Sodium 135, Potassium 3.9, Chloride 101, Carbon Dioxide 21.9, Anion Gap 13, BUN 17, Creatinine 1.01, Estim Creat Clear Calc 67.61, Est GFR(MDRD) Non-Af 61, BUN/Creatinine Ratio 16.8, Glucose 92, Calcium 9.4, Total Bilirubin 0.54, AST 35 H, ALT 19, Alkaline Phosphatase 80, Troponin T High Sens 6, Total Protein 7.2, Albumin 4.2, Globulin3.0, Albumin/Globulin Ratio 1.4 07/16/24 17:17: Blood Type A POSITIVE, Antibody Screen NEGATIVE 07/16/24 20:42: POC Glucose 106 07/16/24 21:00: Sodium 135, Potassium 3.9, Chloride 98, Carbon Dioxide 25.6, Anion Gap 11, BUN 15, Creatinine 0.91, Estim Creat Clear Calc 72.65, Est GFR (MDRD) Non-Af 69, BUN/Creatinine Ratio 16.6, Glucose 139 H, Calcium 9.4, Troponin T Hi Sens 2 Hr 6 07/16/24 23:00: Troponin T Hi Sens 4Hr < 6 07/17/24 04:19: WBC 7.3, RBC 4.69, Hgb 13.4, Hct 39.7, MCV 84.6, MCH 28.6, MCHC 33.8, RDW Std Deviation 37.2, RDW Coeff of Juany 12.4, Plt Count 194, MPV 9.2, Immature Gran % (Auto) 0.300, Neut % (Auto) 75.8 H, Lymph % (Auto) 16.6 L, [place] % (Auto) 6.8, Eos % (Auto) 0.1, Baso % (Auto) 0.4, Absolute Neuts (auto) 5.6, Absolute Lymphs (auto) 1.22, Nucleated RBC % 0, Sodium 133, Potassium 3.9, Chloride 100, Carbon Dioxide 22.1, Anion Gap 11, BUN 14, Creatinine 0.80, Estim Creat Clear Calc 82.65, Est GFR (MDRD) Non-Af 81, BUN/Creatinine Ratio 17.5, Glucose 118 H, Hemoglobin A1c 5.3, Calcium 9.4, Total Bilirubin 0.62, AST 27, ALT17, Alkaline Phosphatase 79, Total Protein 6.9, Albumin 4.1, Globulin 2.8, Albumin/Globulin Ratio 1.4 07/17/24 11:21: POC Glucose 93 Imaging Radiology Impression Foot X-Ray 07/16/24 16:45 IMPRESSION: No acute findings. Reading [facility]/Pelvis X-Ray 07/16/24 16:45 IMPRESSION: See above Reading [facility] Chest X-Ray 07/16/24 17:06 IMPRESSION: 1. Central vascular prominence without overt pulmonary edema. 2. Recommend outpatient CT chest, ideally with IV contrast for above mediastinalfindings, unless prior outside imaging is available to further delineate or establish long-term stability. 3. Additional description as above. Reading Location: [id number] Independent review of right hip films denotes a displaced right femoral neck fracture with noted degenerative changes of the right hip joint Assessment & Plan Assessment/Plan (1) Fracture of femoral neck, closed: PLAN: Natural history of the disease process and treatment options were discussed the patient. We discussed nonoperative as well as operative interventions. We discussed close duction (pinning which was not recommended based on displacement the fracture pre we discussed hip total replacement versushemiarthroplasty. Based on patient's age and overall activity level and health I did recommend totalreplacement as appropriate treatment option. Patient understands a higher dislocation rate with hipdislocation however better longevity. Risks and benefits of the procedure were discussed the patient cluedbut not limited to blood loss, DVTs, PEs, neurovascular damage, the risk of anesthesia including loss of life, dislocations, fractures and leg length discrepancies. Patient's spouse at the bedside. All parties agree. Antibiotics on-call to the operating room. Patient's been appropriate consentedthis time. Will proceed with surgery this evening. (2) Osteoarthritis of right hip: 07/17/24 1638 Cosigner Signature (if applicable): CC: BEVERLEY WALKER~ Signed [facility]05-16-2025 Consult note [facility] Medical Records Department [address] [place] [address] Pre-Anesthesia Evaluation 07/17/24 1512 MR#: [id number] Acct: [id number] Name: EFRAIN GILLIAM Rep #:[id number] : 1955 69 From: Zelalem Monroy MD PCP: BEVERLEY WALKER Status:ADM IN Y Race: C Location: [place] [address] ASA Classification* ASA Classification ASA Classification: 3 and E Assessment & Plan Anesthesia* Anesthesia Assessment Anesthesia Assessment: Discussed sedation and/or anesthesia options, risks, benefits, and alternatives with patient/parents/legal guardian/POA. Questions invited. The patient/parents/legal guardian/POA seems to understand and agrees to proceedwith anesthesia plan. Reviewed the physical assessment, medical history, allergy history and patient home medications list prior to surgery/procedure/anesthetic and documented any changes. Performed airway and anesthesia risk assessments. Anesthesia Type Anesthesia Type: General (glidescope/RSI/induction on hospital bed) Anesthesia Focused Assessment* Temperature: 97 F Pulse Rate: 72 Blood Pressure: 126/76 Respiratory Rate: 16 Pulse Ox: 96 Oxygen Flow Rate (L/min): 6 Airway Assessment Mouth opens: >3 cm Mallampati Score: III Focused Labs Anesthesia Preop lab: CBC WBC 7.3 K/mm3 (4.4-11.0) 07/17/24 04:19 07/17/24 RBC 4.69 M/mm3 (4.2-5.4) 07/17/24 04:19 07/17/24 Hgb 13.4 g/dL (12.0-15.0) 07/17/24 04:19 07/17/24 Hct 39.7 % (37-47) 07/17/24 04:19 07/17/24 Plt Count 194 K/mm3 (150-450) 07/17/24 04:19 07/17/24 CHEMISTRY Potassium 3.9 mmol/L (3.3-5.1) 07/17/24 04:07/17/24 Sodium 133 mmol/L (133-145) 07/17/24 04:19 07/17/24 BUN 14 mg/dL (4-19) 07/17/24 04:19 07/17/24 Creatinine 0.80 mg/dL (0.70-1.20) 07/17/24 04:19 07/17/24 Glucose 118 mg/dL (70-99) H 07/17/24 04:19 07/17/24 POC Glucose 93 mg/dL (74-106) 07/17/24 11:21 07/17/24 COAG Pre-Assessment Diagnosis/Proposed Procedure Planned Operative Procedure(s): ORIF of a Hip Anesthesia History 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 When Was Last Pacemaker Check QUESTION #4 FULL TEXT: You/Your Family Experience fever (hyperthermia) with Anesthesia Last Oral Intake Last Oral intake: Last Oral Intake NPO since 00:00 07/17/24 13:26 Meds taken in AM with sips of Yes 07/17/24 13:26 water? Meds patient instructed to metoprolol 07/17/24 13:26 take am of surgery PONV PONV - animal anatomy teacher: PONV - animal anatomy teacher Female HX of Motion Sickness HX of N/V After Surgery Non-Smoker Duration of Surgery greater than 60 minutes Number of Risk Factors PONV Score Height & Weight Height & Weight: Anesthesia: Height & Weight Height 5 ft 8.9 in 07/17/24 13:26 Weight: 92.5 kg 07/17/24 13:26 Body Mass Index (BMI) 30.2 07/17/24 13:26 Respiratory Assessment Respiratory Assessment - animal anatomy teacher: Respiratory Tract Infection Hx - animal anatomy teacher Hx Respiratory Tract Infection No 07/16/24 19:57 STOP Sleep Apnea STOP Sleep Apnea - animal anatomy teacher: STOP Sleep Apnea - animal anatomy teacher Hx Hypertension Yes 07/16/24 19:27 Hx Sleep Apnea No 07/16/24 19:27 CPAP BIPAP Do you snore loudly (louder Yes 07/16/24 19:27 than talking or can be heard Do you often feel tired/ No 07/16/24 19:27 fatigued/ sleepy during daytime? Has anyone observed you stop No 07/16/24 19:27 breathing during sleep? STOP Results Positive 07/16/24 19:27 QUESTION #5 FULL TEXT : Do you snore loudly (louder than talking or can be heard through closeddoors)? 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 Specify any problems Hx of Preganancy in last 3 N/A 07/16/24 19:27 Months Nurse Filling Out Transfusion FSTEINER 07/16/24 19:27 & Questions: Date: 07/16/24 07/16/24 19:27 Time: 19:54 07/16/24 19:27 Patient unable to answer at this time (ie. confused, unrespo /Reproduction History /Reproductive History - animal anatomy teacher: /Reproductive Hx- animal anatomy teacher Hx Now No 07/16/24 19:57 Gestational Age (in weeks): EDC: Hx Hx Para Hx Section SAB No 07/16/24 19:57 Active Medications Active Medications: Current Medications Generic Name Dose Route Start Last Admin Trade Name Freq PRN Reason Stop Dose Admin Acetaminophen 650 mg 07/16/24 19:37 07/17/24 02:50 Acetaminophen 325 Mg Tablet PO 650 mg Q4H PRN PRN Administration Fever, pain 1-12/11 Al Hydroxide/Mg Hydroxide 30 ml 07/16/24 19:37 Mag Hydrox/Al Hydrox/Simeth 30 Ml Udc PO Q6H PRN PRN Gastric Burning Albuterol Sulfate 2.5 mg 07/16/24 19:37 Albuterol 2.5 Mg/3 Ml Vial.Neb. INHALATION Q2H PRN PRN Dyspnea, wheezing Atorvastatin Calcium 40 mg 07/16/24 22:00 07/16/24 20:35 Atorvastatin Calcium 40 Mg Tablet PO 40 mg QHS RADHA Administration Glucagon 1 mg 07/16/24 19:37 Glucagon 1 Mg/Ml Syringe IM X1 PRN HYPOGLYCEMIA Protocol Guaifenesin 20 ml 07/16/24 19:37 Guaifenesin 10 Ml Udc (200mg/10ml) PO Q4H PRN PRN COUGH Hydralazine HCl 10 mg 07/16/24 19:37 07/16/24 20:37 Hydralazine 20 Mg/Ml Vial IV 10 mg Q4H PRN PRN Administration SBP > 160 Protocol Dextrose 250 mls @ 0 mls/hr 07/16/24 19:37 Dextrose 10%-Water IV .Q0M PRN HYPOGLYCEMIA Protocol As Directed Sodium Chloride 250 mls @ 15 mls/hr 07/16/24 19:42 IV .[id number] PRN Saline Flush Sodium Chloride 250 mls @ 15 mls/hr 07/16/24 19:42 IV .[id number] PRN Additional IVPB Infusion Insulin Human Lispro 0 unit 07/16/24 22:00 07/17/24 05:46 Insulin Lispro 100 Unit/Ml Insuln.Pen SC Not Given ACHS RADHA Protocol Lisinopril 40 mg 07/17/24 10:00 Lisinopril 40 Mg Tablet PO DAILY RADHA Protocol Melatonin 3 mg 07/16/24 19:37 07/16/24 20:27 Melatonin 3 Mg Tablet PO 3 mg QHS PRN PRN Administration INSOMNIA Metoprolol Succinate 75 mg 07/17/24 10:00 07/17/24 09:20 Metoprolol(Xl)Succ 25 Mg Tablet PO 75 mg DAILY RADHA Administration Protocol Morphine Sulfate 2 - 4 mg 07/16/24 19:37 07/17/24 09:22 Morphine 4 Mg/Ml Syringe IV 4 mg Q2H PRN PRN Administration MODSEVPAIN Ondansetron HCl 4 mg 07/16/24 19:37 Ondansetron 4 Mg/2 Ml Vial IV Q8H PRN PRN NAUSEA/VOMITING Oxycodone HCl 5 - 10 mg 07/16/24 19:37 07/17/24 02:50 Oxycodone 5 Mg Tablet PO 10 mg Q4H PRN PRN Administration MODSEVPAIN Pantoprazole Sodium 40 mg 07/16/24 19:37 07/16/24 20:30 Pantoprazole Sodium 40 Mg Tablet PO 40 mg DAILY RADHA Administration Prochlorperazine Edisylate 5 mg 07/16/24 19:37 Prochlorperazine 10 Mg/2 Ml Vial IV Q4H PRN PRN Breakthrough nausea/vomiting Senna/Docusate Sodium 2 tablet 07/16/24 22:00 07/16/24 20:31 Senna/Docusate Sodium 1 Tablet PO 2 tablet BID RADHA Administration Sodium Chloride 10 - 40 ml 07/16/24 19:42 07/16/24 21:05 0.9% Saline Lock 10 Ml Syringe IV 10 ml UD PRN Administration SALINE FLUSH [facility] Medical History Non-smoker Hypertension History of diabetes mellitus Obesity GERD (gastroesophageal reflux disease) HLD (hyperlipidemia) Hypertension Home Medications ?Medication ?Instructions ?Recorded ?Last Taken ?Type diclofenac sodium 50 mg 50 mg PO BID 07/16/24 History tablet,delayed release lisinopril 40 mg tablet 40 mg PO DAILY 07/16/2407/02 History metoprolol succinate 50 mg 75 mg PO DAILY 07/16/24 History tablet,extended release 24 hr pantoprazole 40 mg tablet,delayed 40 mg PO DAILY 07/1607/16/24 History release rosuvastatin 20 mg tablet 20 mg PO QHS 07/16/24 History tirzepatide (weight loss) 5 mg/0.5 5 mg subcut QWEEK 0 07/16/24 07/13/24 History mL subcutaneous pen injector (Zepbound) Allergy/AdvReac Type Severity Reaction Status Date / Time No Known Allergies Allergy Verified 07/16/24 16:20 Family History Mother MORENO (nonalcoholic steatohepatitis) Heart failure Hypertension Heart disease Father Heart disease Hypertension CAD (coronary artery disease) Myocardial infarction Surgical History H/O wrist surgery History of hysterectomy History of left knee replacement S/P left knee arthroscopy Social History household members: spouse Smoking Status: Never smoker alcohol intake: never substance use type: does not use Review of Systems (Anesthesia) ROS Narrative System reviewed and no additional complaints, except as documented. 07/17/24 1514 MD> Date _ Zelalem Monroy MD Cosigner Signature: Date CC: ~ Signed [facility]05-16-2025 Consult note [facility] Medical Records Department [address] [place] [address] Anesthesia Postop Eval I 07/17/24 1444 MR#: [id number] Acct: [id number] Name: EFRAIN GILLIAM Rep #:[id number] : 1955 69 From: Ofelia driscoll CRNA PCP: BEVERLEY WALKER Status:ADM IN Y Race: C Location: [place] [address] Anesthesia: Postop Eval I Current Vital Signs Temperature: 97 F Pulse Rate: 72 Blood Pressure: 126/76 Respiratory Rate: 16 Pulse Ox: 96 Oxygen Delivery Method: Simple Mask Oxygen Flow Rate (L/min): 6 Assessment Airway patent: Yes Spontaneous unlabored respirations: Yes Mental status: Awake and Calm nausea: No Vomiting: No Anesthesia Complication: No Fluid Hydration Crystalloid volume administer (ml): 2,000 Total IV fluid infused: 2,000 Progress Note Anesthesia document: Postop Eval 1 completed: Yes 07/17/24 1444 kelly [employer] SERVICE DISPATCHER> Date _ Ofelia Dowd [employer] SERVICE DISPATCHER Cosigner Signature: Date CC: ~ Signed [facility]05-15-2025 Discharge summary Author Tian Evans [facility] Note Date/Time July 16, 2024 7:56p m [facility] Medical Records Department [address] [place] [address] Emergency Department Summary 07/16/24 MR#: [id number] Acct: [id number] Name: EFRAIN GILLIAM Yomaira Rep #:[id number] : 1955 69 From: Tian Evans MD PCP: BEVERLEY WALKER Status:ADM IN Location: [place] [address] Tian Evans MD on 07/16/24 at 1955 Preop EKG obtained and interpreted by myself independently as normal sinus rhythm at 65 bpm without ectopy or acute ST changes. No STEMI. 07/16/241955<Electronically signed by Tian Evans MD> Cosigner Signature (if applicable): cc: BEVERLEY WALKER ~* Signed HPI History of Present Illness Chief Complaint: Fall Narrative Narrative: 69-year-old female past medical history of hypertension, hypercholesterolemia, arthritis, previous remote left TKA performed in [place] presents with injury to her right hip status post fall. She states that she fell down a stair or step out onto concrete as she was walking backwards, carrying a chair because she wasgoing to go outside and read a book. She denies hitting of her head or loss of consciousness. She was unable to sit up or move her right lower extremity as she has pain in her hip. She states she might have scraped her left foot as well. Initially, she denied any shoulder pain, neck pain, loss of consciousness, or other injury. The pain is concentrated in her right hip. [facility] Medical History History of diabetes mellitus Obesity GERD (gastroesophageal reflux disease) HLD (hyperlipidemia) Hypertension Home Medications ?Medication ?Instructions ?Recorded ?Last Taken ?Type diclofenac sodium 50 mg 50 mg PO BID 07/16/24 History tablet,delayed release lisinopril 40 mg tablet 40 mg PO DAILY 07/16/24/07/26 History metoprolol succinate 50 mg 75 mg PO DAILY 07/16/24 History tablet,extended release 24 hr pantoprazole 40 mg tablet,delayed 40 mg PO DAILY 07/1607/16/24 History release rosuvastatin 20 mg tablet 20 mg PO QHS 07/16/24 History tirzepatide (weight loss) 5 mg/0.5 5 mg subcut QWEEK 0 07/16/24 07/13/24 History mL subcutaneous pen injector (Zepbound) Allergy/AdvReac Type Severity Reaction Status Date / Time No Known Allergies Allergy Verified 07/16/24 16:20 Family History Mother MORENO (nonalcoholic steatohepatitis) Heart failure Hypertension Heart disease Father Heart disease Hypertension CAD (coronary artery disease) Myocardial infarction Surgical History H/O wrist surgery History of hysterectomy History of left knee replacement S/P left knee arthroscopy Social History household members: spouse Smoking Status: Never smoker alcohol intake: never substance use type: does not use ROS ROS ED ROS Narrative Review of systems, focused, positive for right hip pain worse with any type of movement/unable to move right hip. No hitting of head, no loss of consciousness, denies shoulder pain. May have scraped the left foot. No prodromal symptoms of chest pain or shortness of breath. witnessed fall. EXAM Physical Exam Narrative Exam Narrative: GCS 15. ABCs are intact. Neck soft and supple without vertebral point tenderness or bony step-off. Able to raise arms above head in supine position. Cardiovascular examination regular rate and rhythm. Lungs are clear to auscultation bilaterally anteriorly. Abdomen is soft nontender without guardingor rebound, positive bowel sounds. Pelvis stable. Right hip held in flexion with flexion of right knee. EHL intact bilaterally. Palpable dorsalis pedis pulse, right. Const Vital Signs: 07/16/24 16:20 07/16/24 16:34 07/16/24 17:19 Temperature 98.6 F 98.9 F Temperature Source Oral Oral Pulse Rate 89 64 Respiratory Rate 18 18 Respiratory Effort Normal Respiratory Depth Normal Respiratory Pattern Normal Blood Pressure 182/98 H 167/78 H Blood Pressure Mean 126 107 Pulse Ox 95 97 Oxygen Delivery Method Room Air Room Air Room Air 07/16/24 18:00 07/16/24 18:00 Temperature 97.8 F Temperature Source Pulse Rate 78 66 Respiratory Rate 16 18 Respiratory Effort Respiratory Depth Respiratory Pattern Blood Pressure 138/76 H 138/76 H Blood Pressure Mean 96 96 Pulse Ox 98 100 Oxygen Delivery Method Room Air MDM MDM MDM Narrative Medical decision making narrative: Differential diagnosis includes but not limited to right hip contusion versus fracture versus left foot fracture versus contusion versus abrasion. Patient was administered Dilaudid 1 mg intravenously for analgesia and x-rays were obtained of the right hip as well as the left foot and interpreted by myself independently. On my independent interpretation of the right hip x-ray and pelvis, there is a subcapital/femoral neck fracture noted. X-ray of the left foot on my independent interpretation shows no evidence of fracture. I reviewedthe radiology report of the x-ray of the right hip and pelvis which comments on the femoral neck fracture. I reviewed the radiology report of the x-ray of the left foot which confirms my independent interpretation of no acute fracture. Onmy independent interpretation of the chest x-ray in 1 view preoperatively, no acute disease, no pneumothorax, no pneumonia. Patient stated she needed more pain medication as Dilaudid 1 mg was ineffective so she was administered 50 mcg of fentanyl intravenously. Given the right hip fracture, patient will be discussed with the on-call orthopod, Dr. Eloy Hamm. I will obtain chest x-ray and basic laboratory work with EKG and type and screen for preop clearance, I discussed the patient with the hospitalist for admission. Patient was discussed with Dr. Avendaño. Disposition is admit to medical surgical floor in stable condition. I reviewed her laboratory work she has normal white count of 4.8 with hemoglobinnormal at 12.7, electrolyte panel grossly unremarkable, with exception of AST slightly elevated at 35 which I think is nonspecific, blood type a positive. History & Record Review Discussion w/independent historian: Patient and Family Lab Data Attestation: I reviewed the patient's lab results. Labs: Laboratory Results - last 24 hr 07/16/24 07/16/24 17:14 17:17 WBC 4.8 RBC 4.39 Hgb 12.7 Hct 37.5 MCV 85.4 MCH 28.9 MCHC 33.9 RDW Std Deviation 38.1 RDW Coeff of Juany 12.3 Plt Count 179 MPV 9.2 Immature Gran % (Auto) 0.400 Neut % (Auto) 56.8 Lymph % (Auto) 32.5 [place] % (Auto) 6.9 Eos % (Auto) 2.1 Baso % (Auto) 1.3 H Absolute Neuts (auto) 2.7 Absolute Lymphs (auto) 1.55 Nucleated RBC % 0 Sodium 135 Potassium 3.9 Chloride 101 Carbon Dioxide 21.9 Anion Gap 13 BUN 17 Creatinine 1.01 Estim Creat Clear Calc 67.61 Est GFR (MDRD) Non-Af 61 BUN/Creatinine Ratio 16.8 Glucose 92 Calcium 9.4 Total Bilirubin 0.54 AST 35 H ALT 19 Alkaline Phosphatase 80 Troponin T High Sens 6 Total Protein 7.2 Albumin 4.2 Globulin 3.0 Albumin/Globulin Ratio 1.4 Blood Type A POSITIVE Antibody Screen NEGATIVE Radiography Chest X-Ray - ED: 1 View, Read by ED Physician and No Acute Disease Diagnostic Testing: Clinical Impression(s) from Imaging Studies Foot X-Ray 07/16/24 16:45 IMPRESSION: No acute findings. Reading [facility] Hip/Pelvis X-Ray 07/16/24 16:45 IMPRESSION: See above Reading Location: [facility] Chest X-Ray 07/16/24 17:06 IMPRESSION: 1. Central vascular prominence without overt pulmonary edema. 2. Recommend outpatient CT chest, ideally with IV contrast for above mediastinalfindings, unless prior outside imaging is available to further delineate or establish long-term stability. 3. Additional description as above. Reading Location: [id number] Management Discussion w/another healthcare provider: Hospitalist (Dr. Mayi Avendaño) and Satellite Installation Technician (Dr. Hamm, orthopedics) Discharge Plan Dx/Rx/DC Orders Clinical Impression: Fracture of femoral neck, closed, Fall, Hypertension Disposition Disposition: Acute Care Hospital [facility] Discharge Date/Time: 07/16/24 19:17 What to do if you have Problems For any increased pain, shortness of breath, bleeding, nausea or vomiting, chestpain, or any unexpected problems, contact your Primary Care Provider. Call [facility] ([phone]) or report to the closest Emergency Room. Call 911 if necessary. 07/16/241921 <Electronically signed by Tian Evans MD> Cosigner Signature (if applicable): CC: BEVERLEY WALKER ~ Signed [facility] Work Phone: 1(961) 864-760405-15-2025 History and physical note Author Mayi Avendaño [facility] Note Date/Time July 16, 2024 6:19p m [facility] Medical Records Department [address] [facility] [place] [address] H&P Exam - Hospitalist 07/16/24 1810 MR#: [id number] Acct: [id number] Name: EFRAIN GILLIAM Rep #:[id number] : 1955 69 From: Mayi Avendaño MD PCP: BEVERLEY WALKER Status:REG ER Location: ED HPI - General General Date of Admission: 07/16/24 Date of Service: 07/16/24 Chief Complaint: Fall, Hip pain. HPI Narrative The patient is a 69 y/o F w/ PMHx: HTN, HLD, GERD, Obesity, Hx Diabetes mellitustype II who presents to the [facility] ED on 07/16/2024 with history of unfortunate mechanical fall, taking a chair outside to read a book unfortunately she fell down a stair and stepped on it concrete as she was walking backwards landing on her right lower extremity especially on her hip andpotentially twisting her left ankle with significant debility and inability to bear weight prompting ED evaluation. In the ED despite current pain medication being administered she does rate her pain to the right hip is 8 of 10 in severity. She denies any extremity paresthesias. Workup in the ED included T98.6, heart rate 89, BP 182/98 initially, respiratory rate 18, 95% on room air with most recent repeat vitals T98.9, heart rate 64, BP 167/78, respiratory rate18, 97% on room air, CBC with WC 4.8, hemoglobin 12.7, platelet 179 without marked shift, CMP not marked appearing aside from AST 35, troponin 6, pending EKG upon evaluation, plain film of the left foot with no acute findings, plain film of the right hip and pelvis with a mildly displaced and angulated fracture of the right femoral neck with moderate medial angulation of the proximal fracture fragment. [facility] Medical History History of diabetes mellitus Obesity GERD (gastroesophageal reflux disease) HLD (hyperlipidemia) Hypertension Home Medications ?Medication ?Instructions ?Recorded ?Last Taken ?Type diclofenac sodium 50 mg 50 mg PO BID 07/16/24 History tablet,delayed release lisinopril 40 mg tablet 40 mg PO DAILY 07/16/24 05/07/26 History metoprolol succinate 50 mg 75 mg PO DAILY 07/16/24 History tablet,extended release 24 hr pantoprazole 40 mg tablet,delayed 40 mg PO DAILY 07/1607/16/24 History release rosuvastatin 20 mg tablet 20 mg PO QHS 07/16/24 History tirzepatide (weight loss) 5 mg/0.5 5 mg subcut QWEEK 0 07/16/24 07/13/24 History mL subcutaneous pen injector (Zepbound) Allergy/AdvReac Type Severity Reaction Status Date / Time No Known Allergies Allergy Verified 07/16/24 16:20 Family History Mother MORENO (nonalcoholic steatohepatitis) Heart failure Hypertension Heart disease Father Heart disease Hypertension CAD (coronary artery disease) Myocardial infarction Surgical History H/O wrist surgery History of hysterectomy History of left knee replacement S/P left knee arthroscopy Social History household members: spouse Smoking Status: Never smoker alcohol intake: never substance use type: does not use ROS ROS Narrative Admission Review of Systems: CONSTITUTIONAL: No weight loss, fever, chills, + weakness or fatigue. HEENT: Eyes: No visual loss, blurred vision, double vision or yellow sclerae. Ears, Nose, Throat: No hearing loss, sneezing, congestion, runny nose or sore throat. SKIN: No rash or itching, lesions, wounds. CARDIOVASCULAR: No chest pain, chest pressure or chest discomfort, palpitations,edema, orthopnea, syncopal events. RESPIRATORY: No shortness of breath, cough or sputum, wheezing, hemoptysis. GASTROINTESTINAL: No anorexia, nausea, vomiting or diarrhea, abdominal pain, melena, BRBPR. GENITOURINARY: No dysuria, frequency, urgency or retention. NEUROLOGICAL: No headache, dizziness, syncope, paralysis, ataxia, numbness or tingling in the extremities, focal weakness, change in bowel or bladder control,seizure. MUSCULOSKELETAL: + muscle, back pain, joint pain or stiffness. HEMATOLOGIC: No anemia, bleeding or bruising. LYMPHATICS: No enlarged nodes. No history of splenectomy. PSYCHIATRIC: No history of depression or anxiety. ENDOCRINOLOGIC: No reports of sweating, cold or heat intolerance. No polyuria orpolydipsia. ALLERGIES: No history of asthma, hives, eczema or rhinitis. Vital Signs Vital Signs Vital Signs: 07/16/24 16:20 07/16/24 16:34 07/16/24 17:19 Temperature 98.6 F 98.9 F Temperature Source Oral Oral Pulse Rate 89 64 Respiratory Rate 18 18 Respiratory Effort Normal Respiratory Depth Normal Respiratory Pattern Normal Blood Pressure 182/98 H 167/78 H Blood Pressure Mean 126 107 Pulse Ox 95 97 Oxygen Delivery Method Room Air Room Air Room Air Weight Weight: 217 lb 13.067 oz Body Mass Index (BMI) 32.1 Physical Exam Narrative Physical Examination: General: Awake, alert, oriented x 3 and cooperative, laying in the ED bed, fatigued, notes ongoing right hip pain 8 of 10 in severity Skin: Normal color, normal turgor, no icterus, no cyanosis except various abrasions with recent fall HEENT: AT/NC, EOMI, PERRLA, mildly dry MM, no carotid bruits, difficult to discern JVD given thickened neck. Lungs: Mildly diminished, greater bases, appropriate effort, no rales, ronchi orwheezing. Heart: Regular rate and rhythm; no gallop, rub audible. Abdomen: Soft, obese, NTTP, mildly hyperactive BS, no obvious distention or HSM however habitus makes evaluation difficult. Extremities: No cyanosis, no clubbing, mild bilateral ankle not markedly pittingedema, status post fall with right hip fracture. Neurological: Patient awake, alert, oriented as noted, cognitive function intact; pupils equally reactive to light and accommodation, cranial nerves grossnormal, moving all 4 extremities except expected limitation right lower extremity given fall with hip fracture but able to move toes, strength accordingly severely globally decreased. Psychiatric: Affect appears mildly uncomfortable otherwise normal, no acute evidence of depressive or anxiety feelings. Results Lab / Micro Data 07/16/24 17:14 07/16/24 17:14 Labs: Laboratory Results - last 24 hr 07/16/24 17:14: WBC 4.8, RBC 4.39, Hgb 12.7, Hct 37.5, MCV 85.4, MCH 28.9, MCHC 33.9, RDW Std Deviation 38.1, RDW Coeff of Juany 12.3, Plt Count 179, MPV 9.2, Immature Gran % (Auto) 0.400, Neut % (Auto) 56.8, Lymph % (Auto) 32.5, [place] % (Auto) 6.9, Eos % (Auto) 2.1, Baso % (Auto) 1.3 H, Absolute Neuts (auto) 2.7, Absolute Lymphs (auto) 1.55, Nucleated RBC % 0, Sodium 135, Potassium 3.9, Chloride 101, Carbon Dioxide 21.9, Anion Gap 13, BUN 17, Creatinine 1.01, Estim Creat Clear Calc 67.61, Est GFR (MDRD) Non-Af 61, BUN/Creatinine Ratio 16.8, Glucose 92, Calcium 9.4, Total Bilirubin 0.54, AST 35 H, ALT 19, Alkaline Phosphatase 80, Troponin T High Sens 6, Total Protein 7.2, Albumin 4.2, Globulin3.0, Albumin/Globulin Ratio 1.4 07/16/24 17:17: Blood Type A POSITIVE Imaging Radiology Impression Foot X-Ray 07/16/24 16:45 IMPRESSION: No acute findings. Reading [facility]/Pelvis X-Ray 07/16/24 16:45 IMPRESSION: See above Reading Location[facility] Assessment & Plan Assessment/Plan (1) Fracture of femoral neck, closed: (2) Fall: PLAN: Plan The patient is a 69 y/o F w/ PMHx: HTN, HLD, GERD, Obesity, Hx Diabetes mellitustype II who presents to the [facility] ED on 07/16/2024 with history of unfortunate mechanical fall, taking a chair outside to read a book unfortunately she fell down a stair and stepped on it concrete as she was walking backwards landing on her right lower extremity especially on her hip andpotentially twisting her left ankle with significant debility and inability to bear weight prompting ED evaluation. #1. General debility, right hip pain s/p mechanical fall w/ mildly displaced and angulated fracture of the right femoral neck with moderate medial angulationof the proximal fracture fragment: Orthopedic surgery consulted from ED. Will admit to MS, maintain NPO after midnight, continue gentle IVFs, davis placement,monitor I/Os, frequent positioning, fall precautions, Pain, anti-emetic regimen as needed. PT/OT following operative intervention. CM consulted for discharge planning. Per NSQIP guidelines patient is low risk for transition to OR, healthy, active with no current complaints of dyspnea or routine chest discomfort, awaiting EKG and as long as this is appropriate agree with progression to OR. #2. History of diabetes mellitus type 2: Patient notes that she did have diabetes in the past and has been on weight loss medication with 60 pound weightloss and since then has been under control, will obtain he will A1c to be cautious, in the interim will maintain on ADA diet with Accu-Cheks with insulin sliding scale but may de-escalate off if it is low. #3. Hypertension: Continue home regimen including metoprolol, lisinopril, PRN hydralazine. #4. Hyperlipidemia: Will continue patient on statin therapy. #5. Obesity: Weight loss and lifestyle changes encouraged. #6. GERD: Will continue patient on PPI. #7. DVT prophylaxis: SCDs, hold chemoprophylaxis per surgery intervention planned. #8. CODE status: Patient ISHA is her who is and living will is currently in place. Discussed CODE status at length including difference betweenFULL code, DNR-CCA and DNR-CC status. Following discussions about the differences in these status, requested Full Code status. Charges/Coding Visit Charges Inpatient E&M: 93778 Init Hosp L3 07/16/241818 <Electronically signed by Mayi Avendaño MD> Cosigner Signature (if applicable): CC: Dr. Mayi Avendaño MD; BEVERLEY WALKER~ Signed [facility] Work Phone: 1(101) 675-678305-15-2025 Evaluation note* Diagnosis Onset Date Resolution Status Admit Date Fall acute July 16, 2024 6:10pm Fracture of femoral neck, closed acu te July 16, 2024 6:10pm Osteoarthritis of right hip acute July 16, 2024 6:10pm Hypertension inactive July 16 6:10pm [facility] Work Phone: 1(342) 368-652305-15-2025 Evaluation note* Diagnosis Onset Date Resolution Status Admit Date Fall inactive July 16, 2024 6:10pm Fracture of femoral neck, closed katerine ctive July 16, 2024 6:10pm Hypertension inactive July 16 6:10pm Osteoarthritis of right hip inactive July 16, 2024 6:10pm [facility] Work Phone: 1(782) 526-687905-15-2025 Discharge summary [facility] Medical Records Department [address] [place] [address] Emergency Department Summary 07/16/24 MR#: [id number] Acct: [id number] Name: EFRAIN GILLIAM Rep #:[id number] : 1955 69 From: Tian Evans MD PCP: BEVERLEY WALKER Status:ADM IN Location: [facility] [id number] Tian Evans MD on 07/16/24 at 1955 Preop EKG obtained and interpreted by myself independently as normal sinus rhythm at 65 bpm withoutectopy or acute ST changes. No STEMI. 07/16/241955 Cosigner Signature (if applicable): cc: BEVERLEY WALKER ~* Signed HPI History of Present Illness Chief Complaint: Fall Narrative Narrative: 69-year-old female past medical history of hypertension, hypercholesterolemia, arthritis, previous remote left TKA performed in [place] presents with injury to her right hip status post fall. She states that she fell down a stair or step out onto concrete as she was walking backwards, carrying a chair because she wasgoing to go outside and read a book. She denies hitting of her head or loss of consciousness. She was unable to sit up or move her right lower extremity as she has pain in her hip. She states she might have scraped her left foot as well. Initially, she denied any shoulder pain, neck pain, loss of consciousness, or other injury. The pain is concentrated in her right hip. [facility] Medical History History of diabetes mellitus Obesity GERD (gastroesophageal reflux disease) HLD (hyperlipidemia) Hypertension Home Medications ?Medication ?Instructions ?Recorded ?Last Taken ?Type diclofenac sodium 50 mg 50 mg PO BID 07/16/24 History tablet,delayed release lisinopril 40 mg tablet 40 mg PO DAILY 07/16/2407/02 History metoprolol succinate 50 mg 75 mg PO DAILY 07/16/24 History tablet,extended release 24 hr pantoprazole 40 mg tablet,delayed 40 mg PO DAILY 07/1607/16/24 History release rosuvastatin 20 mg tablet 20 mg PO QHS 07/16/24 History tirzepatide (weight loss) 5 mg/0.5 5 mg subcut QWEEK 0 07/16/24 07/13/24 History mL subcutaneous pen injector (Zepbound) Allergy/AdvReac Type Severity Reaction Status Date / Time No Known Allergies Allergy Verified 07/16/24 16:20 Family History Mother MORENO (nonalcoholic steatohepatitis) Heart failure Hypertension Heart disease Father Heart disease Hypertension CAD (coronary artery disease) Myocardial infarction Surgical History H/O wrist surgery History of hysterectomy History of left knee replacement S/P left knee arthroscopy Social History household members: spouse Smoking Status: Never smoker alcohol intake: never substance use type: does not use ROS ROS ED ROS Narrative Review of systems, focused, positive for right hip pain worse with any type of movement/unable to move right hip. No hitting of head, no loss of consciousness, denies shoulder pain. May have scraped the left foot. No prodromal symptoms of chest pain or shortness of breath. witnessed fall. EXAM Physical Exam Narrative Exam Narrative: GCS 15. ABCs are intact. Neck soft and supple without vertebral point tenderness or bony step-off. Able to raise arms above head in supine position. Cardiovascular examination regular rate and rhythm. Lungs are clear to auscultation bilaterally anteriorly. Abdomen is soft nontender without guardingo r rebound, positive bowel sounds. Pelvis stable. Right hip held in flexion with flexion of right knee. EHL intact bilaterally. Palpable dorsalis pedis pulse, right. Const Vital Signs: 07/16/24 16:20 07/16/24 16:34 07/16/24 17:19 Temperature 98.6 F 98.9 F Temperature Source Oral Oral Pulse Rate 89 64 Respiratory Rate 18 18 Respiratory Effort Normal Respiratory Depth Normal Respiratory Pattern Normal Blood Pressure 182/98 H 167/78 H Blood Pressure Mean 126 107 Pulse Ox 95 97 Oxygen Delivery Method Room Air Room Air Room Air 07/16/24 18:00 07/16/24 18:00 Temperature 97.8 F Temperature Source Pulse Rate 78 66 Respiratory Rate 16 18 Respiratory Effort Respiratory Depth Respiratory Pattern Blood Pressure 138/76 H 138/76 H Blood Pressure Mean 96 96 Pulse Ox 98 100 Oxygen Delivery Method Room Air MDM MDM MDM Narrative Medical decision making narrative: Differential diagnosis includes but not limited to right hip contusion versus fracture versus left foot fracture versus contusion versus abrasion. Patient was administered Dilaudid 1 mg intravenouslyfor analgesia and x-rays were obtained of the right hip as well as the left foot and interpreted bymyself independently. On my independent interpretation of the right hip x-ray and pelvis, there is a subcapital/femoral neck fracture noted. X-ray of the left foot on my independent interpretation shows no evidence of fracture. I reviewedthe radiology report of the x-ray of the right hip and pelviswhich comments on the femoral neck fracture. I reviewed the radiology report of the x- ray of the left foot which confirms my independent interpretation of no acute fracture. Onmy independent interpretation of the chest x-ray in 1 view preoperatively, no acute disease, no pneumothorax, no pneumonia.Patient stated she needed more pain medication as Dilaudid 1 mg was ineffective so she was administered 50 mcg of fentanyl intravenously. Given the right hip fracture, patient will be discussed with the on-call orthopod, Dr. Eloy Hamm. I will obtain chest x-ray and basic laboratory work with EKG and type and screen for preop clearance, I discussed the patient with the hospitalist for admission. Patient was discussed with Dr. Avendaño. Disposition is admit to medical surgical floor in stable condition. I reviewed her laboratory work she has normal white count of 4.8 with hemoglobinnormal at 12.7, electrolyte panel grossly unremarkable, with exception of AST slightly elevated at 35 which I think is nonspecific, blood type a positive. History & Record Review Discussion w/independent historian: Patient and Family Lab Data Attestation: I reviewed the patient's lab results. Labs: Laboratory Results - last 24 hr 07/16/24 07/16/24 17:14 17:17 WBC 4.8 RBC 4.39 Hgb 12.7 Hct 37.5 MCV 85.4 MCH 28.9 MCHC 33.9 RDW Std Deviation 38.1 RDW Coeff of Juany 12.3 Plt Count 179 MPV 9.2 Immature Gran % (Auto) 0.400 Neut % (Auto) 56.8 Lymph % (Auto) 32.5 [place] % (Auto) 6.9 Eos % (Auto) 2.1 Baso % (Auto) 1.3 H Absolute Neuts (auto) 2.7 Absolute Lymphs (auto) 1.55 Nucleated RBC % 0 Sodium 135 Potassium 3.9 Chloride 101 Carbon Dioxide 21.9 Anion Gap 13 BUN 17 Creatinine 1.01 Estim Creat Clear Calc 67.61 Est GFR (MDRD) Non-Af 61 BUN/Creatinine Ratio 16.8 Glucose 92 Calcium 9.4 Total Bilirubin 0.54 AST 35 H ALT 19 Alkaline Phosphatase 80 Troponin T High Sens 6 Total Protein 7.2 Albumin 4.2 Globulin 3.0 Albumin/Globulin Ratio 1.4 Blood Type A POSITIVE Antibody Screen NEGATIVE Radiography Chest X-Ray - ED: 1 View, Read by ED Physician and No Acute Disease Diagnostic Testing: Clinical Impression(s) from Imaging Studies Foot X-Ray 07/16/24 16:45 IMPRESSION: No acute findings. Reading [facility] Hip/Pelvis X-Ray 07/16/24 16:45 IMPRESSION: See above Reading [facility] Chest X-Ray 07/16/24 17:06 IMPRESSION: 1. Central vascular prominence without overt pulmonary edema. 2. Recommend outpatient CT chest, ideally with IV contrast for above mediastinalfindings, unless prior outside imaging is available to further delineate or establish long-term stability. 3. Additional description as above. Reading Location: [id number] Management Discussion w/another healthcare provider: Hospitalist (Dr. Mayi Avendaño) and Satellite Installation Technician (Dr. Hamm, orthopedics) Discharge Plan Dx/Rx/DC Orders Clinical Impression: Fracture of femoral neck, closed, Fall, Hypertension Disposition Disposition: Acute Care Hospital [facility] Discharge Date/Time: 07/16/24 19:17 What to do if you have Problems For any increased pain, shortness of breath, bleeding, nausea or vomiting, chestpain, or any unexpected problems, contact your Primary Care Provider. Call [facility] ([phone]) or report tothe closest Emergency Room. Call 911 if necessary. 07/16/241921 Cosigner Signature (if applicable): CC: BEVERLEY WALKER ~ Signed [facility]05-15-2025 Radiology Diagnostic study note [facility] Imaging Services [address] [place] [id number] Chest 1 View (Portable) MR#: [id number] Acct: [id number] Name: EFRAIN GILLIAM Rep #: [id number] : 1955 F 69 From: Delmis Vicente MD PCP: BEVERLEY WALKER Status: REG ER Study:Chest 1 View (Portable) Date of Exam: 07/16/24 Exam# [id number] Ordering Dr: Tian Evans MD PROCEDURE: CHEST 1 VIEW (PORTABLE), 07/16/2024 REASON FOR EXAM: PREOPERATIVE, CAD TECHNIQUE: A single portable AP view of the chest was obtained. COMPARISON: None FINDINGS: Heart: Unremarkable. Mediastinum: Widening of the RIGHT paratracheal stripe could be related to vascular prominence, mediastinal lipomatosis, may be projectional, related to mediastinal lymphadenopathy, or other mediastinal process. Central vascular prominence. Lungs/pleura: No focal consolidation. No sizeable pleural effusion or visible pneumothorax. Suspecta skin fold the RIGHT. Bones: Multilevel spondylosis. Suspected demineralization. Lines and support devices: None. Other: None. RAD/Chest 1 View (Portable) IMPRESSION: 1. Central vascular prominence without overt pulmonary edema. 2. Recommend outpatient CT chest, ideally with IV contrast for above mediastinalfindings, unless prior outside imaging is available to further delineate or establish long-term stability. 3. Additional description as above. Reading Location: [id number] CC: Dr. Tian Evans MD; BEVERLEY WALKER ~ Director Chemistry: Signed [facility]05-15-2025 History and physical note [facility] Medical Records Department [address] [place] [address] H&P Exam - Hospitalist 07/16/24 1810 MR#: [id number] Acct: [id number] Name: EFRAIN GILLIAM Rep #:[id number] : 1955 69 From: Mayi Avendaño MD PCP: BEVERLEY WALKER Status:REG ER Location: ED HPI - General General Date of Admission: 07/16/24 Date of Service: 07/16/24 Chief Complaint: Fall, Hip pain. HPI Narrative The patient is a 69 y/o F w/ PMHx: HTN, HLD, GERD, Obesity, Hx Diabetes mellitustype II who presents to the [facility] ED on 07/16/2024 with history of unfortunate mechanical fall, taking a chair outside to read a book unfortunately she fell down a stair and stepped on it concrete asshe was walking backwards landing on her right lower extremity especially on her hip andpotentiallytwisting her left ankle with significant debility and inability to bear weight prompting ED evaluation. In the ED despite current pain medication being administered she does rate her pain to the right hip is 8 of 10 in severity. She denies any extremity paresthesias. Workup in the ED included T98.6, heart rate 89, BP 182/98 initially, respiratory rate 18, 95% on room air with most recent repeat vitals T98.9, heart rate 64, BP 167/78, respiratory rate18, 97% on room air, CBC with WC 4.8, hemoglobin 12.7, platelet 179 without marked shift, CMP not marked appearing aside from AST 35, troponin 6,pending EKG upon evaluation, plain film of the left foot with no acute findings, plain film of the right hip and pelvis with a mildly displaced and angulated fracture of the right femoral neck with moderate medial angulation of the proximal fracture fragment. [facility] Medical History History of diabetes mellitus Obesity GERD (gastroesophageal reflux disease) HLD (hyperlipidemia) Hypertension Home Medications ?Medication ?Instructions ?Recorded ?Last Taken ?Type diclofenac sodium 50 mg 50 mg PO BID 07/16/24 History tablet,delayed release lisinopril 40 mg tablet 40 mg PO DAILY 07/16/2407/02 History metoprolol succinate 50 mg 75 mg PO DAILY 07/16/24 History tablet,extended release 24 hr pantoprazole 40 mg tablet,delayed 40 mg PO DAILY 07/1607/16/24 History release rosuvastatin 20 mg tablet 20 mg PO QHS 07/16/24 History tirzepatide (weight loss) 5 mg/0.5 5 mg subcut QWEEK 0 07/16/24 07/13/24 History mL subcutaneous pen injector (Zepbound) Allergy/AdvReac Type Severity Reaction Status Date / Time No Known Allergies Allergy Verified 07/16/24 16:20 Family History Mother MORENO (nonalcoholic steatohepatitis) Heart failure Hypertension Heart disease Father Heart disease Hypertension CAD (coronary artery disease) Myocardial infarction Surgical History H/O wrist surgery History of hysterectomy History of left knee replacement S/P left knee arthroscopy Social History household members: spouse Smoking Status: Never smoker alcohol intake: never substance use type: does not use ROS ROS Narrative Admission Review of Systems: CONSTITUTIONAL: No weight loss, fever, chills, + weakness or fatigue. HEENT: Eyes: No visual loss, blurred vision, double vision or yellow sclerae. Ears, Nose, Throat: No hearing loss, sneezing, congestion, runny nose or sore throat. SKIN: No rash or itching, lesions, wounds. CARDIOVASCULAR: No chest pain, chest pressure or chest discomfort, palpitations,edema, orthopnea, syncopal events. RESPIRATORY: No shortness of breath, cough or sputum, wheezing, hemoptysis. GASTROINTESTINAL: No anorexia, nausea, vomiting or diarrhea, abdominal pain, melena, BRBPR. GENITOURINARY: No dysuria, frequency, urgency or retention. NEUROLOGICAL: No headache, dizziness, syncope, paralysis, ataxia, numbness or tingling in the extremities, focal weakness, change in bowel or bladder control,seizure. MUSCULOSKELETAL: + muscle, back pain, joint pain or stiffness. HEMATOLOGIC: No anemia, bleeding or bruising. LYMPHATICS: No enlarged nodes. No history of splenectomy. PSYCHIATRIC: No history of depression or anxiety. ENDOCRINOLOGIC: No reports of sweating, cold or heat intolerance. No polyuria orpolydipsia. ALLERGIES: No history of asthma, hives, eczema or rhinitis. Vital Signs Vital Signs Vital Signs: 07/16/24 16:20 07/16/24 16:34 07/16/24 17:19 Temperature 98.6 F 98.9 F Temperature Source Oral Oral Pulse Rate 89 64 Respiratory Rate 18 18 Respiratory Effort Normal Respiratory Depth Normal Respiratory Pattern Normal Blood Pressure 182/98 H 167/78 H Blood Pressure Mean 126 107 Pulse Ox 95 97 Oxygen Delivery Method Room Air Room Air Room Air Weight Weight: 217 lb 13.067 oz Body Mass Index (BMI) 32.1 Physical Exam Narrative Physical Examination: General: Awake, alert, oriented x 3 and cooperative, laying in the ED bed, fatigued, notes ongoing right hip pain 8 of 10 in severity Skin: Normal color, normal turgor, no icterus, no cyanosis except various abrasions with recent fall HEENT: AT/NC, EOMI, PERRLA, mildly dry MM, no carotid bruits, difficult to discern JVD given thickened neck. Lungs: Mildly diminished, greater bases, appropriate effort, no rales, ronchi orwheezing. Heart: Regular rate and rhythm; no gallop, rub audible. Abdomen: Soft, obese, NTTP, mildly hyperactive BS, no obvious distention or HSM however habitus makes evaluation difficult. Extremities: No cyanosis, no clubbing, mild bilateral ankle not markedly pittingedema, status post fall with right hip fracture. Neurological: Patient awake, alert, oriented as noted, cognitive function intact; pupils equally reactive to light and accommodation, cranial nerves grossnormal, moving all 4 extremities except expected limitation right lower extremity given fall with hip fracture but able to move toes, strength acc ordingly severely globally decreased. Psychiatric: Affect appears mildly uncomfortable otherwise normal, no acute evidence of depressive or anxiety feelings. Results Lab / Micro Data 07/16/24 17:14 07/16/24 17:14 Labs: Laboratory Results - last 24 hr 07/16/24 17:14: WBC 4.8, RBC 4.39, Hgb 12.7, Hct 37.5, MCV 85.4, MCH 28.9, MCHC 33.9, RDW Std Deviation 38.1, RDW Coeff of Juany 12.3, Plt Count 179, MPV 9.2, Immature Gran % (Auto) 0.400, Neut % (Auto) 56.8, Lymph % (Auto) 32.5, [place] % (Auto) 6.9, Eos % (Auto) 2.1, Baso % (Auto) 1.3 H, Absolute Neuts (auto) 2.7, Absolute Lymphs (auto) 1.55, Nucleated RBC % 0, Sodium 135, Potassium 3.9, Chloride 101, Carbon Dioxide 21.9, Anion Gap 13, BUN 17, Creatinine 1.01, Estim Creat Clear Calc 67.61, Est GFR(MDRD) Non-Af 61, BUN/Creatinine Ratio 16.8, Glucose 92, Calcium 9.4, Total Bilirubin 0.54, AST 35 H, ALT 19, Alkaline Phosphatase 80, Troponin T High Sens 6, Total Protein 7.2, Albumin 4.2, Globulin3.0, Albumin/Globulin Ratio 1.4 07/16/24 17:17: Blood Type A POSITIVE Imaging Radiology Impression Foot X-Ray 07/16/24 16:45 IMPRESSION: No acute findings. Reading Location: [facility] Hip/Pelvis X-Ray 07/16/24 16:45 IMPRESSION: See above Reading Location[facility] Assessment & Plan Assessment/Plan (1) Fracture of femoral neck, closed: (2) Fall: PLAN: Plan The patient is a 69 y/o F w/ PMHx: HTN, HLD, GERD, Obesity, Hx Diabetes mellitustype II who presents to the [facility] ED on 07/16/2024 with history of unfortunate mechanical fall, taking a chair outside to read a book unfortunately she fell down a stair and stepped on it concrete asshe was walking backwards landing on her right lower extremity especially on her hip andpotentiallytwisting her left ankle with significant debility and inability to bear weight prompting ED evaluation. #1. General debility, right hip pain s/p mechanical fall w/ mildly displaced and angulated fractureof the right femoral neck with moderate medial angulationof the proximal fracture fragment: Orthopedic surgery consulted from ED. Will admit to MS, maintain NPO after midnight, continue gentle IVFs, davis placement,monitor I/Os, frequent positioning, fall precautions, Pain, anti- emetic regimen as needed. PT/OT following operative intervention. CM consulted for discharge planning. Per NSQIP guidelines patient is low risk for transition to OR, healthy, active with no current complaints of dyspnea or routine chest discomfort, awaiting EKG and as long as this is appropriate agreewith progression to OR. #2. History of diabetes mellitus type 2: Patient notes that she did have diabetes in the past and has been on weight loss medication with 60 pound weightloss and since then has been under control, will obtain he will A1c to be cautious, in the interim will maintain on ADA diet with Accu-Cheks with insulin sliding scale but may de-escalate off if it is low. #3. Hypertension: Continue home regimen including metoprolol, lisinopril, PRN hydralazine. #4. Hyperlipidemia: Will continue patient on statin therapy. #5. Obesity: Weight loss and lifestyle changes encouraged. #6. GERD: Will continue patient on PPI. #7. DVT prophylaxis: SCDs, hold chemoprophylaxis per surgery intervention planned. #8. CODE status: Patient HCPOA is her who is and living will is currently in place. Discussed CODE status at length including difference betweenFULL code, DNR-CCA and DNR-CC status. Followingdiscussions about the differences in these status, requested Full Code status. Charges/Coding Visit Charges Inpatient E&M: 66141 Init Hosp L3 07/16/24 1819 Cosigner Signature (if applicable): CC: Dr. Mayi Avendaño MD; BEVERLEY WALKER~ Signed [facility]05-15-2025 Radiology Diagnostic study note [facility] Imaging Services [address] [place] [address] HIP, UNI W/ Pelvis 2-3 Views MR#: [id number] Acct: [id number] Name: EFRAIN GILLIAM Rep #: [id number] : 1955 F 69 From: [place] MD PCP: BEVERLEY WALKER Status: REG ER Study:HIP, UNI W/ Pelvis 2-3 Views Date of Ex am: 07/16/24 Exam# [id number] Ordering Dr: Tian Evans MD PROCEDURE: HIP, UNI W/ PELVIS 2-3 VIEWS 07/16/2024 REASON FOR EXAM: TRAUMA TECHNIQUE: 3 views of the right hip COMPARISON: None FINDINGS: Mildly displaced and angulated fracture right femoral neck. There is moderate medial angulation of the proximal fracture fragment. No other fractures are noted. Degenerative changes of the hip joints. Mild degenerative changes SI joints and lower lumbar spine. Indeterminate sclerotic lesion overlying right the femoral head. RAD/HIP, UNI W/ Pelvis 2-3 Views IMPRESSION: See above Reading Location: [facility] CC: Dr. Tian Evans MD; BEVERLEY WALKER ~ Director Chemistry: Signed [facility]05-15-2025 Radiology Diagnostic study note [facility] Imaging Services [address] [place] [address] [id number] Foot min 3 Views MR#: [id number] Acct: [id number] Name: EFRAIN GILLIAM Rep #: [id number] : 1955 F 69 From: [place] MD PCP: BEVERLEY WALKER Status: REG ER Study:Foot min 3 Views Date of Exam: Exam# [id number] Ordering Dr: Tian Evans MD PROCEDURE: FOOT MIN 3 VIEWS 07/16/2024 REASON FOR EXAM: TRAUMA TECHNIQUE: 3 views of the left foot. COMPARISON: None FINDINGS: No acute fracture or dislocation. Mild multifocal osteoarthritis. No significant soft tissue swelling. No radiopaque foreign body. RAD/Foot min 3 Views IMPRESSION: No acute findings. Reading Location: [facility] CC: Dr. Tian Evans MD; BEVERLEY WALKER ~ Director Chemistry: Signed [facility]03-07-2025 History of Present illness Narrative* Rosalee Malave APRN-NIK - 05/08/2024 7:00 AM EST Chief Complaint Patient presents with Other 6 month follow up HPI: The patient is a pleasant 68 y.o. year old female here for: chronic condition management She was last seen for these 10/22/2023 Hyperlipidemia: improved, no medication change GERD: controlled, continue on methods to help with heartburn control aside from medication Hypertension: repeat BP 136/80, continue on methods to help with BP control aside from medication Diabetes: HgbA1c 5.4%, improved, continue Ozempic, continue methods to help with BS control aside from medication Today she states that she is doing great and since her nerve ablation her back is doing well also. 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 Essential hypertension, benign Exercise tolerance finding METS > 4 GERD (gastroesophageal reflux disease) History of corticosteroid therapy injections Hyperlipidemia Osteoarthritis of knee [facility] Sleep pattern disturbance Wears glasses reading Social History Tobacco Use Smoking status: Never Smokeless tobacco: Never Substance Use Topics Alcohol use: No Drug use: No Past Surgical History: Procedure Laterality Date ARTHROPLASTY KNEE TOTAL Left 07/08/2017 Laterality: Left; Surgeon: Ricky Acuna MD; Location: [facility] ARTHROSCOPY KNEE W/ MENISCUS REPAIR Left EXCISION GANGLION CYST Right x 2 HYSTERECTOMY Family History Problem Relation Age of Onset Other - Specify Mother CHF, liver disease Coronary Artery Disease Father CABG x 2 Skin Cancer Brother melanoma - has spread to stomach,lungs, and brain Current Outpatient Medications Medication Sig Dispense Refill Lisinopril 40 MG tablet Take 1 tablet by mouth daily. 90 tablet 2 Metoprolol succinate 50 MG tablet XL Take 1.5 tablets by mouth daily. 135 tablet 2 Pantoprazole (Protonix) [address] tablet DR Take 1 tablet by mouth daily. 90 tablet 1 Rosuvastatin 20 MG tablet TAKE 1 TABLET BY MOUTH DAILY 90 tablet 1 Wheat Dextrin (Benefiber) Chew Tab Chew. Tirzepatide-Weight Management (Zepbound) 2.5 MG/0.5ML Solution Auto-injector Inject 2.5 mg under the skin once a week. 2 mL 1 No current facility-administered medications for this visit. PMH: Past medical history, family history, social history, allergies and medications have been reviewed and are documented in the electronic record. ROS: Negative except as noted in HPI and Chief Complaint Vitals: 05/08/24 0720 BP: 122/80 Pulse: 66 Resp: 18 Temp: 97.4 degrees F (36.3 degrees C) TempSrc: Temporal SpO2: 97% Weight: 92.8 kg (204 lb 9.6 oz) Height: 1.753 m (5' 9) Physical Exam Vitals and nursing note reviewed. Constitutional: Appearance: Normal appearance. HENT: Head: Normocephalic. Right Ear: Tympanic membrane normal. Left Ear: Tympanic membrane normal. Nose: No congestion. Mouth/Throat: Mouth: Mucous membranes are moist. Pharynx: Oropharynx is clear. Eyes: Extraocular Movements: Extraocular movements intact. Pupils: Pupils are equal, round, and reactive to light. Comments: glasses Neck: Vascular: No carotid bruit. Cardiovascular: Rate and Rhythm: Normal rate and regular rhythm. Heart sounds: Murmur heard. Pulmonary: Effort: Pulmonary effort is normal. Breath sounds: Normal breath sounds. Abdominal: Palpations: Abdomen is soft. Tenderness: There is no abdominal tenderness. Musculoskeletal: General: No deformity. Lymphadenopathy: Cervical: No cervical adenopathy. Skin: General: Skin is warm and dry. Neurological: General: No focal deficit present. Mental Status: She is alert and oriented to person, place, and time. Psychiatric: Mood and Affect: Mood normal. Behavior: Behavior normal. HOSPITAL/OUTSIDE/OFFICE IMAGES None pertinent to visit to review Review of Images: If available, have personally reviewed image(s) from additional outside providers as well those competed in office and/or previously and have provided my impression for todays' as above if applicable. Radiology to over read LABS If available, I have personally reviewed lab(s) from additional outside providers as well those competed in office CURRENT MEDICAL Patient Active Problem List Diagnosis Arthritis Osteoarthritis of knee Essential hypertension, benign Mixed hyperlipidemia Gastroesophageal reflux disease without esophagitis Knee joint replacement status Class 2 severe obesity due to excess calories with serious comorbidity and body mass index (BMI) of37.0 to 37.9 in adult Chronic midline low back pain with left-sided sciatica Type 2 diabetes mellitus without complication, without long-term current use of insulin ASSESSMENT/DIAGNOSIS ICD-10-CM 1. Essential hypertension, benign I10 2. Mixed hyperlipidemia E78.2 3. Type 2 diabetes mellitus without complication, without long-term current use of insulin E11.9 PLAN: HTN: no change to medication CHOL: no change to medication, repeat labs 3 months; will be notified of results DM: change from Ozempic to Zepbound, repeat labs 3 months; will be notified of results Follow up 6 months We discussed the natural history of this problem and usual treatments. We discussed possible treatment options including conservative, aggressive, invasive and non-invasive. These options were explained in detail. The patient and/or guardian agreed with the above assessment and plan. Differential diagnoses were considered I have performed all essential components of the history, and physical exam. I have confirmed the diagnosis and developed a plan of care at this visit. I have reviewed the note following the visit and have add edits as appropriate to my evaluation and plan of care. Rosalee Malave CNP * Kristan Ramirez LPN - 05/08/2024 7:00 AM EST She was last seen for these 10/22/2023 Hyperlipidemia: improved, no medication change GERD: controlled, continue on methods to help with heartburn control aside from medication Hypertension: repeat BP 136/80, continue on methods to help with BP control aside from medication Diabetes: HgbA1c 5.4%, improved, continue Ozempic, continue methods to help with BS control aside from medication No concerns today. documented in this [facility]08-20-2024 History of Present illness Narrative* KAYE Billy - 10/22/2023 1:00 PM EDT Images from the original note were not included. Chief Complaint Patient presents with Other Patient last seen 04/03/2023 for hyperlipidemia, GERD, hypertension, diabetes. HPI: The patient is a pleasant 68 y.o. year old female here for: chronic condition management She was last seen for these 04/03/2023 Hyperlipidemia: fair control ASCVD risk score above 9%, utilize new diabetes med and weight loss GERD: controlled, continue with current medication regimen. Hypertension: well controlled, continue with current medication regimen. Diabetes: A1C 6.5% (last at 5.6%); new evidence of a diabetes Today she states that she feels well. She states that she has lost 50# since starting Ozempic. She denies CP, SOB or leg swelling. 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 Essential hypertension, benign Exercise tolerance finding METS > 4 GERD (gastroesophageal reflux disease) History of corticosteroid therapy injections Hyperlipidemia Osteoarthritis of knee Preoperative clearance Clearance trubichek Sleep pattern disturbance Wears glasses reading Social History Tobacco Use Smoking status: Never Smokeless tobacco: Never Substance Use Topics Alcohol use: No Drug use: No Past Surgical History: Procedure Laterality Date ARTHROPLASTY KNEE TOTAL Left 07/08/2017 Laterality: Left; Surgeon: Ricky Acuna MD; Location: [facility] OR ARTHROSCOPY KNEE W/ MENISCUS REPAIR Left EXCISION GANGLION CYST Right x 2 HYSTERECTOMY Family History Problem Relation Age of Onset Other - Specify Mother CHF, liver disease Coronary Artery Disease Father CABG x 2 Skin Cancer Brother melanoma - has spread to stomach,lungs, and brain Current Outpatient Medications Medication Sig Dispense Refill clobetasol 0.05 % Cream Apply topically thin film to affected area (s) twice daily X 10-14 days. Give at least 1 week break then can restart trial if/as needed. 45 g 0 diclofenac sodium [address] Take 1 tablet by mouth 2 times daily. 180 tablet 1 lisinopril 40 MG tablet Take 1 tablet by mouth daily. 90 tablet 1 Metoprolol succinate 50 MG tablet XL Take 1.5 tablets by mouth daily. 135 tablet 1 Ondansetron 4 MG Tab Dispersible tablet Take 1 tablet by mouth every 8 hours as needed for Nausea /Vomiting. 20 tablet 2 Pantoprazole (Protonix) [address] tablet DR Take 1 tablet by mouth daily. 90 tablet 1 Rosuvastatin 20 MG tablet Take 1 tablet by mouth daily. 90 tablet 1 Semaglutide, 2 MG/DOSE, (Ozempic, 2 MG/DOSE,) 8 MG/3ML Solution Pen-injector Inject 2 mg under the skin once a week. 3 mL 2 Wheat Dextrin (Benefiber) Chew Tab Chew. hydroCHLOROthiazide 25 MG tablet Take 1 tablet by mouth daily. (Patient not taking: Reported on 10/22/2023) 90 tablet 1 Tizanidine 2 MG tablet Take 1 tablet by mouth 2 times daily. (Patient not taking: Reported on 10/22/2023) No current facility-administered medications for this visit. PMH: Past medical history, family history, social history, allergies and medications have been reviewed and are documented in the electronic record. ROS: Negative except as noted in HPI and Chief Complaint Vitals: 10/22/23 1258 BP: 152/86 Pulse: 60 Resp: 14 Temp: 98.3 degrees F (36.8 degrees C) TempSrc: Temporal SpO2: 98% Weight: 98.7 kg (217 lb 9.6 oz) Height: 1.753 m (5' 9) Physical Exam Vitals and nursing note reviewed. Constitutional: Appearance: Normal appearance. HENT: Right Ear: Tympanic membrane normal. Left Ear: Tympanic membrane normal. Mouth/Throat: Mouth: Mucous membranes are moist. Pharynx: Oropharynx is clear. Eyes: Extraocular Movements: Extraocular movements intact. Pupils: Pupils are equal, round, and reactive to light. Comments: glasses Cardiovascular: Rate and Rhythm: Normal rate and regular rhythm. Heart sounds: Murmur heard. Pulmonary: Effort: Pulmonary effort is normal. Breath sounds: Normal breath sounds. Musculoskeletal: General: No deformity. Lymphadenopathy: Cervical: No cervical adenopathy. Skin: General: Skin is warm and dry. Neurological: General: No focal deficit present. Mental Status: She is alert and oriented to person, place, and time. Psychiatric: Mood and Affect: Mood normal. Behavior: Behavior normal. HOSPITAL/OUTSIDE/OFFICE IMAGES None pertinent to visit to review Review of Images: If available, have personally reviewed image(s) from additional outside providers as well those competed in office and/or previously and have provided my impression for todays' as above if applicable. Radiology to over read No results found for: SEDRATE No results found for: CRP LABS If available, I have personally reviewed lab(s) from additional outside providers as well those competed in office CURRENT MEDICAL Patient Active Problem List Diagnosis Arthritis Osteoarthritis of knee Essential hypertension, benign Mixed hyperlipidemia Gastroesophageal reflux disease without esophagitis Knee joint replacement status Class 2 severe obesity due to excess calories with serious comorbidity and body mass index (BMI) of37.0 to 37.9 in adult Chronic midline low back pain with left-sided sciatica Type 2 diabetes mellitus without complication, without long-term current use of insulin ASSESSMENT/DIAGNOSIS ICD-10-CM 1. Essential hypertension, benign I10 2. Mixed hyperlipidemia E78.2 3. Gastroesophageal reflux disease without esophagitis K21.9 4. Chronic midline low back pain with left-sided sciatica M54.42 G89.29 5. Murmur, cardiac R01.1 PLAN: Hyperlipidemia: improved, no medication change, continue on methods to help with cholesterol control aside from medication including appropriate diet, exercise (goal should be 20-30 minutes of vigorous activity 3-5 times weekly and should involve large muscles of legs and cause heart to beat faster), maintaining ideal body weight and weight reduction. encouraged on fish oil supplement. will f/u in 3 months. sooner if needed. labs fasting prior to f/u appt. GERD: controlled, continue on methods to help with heartburn control aside from medication (avoidance of greasy/fatty/spicy foods, don't eat prior to bedtime, sleep with head inclined, take appropriate medications with food, appropriate diet, lose weight, exercise, etc). will f/u in 3 months. sooner if needed. Hypertension: repeat BP 136/80, continue on methods to help with BP control aside from medication including appropriate diet, exercise and weight reduction. to continue with BP self monitoring and tobring these in for review at f/u appt. encouraged on sodium restriction/reduction. will f/u in 3 months. labs fasting prior to f/u appt. Diabetes: HgbA1c 5.4%, improved, continue Ozempic, continue methods to help with BS control aside from medication including appropriate diet, exercise regimen and weight reduction. encouraged on daily foot inspection. continue with yearly dental, vision, daily foot inspections and yearly flu shots.f/u in 3 months (will do urine microalbumin in office today). sooner if needed We discussed the natural history of this problem and usual treatments. We discussed possible treatment options including conservative, aggressive, invasive and non-invasive. These options were explained in detail. The patient and/or guardian agreed with the above assessment and plan. Differential diagnoses were considered I have performed all essential components of the history, and physical exam. I have confirmed the diagnosis and developed a plan of care at this visit. I have reviewed the note following the visit and have add edits as appropriate to my evaluation and plan of care. Rosalee Malave CNP * Vern Del Cid - 10/22/2023 1:00 PM EDT Patient presents today for follow-up of hyperlipidemia, GERD, hypertension, diabetes. Patient states that she had ablations done to three bottom vertebrae back in May, has noticed lots of improvement since. Patient doing great on Ozempic, down 50 lbs today. [facility] History of Present illness Narrative* KAYE Kent - 04/03/2023 9:00 AM EST Subjective History of Present Illness Hypertension Efrain Gilliam is a 67 y.o. female who presents for follow-up of hypertension. Severity is described as being mild Risk factors include: age > 55 (female), diabetes mellitus, dyslipidemia, sedentary lifestyle, stress, and post-menopausal Associated symptoms include: has been so different, hasn't felt the high BP lately. Pertinent negatives include: anxiety, blurred vision, chest pain, confusion, dizziness, headaches, malaise/fatigue, neck pain, orthopnea, palpitations, peripheral edema, PND, shortness of breath, andtinnitus She checks her blood pressure: not doing She is compliant with medications. Yes; side effects: no medication side effects noted. Salt intake: salt not added to cooking History of renal disease: no. Medication currently taking Hydrochlorothiazide 25 mg once daily as needed, Lisinopril 40 mg once daily and Metoprolol XL 75 mg daily GERD Efrain presents to the office today for follow-up of GERD. She reports heartburn if she does not take her Pantoprazole. Additional symptoms include: No abdominal pain, No change in bowel habits, No significant change in appetite, No nausea, vomiting, diarrhea, or constipation, No hematemesis, No blood in stools or black tarry stools, No abdominal bloating or early satiety, No dysphagia. She denies dysphagia She has tried, is currently taking include Pantoprazole 40 mg once daily. Patient statesthat current medication is effective at this time. Hyperlipidemia She presents for follow-up of dyslipidemia. Diet compliance: between fair and poor Activity level: sedentary She is compliant with medications. Yes; side effects: none She is not known to have clinically evident cardiac disease. Cardiovascular risk factors include: age > 55 (female), family history, diabetes mellitus, hypertension, dyslipidemia, sedentary lifestyle, stress, and post-menopausal. Recent lab results: obtained 03/30/2023: total 174, trigs 175, hdl 44, ldl 95 Current medication: Rosuvastatin 20 mg once daily Diabetes Efrain Gilliam is a 67 y.o. female who comes in with new onset Type 2 diabetes Diet compliance:between fair and poor Activity level: sedentary At home patient does not check sugars. Wouldn't even know how Episodes of hypoglycemia? No Last eye exam 2 months ago Last foot exam 5-6 years ago, updated in office today Any lesions on the feet: No Associated symptoms of diabetes: none HgbA1c: 6.5% with labs obtained 03/30/2023 Last A1C 5.6% Objective Review of Systems Constitutional: Negative for chills, fatigue and fever. HENT: Negative for congestion, ear pain, nosebleeds, postnasal drip, rhinorrhea, sinus pressure, sinus pain and sore throat. Eyes: Negative for pain, discharge, redness and itching. Respiratory: Negative for cough, chest tightness, shortness of breath and wheezing. Cardiovascular: Negative for chest pain, palpitations and leg swelling. Gastrointestinal: Negative for abdominal pain, blood in stool, constipation, diarrhea, nausea and vomiting. Genitourinary: Negative for dysuria, frequency, hematuria and urgency. Musculoskeletal: Positive for back pain and joint swelling. Negative for myalgias, neck pain and neck stiffness. Skin: Negative for rash. Allergic/Immunologic: Negative for environmental allergies. Neurological: Negative for dizziness, light-headedness and headaches. Psychiatric/Behavioral: Negative for agitation (gets frustrated), confusion and sleep disturbance. The patient is not nervous/anxious. Physical Exam Constitutional: She is oriented to person, place, and time and well-developed, well-nourished, and in no distress. No distress. obese HENT: Head: Normocephalic. Right Ear:Tympanic membrane, external ear and ear canal normal. Small amount of non-occlusive cerumen present, discussed shower flushing Left Ear: Tympanic membrane, external ear and ear canal normal. Nose: Nose normal. Right sinus exhibits no maxillary sinus tenderness and no frontal sinus tenderness. Left sinus exhibits no maxillary sinus tenderness and no frontal sinus tenderness. Mouth/Throat: Uvula is midline, oropharynx is clear and moist and mucous membranes are normal. Eyes: Conjunctivae and lids are normal. Neck: Normal range of motion. Neck supple. Carotid bruit is not present. No thyroid mass and no thyromegaly present. Cardiovascular: Normal rate, regular rhythm, S1 normal, S2 normal, normal heart sounds and intact distal pulses. No murmur heard. Pulmonary/Chest: Effort normal and breath sounds normal. She has no decreased breath sounds. She has no wheezes. She has no rhonchi. She has no rales. Abdominal: Soft. Normal appearance and bowel sounds are normal. There is no tenderness. There is norebound and no CVA tenderness. Lymphadenopathy: Head (right side): No submental, no submandibular and no tonsillar adenopathy present. Head (left side): No submental, no submandibular and no tonsillar adenopathy present. Right cervical: No superficial cervical adenopathy present. Left cervical: No superficial cervical adenopathy present. Right: No supraclavicular adenopathy present. Left: No supraclavicular adenopathy present. Neurological: She is oriented to person, place, and time. She has normal reflexes. Skin: Skin is warm, dry and intact. No abrasion and no bruising noted. No erythema. Multiple stuck on brown scaled lesions c/w kiana k's and hemangioma's throughout. Multiple moles throughout, benign in appearance. Psychiatric: Memory and affect normal. Her mood appears not anxious. She does not exhibit a depressed mood. Mental Status Oriented to person, place, and time. Assessment and Plan Hyperlipidemia: reviewed recent cholesterol labs with pt. showing fair control with cholesterol at this time. ASCVD risk score above 9% and reviewed. As we will be treating diabetes with medication that can also impact weight and we did discuss dietary changes and movement, will attempt changes with diet, new diabetes med and weight loss and will see how readings look in 3 months. encouraged on methods to help with cholesterol control aside from medication including appropriate diet, exercise (goal should be 20-30 minutes of vigorous activity 3-5 times weekly and should involve large muscles of legs and cause heart to beat faster), maintaining ideal body weight and weight reduction. encouraged on fish oil supplement. will f/u in 3 months. sooner if needed. labs fasting prior to f/u appt. GERD: GERD controlled at this time. to continue with current medication regimen. encouraged on methods to help with heartburn control aside from medication (avoidance of greasy/fatty/spicy foods, don't eat prior to bedtime, sleep with head inclined, take appropriate medications with food, appropriate diet, lose weight, exercise, etc). will f/u in 6 months. sooner if needed. Hypertension: BP well controlled at this time. to continue with current medication regimen. encouraged on methods to help with BP control aside from medication including appropriate diet, exercise and weight reduction. to continue with BP self monitoring and to bring these in for review at f/u appt. encouraged on sodium restriction/reduction. will f/u in 6 months. labs fasting prior to f/u appt. Diabetes: A1C obtained with recent labs and 6.5% (last at 5.6%) and reviewed. showing newevidence of a diabetes diagnosis at this time. Will start on course with Keyla to help with BS and weight. Advised on med, how to use and potential ADR's. spoke regarding methods to help with BS control aside from medication including appropriate diet, exercise regimen and weight reduction. encouraged on daily foot inspection. continue with yearly dental, vision, daily foot inspections and yearly flu shots. f/u in 3 months (will do urine microalbumin in office today). sooner if needed A total of 68 minutes was spent in review of the patient's chart and labs, note preparation, direct, face to face contact with the patient, and any potential coordination of care today. ( Excluding any time spent on testing or procedures.) documented in this [facility]07[facility] Instructions* Patient Instructions* KAYE Kent - 09/22/2021 9:24 AM EDT Hyperlipidemia: reviewed recent cholesterol labs with pt. showing control with cholesterol at this time. to continue with current medication regimen. encouraged on methods to help with cholesterol control aside from medication including appropriate diet, exercise (goal should be 20-30 minutes of vigorous activity 3-5 times weekly and should involve large muscles of legs and cause heart to beat faster), maintaining ideal body weight and weight reduction. encouraged on fish oil supplement. will f/u in 6 months. sooner if needed. labs fasting prior to f/u appt. Hypertension: BP well controlled at this time. to continue with current medication regimen. encouraged on methods to help with BP control aside from medication including appropriate diet, exercise and weight reduction. to continue with BP self monitoring and to bring these in for review at f/u appt. encouraged on sodium restriction/reduction. will f/u in 6 months. labs fasting prior to f/u appt. GERD: GERD controlled at this time. Patient aware of potential risks with pantoprazole but did not have success with trial on Famotidine so will continue with Pantoprazole. encouraged on methods to help with heartburn control aside from medication (avoidance of greasy/fatty/spicy foods, don't eat prior to bedtime, sleep with head inclined, take appropriate medications with food, appropriate diet,lose weight, exercise, etc). Referral in for GI consult. will f/u in 6 months. sooner if needed. Prediabetes: reviewed recent labs showing A1C at 6% and FBS at 134. Showing evidence of prediabetes. Encouraged on appropriate diet, exercise and need for weight management to help with this. Repeat A1C in F/U 3 months, F/U here in office in 6 months. Sooner if needed. Anemia: mild anemia starting. Discussed start on ferrous sulfate (iron tablet) OTC once daily. Takewith small glass of orange juice and can expect potential constipation and dark stool. Hyponatremia: discussed low sodium level. Discussed need for additional sodium in diet. Will F/U with recheck on this in 3 months. Sooner if needed. * Attachments The following attachments cannot be sent through Care Everywhere. * [employer]: General Info (Hebrew) documented in this [facility]Bar[facility]07[facility] History of Present illness Narrative* KAYE Kent - 09/22/2021 8:30 AM EDT History of Present Illness Hypertension Efrain Gilliam is a 66 y.o. female who presents for follow-up of hypertension. Severity is described as being moderate Risk factors include: age > 55 (female), hypertension and dyslipidemia Associated symptoms include: none Pertinent negatives include: anxiety, blurred vision, chest pain, confusion, dizziness, H/A, neck pain, orthopnea, palpitations, shortness of breath and tinnitus She checks her blood pressure: not doing She is compliant with medications. Yes; side effects: fatigue and swelling in ankles. Salt intake: salt not added to cooking and salt shaker not on table History of renal disease: no. Medication currently taking Amlodipine 5 mg once daily, Hydrochlorothiazide 25 mg once daily, Metoprolol XL 50 mg once daily and Lisinopril 40 mg once daily Hyperlipidemia She presents for follow-up of dyslipidemia. Diet compliance: Salads, chicken, not a lot of read meats, breads, pasta, potatoes, not enough fruits and veg but will work on this Activity level: started walking 2 weeks ago. She is compliant with medications. Yes; side effects: none She is not known to have clinically evident cardiac disease. Cardiovascular risk factors include: age > 55 (female), family history and hypertension. Recent lab results: obtained 09/19/2021: total 156, trigs 147, hdl 52, ldl 75 Current medication: Rosuvastatin 20 mg once daily GERD Efrain presents to the office today for follow-up of GERD. She reports food related heartburn. Additional symptoms include: No abdominal pain, No change in bowel habits, No significant heartburn, No significant change in appetite, No nausea, vomiting, diarrhea, or constipation, No hematemesis, No blood in stools or black tarry stools, No abdominal bloating or early satiety, No dysphagia. She denies dysphagia She has tried, is currently taking include Pantoprazole 40 mg once daily. Patient states that current medication is effective at this time. Prediabetes Patient is here today for a F/U on a prediabetes diagnosis Diet compliance: doing better with limiting starches and sugars but knows still needs to work on this Activity level: started walking 2 weeks ago Last eye exam: fall of next year Any lesions on the feet: No Associated symptoms of diabetes: none Recent A1C 6% obtained 09/19/2021 Last A1C at 6% No family hx she is aware of Review of Systems Constitutional: Negative for chills, fatigue and fever. 2# weight loss since in last HENT: Negative for congestion, ear discharge, ear pain, nosebleeds, rhinorrhea, sinus pressure, sinus pain, sneezing and sore throat. Eyes: Negative for pain, redness and itching. Respiratory: Negative for cough, chest tightness and shortness of breath. Will get occasional puffiness in feet. Resolves overnight Cardiovascular: Negative for chest pain, palpitations and leg swelling. Gastrointestinal: Positive for heartburn. Negative for abdominal pain, constipation, diarrhea, nausea and vomiting. Genitourinary: Negative for dysuria, frequency and urgency. Musculoskeletal: Positive for arthralgias, back pain and myalgias. Negative for neck pain. Skin: Negative for rash and wound. Neurological: Negative for dizziness, seizures, syncope, light-headedness and headaches. Hematological: Does not bruise/bleed easily. Psychiatric/Behavioral: Negative for sleep disturbance (typically sleeping 7 hours nightly). Declines anxiety/depression. Physical Exam Constitutional: She is oriented to person, place, and time and well-developed, well-nourished, and in no distress. No distress. obese HENT: Head: Normocephalic. Right Ear: Tympanic membrane, external ear and ear canal normal. Moderate cerumen present to canal,non-occlusive Left Ear: Tympanic membrane, external ear and ear canal normal. Moderate cerumen present to canal, non-occlusive Nose: Nose normal. Right sinus exhibits no maxillary sinus tenderness and no frontal sinus tenderness. Left sinus exhibits no maxillary sinus tenderness and no frontal sinus tenderness. Mouth/Throat: Uvula is midline, oropharynx is clear and moist and mucous membranes are normal. Eyes: Conjunctivae and lids are normal. Neck: Normal range of motion. Neck supple. Carotid bruit is not present. No thyroid mass and no thyromegaly present. Cardiovascular: Normal rate, regular rhythm, S1 normal, S2 normal, normal heart sounds and intact distal pulses. No murmur heard. Pulmonary/Chest: Effort normal and breath sounds normal. She has no decreased breath sounds. She has no wheezes. She has no rhonchi. She has no rales. Abdominal: Soft. Normal appearance and bowel sounds are normal. There is no tenderness. There is norebound and no CVA tenderness. Lymphadenopathy: Head (right side): No submental, no submandibular and no tonsillar adenopathy present. Head (left side): No submental, no submandibular and no tonsillar adenopathy present. Right cervical: No superficial cervical adenopathy present. Left cervical: No superficial cervical adenopathy present. Right: No supraclavicular adenopathy present. Left: No supraclavicular adenopathy present. Neurological: She is oriented to person, place, and time. She has normal reflexes. Skin: Skin is warm, dry and intact. No abrasion and no bruising noted. No erythema. Multiple stuck on brown scaled lesions c/w kiana k's and hemangioma's throughout. Psychiatric: Memory and affect normal. Her mood appears not anxious. She does not exhibit a depressed mood. Mental Status Oriented to person, place, and time. Assessment and Plan Hyperlipidemia: reviewed recent cholesterol labs with pt. showing control with cholesterol at this time. to continue with current medication regimen. encouraged on methods to help with cholesterol control aside from medication including appropriate diet, exercise (goal should be 20-30 minutes of vigorous activity 3-5 times weekly and should involve large muscles of legs and cause heart to beat faster), maintaining ideal body weight and weight reduction. encouraged on fish oil supplement. will f/u in 6 months. sooner if needed. labs fasting prior to f/u appt. Hypertension: BP well controlled at this time. to continue with current medication regimen. encouraged on methods to help with BP control aside from medication including appropriate diet, exercise and weight reduction. to continue with BP self monitoring and to bring these in for review at f/u appt. encouraged on sodium restriction/reduction. will f/u in 6 months. labs fasting prior to f/u appt. GERD: GERD controlled at this time. Patient aware of potential risks with pantoprazole but did not have success with trial on Famotidine so will continue with Pantoprazole. encouraged on methods to help with heartburn control aside from medication (avoidance of greasy/fatty/spicy foods, don't eat prior to bedtime, sleep with head inclined, take appropriate medications with food, appropriate diet,lose weight, exercise, etc). Referral in for GI consult. will f/u in 6 months. sooner if needed. Prediabetes: reviewed recent labs showing A1C at 6% and FBS at 134. Showing evidence of prediabetes. Encouraged on appropriate diet, exercise and need for weight management to help with this. Repeat A1C in F/U 3 months, F/U here in office in 6 months. Sooner if needed. Anemia: mild anemia starting. Discussed start on ferrous sulfate (iron tablet) OTC once daily. Takewith small glass of orange juice and can expect potential constipation and dark stool. Hyponatremia: discussed low sodium level. Discussed need for additional sodium in diet. Will F/U with recheck on this in 3 months. Sooner if needed. Back Pain: with patient's chronic back pain, she is requesting to do PT. Referral in for this. F/U pending referral results. Over 40 min was spent with/on patient [facility] Inst[facility]* Patient Instructions* KAYE Kent - 05/31/2021 8:55 AM EDT Hyperlipidemia: reviewed recent cholesterol labs with pt. showing control with cholesterol at this time. to continue with current medication regimen. encouraged on methods to help with cholesterol control aside from medication including appropriate diet, exercise (goal should be 20-30 minutes of vigorous activity 3-5 times weekly and should involve large muscles of legs and cause heart to beat faster), maintaining ideal body weight and weight reduction. encouraged on fish oil supplement. will f/u in 6 months. sooner if needed. labs fasting prior to f/u appt. Hypertension: BP uncontrolled at this time. Will add on HCTZ. advised on med/med switch, how to take and potential ADR's. spoke regarding methods to help with BP control aside from medication including appropriate diet, exercise and weight reduction. avoid ETOH as it can cause an elevated BP. try to reduce stress by relaxation, meditation and exercise. to continue with BP self checks and to call these in for review in 2 weeks. Pending readings, will adjust medication further if/as needed. encouraged on sodium restriction/reduction. will f/u in 3 months. With start on Hydrochlorothiazide to check potassium level in 1 month. sooner if needed GERD: GERD controlled at this time. With potential risks with pantoprazole, will discontinue this and trial on Famotidine. To take twice daily and advise if no relief with this medication switch. encouraged on methods to help with heartburn control aside from medication (avoidance of greasy/fatty/spicy foods, don't eat prior to bedtime, sleep with head inclined, take appropriate medications with f ood, appropriate diet, lose weight, exercise, etc). will f/u in 3 months. sooner if needed. Prediabetes: reviewed recent labs showing A1C at 6% and FBS at 139. Showing evidence of prediabetes. Encouraged on appropriate diet, exercise and need for weight management to help with this. Repeat A1C in office and F/U 3 months. Sooner if needed. documented in this [facility]03-30-2022 History of Present illness Narrative* KAYE Kent - 05/31/2021 8:45 AM EDT History of Present Illness Hypertension Efrain Gilliam is a 65 y.o. female who presents for follow-up of hypertension. Severity is described as being moderate Risk factors include: age > 55 (female), hypertension and dyslipidemia Associated symptoms include: headaches, malaise/fatigue and peripheral edema Pertinent negatives include: anxiety, blurred vision, chest pain, confusion, dizziness, neck pain, orthopnea, palpitations, shortness of breath and tinnitus She checks her blood pressure: not doing She is compliant with medications. Yes; side effects: fatigue and swelling in ankles. Salt intake: salt not added to cooking and salt shaker not on table History of renal disease: no. Medication currently taking Amlodipine 5 mg once daily, Metoprolol XL 50 mg once daily and Lisinopril 40 mg once daily Hyperlipidemia She presents for follow-up of dyslipidemia. Diet compliance: Salads, chicken, not a lot of read meats, breads, pasta, potatoes Activity level: Sedentary, goes to work and sits at a desk She is compliant with medications. Yes; side effects: none She is not known to have clinically evident cardiac disease. Cardiovascular risk factors include: age > 55 (female), family history and hypertension. Recent lab results: obtained 05/19/2021: total 170, trigs 188, hdl 47, ldl 85 Current medication: Rosuvastatin 20 mg once daily GERD Efrain presents to the office today for follow-up of GERD. She reports food related heartburn. Additional symptoms include: No abdominal pain, No change in bowel habits, No significant heartburn, No significant change in appetite, No nausea, vomiting, diarrhea, or constipation, No hematemesis, No blood in stools or black tarry stools, No abdominal bloating or early satiety, No dysphagia. She denies dysphagia She has tried, is currently taking include Pantoprazole 40 mg once daily. Patient states that current medication is effective at this time. Prediabetes Patient is here today for a F/U on a prediabets diagnosis Diet compliance:poor Activity level: sedentary Last eye exam in fall Any lesions on the feet: No Associated symptoms of diabetes: none Recent A1C 6% No family hx she is aware of Review of Systems Constitutional: Negative for chills, and fever. Fatigue HENT: Negative for congestion, ear pain, nosebleeds, postnasal drip, rhinorrhea, sinus pressure, sinus pain, sneezing and sore throat. Eyes: Negative for pain, discharge, redness and itching. Respiratory: Negative for cough, chest tightness, shortness of breath and wheezing. Cardiovascular: Positive for leg swelling (Left leg worse then right). Negative for chest pain and palpitations. Gastrointestinal: Negative for abdominal pain, blood in stool, constipation, diarrhea, nausea and vomiting. Genitourinary: Negative for dysuria, frequency, hematuria and urgency. Musculoskeletal: Positive for back pain (chronic scoliosis, seeing chiropractor with some relief). Negative for joint swelling, myalgias and neck pain. Skin: Negative for rash. Allergic/Immunologic: Negative for environmental allergies (and seasonal allergies). Neurological: Negative for dizziness and headaches. Psychiatric/Behavioral: Negative for agitation and sleep disturbance. The patient is not nervous/anxious or depressed. Physical Exam Eyes: General: No visual field deficit. Neurological: General: No focal deficit present. Mental Status: She is alert and oriented to person, place, and time. Gait: Gait is intact. Deep Tendon Reflexes: Reflexes are normal and symmetric. Constitutional: She is oriented to person, place, and time and well-developed, well-nourished, and in no distress. No distress. obese HENT: Head: Normocephalic. Right Ear: Tympanic membrane, external ear and ear canal normal. Left Ear: Tympanic membrane, external ear and ear canal normal. Nose: Nose normal. Right sinus exhibits no maxillary sinus tenderness and no frontal sinus tenderness. Left sinus exhibits no maxillary sinus tenderness and no frontal sinus tenderness. Mouth/Throat: Uvula is midline, oropharynx is clear and moist and mucous membranes are normal. Eyes: Conjunctivae and lids are normal. Neck: Normal range of motion. Neck supple. Carotid bruit is not present. No thyroid mass and no thyromegaly present. Cardiovascular: Normal rate, regular rhythm, S1 normal, S2 normal, normal heart sounds and intact distal pulses. No murmur heard. Pulmonary/Chest: Effort normal and breath sounds normal. She has no decreased breath sounds. She has no wheezes. She has no rhonchi. She has no rales. Abdominal: Soft. Normal appearance and bowel sounds are normal. There is no tenderness. There is norebound and no CVA tenderness. Lymphadenopathy: Head (right side): No submental, no submandibular and no tonsillar adenopathy present. Head (left side): No submental, no submandibular and no tonsillar adenopathy present. Right cervical: No superficial cervical adenopathy present. Left cervical: No superficial cervical adenopathy present. Right: No supraclavicular adenopathy present. Left: No supraclavicular adenopathy present. Neurological: She is oriented to person, place, and time. She has normal reflexes. Skin: Skin is warm, dry and intact. No abrasion and no bruising noted. No erythema. Multiple stuck on brown scaled lesions c/w kiana k's and hemangioma's throughout. Psychiatric: Memory and affect normal. Her mood appears not anxious. She does not exhibit a depressed mood. Mental Status Oriented to person, place, and time. Assessment and Plan Hyperlipidemia: reviewed recent cholesterol labs with pt. showing control with cholesterol at this time. to continue with current medication regimen. encouraged on methods to help with cholesterol control aside from medication including appropriate diet, exercise (goal should be 20-30 minutes of vigorous activity 3-5 times weekly and should involve large muscles of legs and cause heart to beat faster), maintaining ideal body weight and weight reduction. encouraged on fish oil supplement. will f/u in 6 months. sooner if needed. labs fasting prior to f/u appt. Hypertension: BP uncontrolled at this time. Will add on HCTZ. advised on med/med switch, how to take and potential ADR's. spoke regarding methods to help with BP control aside from medication including appropriate diet, exercise and weight reduction. avoid ETOH as it can cause an elevated BP. try to reduce stress by relaxation, meditation and exercise. to continue with BP self checks and to call these in for review in 2 weeks. Pending readings, will adjust medication further if/as needed. encouraged on sodium restriction/reduction. will f/u in 3 months. With start on Hydrochlorothiazide to check potassium level in 1 month. sooner if needed GERD: GERD controlled at this time. With potential risks with pantoprazole, will discontinue this and trial on Famotidine. To take twice daily and advise if no relief with this medication switch. encouraged on methods to help with heartburn control aside from medication (avoidance of greasy/fatty/spicy foods, don't eat prior to bedtime, sleep with head inclined, take appropriate medications with f ood, appropriate diet, lose weight, exercise, etc). will f/u in 3 months. sooner if needed. Prediabetes: reviewed recent labs showing A1C at 6% and FBS at 139. Showing evidence of prediabetes. Encouraged on appropriate diet, exercise and need for weight management to help with this. Repeat A1C in office and F/U 3 months. Sooner if needed. Over 40 min was spent with/on patient [facility] Diagnosis Benign hypertension- Primary Essential hypertension, benign Mixed hyperlipidemia Heartburn Prediabetes Other abnormal glucose [facility] Diagnosis Anemia, unspecified type- Primary Hyponatremia Hyposmolality and/or hyponatremia Gastroesophageal reflux disease, unspecified whether esophagitis present Chronic left-sided low back pain with left-sided sciatica Chronic left-sided thoracic back pain Prediabetes Other abnormal glucose Mixed hyperlipidemia Essential hypertension, benign [facility]* Diagnosis Mixed hyperlipidemia- Primary Type 2 diabetes mellitus without complication, without long-term current use of insulin Essential hypertension, benign Gastroesophageal reflux disease without esophagitis Esophageal reflux [facility]* Diagnosis Knee joint replacement status- Primary Knee joint replacement by other means Preop testing Preoperative examination, unspecified Osteoarthritis of left knee, unspecified osteoarthritis type Postoperative pain of left knee Essential hypertension, benign Mixed hyperlipidemia Gastroesophageal reflux disease without esophagitis Esophageal reflux Essential hypertension, benign- Primary Mixed hyperlipidemia Gastroesophageal reflux disease without esophagitis Esophageal reflux Chronic midline low back pain with left-sided sciatica Murmur, cardiac Undiagnosed cardiac murmurs [facility]* Diagnosis Knee joint replacement status- Primary Knee joint replacement by other means Preop testing Preoperative examination, unspecified Osteoarthritis of left knee, unspecified osteoarthritis type Postoperative pain of left knee Essential hypertension, benign Mixed hyperlipidemia Gastroesophageal reflux disease without esophagitis Esophageal reflux Essential hypertension, benign- Primary Mixed hyperlipidemia Type 2 diabetes mellitus without complication, without long-term current use of insulin [facility]* Diagnosis Onset Date Resolution Status Admit Date Fall acute July 16, 2024 6:10pm Fracture of femoral neck, closed acu te July 16, 2024 6:10pm Hypertension inactive July 16 6:10pm [facility] Work Phone: History and physical note Author Mayi Avendaño [facility] Note Date/Time July 16, 2024 6:19p [facility] Medical Records Department [address] [place] [address] H&P Exam - Hospitalist 07/16/24 1810 MR#: [id number] Acct: [id number] Name: EFRAIN GILLIAM #:[id number] : 1955 69 From: Mayi Avendaño MD PCP: BEVERLEY WALKER Status:REG ER Location: ED HPI - General General Date of Admission: 07/16/24 Date of Service: 07/16/24 Chief Complaint: Fall, Hip pain. HPI Narrative The patient is a 69 y/o F w/ PMHx: HTN, HLD, GERD, Obesity, Hx Diabetes mellitustype II who presents to the [facility] ED on 07/16/2024 with history of unfortunate mechanical fall, taking a chair outside to read a book unfortunately she fell down a stair and stepped on it concrete as she was walking backwards landing on her right lower extremity especially on her hip andpotentially twisting her left ankle with significant debility and inability to bear weight prompting ED evaluation. In the ED despite current pain medication being administered she does rate her pain to the right hip is 8 of 10 in severity. She denies any extremity paresthesias. Workup in the ED included T98.6, heart rate 89, BP 182/98 initially, respiratory rate 18, 95% on room air with most recent repeat vitals T98.9, heart rate 64, BP 167/78, respiratory rate18, 97% on room air, CBC with WC 4.8, hemoglobin 12.7, platelet 179 without marked shift, CMP not marked appearing aside from AST 35, troponin 6, pending EKG upon evaluation, plain film of the left foot with no acute findings, plain film of the right hip and pelvis with a mildly displaced and angulated fracture of the right femoral neck with moderate medial angulation of the proximal fracture fragment. [facility] Medical History History of diabetes mellitus Obesity GERD (gastroesophageal reflux disease) HLD (hyperlipidemia) Hypertension Home Medications ?Medication ?Instructions ?Recorded ?Last Taken ?Type diclofenac sodium 50 mg 50 mg PO BID 07/16/24 History tablet,delayed release lisinopril 40 mg tablet 40 mg PO DAILY 07/16/24/07/26 History metoprolol succinate 50 mg 75 mg PO DAILY 07/16/24 History tablet,extended release 24 hr pantoprazole 40 mg tablet,delayed 40 mg PO DAILY 07/1607/16/24 History release rosuvastatin 20 mg tablet 20 mg PO QHS 07/16/24 History tirzepatide (weight loss) 5 mg/0.5 5 mg subcut QWEEK 0 07/16/24 07/13/24 History mL subcutaneous pen injector (Zepbound) Allergy/AdvReac Type Severity Reaction Status Date / Time No Known Allergies Allergy Verified 07/16/24 16:20 Family History Mother MORENO (nonalcoholic steatohepatitis) Heart failure Hypertension Heart disease Father Heart disease Hypertension CAD (coronary artery disease) Myocardial infarction Surgical History H/O wrist surgery History of hysterectomy History of left knee replacement S/P left knee arthroscopy Social History household members: spouse Smoking Status: Never smoker alcohol intake: never substance use type: does not use ROS ROS Narrative Admission Review of Systems: CONSTITUTIONAL: No weight loss, fever, chills, + weakness or fatigue. HEENT: Eyes: No visual loss, blurred vision, double vision or yellow sclerae. Ears, Nose, Throat: No hearing loss, sneezing, congestion, runny nose or sore throat. SKIN: No rash or itching, lesions, wounds. CARDIOVASCULAR: No chest pain, chest pressure or chest discomfort, palpitations,edema, orthopnea, syncopal events. RESPIRATORY: No shortness of breath, cough or sputum, wheezing, hemoptysis. GASTROINTESTINAL: No anorexia, nausea, vomiting or diarrhea, abdominal pain, melena, BRBPR. GENITOURINARY: No dysuria, frequency, urgency or retention. NEUROLOGICAL: No headache, dizziness, syncope, paralysis, ataxia, numbness or tingling in the extremities, focal weakness, change in bowel or bladder control,seizure. MUSCULOSKELETAL: + muscle, back pain, joint pain or stiffness. HEMATOLOGIC: No anemia, bleeding or bruising. LYMPHATICS: No enlarged nodes. No history of splenectomy. PSYCHIATRIC: No history of depression or anxiety. ENDOCRINOLOGIC: No reports of sweating, cold or heat intolerance. No polyuria orpolydipsia. ALLERGIES: No history of asthma, hives, eczema or rhinitis. Vital Signs Vital Signs Vital Signs: 07/16/24 16:20 07/16/24 16:34 07/16/24 17:19 Temperature 98.6 F 98.9 F Temperature Source Oral Oral Pulse Rate 89 64 Respiratory Rate 18 18 Respiratory Effort Normal Respiratory Depth Normal Respiratory Pattern Normal Blood Pressure 182/98 H 167/78 H Blood Pressure Mean 126 107 Pulse Ox 95 97 Oxygen Delivery Method Room Air Room Air Room Air Weight Weight: 217 lb 13.067 oz Body Mass Index (BMI) 32.1 Physical Exam Narrative Physical Examination: General: Awake, alert, oriented x 3 and cooperative, laying in the ED bed, fatigued, notes ongoing right hip pain 8 of 10 in severity Skin: Normal color, normal turgor, no icterus, no cyanosis except various abrasions with recent fall HEENT: AT/NC, EOMI, PERRLA, mildly dry MM, no carotid bruits, difficult to discern JVD given thickened neck. Lungs: Mildly diminished, greater bases, appropriate effort, no rales, ronchi orwheezing. Heart: Regular rate and rhythm; no gallop, rub audible. Abdomen: Soft, obese, NTTP, mildly hyperactive BS, no obvious distention or HSM however habitus makes evaluation difficult. Extremities: No cyanosis, no clubbing, mild bilateral ankle not markedly pittingedema, status post fall with right hip fracture. Neurological: Patient awake, alert, oriented as noted, cognitive function intact; pupils equally reactive to light and accommodation, cranial nerves grossnormal, moving all 4 extremities except expected limitation right lower extremity given fall with hip fracture but able to move toes, strength accordingly severely globally decreased. Psychiatric: Affect appears mildly uncomfortable otherwise normal, no acute evidence of depressive or anxiety feelings. Results Lab / Micro Data 07/16/24 17:14 07/16/24 17:14 Labs: Laboratory Results - last 24 hr 07/16/24 17:14: WBC 4.8, RBC 4.39, Hgb 12.7, Hct 37.5, MCV 85.4, MCH 28.9, MCHC 33.9, RDW Std Deviation 38.1, RDW Coeff of Juany 12.3, Plt Count 179, MPV 9.2, Immature Gran % (Auto) 0.400, Neut % (Auto) 56.8, Lymph % (Auto) 32.5, [place] % (Auto) 6.9, Eos % (Auto) 2.1, Baso % (Auto) 1.3 H, Absolute Neuts (auto) 2.7, Absolute Lymphs (auto) 1.55, Nucleated RBC % 0, Sodium 135, Potassium 3.9, Chloride 101, Carbon Dioxide 21.9, Anion Gap 13, BUN 17, Creatinine 1.01, Estim Creat Clear Calc 67.61, Est GFR (MDRD) Non-Af 61, BUN/Creatinine Ratio 16.8, Glucose 92, Calcium 9.4, Total Bilirubin 0.54, AST 35 H, ALT 19, Alkaline Phosphatase 80, Troponin T High Sens 6, Total Protein 7.2, Albumin 4.2, Globulin3.0, Albumin/Globulin Ratio 1.4 07/16/24 17:17: Blood Type A POSITIVE Imaging Radiology Impression Foot X-Ray 07/16/24 16:45 IMPRESSION: No acute findings. Reading Location: [facility] Hip/Pelvis X-Ray 07/16/24 16:45 IMPRESSION: See above Reading Location: [facility] Assessment & Plan Assessment/Plan (1) Fracture of femoral neck, closed: (2) Fall: PLAN: Plan The patient is a 69 y/o F w/ PMHx: HTN, HLD, GERD, Obesity, Hx Diabetes mellitustype II who presents to the [facility] ED on 07/16/2024 with history of unfortunate mechanical fall, taking a chair outside to read a book unfortunately she fell down a stair and stepped on it concrete as she was walking backwards landing on her right lower extremity especially on her hip andpotentially twisting her left ankle with significant debility and inability to bear weight prompting ED evaluation. #1. General debility, right hip pain s/p mechanical fall w/ mildly displaced and angulated fracture of the right femoral neck with moderate medial angulationof the proximal fracture fragment: Orthopedic surgery consulted from ED. Will admit to [facility], maintain NPO after midnight, continue gentle IVFs, davis placement,monitor I/Os, frequent positioning, fall precautions, Pain, anti-emetic regimen as needed. PT/OT following operative intervention. CM consulted for discharge planning. Per NSQIP guidelines patient is low risk for transition to OR, healthy, active with no current complaints of dyspnea or routine chest discomfort, awaiting EKG and as long as this is appropriate agree with progression to OR. #2. History of diabetes mellitus type 2: Patient notes that she did have diabetes in the past and has been on weight loss medication with 60 pound weightloss and since then has been under control, will obtain he will A1c to be cautious, in the interim will maintain on ADA diet with Accu-Cheks with insulin sliding scale but may de-escalate off if it is low. #3. Hypertension: Continue home regimen including metoprolol, lisinopril, PRN hydralazine. #4. Hyperlipidemia: Will continue patient on statin therapy. #5. Obesity: Weight loss and lifestyle changes encouraged. #6. GERD: Will continue patient on PPI. #7. DVT prophylaxis: SCDs, hold chemoprophylaxis per surgery intervention planned. #8. CODE status: Patient HCPALONA is her who is and living will is currently in place. Discussed CODE status at length including difference betweenFULL code, DNR-CCA and DNR-CC status. Following discussions about the differences in these status, requested Full Code status. Charges/Coding Visit Charges Inpatient E&M: 92054 Init Hosp L3 07/16/24 1819 <Electronically signed by Mayi Avendaño MD> Cosigner Signature (if applicable): CC: Dr. Mayi Avendaño MD; BEVERLEY WALKER~ Signed [facility] Work Phone: Reason for referral (narrative)* Consultation (Routine) - Open Specialty Diagnoses / Procedures Referred By Bobo oliveros Referred To Contact Gastroenterology Diagnoses Gastroesophageal reflux disease, unspecified whether esophagitis present Coby Rush APRN-CNP [address] [place] [address] Referral ID Status Reason Start Date Expiration Date Visits Re quested Visits Authorized [id number] Open 09/22/2021 10/17/2022 1 1 * Adjunctive Therapy (Routine) - Open Specialty Diagnoses / Procedures Referred By Bobo t Referred To Contact Physical Therapy Diagnoses Chronic left-sided low back pain with left-sided sciatica Chronic left-sided thoracic back pain Coby Rush, KAYE [address] [place] [address] Referral ID Status Reason Start Date Expiration Date Visits Re quested Visits Authorized [id number] Open 09/22/2021 10/17/2022 1 1 [facility]No reason for referral information availableWOhio State [facility] Work Phone: Summary Purpose Family History No Family History Records Found Relationship Condition Age at Onset Recorded Date/T kelly mother Nonalcoholic steatohepatitis ([place]OR[place]) Unkno wn Heart failure Unknown Hypertension Unknown Cardiac disease Unknown father Cardiac disease Unknown Coronary artery disease Unknown Myocardial infarction Unknown Advance Directives No Advanced Directives Records FoundDocuments on File Type Date Recorded 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 Advance Directives and Living Will Power of Informatics Manager Latest Code Status on File Code Status Date Activated Date Inactivated Comments Full Code 06/10/2015 3:27 PM 06/11/2015 5:04 PM Documents on File Type Date Recorded 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 Advance Directives and Living Will Power of Informatics Manager Latest Code Status on File Code Status Date Activated Date Inactivated Comments Full Code 06/10/2015 3:27 PM 06/11/2015 5:04 PM Latest Code Status on File Code Status Date Activated Date Inactivated Comments Full Code 07/08/2017 10:24 AM Latest Code Status on File Code Status Date Activated Date Inactivated Comments Full Code 07/08/2017 10:24 AM Latest Code Status on File Code Status Date Activated Date Inactivated Comments Full Code 07/08/2017 10:24 AM Date Activated Date Inactivated Comments 07/08/2017 10:24 AM Date Activated Date Inactivated Comments 07/08/2017 10:24 AM Advance Directive Response Recorded Date/ Time Do you have a Healthcare Power of Informatics Manager? No July 16, 2024 4:34pm Advance Directive Response Recorded Date/ Time Do you have a Healthcare Power of Informatics Manager? No July 16, 2024 7:27pm Advance Directive Response Recorded Date/ Time Do you have a Healthcare Power of Informatics Manager? No July 16, 2024 7:27pm Do you have a Healthcare Power of Informatics Manager? Yes July 31, 2024 4:32pm Discharge Instructions * Instructions* Ary Knight RN - 08/05/2019 Activity You have had anesthesia today Do not drive, operate heavy equipment, consume alcoholic beverages, or make any important decisionsfor 24 hours If you are taking pain medication: Do not drive or consume alcohol. Take your time changing positions today. You may feel light headed or dizzy if you move too quickly. Continue your home medications as ordered by your physician. Diet You can eat your normal diet when you feel well. You should start off with bland foods like chickensoup, toast, or yogurt. Then advance as tolerated. Drink plenty of fluids (unless your doctor tells you not to). Your urine should be very lightly colored without a strong odor. Plastic Surgery Instructions: -Activity as tolerated -Keep dressing clean and dry. Maintain adhesive dressing to surgical site until follow up visit. Okif this were to fall off on own prior to office visit. -Elevate (above heart) as needed for sweling/pain -Drink plenty of fluids. -Call the office or come to Emergency Room if signs of infection appear (hot, swollen, red, draining pus, fever) -Take medications as prescribed. Don't drive, consume alcohol, or operate heavy machinery while taking pain medications. -Should urinate within 8 hours of surgery -Follow up with Dr. Catherine in 10-14 days after surgery, call [phone] to schedule an appointment. documented in this encounter History of Present Illness * Dung Herman - 08/05/2019 9:42 AM EDT CLINICAL PHARMACY NOTE: MEDS TO [facility] Select Patient?: No Total # of Prescriptions Filled: 2 The following medications were delivered to the patient: Cephalexin Hydrocodone-apap Total # of Interventions Completed: 0 Time Spent (min): 0 Additional Documentation: documented in this encounter Assessments Diagnosis Post-operative state Other postprocedural status Chief Complaint and Reason for Visit Chief Complaint Admit Date FALL, HIP FRACTURE July 16, 2024 6:10p m Reason for Visit Admit Date Fall July 16, 2024 6:10p m Fracture of femoral neck, closed July 6:10pm Hypertension July 16, 2024 6:10p m Chief Complaint Admit Date FALL, HIP FRACTURE July 16, 2024 6:10p m FALL, HIP FRACTURE July 17, 2024 7:26p m FALL, HIP FRACTURE July 18, 2024 1:43p m Reason for Visit Admit Date Fall July 16, 2024 6:10p m Fracture of femoral neck, closed July 6:10pm Osteoarthritis of right hip July 16 6:10pm Hypertension July 16, 2024 6:10p m Chief Complaint Admit Date FALL, HIP FRACTURE July 16, 2024 6:10p m FALL, HIP FRACTURE July 17, 2024 7:26p m FALL, HIP FRACTURE July 18, 2024 1:43p m FALL, HIP FRACTURE July 19, 2024 8:08a m lower extrem July 31, 2024 4:27p m Reason for Visit Admit Date Fall July 16, 2024 6:10p m Fracture of femoral neck, closed July 6:10pm Hypertension July 16, 2024 6:10p m Osteoarthritis of right hip July 16 6:10pm Additional Source Comments INFORMATION SOURCE (unrecogn ized section and content) DATE CREATED AUTHOR 08/22/2017 [facility] DATE CREATED AUTHOR AUTHOR'S ORGANIZ ATION 08/28/2017 [facility] DATE CREATED AUTHOR AUTHOR'S ORGANIZ ATION 08/02/2018 [facility] DATE CREATED AUTHOR AUTHOR'S ORGANIZ ATION 08/06/2019 [facility] DATE CREATED AUTHOR AUTHOR'S ORGANIZ ATION 08/08/2019 [facility] DATE CREATED AUTHOR AUTHOR'S ORGANIZ ATION 05/10/2024 [facility] DATE CREATED AUTHOR AUTHOR'S ORGANIZ ATION 08/07/2024 [facility] Reason for Visit (unrecogniz ed section and content) Status Reason Specialty Diagnoses / Procedures Referre d By Contact Referred To Contact Diagnoses Basal cell carcinoma of skin of nose BASAL CELL RIGHT NASAL BRIDGE Procedures RI OFFICE/OUTPT VISIT,PROCEDURE ONLY RI EXCIS NASAL DERMOID,COMPLX RI BIOPSY OF SKIN LESION RI ADJ TISS XFER LID,NOS,EAR <10SQCM RI EXC SKIN MALIG 0.6-1CM FACE,FACIAL NASAL LESION BIOPSY EXCISION - NASAL BRIDGE WITH FROZEN SECTION POSSIBLE *PATHOLOGY REQUIRED* Hank Catherine MD [facility] [place] [address] [facility] Reason Comments Hypertension Hyperlipidemia Esophageal Reflux Reason Comments Hyperlipidemia Hypertension Diabetes Heartburn Reason Comments Hypertension Esophageal Reflux Hyperlipidemia Diabetes Reason Comments Other Patient last seen for hyperlipidemia, GERD, hypertension, diabetes. Reason Comments Other 6 month follow up Care Teams (unrecognized sec tion and content) Team Status: Active Member Role Status Dates BEVERLEY WALKER Primary Care Provider Active Team Status: Inactive Member Role Status Dates Tian Evans MD Emergency Provider Active Star t: July 16, 2024 End: July 19, 2024 DENISE LOWERY Primary Care Provider Active S tart: July 16, 2024 End: July 19, 2024 Dr. Mayi Avendaño MD Admit Provider Active St art: July 16, 2024 End: July 19, 2024 Dr. Mayi Avendaño MD Other Provider Active St art: July 16, 2024 End: July 19, 2024 Dr. Eloy Hamm MD Other Provider Active Sta rt: July 16, 2024 End: July 19, 2024 Dr. Conor Noland DO Attending Provider Active Start: July 16, 2024 End: July 19, 2024 Team Status: Active Member Role Status Dates Tian Evans MD Emergency Provider Active Star t: July 17, 2024 DENISE LOWERY Primary Care Provider Active S tart: July 17, 2024 Dr. Mayi Avendaño MD Admit Provider Active St art: July 17, 2024 Dr. Mayi Avendaño MD Other Provider Active St art: July 17, 2024 Dr. Eloy Hamm MD Other Provider Active Sta rt: July 17, 2024 Dr. Conor Tereletsky , DO Attending Provider Active Start: July 17, 2024 Dr. Conor Noland , DO Other Provider Active S tart: July 17, 2024 Team Status: Active Member Role Status Dates Tian Evans MD Emergency Provider Active Star t: July 18, 2024 DENISE LOWERY Primary Care Provider Active S tart: July 18, 2024 Dr. Mayi Avendaño MD Admit Provider Active St art: July 18, 2024 Dr. Mayi Avendaño MD Other Provider Active St art: July 18, 2024 Dr. Eloy Hamm MD Other Provider Active Sta rt: July 18, 2024 Dr. Conor Noland , DO Attending Provider Active Start: July 18, 2024 Dr. Conor Noland , DO Other Provider Active S tart: July 18, 2024 Design Manager Relationship Specialty Start Date End Date Coby Rush APRN-CNP PCP - General Nurse Practitioner - Family 08/23/16 Design Manager Relationship Specialty Start Date End Date Coby Rush APRN-CNP PCP - General Nurse Practitioner - Family 08/23/16 Design Manager Relationship Specialty Start Date End Date Coby Rush APRN-NIK PCP - General Nurse Practitioner - Family 08/23/16 Design Manager Relationship Specialty Start Date End Date Rosalee Malave APRN-CNP [address] [place] [address] PCP - General Certified Nurse Practitioner 10/01/23 Design Manager Relationship Specialty Start Date End Date Rosalee Malave APRN-CNP [address] [place] [address] PCP - General Certified Nurse Practitioner 10/01/23 Team Status: Active Member Role Status Dates Tian Evans MD Emergency Provider Active Star t: July 16, 2024 DENISE LOWERY Primary Care Provider Active S tart: July 16, 2024 Dr. Mayi Avendaño MD Admit Provider Active St art: July 16, 2024 Dr. Mayi Avendaño MD Attending Provider Active Start: July 16, 2024 Team Status: Active Member Role Status Dates Tian Evans MD Emergency Provider Active Star t: July 19, 2024 DENISE LOWERY Primary Care Provider Active S tart: July 19, 2024 Dr. Mayi Avendaño MD Admit Provider Active St art: July 19, 2024 Dr. Mayi Avendaño MD Other Provider Active St art: July 19, 2024 Dr. Eloy Hamm MD Other Provider Active Sta rt: July 19, 2024 Dr. Conor Noland DO Attending Provider Active Start: July 19, 2024 Dr. Conor Noland DO Other Provider Active S tart: July 19, 2024 Team Status: Inactive Member Role Status Dates DENISE LOWERY Primary Care Provider Active S tart: July 31, 2024 End: July 31, 2024 Dr. Arelis Silva DO Emergency Provider Active S tart: July 31, 2024 End: July 31, 2024 Goals (unrecognized section and content) Goals may be documented in a n alternate section FOR RECORDS PERTAINING TO PATIENTS WHO ARE OR HAVE BEEN ENROLLED IN A CHEMICAL DEPENDENCY/SUBSTANCEABUSE PROGRAM, SOME INFORMATION MAY BE OMITTED. This clinical summary was aggregated from multiple sources. Caution should be exercised in using it in the provision of clinical care. This summary normalizes information from multiple sources, and as a consequence, information in this document may materially change the coding, format and clinical context of patient data. In addition, data may be omitted in some cases. CLINICAL DECISIONS SHOULD BE BASED ON THE PRIMARY CLINICAL RECORDS. [employer] provides no warranty or guarantee of the accuracy or completeness of information in this document.
--- NOTE | 2024-08-07 18:14 | PCM.PN.HOSP ---
Reason for Visit Reason for Visit: Recurrent right hip dislocation status post right hip arthroplasty Subjective Subjective Patient is a 69-year-old white male who presented for revision of a right total hip replacement. He had previous right hip fracture with subsequent THR and has had 2 acute dislocations. Previous surgery was done on 07/17/2024. We have been consulted postoperatively for medical management. Objective Data Objective Data Vital Signs: Vital Signs Temp Pulse Resp BP Pulse Ox O2 Del Method O2 Flow Rate 98.0 F 72 16 151/85 H 100 Nasal Cannula 2 08/07/24 17:34 08/07/24 17:34 08/07/24 17:34 08/07/24 17:34 08/07/24 17:34 08/07/24 17:34 08/07/24 17:34 Oxygen Flow Rate (L/min) 2 Oxygen Delivery Method Nasal Cannula Weight: 100.8 kg Body Mass Index (BMI) 32.8 Intake & Output: Intake and Output for Last 24 Hours 08/05/24 08/06/24 08/07/24 23:59 23:59 23:59 Intake Total 1999 / 1999 Output Total 150 / 150 Balance 1850 / 1850 Lab / Micro Data Labs: Laboratory Results - last 24 hr 08/07/24 11:30: Magnesium 2.0 08/07/24 11:46: POC Glucose 82 Radiography Diagnostic Testing: Radiology Impression Hip X-Ray 08/07/24 15:40 IMPRESSION: Interval placement of the acetabular component of the right total hip prosthesis is seen, without apparent complication. Satisfactory alignment is noted. No fracture site is evident Reading Location: [address] Physical Exam Const alert, oriented x3, no apparent distress and well nourished; Negative for average body habitus Constitutional Narrative: Obese, groggy but alert and oriented older, white female, lying in bed, at bedside, nursing at bedside, patient appears comfortable, nontoxic HEENT head/scalp atraumatic and moist oral mucous membranes Head and Scalp: normocephalic Resp normal respiratory effort, no retractions, no use of accessory muscles and clear to auscultation bilaterally Auscultation: Negative for rales, rhonchi or wheezes Cardio regular rate, regular rhythm, S1 normal heart sound, S2 normal heart sound, no murmurs, no rub, no gallops and no clicks GI normal to inspection, nondistended, normoactive bowel sounds, soft to palpation and non-tender Extremity no clubbing, cyanosis or edema Extremity Narrative: TESS hose bilateral lower extremity, ice pack right lower extremity over incision, incision site is clean dry and intact Neuro oriented x3 and no focal motor deficits Speech: speech normal Psych Psych Narrative: Affect is slightly flat but appropriate for the situation, patient is pleasant and makes good eye contact Assessment & Plan Assessment/Plan (1) Dislocation, hip: PLAN: Plan Recurrent right hip dislocation status post total hip arthroplasty - Initial surgery was on 07/17/2024 but patient has had 2 dislocations since that time - Postop day 0 total hip revision - Pain management per primary service - Would recommend scheduled bowel regimen - PT/OT per primary service - Postoperative recommendations are for weightbearing as tolerated with aspirin 81 mg twice daily for DVT prophylaxis and follow-up in the office in 2 weeks DM-2 - Patient is on Zepbound as an outpatient - Restart at discharge - Patient is also had considerable weight loss of 60 pounds - Hemoglobin A1c on 07/17/2024 was 5.3 - No need for sliding scale or Accu-Cheks at this time Essential hypertension - Continue home metoprolol - continue home lisinopril Hyperlipidemia -continue home statin GERD - Continue PPI Obesity - BMI 32.8 - Recommend weight loss - Complicates treatment, prognosis, outcomes DVT prophylaxis - Per primary service Charges/Coding Visit Charges Inpatient E&M: 32347 Subs Hosp L2
[2024-08-07] MEDS: LACTATED RINGERS IV (18:15)
[2024-08-07] MEDS: oxyCODONE 5 MG Tablet 2.5 MG PO (18:16)
[2024-08-07] MEDS: Cefazolin 1 GM/50 ML BAG IV ×2 (18:31→22:21)
--- OUTSIDE RECORDS SUMMARY | 2024-08-07 19:11 | XMS RPT_ITS | CCD ---
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 Calcium [Mass/Vol] 9.4 mg/dL 7.6-11.0 [facility] Serum or plasma urea nitroge n measurement (mass/volume)Ordered By: Mayi Kateryna on 07-17-2024 Urea nitrogen [Mass/Vol] 14 mg/dL 4-19 [facility] Sodium levelOrdered By: Elizabetu mn Kateryna on 07-17-2024 Sodium [Moles/Vol] 133 mmol/L 133-145 [facility] Total proteinOrdered By: Aut umn Kateryna on 07-17-2024 Protein [Mass/Vol] 6.9 g/dL 5.9-8.4 [facility] White blood cell (WBC) count Ordered By: Mayi Kateryna on 07-17-2024 WBC (Bld) [#/Vol] 7.3 10*3/uL 4.4-11.0 [facility] 12 Lead EKGon 07-16-2024 12 Lead EKG [facility] Cardiovascular Services [address] [place] [address] 12 Lead EKG 07/16/24 1834 MR#: [id number] Acct: [id number] Name: EFRAIN GILLIAM Rep #: [id number] : 1955 69 From: Demetrius London MD Attending Dr: Dr. Conor Noland, Status: D IS IN Ordering Dr: Tian Evans MD Date: 07/16/24 Location: [facility] Sex: F C Admitted: 07/16/24 Test Reason : Blood Pressure : */* mmHG Vent. Rate : 65 BPM Atrial Rate : 65 BPM P-R Int : 172 ms QRS Dur : 88 ms QT Int : 402 ms P-R-T Axes : 48 3 53 degrees QTcB Int : 418 ms Normal sinus rhythm Normal ECG Confirmed by KEVEN GRAY, DEMETRIUS ([id number]), business editor LAUREN VELIZ ([id number]) on 07/20/2024 8:40:30 AM Referred By: Confirmed By: DEMETRIUS LONDON MD 07/20/24 0840 Date Demetrius London MD CC: Dr. Tian Evans MD; Dr. Conor Noland DO; BVEERLEY WALKER Signed Normal [facility] Absolute lymphocyte countOrd ered By: Tian Evans on 07-16-2024 Lymphocytes Auto (Unsp spec) [#/Vol] 1.55 10*3/uL 0.83-4.51 [facility] Absolute neutrophil countOrd ered By: Tian Evans on 07-16-2024 Neutrophils (Bld) [#/Vol] 2.7 10*3/uL 2.0-7.7 [facility] Anion gap in Serum or Plasma Ordered By: Tian Evans on 07-16-2024 Anion gap [Moles/Vol] 13 mmol/L 07-16 [facility] Automated lymphocyte count a s percentage of total leukocytesOrdered By: Tian Evans on 07-16-2024 Lymphocytes/100 WBC Auto (Unsp spec) 32.5 % [facility] BUN/creatinine ratioOrdered By: Tian Evans on 07-16-2024 Urea nitrogen/Creatinine [Mass ratio] 16.8 mg/mg 12-21 [facility] Basic Metabolic Profile (BMP )on 07-16-2024 BUN/CRE 16.6 RATIO Normal 12-21 [facility] Comment on above: Order Comment: mariah burnette run from CBC done earlier Performed By: #### L 500.2500 #### [facility] Laboratory [address] [place], [address] Calcium [Mass/Vol] 9.4 mg/dL Normal 7.6-11.0 [facility] Comment on above: Order Comment: can w e run from CBC done earlier Performed By: #### L 500.2500 #### [facility] Laboratory [address] [place], [address] Chloride [Moles/Vol] 98 mmol/L Normal 98-108 [facility] Comment on above: Order Comment: can w e run from CBC done earlier Performed By: #### L 500.2500 #### [facility] Laboratory [address] [place], [address] CO2 [Moles/Vol] 25.6 mmol/L Normal 21.0-32.0 [facility] Comment on above: Order Comment: can w e run from CBC done earlier Performed By: #### L 500.2500 #### [facility] Laboratory [address] [place], [address] Creatinine [Mass/Vol] 0.91 mg/dL Normal 0.70-1.20 [facility] Comment on above: Order Comment: can w e run from CBC done earlier Performed By: #### L 500.2500 #### [facility] Laboratory [address] [place], [address] ECRCL 72.65 ml/min Normal 50-250 [facility] Comment on above: Order Comment: can w e run from CBC done earlier Performed By: #### L 500.2500 #### [facility] Laboratory [address] [place], [address] GAP 11 Normal 5-15 [facility] Comment on above: Order Comment: can w e run from CBC done earlier Performed By: #### L 500.2500 #### [facility] Laboratory [address] [place], [address] GFR/1.73 sq M.predicted among non-blacks MDRD (S/P/Bld) [Vol rate/Area] 69 mL/min/{1.73_m2} Normal >60 [facility] Comment on above: Order Comment: can w e run from CBC done earlier Result Comment: mL/m in/1.73m2 CKD-EPI Creatinine Equation (2020) Performed By: #### L 500.2500 #### [facility] Laboratory [address] [place], [address] Glucose [Mass/Vol] 139 mg/dL High 70-99 [facility] Comment on above: Order Comment: can w e run from CBC done earlier Performed By: #### L 500.2500 #### [facility] Laboratory [address] [place], [address] Potassium [Moles/Vol] 3.9 mmol/L Normal 3.3-5.1 [facility] Comment on above: Order Comment: can w e run from CBC done earlier Performed By: #### L 500.2500 #### [facility] Laboratory [address] [place], [address] Sodium [Moles/Vol] 135 mmol/L Normal 133-145 [facility] Comment on above: Order Comment: can w e run from CBC done earlier Performed By: #### L 500.2500 #### [facility] Laboratory [address] [place], [address] Urea nitrogen [Mass/Vol] 15 mg/dL Normal 4-19 [facility] Comment on above: Order Comment: can w e run from CBC done earlier Performed By: #### L 500.2500 #### [facility] [address] [place], [address] Basophil percentageOrdered B y: Tian Evans on 07-16-2024 Basophils/100 WBC (Bld) 1.3 % High 0-1 [facility] Bedside Glucoseon 07-16-2024 FINGERSTICK GLU 106 mg/dL Normal 74-106 [facility] Comment on above: Result Comment: SWAPNA ORELLANA OF PATIENT CARE PER NURSING PROTOCOL Performed By: #### L 501.080 #### [facility] Laboratory [address] [place], [address] Bilirubin, totalOrdered By: Tian Evans on 07-16-2024 Bilirubin [Mass/Vol] 0.54 mg/dL 0.00-1.30 [facility] CBC W/Diff, Automatedon 07-02 Absolute Lymph 1.55 X10 3/uL Normal 0.83-4.51 [facility] Comment on above: Performed By: #### L 501.4021, L500.4050, L100.0100 #### [facility] Laboratory [address] [place], [address] Absolute Neut 2.7 X10 3/uL Normal 2.0-7.7 [facility] Comment on above: Performed By: #### L 501.4021, L500.4050, L100.0100 #### [facility] Laboratory [address] [place], [address] Basophils/100 WBC (Bld) 1.3 % High 0-1 [facility] Comment on above: Performed By: #### L 501.4021, L500.4050, L100.0100 #### [facility] Laboratory [address] [place], [address] Eosinophils/100 WBC (Bld) 2.1 % Normal 0-5 [facility] Comment on above: Performed By: #### L 501.4021, L500.4050, L100.0100 #### [facility] Laboratory [address] [place], [address] Erythrocyte distribution width (RBC) [Ratio] 12.3 % Normal 11.6-14.6 [facility] Comment on above: Performed By: #### L 501.4021, L500.4050, L100.0100 #### [facility] Laboratory [address] [place], [address] Hematocrit (Bld) [Volume fraction] 37.5 % Normal 37-47 [facility] Comment on above: Performed By: #### L 501.4021, L500.4050, L100.0100 #### [facility] Laboratory [address] [place], [address] Hemoglobin (Bld) [Mass/Vol] 12.7 g/dL Normal 12.0-15.0 [facility] Comment on above: Performed By: #### L 501.4021, L500.4050, L100.0100 #### [facility] [address] [place], [address] IG% 0.400 Normal 0.0-0.9 [facility] Comment on above: Result Comment: IG% - Immature Granulocytes (promyelocytes, myelocytes and metamyelocytes) > 1% indicates that a LEFT SHIFT is Present. Performed By: #### L 501.4021, L500.4050, L100.0100 #### [facility] Laboratory [address] [place], [address] Lymphocytes/100 WBC (Bld) 32.5 % Normal 19-41 [facility] Comment on above: Performed By: #### L 501.4021, L500.4050, L100.0100 #### [facility] Laboratory [address] [place], [address] MCH (RBC) [Entitic mass] 28.9 pg Normal 27.0-32.0 [facility] Comment on above: Performed By: #### L 501.4021, L500.4050, L100.0100 #### [facility] Laboratory [address] [place], [address] MCHC (RBC) [Mass/Vol] 33.9 g/dL Normal 32-36 [facility] Comment on above: Performed By: #### L 501.4021, L500.4050, L100.0100 #### [facility] Laboratory [address] [place], [address] MCV (RBC) [Entitic vol] 85.4 fL Normal 81-99 [facility] Comment on above: Performed By: #### L 501.4021, L500.4050, L100.0100 #### [facility] Laboratory [address] [place], [address] Monocytes/100 WBC (Bld) 6.9 % Normal 0-10 [facility] Comment on above: Performed By: #### L 501.4021, L500.4050, L100.0100 #### [facility] Laboratory [address] [place], [address] Neutrophils/100 WBC (Bld) 56.8 % Normal 47-70 [facility] Comment on above: Performed By: #### L 501.4021, L500.4050, L100.0100 #### [facility] Laboratory [address] [place], [address] Nucleated RBC (Bld) [#/Vol] 0 10*3/uL Normal 0-5 [facility] Comment on above: Performed By: #### L 501.4021, L500.4050, L100.0100 #### [facility] Laboratory [address] [place], [address] Platelet mean volume (Bld) [Entitic vol] 9.2 fL Normal 6.2-12.0 [facility] Comment on above: Performed By: #### L 501.4021, L500.4050, L100.0100 #### [facility] Laboratory [address] [place], [address] Platelets (Bld) [#/Vol] 179 10*3/uL Normal 150-450 [facility] Comment on above: Performed By: #### L 501.4021, L500.4050, L100.0100 #### [facility] Laboratory [address] [place], [address] RBC (Bld) [#/Vol] 4.39 10*6/uL Normal 4.2-5.4 [facility] Comment on above: Performed By: #### L 501.4021, L500.4050, L100.0100 #### [facility] Laboratory [address] [place], [address] RDW SD 38.1 fl Normal 35.1-43.9 [facility] Comment on above: Performed By: #### L 501.4021, L500.4050, L100.0100 #### [facility] Laboratory [address] [place], [address] WBC (Bld) [#/Vol] 4.8 10*3/uL Normal 4.4-11.0 [facility] Comment on above: Performed By: #### L 501.4021, L500.4050, L100.0100 #### [facility] Laboratory [address] [place], [address] Carbon dioxide, total [Moles /volume] in Central venous bloodOrdered By: Tian Evans on 07-16-2024 CO2 [Moles/Vol] 21.9 mmol/L 21.0-32.0 [facility] Chest 1 View (Portable)on Chest 1 View (Portable) [facility] Imaging Services [address] [place] [address] Chest 1 View (Portable) MR#: [id number] Acct: [id number] Name: EFRAIN GILLIAM Yomaira Rep #: [id number] : 1955 F 69 From: Conor Vicente MD PCP: BEVERLEY WALKER Status: [facility] ER Study: Chest 1 View (Portable) Date of Exam: 07/16/24 Exam# [id number] Ordering Dr: Tian Evans MD PROCEDURE: CHEST [...] 3. Additional description as above. Reading Location: [id number] CC: Dr. Tian Evans MD; BEVERLEY WALKER Physician Assistant Psychiatry: Signed Normal [facility] Chloride assayOrdered By: Lucien Evans on 07-16-2024 Chloride [Moles/Vol] 101 mmol/L 98-108 [facility] Comprehensive Metabolic Prof ilon 07-16-2024 Albumin [Mass/Vol] 4.2 g/dL Normal 3.4-4.8 [facility] Comment on above: Performed By: #### L 501.4021, L500.4050, L100.0100 #### [facility] Laboratory [address] [place], [address] Albumin/Globulin [Mass ratio] 1.4 {ratio} Normal 0.9-2.4 [facility] Comment on above: Performed By: #### L 501.4021, L500.4050, L100.0100 #### [facility] Laboratory [address] [place], [address] ALK PHOS 80 U/L Normal 35-104 [facility] Comment on above: Performed By: #### L 501.4021, L500.4050, L100.0100 #### [facility] Laboratory [address] [place], [address] ALT [Catalytic activity/Vol] 19 U/L Normal <=34 [facility] Comment on above: Performed By: #### L 501.4021, L500.4050, L100.0100 #### [facility] Laboratory [address] [place], [address] AST [Catalytic activity/Vol] 35 U/L High <=31 [facility] Comment on above: Result Comment: Hemo lysis present, Results??could be affected. ?? Performed By: #### L 501.4021, L500.4050, L100.0100 #### [facility] Laboratory [address] [place], [address] Bilirubin [Mass/Vol] 0.54 mg/dL Normal 0.00-1.30 [facility] Comment on above: Performed By: #### L 501.4021, L500.4050, L100.0100 #### [facility] Laboratory [address] [place], [address] BUN/CRE 16.8 RATIO Normal 10-20 [facility] Comment on above: Performed By: #### L 501.4021, L500.4050, L100.0100 #### [facility] Laboratory [address] [place], [address] Calcium [Mass/Vol] 9.4 mg/dL Normal 7.6-11.0 [facility] Comment on above: Performed By: #### L 501.4021, L500.4050, L100.0100 #### [facility] Laboratory [address] [place], [address] Chloride [Moles/Vol] 101 mmol/L Normal 98-108 [facility] Comment on above: Performed By: #### L 501.4021, L500.4050, L100.0100 #### [facility] Laboratory [address] [place], [address] CO2 [Moles/Vol] 21.9 mmol/L Normal 21.0-32.0 [facility] Comment on above: Performed By: #### L 501.4021, L500.4050, L100.0100 #### [facility] Laboratory [address] [place], [address] Creatinine [Mass/Vol] 1.01 mg/dL Normal 0.70-1.20 [facility] Comment on above: Performed By: #### L 501.4021, L500.4050, L100.0100 #### [facility] Laboratory [address] [place], [address] ECRCL 67.61 ml/min Normal 50-250 [facility] Comment on above: Performed By: #### L 501.4021, L500.4050, L100.0100 #### [facility] Laboratory [address] [place], [address] GAP 13 Normal 5-15 [facility] Comment on above: Performed By: #### L 501.4021, L500.4050, L100.0100 #### [facility] Laboratory [address] [place], [address] GFR/1.73 sq M.predicted among non-blacks MDRD (S/P/Bld) [Vol rate/Area] 61 mL/min/{1.73_m2} Normal >60 [facility] Comment on above: Result Comment: mL/m in/1.73m2 CKD-EPI Creatinine Equation (2020) Performed By: #### L 501.4021, L500.4050, L100.0100 #### [facility] Laboratory [address] [place], [address] Globulin (S) [Mass/Vol] 3.0 g/dL Normal 2.2-4.2 [facility] Comment on above: Performed By: #### L 501.4021, L500.4050, L100.0100 #### [facility] Laboratory [address] [place], [address] Glucose [Mass/Vol] 92 mg/dL Normal 70-99 [facility] Comment on above: Performed By: #### L 501.4021, L500.4050, L100.0100 #### [facility] [address] [place], [address] Potassium [Moles/Vol] 3.9 mmol/L Normal 3.3-5.1 [facility] [facility] Comment on above: Result Comment: Hemo lysis present, Results??could be affected. ?? Performed By: #### L 501.4021, L500.4050, L100.0100 #### [facility] [address] [place], [address] Sodium [Moles/Vol] 135 mmol/L Normal 133-145 [facility] Comment on above: Performed By: #### L 501.4021, L500.4050, L100.0100 #### [facility] [address] [place], [address] T PROT 7.2 g/dL Normal 5.9-8.4 [facility] Comment on above: Performed By: #### L 501.4021, L500.4050, L100.0100 #### [facility] [address] [place], [address] Urea nitrogen [Mass/Vol] 17 mg/dL Normal 4-19 [facility] Comment on above: Performed By: #### L 501.4021, L500.4050, L100.0100 #### [facility] [address] [place], [address] Emergency Department Summary on 07-16-2024 Emergency Department Summary [facility] Medical Records Department [address] [place] [address] Emergency Department Summary 07/16/24 MR#: [id number] Acct: [id number] Name: EFRAIN GILLIAM Rep #: [id number] : 1955 69 From: Tian Evans MD PCP: BEVERLEY WALKER Status:ADM IN Location: MS3 [id number] Tian Evans MD on [...] pain is concentrated in her right hip. [facility] Medical History History of diabetes mellitus [...] 1 m (more content not included)... Normal [facility] Eosinophil percentageOrdered By: Tian Evans on 07-16-2024 Eosinophils/100 WBC (Bld) 2.1 % 0-5 [facility] Erythrocyte distribution wid th ratioOrdered By: Tian Evans on 07-16-2024 Erythrocyte distribution width (RBC) [Ratio] 12.3 % 11.6-14.6 [facility] Erythrocyte distribution wid th standard deviationOrdered By: Tian Evans on 07-16-2024 Erythrocyte distribution width (RBC) [Ratio] 38.1 fl 35.1-43.9 [facility] Foot min 3 Viewson Foot min 3 Views [facility] Imaging Services [address] [place] [address] Foot min 3 Views MR#: [id number] Acct: [id number] Name: EFRAIN GILLIAM Rep #: [id number] : 1955 F 69 From: Flako burnette MD PCP: BEVERLEY WALKER Status: REG ER Study: Foot min 3 Views Date of Exam: 07/16/24 Exam# [id number] Ordering Dr: Tian Evans MD PROCEDURE: FOOT MIN 3 VIEWS 07/16/2024 REASON FOR EXAM: TRAUMA TECHNIQUE: 3 views of the left foot. COMPARISON: None FINDINGS: No acute fracture or dislocation. Mild multifocal osteoarthritis. No significant soft tissue swelling. No radiopaque foreign body. RAD/Foot min 3 Views IMPRESSION: No acute findings. Reading Location: [facility] CC: Dr. Tian Evans MD; BEVERLEY WALKER Physician Assistant Psychiatry: Signed Normal [facility] Glomerular filtration rate ( GFR) estimation/1.73 sq m using serum, plasma, or whole bOrdered By: Tian Evans on 07-16-2024 GFR/1.73 sq M.predicted among non-blacks MDRD (S/P/Bld) [Vol rate/Area] 61 mL/min/{1.73_m2} >60 [facility] Comment on above: mL/min/1.73m2 CKD-EP I Creatinine Equation (2020) H AND P Exam - [facility] 07-16-2024 H&P Exam - Hospitalist [facility] Medical Records Department [address] [place] [address] H P Exam - Hospitalist 07/16/24 1810 MR#: [id number] Acct: [id number] Name: EFRAIN GILLIAM Rep #: [id number] : 1955 69 From: Mayi Avendaño MD PCP: BEVERLEY WALKER Status:REG ER Location: ED HPI - General General Date of Admission: 07/16/24 Date of Service: 07/16/24 Chief Complaint: Fall, Hip pain. HPI Narrative The patient is a 69 y/o F w/ PMHx: HTN, HLD, GERD, Obesity, Hx Diabetes mellitus type II who presents to the [facility] ED on 07/16/2024 with history of [...] medial angulation of the proximal fracture fragment. [facility] Medical History History of diabetes mellitus Obesity [...] Pressure 182/9 (more content not included)... Normal [facility] HIP, UNI W/ Pelvis 2-3 Views on 07-16-2024 HIP, UNI W/ Pelvis 2-3 Views [facility] Imaging Services [address] [place] [address] HIP, UNI W/ Pelvis 2-3 Views MR#: [id number] Acct: [id number] Name: EFRAIN GILLIAM Rep #: [id number] : 1955 F 69 From: Flako burnette MD PCP: BEVERLEY WALKER Status: REG ER Study: HIP, UNI W/ Pelvis 2-3 Views Date of Exam: Exam# [id number] Ordering Dr: Tian Evans MD PROCEDURE: HIP, [...] CC: Dr. Tian Evans MD; BEVERLEY WALKER Physician Assistant Psychiatry: Signed Normal [facility] Hematocrit Auto (Bld) [Volum e fraction]Ordered By: Tian Evans on 07-16-2024 Hematocrit (Bld) [Volume fraction] 37.5 % 37-47 [facility] Hemoglobin measurementOrdere d By: Tian Evans on 07-16-2024 Hemoglobin (Bld) [Mass/Vol] 12.7 g/dL 12.0-15.0 [facility] Immature granulocytes/100 WB C Auto (Bld)Ordered By: Tian Evans on 07-16-2024 Immature granulocytes/100 WBC (Bld) 0.400 % 0.0-0.9 [facility] Comment on above: IG% - Immature Granu locytes (promyelocytes, myelocytes and metamyelocytes) > 1% indicates that a LEFT SHIFT is Present. L499.0042on 07-16-2024 Trop T High Sen 6 ng/L Normal <=14 [facility] Comment on above: Order Comment: PT GO T INTO ROOM AT 2000 PER RN Performed By: #### L 499.0042 #### [facility] [address] [place], [address] L499.0043on 07-16-2024 Trop T High Sen < 6 Normal <=14 [facility] Comment on above: Order Comment: TWO H R DRAWN AT 2100 Performed By: #### L 501.080 #### [facility] [address] [place], [address] L501.4021on 07-16-2024 Trop T High Sen 6 ng/L Normal <=14 [facility] Comment on above: Performed By: #### L 501.4021, L500.4050, L100.0100 #### [facility] [address] [place], [address] Laboratory - Chemistry and C hemistry - challengeOrdered By: Tian Evans on 07-16-2024 AST [Catalytic activity/Vol] 35 U/L High <32 [facility] Comment on above: Hemolysis present, R esults could be affected. MCV (mean corpuscular volume ) determinationOrdered By: Tian Evans on 07-16-2024 MCV (RBC) [Entitic vol] 85.4 fL 81-99 [facility] Mean corpuscular hemoglobin (MCH) determinationOrdered By: Tian Evans on 07-16-2024 MCH (RBC) [Entitic mass] 28.9 pg 27.0-32.0 [facility] Mean corpuscular hemoglobin concentration (MCHC) determinationOrdered By: Tian Evans on 07-16-2024 MCHC (RBC) [Mass/Vol] 33.9 g/dL 32-36 [facility] Mean platelet volume determi nationOrdered By: Tian Evans on 07-16-2024 Platelet mean volume (Bld) [Entitic vol] 9.2 fL 6.2-12.0 [facility] Monocyte percentageOrdered B y: Tian Evans on 07-16-2024 Monocytes/100 WBC (Bld) 6.9 % 0-10 [facility] Neutrophil percentageOrdered By: Tian Evans on 07-16-2024 Neutrophils/100 WBC (Bld) 56.8 % 47-70 [facility] Nucleated red blood cell per centageOrdered By: Tian Evans on 07-16-2024 Nucleated RBC/100 WBC (Bld) [Ratio] 0 % 0-5 [facility] Platelet countOrdered By: Lucien Evans on 07-16-2024 Platelets (Bld) [#/Vol] 179 10*3/uL 150-450 [facility] Potassium measurement (mass/ volume)Ordered By: Tian Evans on 07-16-2024 Potassium (Unsp spec) [Mass/Vol] 3.9 mmol/L 3.3-5.1 [facility] Comment on above: Hemolysis present, R esults could be affected. RBC Auto (Bld) [#/Vol]Ordere d By: Tian Evans on 07-16-2024 RBC (Bld) [#/Vol] 4.39 10*6/uL 4.2-5.4 [facility] Serum creatinine measurement (mass/volume)Ordered By: Tian Evans on 07-16-2024 Creatinine [Mass/Vol] 1.01 mg/dL 0.70-1.20 [facility] Serum globulin measurementOr dered By: Tian Evans on 07-16-2024 Globulin (S) [Mass/Vol] 3.0 g/dL 2.2-4.2 [facility] Serum glucose measurement (m ass/volume)Ordered By: Tian Evans on 07-16-2024 Glucose [Mass/Vol] 92 mg/dL 70-99 [facility] Serum or plasma alanine dumont otransferase (ALT) measurementOrdered By: Tian Evans on 07-16-2024 ALT [Catalytic activity/Vol] 19 U/L <35 [facility] Serum or plasma albumin moody urement (mass/volume)Ordered By: Tian Evans on 07-16-2024 Albumin [Mass/Vol] 4.2 g/dL 3.4-4.8 [facility] Serum or plasma albumin/glob ulin mass ratioOrdered By: Tian Evans on 07-16-2024 Albumin/Globulin [Mass ratio] 1.4 {ratio} 0.9-2.4 [facility] Serum or plasma alkaline ramon sphatase measurementOrdered By: Tian Evans on 07-16-2024 ALP [Catalytic activity/Vol] 80 U/L 35-104 [facility] Serum or plasma calcium moody urement (mass/volume)Ordered By: Tian Evans on 07-16-2024 Calcium [Mass/Vol] 9.4 mg/dL 7.6-11.0 [facility] Serum or plasma urea nitroge n measurement (mass/volume)Ordered By: Tian Evans on 07-16-2024 Urea nitrogen [Mass/Vol] 17 mg/dL 4-19 [facility] Sodium levelOrdered By: Tian Evans on 07-16-2024 Sodium [Moles/Vol] 135 mmol/L 133-145 [facility] Total proteinOrdered By: Jessa Evans on 07-16-2024 Protein [Mass/Vol] 7.2 g/dL 5.9-8.4 [facility] Troponin T.cardiac [Mass/vol ume] in Serum or Plasma by High sensitivity methodOrdered By: Tian Evans on 07-16-2024 Troponin T.cardiac High sensitivity method [Mass/Vol] < 6 ng/L <14 [facility] Troponin T.cardiac High sensitivity method [Mass/Vol] 6 ng/L <14 [facility] Type AND Screenon 07-16-2024 Ab SCREEN GEL Negative Normal [facility] Comment on above: Order Comment: S Performed By: #### L 501.080 #### [facility] [address] [place], [address] White blood cell (WBC) count Ordered By: Tian Evans on 07-16-2024 WBC (Bld) [#/Vol] 4.8 10*3/uL 4.4-11.0 [facility] Surgical Pathologyon 020 Surgical Pathology (NOTE) -- Diagnosis -- SKIN, RIGHT NASAL ALA, EXCISION: - FOCAL DERMAL SCAR, CONSISTENT WITH PRIOR BIOPSY SITE. - ACTINIC INJURY. - BENIGN SURGICAL MARGINS. - NO EVIDENCE OF RESIDUAL BASAL CELL CARCINOMA. Kerwin Zhang, Electronically Signed [facility]/08/06/2019 Clinical Information Pre-op Diagnosis: BASAL CELL RIGHT [...] keratosis. Margins negative for basal cell carcinoma. ([facility], 08/05/2019) Microscopic Description Scar is present in the dermis in the center of the specimen, consistent with prior biopsy site. Solar elastosis and focal chronic inflammation are present in the surrounding dermis, with actinic injury in the squamous epithelium. No evidence of residual basal cell carcinoma is identified. The surgical margins are benign. SURGICAL PATHOLOGY CONSULTATION Patient Name: BLESSING GILLIAMDARIELA [facility] Rec: [id number] Path Number: [id number] [facility] ANATOMIC PATHOLOGY [address] [place] [id number] [facility] Comment on above: Performed By: #### P PPVS #### [address] [address] Intelligent Systems Engineer: Bebeto Sharp MD COVID-19on 08-04-2019 SARS-CoV-2 Not Detected Not Detected [place], [place] Comment on above: The specimen is NEGATIVE for SARS-CoV-2, the novel coronavirus associated with COVID-19. A negative result does not rule out COVID-19. This test has been authorized by the FDA under an Emergency Use Authorization (EUA) for use by authorized laboratories. Fact sheet for Healthcare Providers: https://www.fda.gov/media/171880/download Fact sheet for Patients: https://www.fda.gov/media/377253/download METHODOLOGY: RT-PCR SARS-CoV-2, PCR [place], [place] SARS-CoV-2, Rapid [place], [place] Source .NASOPHARYNGEAL SWAB [place], [place] [id number] 08-04-2019 SARS-CoV-2 Not Detected [facility] Comment on above: Result Comment: The specimen is NEGATIVE for SARS-CoV-2, the novel coronavirus associated with COVID-19. A negative result does not rule out COVID-19. This test has been authorized by the FDA under an Emergency Use Authorization (EUA) for use by authorized laboratories. Fact sheet for Healthcare Providers: https://www.fda.gov/media/422467/download Fact sheet for Patients: https://www.fda.gov/media/248506/download METHODOLOGY: RT-PCR Performed By: #### C OVID #### [address] [address] Intelligent Systems Engineer: Bebeto Sharp MD SARS-CoV-2,Rapid [facility] Comment on above: Performed By: #### C OVID #### [facility] [address] [place], [place] [id number] Intelligent Systems Engineer: Bebeto Sharp MD SARS-CoV-2 Normal [facility] Comment on above: Performed By: #### C OVID #### [facility] [address] [place], [place] [id number] Intelligent Systems Engineer: Bebeto Sharp MD SARS-CoV-2 Source .NASOPHARYNGEAL SWAB Normal [facility] Comment on above: Performed By: #### C OVID #### [facility] [address] [place], [place] [id number] Intelligent Systems Engineer: Bebeto Sharp MD XR ABDOMEN 1 VIEWon [...] pattern without evidence of bowel obstruction. Normal [facility] CBCon 08-12-2017 ABSOLUTE BAS 0.0 X10 Normal [facility] Comment on above: Performed By: #### A CBC, CHEM7F #### Testing performed at [address] [address] ABSOLUTE EOS 0.10 X10 Normal [facility] Comment on above: Performed By: #### A CBC, CHEM7F #### Testing performed at [address] [address] ABSOLUTE NEUTROPHIL COUNT 3.9 x10 Normal 1.0-7.0 [facility] Comment on above: Performed By: #### A CBC, CHEM7F #### Testing performed at [address] [address] Basophils/100 WBC (Bld) 0.7 % Normal 0.0-2.0 [facility] Comment on above: Performed By: #### A CBC, CHEM7F #### Testing performed at [address] [place] [address] DTYPE AUTO DIFF Normal [facility] Comment on above: Performed By: #### A CBC, CHEM7F #### Testing performed at [address] [address] Eosinophils/100 WBC (Bld) 1.3 % Normal 0.0-11.0 [facility] Comment on above: Performed By: #### A CBC, CHEM7F #### Testing performed at [address] [address] Lymphocytes #/vol (Bld) 1.50 X10 Normal [facility] Comment on above: Performed By: #### A CBC, CHEM7F #### Testing performed at [address] [address] Lymphocytes/100 WBC (Bld) 24.6 % Normal 20.0-55.0 [facility] Comment on above: Performed By: #### A CBC, CHEM7F #### Testing performed at [address] [address] Monocytes #/vol (Bld) 0.5 X10 Normal [facility] Comment on above: Performed By: #### A CBC, CHEM7F #### Testing performed at [address] [address] Monocytes/100 WBC (Bld) 8.7 % Normal 0.0-10.0 [facility] Comment on above: Performed By: #### A CBC, CHEM7F #### Testing performed at [address] [address] Neutrophils/100 WBC (Bld) 64.7 % Normal 37.0-75.0 [facility] Comment on above: Performed By: #### A CBC, CHEM7F #### Testing performed at [address] [place] [address] Erythrocyte distribution width Ratio (RBC) 14.2 % Normal 11.5-14.5 [facility] Comment on above: Performed By: #### A CBC, CHEM7F #### Testing performed at [address] [address] Hematocrit Volume Fraction (Bld) 37.9 % Normal 36.0-48.0 [facility] Comment on above: Performed By: #### A CBC, CHEM7F #### Testing performed at [address] [address] Hemoglobin mass conc (Bld) 12.7 g/dL Normal 12.0-16.0 [facility] Comment on above: Performed By: #### A CBC, CHEM7F #### Testing performed at [address] [address] MCH Entitic mass (RBC) 28.9 pg Normal 26.0-35.0 [facility] Comment on above: Performed By: #### A CBC, CHEM7F #### Testing performed at [address] [address] MCHC mass conc (RBC) 33.6 g/dL Normal 27.0-37.0 [facility] Comment on above: Performed By: #### A CBC, CHEM7F #### Testing performed at [address] [address] MCV Entitic volume (RBC) 86.0 fL Normal 80.0-100.0 [facility] Comment on above: Performed By: #### A CBC, CHEM7F #### Testing performed at [address] [address] Platelet mean volume Entitic volume (Bld) 7.3 fL Low 7.4-11.0 [facility] Comment on above: Performed By: #### A CBC, CHEM7F #### Testing performed at [address] [address] Platelets #/vol (Bld) 187 /cmm Normal 130.0-400.0 [facility] Comment on above: Performed By: #### A CBC, CHEM7F #### Testing performed at [address] [address] RBC #/vol (Bld) 4.41 /cmm Normal 4.0-5.4 [facility] Comment on above: Performed By: #### A CBC, CHEM7F #### Testing performed at [address] [address] WBC #/vol (Bld) 6.0 /cmm Normal 3.6-11.0 [facility] Comment on above: Performed By: #### A CBC, CHEM7F #### Testing performed at [address] [address] CHEM 7 FASTINGon - Creatinine mass conc 0.8 mg/dL Normal 0.52-1.04 [facility] Comment on above: Performed By: #### A CBC, CHEM7F #### Testing performed at [address] [address] EST. GFR, >60 Normal [facility] Comment on above: Performed By: #### A CBC, CHEM7F #### Testing performed at [place] [id number] EST. GFR,Non >60 Normal [facility] Comment on above: Performed By: #### A CBC, CHEM7F #### Testing performed at [address] [address] GFR/1.73 sq M predicted among non-blacks MDRD vol rate/area (S/P/Bld) Average GFR for 60-69 years old = 85. Normal [facility] Comment on above: Result Comment: Metal Room Dental Technician oscar Kidney disease, GFR = <60. Kidney failure, GFR = <15. The GFR estimate is not adjusted for extreme body surface area or acute process, nor has it been validated for women or ethnic groups other than and . Performed By: #### A CBC, CHEM7F #### Testing performed at [address] [address] Urea nitrogen mass conc 13 mg/dL Normal 7-20 [facility] Comment on above: Performed By: #### A CBC, CHEM7F #### Testing performed at [address] [address] Chloride molar conc 96 mmol/L Low 98-107 [facility] Comment on above: Performed By: #### A CBC, CHEM7F #### Testing performed at [address] [address] CO2 molar conc 31 mmol/L High 22-30 [facility] Comment on above: Performed By: #### A CBC, CHEM7F #### Testing performed at [address] [address] Glucose mass conc 100 mg/dL Normal 70-100 [facility] Comment on above: Result Comment: NORMAL <100 mg/dL PREDIABETES 101-126 mg/dL DIABETES 126 mg/dL or higher Performed By: #### A CBC, CHEM7F #### Testing performed at [address] [address] Potassium molar conc 3.8 mmol/L Normal 3.5-5.1 [facility] Comment on above: Performed By: #### A CBC, CHEM7F #### Testing performed at [address] [address] Sodium molar conc 135 mmol/L Low 137-145 [facility] Comment on above: Performed By: #### A CBC, CHEM7F #### Testing performed at [address] [address] MRSA SCREENon 07-05-2017 MRSA SCREEN Negative Normal [facility] Comment on above: Performed By: #### M RSAST ####[place] [address] STAPH AUREUS SCREEN Negative Normal [facility] Comment on above: Result Comment: TEST ING PERFORMED BY PCRTesting performed at [place] [address] Performed By: #### M RSAST ####[place] [address] XR CHEST PA AND LATERALon XR CHEST [...] thoracic spine.IMPRESSION: No acute cardiopulmonary process. Normal [facility] HEP PANEL A,B,Con 03-23-2017 BSA (Body Surface Area) Negative Normal Negative [facility] Comment on above: Performed By: #### L HEPP ####Testing performed at [facility], [address] [place] [address] BSA (Body Surface Area) Non Reactive Normal [facility] Comment on above: Result Comment: (NOT E) Non Reactive: Inconsistent with immunity, less than 10 mIU/mL Reactive: Consistent with immunity, greater than 9.9 mIU/mL Performed By: #### L HEPP ####Testing performed at [facility], [address] [place] [address] HEP A AB TOTAL Negative Normal Negative [facility] Comment on above: Performed By: #### L HEPP ####Testing performed at [facility], [address] [place] [address] HEP B CORE AB Negative Normal Negative [facility] Comment on above: Performed By: #### L HEPP ####Testing performed at [facility], [address] [place] [address] HEP C VIRUS AB 0.1 s/co ratio Normal 0.0-0.9 [facility] Comment on above: Result Comment: (NOT E) Negative: < 0.8 Indeterminate: 0.8 - 0.9 Positive: > 0.9The CDC recommends that a positive HCV antibody resultbe followed up with a HCV Nucleic Acid Amplificationtest (105626).PERFORMED AT [facility] Performed By: #### L HEPP ####Testing performed at [address] [place] [address] GGTon 03-22-2017 GGT 43 IU/L Normal 12-43 [facility] Comment on above: Performed By: #### L HEPP ####Testing performed at [facility], [address] [place] [address] [facility] Repor ton 09-13-2016 [facility] Report Type: OrthopedicDictated by: To be signed by: Transcribed by: Transcribed D/ Dictation D/ Report: August 29, 2016 Jose R Agrawal D.O. [address] [place] [address] Re: Efrain [facility] Dear Dr. Agrawal: Thank you for this [...] opportunity to care for your patient. Normal [facility] Radiologyon 07-13-2017 Radiology Type: OutpatientDictated by: [...] compartment of the left lower extremity. Normal [facility] Vital Signs Date Time Vital Sign Value Performing Clinician Facility 07-31-2024 18:05-0400 Body temperature 98.2 [degF] Tian Evans MD Work Phone: [phone])191-375148 [place] [address] 07-31-2024 18:05-0400 Diastolic blood pressure 72 mm[Hg] Tian Evans MD Work Phone: 7(734)926-945748 [place] [address] 07-31-2024 18:05-0400 Heart rate 75 /min Tian Evans MD Work Phone: 4(901)432-640848 [place] [address] 07-31-2024 18:05-0400 Respiratory rate 16 /min Tian Evans MD Work Phone: [facility] 07-31-2024 18:05-0400 SaO2% (BldA) [Mass fraction] 96 % Tian Evans MD Work Phone: [facility] 07-31-2024 18:05-0400 Systolic blood pressure 155 mm[Hg] Tian Evans MD Work Phone: [facility] 07-31-2024 17:45-0400 Inhaled oxygen flow rate 0 L/min Tian Evans MD Work Phone: 1(252)870-749148 [place] [address] 07-31-2024 16:28-0400 Body height 175.26 cm Tian Evans MD Work Phone: [facility] 07-31-2024 16:28-0400 Body mass index (BMI) [Ratio] 35.9 kg/m2 Tian Evans MD Work Phone: [facility] 07-31-2024 16:28-0400 Body weight 110.2 kg Tian Evans MD Work Phone: [phone])[phone] [place] [address] 07-19-2024 09:13-0400 Heart rate 77 /min Tian Evans MD Work Phone: 8(754)[phone] [address] 07-19-2024 09:08-0400 Body temperature 98 [degF] Tian Evans MD Work Phone: 3(953)[phone] [address] 07-19-2024 09:08-0400 Diastolic blood pressure 52 mm[Hg] Tian Evans MD Work Phone: 3(968)630-780040 [place] [address] 07-19-2024 09:08-0400 Respiratory rate 18 /min Tian Evans MD Work Phone: 4(137)[phone] [address] 07-19-2024 09:08-0400 SaO2% (BldA) [Mass fraction] 97 % Tian Evans MD Work Phone: 7(668)599-302005 [address] 07-19-2024 09:08-0400 Systolic blood pressure 120 mm[Hg] Tian Evans MD Work Phone: 3([phone])874-483540 [place] [address] 07-18-2024 06:13-0400 Body mass index (BMI) [Ratio] 30.7 kg/m2 Tian Evans MD Work Phone: 7(243)052-014848 [place] [address] 07-18-2024 06:13-0400 Body weight 94 kg Tian Evans MD Work Phone: 5(610)408-430540 [place] [address] 07-17-2024 20:08-0400 Inhaled oxygen flow rate 2 L/min Tian Evans MD Work Phone: 9(286)837-383248 [place] [address] 07-17-2024 13:26-0400 Body height 175.01 cm Tian Evans MD Work Phone: 7(921)752-700148 [place] [address] 07-16-2024 18:00-0400 Body temperature 97.8 [degF] Tian Evasn MD Work Phone: [facility] 07-16-2024 18:00-0400 Diastolic blood pressure 76 mm[Hg] Tian Evans MD Work Phone: [facility] 07-16-2024 18:00-0400 Heart rate 66 /min Tian Evans MD Work Phone: 1(848)880-709648 [place] [address] 07-16-2024 18:00-0400 Respiratory rate 18 /min Tian Evans MD Work Phone: 1(802)502-467948 [place] [address] 07-16-2024 18:00-0400 SaO2% (BldA) [Mass fraction] 100 % Tian Evans MD Work Phone: 7(163)001-482748 [place] [address] 07-16-2024 18:00-0400 Systolic blood pressure 138 mm[Hg] Tian Evans MD Work Phone: [facility] 07-16-2024 16:20-0400 Body height 175.26 cm Tian Evans MD Work Phone: 5(599)864-318448 [place] [address] 07-16-2024 16:20-0400 Body mass index (BMI) [Ratio] 32.1 kg/m2 Tian Evans MD Work Phone: [facility] 07-16-2024 16:20-0400 Body weight 98.8 kg Tian Evans MD Work Phone: [facility] 05-08-2024 07:20-0500 Body height 175.3 cm Rosalee Malave APRN-AUTOMOBILE WRECKER Work Phone: [facility] 05-08-2024 07:20-0500 Body mass index (BMI) [Ratio] 30.21 kg/m2 Rosalee Malvae APRN-AUTOMOBILE WRECKER Work Phone: [facility] 05-08-2024 07:20-0500 Body temperature 97.39 [degF] Rosalee Malave APRN-AUTOMOBILE WRECKER Work Phone: [facility] 05-08-2024 07:20-0500 Body weight 92.81 kg Rosalee Ananda [employer] ARTIST-AUTOM[employer]BILE W[employer]CKER Work Phone: [facility] 05-08-2024 07:20-0500 Diastolic blood pressure 80 mm[Hg] Rosalee Ananda [employer] ARTIST-AUTOM[employer]BI[employer] W[employer]CKER Work Phone: [facility] 05-08-2024 07:20-0500 Heart rate 66 /min Rosalee Ananda [employer] ARTIST-AUTOM[employer]BILE WRECKER Work Phone: [facility] 05-08-2024 07:20-0500 Respiratory rate 18 /min Rosalee Ananda [employer] ARTIST-AUTOM[employer]BI[employer] W[employer]CKER Work Phone: [facility] 05-08-2024 07:20-0500 SaO2% (BldA) [Mass fraction] 97 % Rosalee Ananda [employer] ARTIST-AUTOMOBILE WRECKER Work Phone: [facility] 05-08-2024 07:20-0500 Systolic blood pressure 122 mm[Hg] Rosalee Ananda [employer] ARTIST-AUTOM[employer]BILE WRECKER Work Phone: [facility] 10-22-2023 12:58-0400 Body height 175.3 cm Rosalee Ananda [employer] ARTIST-AUT[employer] W[employer]ER Work Phone: [facility] 10-22-2023 12:58-0400 Body mass index (BMI) [Ratio] 32.13 kg/m2 Rosalee Ananda [employer] ARTIST-AUTOMOBILE WRECKER Work Phone: [facility] 10-22-2023 12:58-0400 Body temperature 98.29 [degF] Rosalee Ananda [employer] ARTIST-AUTOMOBILE WRECKER Work Phone: [facility] 10-22-2023 12:58-0400 Body weight 98.7 kg Rosalee Ananda [employer] ARTIST-AUTOM[employer]BI[employer] W[employer]ER Work Phone: [facility] 10-22-2023 12:58-0400 Diastolic blood pressure 86 mm[Hg] Rosalee Ananda [employer] ARTIST-AUTOMOBI[employer] W[employer]CKER Work Phone: [facility] 10-22-2023 12:58-0400 Heart rate 60 /min Rosalee Malave [employer] ARTIST-AUTOM[employer]BI[employer] W[employer]ER Work Phone: [facility] 10-22-2023 12:58-0400 Respiratory rate 14 /min Rosalee Malave [employer] ARTIST-AUTOMOBILE WRECKER Work Phone: [facility] 10-22-2023 12:58-0400 SaO2% (BldA) [Mass fraction] 98 % Rosalee Malave [employer] ARTIST-AUTOMOBILE WRECKER Work Phone: [facility] 10-22-2023 12:58-0400 Systolic blood pressure 152 mm[Hg] Rosalee Malave [employer] ARTIST-AUTOMOBILE WRECKER Work Phone: [facility] 04-03-2023 08:07-0500 Body height 175.3 cm Coby Rush [employer] ARTIST-AUTOMOBILE WRECKER Work Phone: [facility] 04-03-2023 08:07-0500 Body mass index (BMI) [Ratio] 39.52 kg/m2 Coby Dunnk [employer] ARTIST-AUTOMOBILE WRECKER Work Phone: [facility] 04-03-2023 08:07-0500 Body temperature 97.5 [degF] Coby Dunnk [employer] ARTIST-AUTOMOBILE W[employer]CKER Work Phone: [facility] 04-03-2023 08:07-0500 Body weight 121.38 kg Coby Rush [employer] ARTIST-AUTOMOBILE WRECKER Work Phone: [facility] 04-03-2023 08:07-0500 Diastolic blood pressure 70 mm[Hg] Coby Szymanskiubashilohk [employer] ARTIST-AUTOMOBILE WRECKER Work Phone: [facility] 04-03-2023 08:07-0500 Heart rate 71 /min Coby Szymanskiubachik [employer] ARTIST-AUTOM[employer]BILE W[employer]CKER Work Phone: [facility] 04-03-2023 08:07-0500 Respiratory rate 12 /min Coby Szymanskiubachik [employer] ARTIST-AUTOMOBILE WRECKER Work Phone: [facility] 04-03-2023 08:07-0500 SaO2% (BldA) [Mass fraction] 97 % Coby Szymanskiubachik [employer] ARTIST-AUTOMOBILE WRECKER Work Phone: [facility] 04-03-2023 08:07-0500 Systolic blood pressure 128 mm[Hg] Coby Szymanskiubachik [employer] ARTIST-AUTOMOBILE WRECKER Work Phone: [employer] [facility] 09-22-2021 09:21-0400 Diastolic blood pressure 70 mm[Hg] Coby Szymanskiubachik [employer] ARTIST-AUTOMOBILE WRECKER Work Phone: [employer] [facility] 09-22-2021 09:21-0400 Systolic blood pressure 128 mm[Hg] Coby Szymanskiubachik [employer] ARTIST-AUTOMOBILE WRECKER Work Phone: [facility] 09-22-2021 08:41-0400 Body height 175.3 cm Coby Dunnk [employer] ARTIST-AUTOMOBILE WRECKER Work Phone: [facility] 09-22-2021 08:41-0400 Body mass index (BMI) [Ratio] 39.72 kg/m2 Coby Szymanskiubashilohk [employer] ARTIST-AUTOMOBILE WRECKER Work Phone: [facility] 09-22-2021 08:41-0400 Body temperature 97 [degF] Coby Szymanskiubachik [employer] ARTIST-AUTOMOBILE WRECKER Work Phone: [employer] [facility] 09-22-2021 08:41-0400 Body weight 122.02 kg Coby Szymanskiubachik [employer] ARTIST-AUTOMOBILE WRECKER Work Phone: [facility] 09-22-2021 08:41-0400 Heart rate 57 /min Coby Szymanskiubachik [employer] ARTIST-AUTOMOBILE WRECKER Work Phone: [facility] 09-22-2021 08:41-0400 Respiratory rate 18 /min Coby Szymanskiubachik [employer] ARTIST-AUTOMOBILE WRECKER Work Phone: [facility] 09-22-2021 08:41-0400 SaO2% (BldA) [Mass fraction] 97 % Coby Szymanskiubachik [employer] ARTIST-AUTOMOBILE WRECKER Work Phone: [facility] 05-31-2021 07:50-0400 Body height 175.3 cm Coby Rush [employer] ARTIST-AUTOMOBILE WRECKER Work Phone: [employer] 05-31-2021 07:50-0400 Body mass index (BMI) [Ratio] 40.08 kg/m2 Coby Rush [employer] ARTIST-AUTOMOBILE W[employer]ER Work Phone: [employer] 05-31-2021 07:50-0400 Body temperature 97.9 [degF] Coby Rush [employer] ARTIST-AUTOMOBI[employer] W[employer]ER Work Phone: [employer] 05-31-2021 07:50-0400 Body weight 123.09 kg Coby Rush [employer] ARTIST-AUT[employer] W[employer]ER Work Phone: [employer] 05-31-2021 07:50-0400 Diastolic blood pressure 78 mm[Hg] Coby Dunnk [employer] ARTIST-AUTOMOBILE WRECKER Work Phone: [employer] 05-31-2021 07:50-0400 Heart rate 57 /min Coby Rush [employer] ARTIST-AUT[employer] W[employer]ER Work Phone: [employer] 05-31-2021 07:50-0400 Respiratory rate 18 /min Coby Rush [employer] ARTIST-AUTOM[employer]BI[employer] W[employer]ER Work Phone: [employer] 05-31-2021 07:50-0400 SaO2% (BldA) [Mass fraction] 98 % Coby Rush [employer] ARTIST-AUTOMOBILE WRECKER Work Phone: [employer] 05-31-2021 07:50-0400 Systolic blood pressure 142 mm[Hg] Coby Rush [employer] ARTIST-AUTOMOBILE WRECKER Work Phone: [facility] 08-05-2019 09:50-0400 BP Diastolic 82 mm[Hg] Hank [place] , [place] 08-05-2019 09:50-0400 BP Systolic 129 mm[Hg] Hank [place] , [place] 08-05-2019 09:50-0400 Pulse (Heart Rate) 79 /min Hank [place] 08-05-2019 09:50-0400 Pulse Oximetry 95 % Hank Catherine [facility] , [place] 08-05-2019 09:50-0400 Respiratory Rate 16 /min Hank Catherine [facility], [place] 08-05-2019 08:48-0400 Body Temperature 97.59 [degF] Hank Catherine [facility] , [place] 08-05-2019 06:22-0400 BMI (Body Mass Index) 36.79 kg/m2 Hank Rome [facility], [place] 08-05-2019 06:22-0400 Body weight 113 [facility] [place] 08-05-2019 06:22-0400 Height 175.3 cm Hank [place] , [place] Encounters Encounter Date Encounter Type Care Provider Facility Start: 08-07-2024 Encounter for other preprocedural examination Eloy [facility] Start: 08-07-2024 Evaluation and manag [facility]ment of [facility] Facility[facility] Start: 07-31-2024 End: 07-31-2024 Emergency department patient visit Tian Evans MD Work Phone: -Emergency Department Work Phone: Start: 07-19-2024 Non-patient / Non-visit Dr. Marcus layton [facility] Work Phone: Start: 07-18-2024 Non-patient / Non-visit Dr. Marcus layton [facility] Work Phone: Start: 07-17-2024 Non-patient / [facility] Work Phone: Start: 07-16-2024 ambulatory LEONOR Ruby [facility] Facility:[facility] Start: 07-16-2024 End: 07-19-2024 Evaluation and management of inpatient Dr. Mayi Avendaño MD -Medical Surgical 3 Work Phone: Start: 05-08-2024 ambulatory ROSALEE Sims ANANDA [facility] Start: 05-08-2024 End: 05-08-2024 Office outpatient visit 25 minutes Rosalee Malave [employer] B[employer] ARTIST-AUTOMOBI[employer] WRECKER Work Phone: [facility] Comment on above: Essential hypertensi on, benign (Primary Dx); Mixed hyperlipidemia; Type 2 diabetes mellitus without complication, without long-term current use of insulin Start: 10-22-2023 End: 10-22-2023 Office outpatient visit 25 minutes Cobyrian VazquezapiOmatlori [employer] ARTIST-AUTOMOBILE WRECKER [facility] Comment on above: Essential hypertensi on, benign (Primary Dx); Mixed hyperlipidemia; Gastroesophageal reflux disease without esophagitis; Chronic midline low back pain with left-sided sciatica; Murmur, cardiac Start: 10-22-2023 ambulatory [facility] Start: 04-03-2023 End: 04-03-2023 Office outpatient visit 40 minutes Cobyrian VazquezapiOmatlori [employer] ARTIST-AUT[employer] W[employer]CKER Work Phone: [facility] Comment on above: Mixed hyperlipidemia (Primary Dx); Type 2 diabetes mellitus without complication, without long-term current use of insulin; Essential hypertension, benign; Gastroesophageal reflux disease without esophagitis Start: 09-22-2021 End: 09-22-2021 Office outpatient visit 40 minutes [facility]o [facility] [employer] ARTIST-AUTOMOBILE WRECKER Work Phone: [facility] Comment on above: Anemia, unspecified type (Primary Dx); Hyponatremia; Gastroesophageal reflux disease, unspecified whether esophagitis present; Chronic left-sided low back pain with left-sided sciatica; Chronic left-sided thoracic back pain; Prediabetes; Mixed hyperlipidemia; Essential hypertension, benign Start: 05-31-2021 End: 05-31-2021 Office outpatient visit 40 minutes Coby Albaro [employer] BODY ARTIST-AUTOMOBILE WRECKER Work Phone: [facility] Comment on above: Benign hypertension (Primary Dx); Mixed hyperlipidemia; Heartburn; Prediabetes Start: 08-05-2019 End: 08-05-2019 Patient encounter procedure HANK CATHERINE [facility] Start: 08-05-2019 End: 08-05-2019 Subsequent hospital visit by physician Hank Catherine Work Phone: [facility] Comment on above: Post-operative state (Primary Dx) Start: 08-03-2019 End: 08-08-2019 Patient encounter procedure ANTONIAMARCI KINCAID [facility] Start: 08-03-2019 End: 08-07-2019 Subsequent hospital visit by physician Maribeth Leon 4 MARY PRE-ADMIT TESTING Start: 07-05-2017 Ambulatory [facility] Start: 03-22-2017 Ambulatory [facility] Procedures Date Procedure Procedure Detail Performing Clinician [...] Lipid 1996 panel - Serum or Plasma [facility] T[employer] B[employer] ARTIST-AUTOMOBILE WRECKER Work Phone: Start: 08-05-2019 INITIATE OXYGEN THERAPY [...] IV HANK DORENE Start: 08-05-2019 TELEMETRY MONITORING HANK CATHERINE Start: 08-05-2019 Gluc bld gluc mntr dev cleared fda spec home use HANK DORENE Start: 08-05-2019 Urine test visual color cmprsn meths HANK DEXTERLER Start: 08-05-2019 VITAL SIGNS HANK DORENE Start: 08-03-2019 COVID-19 NILSA GONCALVESGUI Start: 08-03-2019 COVID-19 AntoniaYomaira Kincaid Work Phone: Start: 08-02-2019 COVID-19 NILSA KINCAID Start: 07-08-2017 H/O: artificial joint Knee joint replacement status Coby Rush [employer] ARTIST-[employer] Work Phone: Start: 07-08-2017 History of operative procedure on knee Knee joint replacement status Coby Rush [employer]ODY ARTIST-[facility] Work Phone: Plan of Treatment Date Care Activity Detail Author Start: 2032 RSV VACCINE (1 - 1-d ose 75+ series) RSV VACCINE (1 - 1-dose 75+ series) [facility] Start: 07-23-2028 Tetanus vaccination TETANUS [facility] Start: 05-19-2026 Fasting lipid profile LIPID SCREENIN G [facility] Start: 05-08-2025 Screening for malign ant neoplasm of breast MAMMOGRAM SCREENING DISCUSSION [facility] Start: 05-08-2025 Screening for malign ant neoplasm of colon COLORECTAL CANCER SCREENING DISCUSSION [facility] Start: 05-08-2025 Screening for osteoporosis DEXA SCAN DISCUSSION [facility] Start: 03-17-2025 Glaucoma screening EYE EXAM [facility] Start: 12-04-2024 End: 12-04-2024 Patient encounter procedure 12/04/2024 7:00 AM EDT Office Visit [facility] [address] [place] [facility] [place] [address] Rosalee Malave, [employer] ARTIST-[employer]BI[employer] WRECKER [address] [place] [address] [facility] Start: 07-19-2024 Patient discharge [facility] Start: 07-18-2024 [facility] Start: 07-18-2024 [facility] Start: 07-18-2024 [facility] Start: 07-18-2024 [facility] Start: 07-18-2024 [facility] Start: 07-18-2024 [facility] Start: 07-18-2024 [facility] Start: 07-18-2024 [facility] Start: 07-18-2024 [facility] Start: 07-18-2024 [facility] Start: 07-17-2024 [facility] Start: 07-17-2024 [facility] Start: 07-17-2024 Provision of overbed trapeze [facility] Start: 07-17-2024 End: 07-17-2024 [facility] Start: 07-17-2024 Recommendation to continue with treatment [facility] Start: 07-17-2024 Ambulation therapy management [facility] Start: 07-17-2024 Application of device W [facility] Start: 07-17-2024 Assessment of risk o f venous thromboembolism [facility] Start: 07-17-2024 Catheterization of vein [facility] Start: 07-17-2024 Exercises [facility] Start: 07-17-2024 Following clinical pathway protocol [facility] Start: 07-17-2024 Introduction of urin sanjana catheter [facility] Start: 07-17-2024 Measuring intake and output [facility] Start: 07-17-2024 Neurovascular assessment [facility] Start: 07-17-2024 Patient education [facility] Start: 07-17-2024 Procedure discontinued [facility] Start: 07-17-2024 Provision of activit y privileges [facility] Start: 07-17-2024 Referral to occupati onal therapist [facility] Start: 07-17-2024 Referral to service [facility] Start: 07-17-2024 Vital signs measurements [facility] Start: 07-17-2024 Wound care [facility] Start: 07-17-2024 Measuring intake and output [facility] Start: 07-17-2024 Measuring intake and output [facility] Start: 07-17-2024 Measuring intake and output [facility] Start: 07-16-2024 Application of intermittent pneumatic compression device [facility] Start: 07-16-2024 Following clinical pathway protocol [facility] Start: 07-16-2024 Application of ice collar, cap or bag [facility] Start: 07-16-2024 Assessment of risk o f venous thromboembolism [facility] Start: 07-16-2024 Bedrest [facility] Start: 07-16-2024 Consultation [facility] Start: 07-16-2024 Fall prevention [facility] Start: 07-16-2024 Inhalation therapy procedure [facility] Start: 07-16-2024 Insertion of cathete r into peripheral vein [facility] Start: 07-16-2024 Introduction of urin sanjana catheter [facility] Start: 07-16-2024 Neurovascular assessment [facility] Start: 07-16-2024 Oxygen therapy [facility] Start: 07-16-2024 Providing care accor ding to standard [facility] Start: 07-16-2024 Provision of activit y privileges [facility] Start: 07-16-2024 Referral to occupati onal therapist [facility] Start: 07-16-2024 Referral to service [facility] Start: 07-16-2024 Skin care [facility] Start: 07-16-2024 Measuring intake and output [facility] Start: 07-16-2024 End: 07-16-2024 [facility] Start: 07-16-2024 Admission procedure [facility] Start: 07-16-2024 Verification routine [facility] Start: 07-16-2024 Hospital admission, emergency, from emergency room, medical nature [facility] Start: 07-16-2024 End: 07-16-2024 [facility] Start: 05-06-2024 End: 05-06-2025 Complete blood count with white cell differential, automated CBC, EDIF, PLATELET Lab Routine Essential hypertension, benign Mixed hyperlipidemia Expected: 05/06/2024, Expires: 05/06/2025 [facility] Comment on above: Expected: 05/06/2024 , Expires: 05/06/2025 Start: 05-06-2024 End: 05-06-2025 Comprehensive metabolic 2000 panel - Serum or Plasma COMPREHENSIVE METABOLIC PANEL Lab Routine Mixed hyperlipidemia Type 2 diabetes mellitus without complication, without long-term current use of insulin Expected: 05/06/2024, Expires: 05/06/2025 [facility] Comment on above: Expected: 05/06/2024 , Expires: 05/06/2025 Start: 05-06-2024 End: 05-06-2025 Hemoglobin A1c/Hemoglobin.total in Blood HEMOGLOBIN A1C Lab Routine Type 2 diabetes mellitus without complication, without long-term current use of insulin Expected: 05/06/2024, Expires: 05/06/2025 [facility] Comment on above: Expected: 05/06/2024 , Expires: 05/06/2025 Start: 05-06-2024 End: 05-06-2025 LIPID PANEL W CALCULATED LDL LIPID PANEL W CALCULATED LDL Lab Routine Mixed hyperlipidemia Expected: 05/06/2024, Expires: 05/06/2025 [facility] Comment on above: Expected: 05/06/2024 , Expires: 05/06/2025 Start: 05-06-2024 End: 05-06-2025 MICROALBUMIN,RANDOM URINE MICROALBUMIN,RANDOM URINE Fluids Routine Type 2 diabetes mellitus without complication, without long-term current use of insulin Expected: 05/06/2024, Expires: 05/06/2025 [facility] Comment on above: Expected: 05/06/2024 , Expires: 05/06/2025 Start: 04-30-2024 End: 04-30-2024 Patient encounter procedure 04/30/2024 7:00 AM EST Office Visit [facility] [address] [place] [address] Rosalee Malave, [employer] ARTIST-[employer] [address] [place] [address] [place] [address] [facility] Start: 04-03-2024 Diabetic foot examination DIABETIC F OOT EXAM [facility] Start: 03-12-2024 Screening for osteoporosis DEXA SCAN DISCUSSION [facility] Start: 01-17-2024 Glaucoma screening EYE EXAM [facility] Start: 11-03-2023 Influenza vaccination INFLUENZA VACC INE (#1) [facility] Start: 10-22-2023 End: 10-21-2024 Complete blood count with white cell differential, automated CBC, EDIF, PLATELET Lab Routine Essential hypertension, benign Mixed hyperlipidemia Expected: 10/22/2023, Expires: 10/21/2024 [facility] Comment on above: Expected: 10/22/2023 , Expires: 10/21/2024 Start: 10-22-2023 End: 10-21-2024 Comprehensive metabolic 2000 panel - Serum or Plasma COMPREHENSIVE METABOLIC PANEL Lab Routine Essential hypertension, benign Mixed hyperlipidemia Expected: 10/22/2023, Expires: 10/21/2024 [facility] Comment on above: Expected: 10/22/2023 , Expires: 10/21/2024 Start: 10-22-2023 End: 10-21-2024 LIPID PANEL W CALCULATED LDL LIPID PANEL W CALCULATED LDL Lab Routine Mixed hyperlipidemia Expected: 10/22/2023, Expires: 10/21/2024 [facility] Comment on above: Expected: 10/22/2023 , Expires: 10/21/2024 Start: 08-07-2023 Screening for malign ant neoplasm of colon COLORECTAL CANCER SCREENING DISCUSSION [facility] Start: 07-26-2023 Screening for malign ant neoplasm of breast MAMMOGRAM SCREENING DISCUSSION [facility] Start: 07-16-2023 End: 07-16-2023 Patient encounter procedure 07/16/2023 1:00 PM EDT Office Visit [facility] [address] [place] [address] Coby Rush APRN-AUTOMOBILE WRECKER [address] [place] [address] [facility] Start: 04-23-2023 COVID-19 VACCINE ( season) COVID-19 VACCINE ( season) [facility] Start: 05-31-2022 Colonoscopy COLORECTAL CAN CER SCREENING DISCUSSION [facility] Start: 05-31-2022 Screening mammography MAMMOGRA M SCREENING DISCUSSION [facility] Start: 03-16-2022 End: 03-16-2022 Patient encounter procedure 03/16/2022 Office Visit Family Medicine Coby Rush APRN-AUTOMOBILE WRECKER [address] [place] [address] [facility] Start: 11-02-2021 Influenza vaccination INFLUENZA VACC INE (#1) [facility] Start: 08-31-2021 Potassium [Moles/vol ume] in Serum or Plasma POTASSIUM [facility] Start: 08-30-2021 End: 08-30-2021 Patient encounter procedure 08/30/2021 Office Visit Family Medicine Coby Rush APRN-AUTOMOBILE WRECKER [address] [place] [address] [facility] Start: 05-10-2021 COVID-19 VACCINE (4 - Booster for Moderna series) COVID-19 VACCINE (4 - Booster for Moderna series) [facility] Start: 08-12-2019 End: 08-12-2019 Office Visit 08/12/2019 Office Visit Plastic Surgery Hank Catherine MD [address] [place] [address] [facility] Start: 04-19-2019 Shingles Vaccine (2 of 2) Aceves gles Vaccine (2 of 2) [facility], [place] Start: 08-12-2018 Potassium [Moles/vol ume] in Serum or Plasma POTASSIUM [facility] Start: 12-20-2017 Hemoglobin A1c measurement HBA1C TEST [facility] Start: 2017 RSV VACCINE (1 - 1-d ose 60+ series) RSV VACCINE (1 - 1-dose 60+ series) [facility] Start: 06-09-2016 Creatinine measurement Creatinine mo nitoring [place], [place] Start: 06-09-2016 Potassium monitoring Potassium monit [place]ing [place] Start: 07-03-2007 Screening for malign ant neoplasm of breast Breast cancer screen [place] Start: 07-03-2007 Screening for malign ant neoplasm of colon Colon cancer screen colonoscopy [place], [place] Start: 1997 Diabetes screen Diabetes screen [place], [place] Start: 1978 Screening for malign ant neoplasm of cervix Cervical cancer screen [place] Start: 1976 DTaP/Tdap/Td vaccine (1 - Tdap) DTaP/Tdap/Td vaccine (1 - Tdap) [place] Start: 1972 HIV screening HIV screen [place], [place] Start: 07-03-1967 Lipid panel Lipid screen [place], [place] Start: 1957 Hepatitis C screening Hepatitis C sc reen [place], [place] Start: 1957 Lipid panel LIPIDS [facility] Start: 1957 Urine screening for protein URINE MICROALBUMIN TEST [facility] End: 08-05-2019 Blood glucose - POCT Blood glucose - POCT Point of Care Testing Routine One Time for 1 Occurrences starting 08/05/2019 until 08/05/2019 [place] Comment on above: One Time for 1 Occur rences starting 08/05/2019 until 08/05/2019 Complete blood count with white cell differential, automated CBC, EDIF, PLATELET Lab Routine Anemia, unspecified type Ordered: 09/22/2021 [facility] Comment on above: Ordered: 09/22/2021 Comprehensive metabo lic 2000 panel - Serum or Plasma COMPREHENSIVE METABOLIC PANEL Lab Routine Hyponatremia Ordered: 09/22/2021 [facility] Comment on above: Ordered: 09/22/2021 End: 08-03-2019 COVID-19 COVID-19 Lab Routine One Time for 1 Occurrences starting 08/03/2019 until 08/03/2019 [facility] Comment on above: One Time for 1 Occur rences starting 08/03/2019 until 08/03/2019 Ferritin [Mass/volum e] in Serum or Plasma FERRITIN Lab Routine Anemia, unspecified type Ordered: 09/22/2021 [facility] Comment on above: Ordered: 09/22/2021 Hemoglobin A1c/Hemoglobin.total in Blood HEMOGLOBIN A1C Lab Routine Prediabetes Ordered: 09/22/2021 [facility] Comment on above: Ordered: 09/22/2021 Hemoglobin A1c/Hemoglobin.total in Blood HEMOGLOBIN A1C Lab Routine Type 2 diabetes mellitus without complication, without long-term current use of insulin Ordered: 04/03/2023 [facility] Comment on above: Ordered: 04/03/2023 Initiate Oxygen Ther apy Protocol Initiate Oxygen Therapy Protocol Respiratory Care Routine Daily until discontinued starting 08/05/2019 [facility] Comment on above: Daily until disconti nued starting 08/05/2019 LIPID PANEL W CALCUL ATED LDL LIPID PANEL W CALCULATED LDL Lab Routine Mixed hyperlipidemia Ordered: 04/03/2023 [facility] Comment on above: Ordered: 04/03/2023 Patient Education ED Hip Replace Dislocation Reduc [facility] Work Phone: Patient referral [facility] Work Phone: Phase I & II - meter ed glucose Phase I & II - metered glucose Point of Care Testing Routine As Needed until discontinued starting 08/05/2019 [facility] Comment on above: As Needed until disc ontinued starting 08/05/2019 Potassium [Moles/vol ume] in Serum or Plasma POTASSIUM Lab Routine Benign hypertension Mixed hyperlipidemia Heartburn Prediabetes Ordered: 05/31/2021 [facility] Comment on above: Ordered: 05/31/2021 End: 08-05-2019 , urine POCT , urine POCT Point of Care Testing Routine One Time for 1 Occurrences starting 08/05/2019 until 08/05/2019 [facility] Comment on above: One Time for 1 Occur rences starting 08/05/2019 until 08/05/2019 Surgical Pathology Surgical Path ology Lab Routine Release Upon Ordering for 1 Occurrences starting 08/05/2019 [facility], [place] Comment on above: Release Upon Orderin g for 1 Occurrences starting 08/05/2019 Troponin T.cardiac [Mass/volume] in Serum or Plasma by High sensitivity method [facility] Troponin T.cardiac [Mass/volume] in Serum or Plasma by High sensitivity method [facility] Immunizations Immunization Date Immunization Notes Care Provider [facility] 12-21-2022 influenza virus vaccine, unspecified formulation Rosalee Ananda TATT[employer] AND BODY ARTIST-AUTOMOBILE WRECKER Work Phone: [facility] 07-25-2022 Pneumococcal Conjuga te 20-Valent Vaccine Coby Trubachik [employer] ARTIST-AUTOMOBILE WRECKER Work Phone: [facility] 07-25-2022 pneumococcal Conjuga te, unspecified formulation Rosalee Ananda [employer] ARTIST-AUTOMOBILE WRECKER Work Phone: [facility] 07-07-2021 COVID-19 monovalent vaccine, mRNA, Moderna, 50 mcg/0.25 mL booster Coby Trubachik [employer] ARTIST-AUTOMOBILE WRECKER Work Phone: [facility] 01-10-2021 COVID-19 vaccine, mR NA, Moderna 0.5 ML Coby Trubachik [employer] ARTIST-AUTOMOBILE WRECKER Work Phone: [facility] 11-17-2020 Seasonal, quadrivale nt, recombinant, injectable influenza vaccine, preservative free Coby Trubachik [employer] ARTIST-AUTOMOBILE WRECKER Work Phone: [facility] 11-17-2020 influenza virus vaccine, unspecified formulation Coby Trubachik [employer]ATT[employer] B[employer] ARTIST-AUTOMOBILE WRECKER Work Phone: [facility] 06-01-2020 COVID-19 vaccine, mR NA, Moderna 0.5 ML Coby Trubachik [employer] ARTIST-AUTOMOBILE WRECKER Work Phone: [facility] 05-04-2020 COVID-19 vaccine, mR NA, Moderna 0.5 ML Cboy Trubachik [employer] ARTIST-AUTOMOBILE WRECKER Work Phone: [facility] 11-20-2019 influenza, injectabl e, quadrivalent, preservative free Coby Trubachik [employer] ARTIST-AUTOMOBILE WRECKER Work Phone: [facility] 08-11-2019 zoster vaccine recombinant Coby Georgechik [employer] B[employer] ARTIST-AUTOMOBILE WRECKER Work Phone: [facility] 02-22-2019 zoster vaccine recombinant Ocby Trubachik [employer]ATT[employer] BODY ARTIST-AUTOMOBILE WRECKER Work Phone: [facility] 01-20-2019 influenza, injectabl e, quadrivalent, preservative free Coby Trubachik [employer] ARTIST-AUTOMOBILE WRECKER Work Phone: [facility] Payers Date Payer Category Payer Medicare [id number] 2024 Self-pay 2015 Unknown [employer] [address] xxxxxxxxxxxx 2015-Present [phone] [address] [place] [address] [id number] 2014 Managed Care (unspecified) MMO [id number] 2014 Unknown [employer] [place] [id number] 2014-Present [address] [place] [address] [id number] 2014 Unknown [id number] 1955 Unknown [id number]. 175 1957 Unknown [id number]. 177 1957 Unknown [id number]. 983 1957 Unknown [id number]. 983 Unknown [id number] 2.16.840.1.074273.3.579.2. 462 Unknown [id number] [id number]. 462 Unknown [id number] [id number]. 462 Unknown [id number] 2.16.840.1.925323.3.579.2. 462 Unknown [id number] [id number]. 462 Unknown [id number] [id number]. 462 Unknown [id number]. 462 Social History Date Type Detail Facility Start: 08-05-2019 End: 07-31-2024 Tobacco smoking status NHIS Never smoker [place] Start: 08-05-2019 End: 08-06-2019 Alcohol intake Current drinker of alcohol (finding) [place] Start: 06-10-2015 Alcohol Comment Social drinker [place] Start: 1955 Sex Assigned At Not on file [place] Exposure to SARS-CoV-2 (event) Unable to assess [place] Start: 10-26-2016 End: 07-25-2022 Tobacco use and exposure Smokeless tobacco non-user [facility] Start: 05-31-2021 End: 05-08-2024 Alcohol intake Current non-drinker of alcohol (finding) [facility] Start: 04-03-2023 End: 05-08-2024 History of Social function [facility] Start: 04-03-2023 End: 05-08-2024 Tobacco use panel [facility] Start: 08-22-2016 Gender identity Identifies as female gender (finding) [facility] Start: 04-06-2012 Sex Female (finding) [facility] Start: 1955 Sex Assigned At Female [facility] NEGATED: Highlighted row Not [facility] Medical Equipment Procedure Code Equipment Code Equipment Origin al Text Equipment Identifier Dates Minimally invasive total replacement of hip joint by anterior approach Ceramic Femoral Head FDA Start: 07-17-2024 Minimally invasive total replacement of hip joint by anterior approach Hip Stem FDA Start: 07-17-2024 Minimally invasive total replacement of hip joint by anterior approach ([id number]) Non-constrained polyethylene acetabular liner ()[id number] FDA Start: 07-17-2024 Minimally invasive total replacement of hip joint by anterior approach ([id number]) Acetabular shell ()[id number] FDA Start: 07-17-2024 Insert - Knee - [id number] Start: 07-08-2017 Attune Knee Syst em Revision Tibial Base Fixed Bearing Size 5 Cemented [id number] Start: 07-08-2017 Attune Femoral Cruciate Retaining Size 6 Left Cemented [id number] Start: 07-08-2017 Attune Patella Medialized Dome 35mm Cemented [id number] Start: 07-08-2017 Palacos R Bone Cement [id number] Start: 07-08-2017 Goals Date Patient Goal Desired Activity /State Functional Status Date Assessment Result Facility 07-19-2024 Functional status Chair [facility] Work Phone: 07-19-2024 Functional status Assistive Radhika dalia Standard Walker [facility] Work Phone: 07-08-2017 Are you deaf, or do you have serious difficulty hearing No 07/08/2017 8:13 AM Divina Manzo RN No [facility] 07-08-2017 Are you blind, or do you have serious difficulty seeing, even when wearing glasses No 07/08/2017 8:13 AM Divina Manzo RN [facility] 07-08-2017 Do you have serious difficulty walking or climbing stairs No 07/08/2017 8:13 AM Divina Manzo RN [facility] 07-08-2017 Do you have difficul ty dressing or bathing No 07/08/2017 8:13 AM Divina Manzo RN [facility] 07-08-2017 Because of a physica l, mental, or emotional condition, do you have difficulty doing errands alone such as visiting a physician's office or shopping No 07/08/2017 8:13 AM Divina Manzo RN [facility] Mental Status Date Assessment Result Facility 07-31-2024 Cognitive function Awake;Alert;A [facility] Work Phone: 07-19-2024 Cognitive function Voice/Name [facility] Work Phone: 07-08-2017 Because of a physica l, mental, or emotional condition, do you have serious difficulty concentrating, remembering, or making decisions No 07/08/2017 8:13 AM Divina Manzo RN [facility] Clinical Notes 05-31-2021 to 07-31-2024 Note Date & Type Note Facility 07-31-2024 Radiology Diagnostic study note [facility] Imaging Services [address] [place] [address] [id number] Hip Min 2 Views (Portable) MR#: [id number] Acct: [id number] Name: EFRAIN GILLIAM Rep #: [id number] : 1955 F 69 From: Riri Marcus MD PCP: BEVERLEY WALKER Status: REG ER Study:Hip Min 2 Views (Portable) Date of Exam : 07/31/24 Exam# [id number] Ordering Dr: April Silva DO PROCEDURE: HIP MIN 2 VIEWS (PORTABLE) 07/31/2024 REASON FOR EXAM: POST REDUCTION TECHNIQUE: One (1) view of the right hip COMPARISON: 07/31/2024 RAD/Hip Min 2 Views (Portable) IMPRESSION: Total right hip prosthesis status post reduction with interval resolution of prosthetic dislocation. No hardware complications. No acute fracture or dislocations. Reading Location: [id number] CC: Dr. Arelis Silva DO; BEVERLEY WALKER ~ Physician Assistant Psychiatry: Signed [facility] 07-31-2024 Radiology Diagnostic study note [facility] Imaging Services [address] [place], [place] [address] HIP, UNI W/ Pelvis 2-3 Views MR#: [id number] Acct: [id number] Name: EFRAIN GILLIAM Rep #: [id number] : 1955 F 69 From: Kaiser Barbosa MD PCP: BEVERLEY WALKER Status: REG ER Study:HIP, UNI W/ Pelvis 2-3 Views Date of Ex am: 07/31/24 Exam# [id number] Ordering Dr: April Silva DO PROCEDURE: HIP, [...] arthroplasty with dislocated femoral component. Reading Location: [id number] CC: Dr. Arelis Silva DO; BEVERLEY WALKER ~ Physician Assistant Psychiatry: Signed [facility] 07-19-2024 Discharge summary Note Date/Time July 19, 2024 8:08a m [facility] Medical Records Department [address] [place] [address] Instructions for Home/Discharge Instructions 07/19/24 0752 MR#: [id number] Acct: [id number] Name: RACHELTINOTORYBLESSINGDARIELA Burnette Rep #:[id number] : 1955 69 From: Conor Noland DO [...] Eloy Hamm MD; BEVERLEY WALKER ~ Signed [facility] Work Phone: 1(900) 808-113005-18-2025 Discharge summary [facility] Medical Records Department [address] [place] [address] Instructions for Home/Discharge Instructions 07/19/24 0752 MR#: [id number] Acct: [id number] Name: EFRAIN GILLIAM Rep #:[id number] : 1955 69 From: Conor Noland DO [...] Dr. Eloy Hamm MD; BEVERLEY WALKER ~ [facility]05-18-2025 [facility] Medical Records Department [address] [place] [address] Discharge Summary 07/19/24 0808 MR#: [id number] Acct: [id number] Name: EFRAIN GILLIAM Yomaira Rep #: [id number] : 1955 69 From: Conor Noland DO PCP: BEVERLEY WALKER Status:DIS IN Location: [facility] DI547-4 Providers Date of Admission: 07/16/24 Date of Discharge: 07/19/24 Primary Care Physician: BEVERLEY WALKER Consultations 07/16/24 19:37 Consult: Orthopedics Routine Consulting Provider: Eloy Hamm Reason for Consult: Fall, hip fracture [...] was seen in the emergency room at [facility] after suffering a fall at home, patient been walking backwards with a chair and fell striking her right hip. She was unable to bear weight and had severe pain in her right hip. Examination in the ER included x-rays of the right hip which showed a femoral neck fracture along with osteoarthritis. Patient was admitted to [place] [address] and seen in consultation by orthopedic surgery, [...] dose does not meet guid (morecontent not included)...[facility]05-17-2025 Progress note Author Eloy Hamm [facility] Note Date/Time July 18, 2024 3:19p m [facility] Medical Records Department [address] [place] [address] Progress Note - Orthopedic 07/18/24 1443 MR#: [id number] Acct: [id number] Name: EFRAIN GILLIAM Rep #:[id number] : 1955 69 From: Eloy Falk PCP: BEVERLEY WALKER Status:ADM IN Location: MS3 [id number] Subjective Subjective Patient doing well. No acute [...] 17:25 IMPRESSION: Fluoroscopy as above. Reading Location: [id number] Hip X-Ray 07/17/24 19:00 IMPRESSION: Interval postoperative changes from right total hip arthroplasty, without immediate hardware complication. Soft tissues are unremarkable. Degenerative changes of the left hip. Reading Location: [id number] Physical Exam Narrative Right lower extremity: Dressing [...] with any further questions or concerns. 07/18/24 3595 <Electronically signed by Eloy Hamm MD> Cosigner Signature (if applicable): CC: ~ Signed [facility] Work Phone: 1(582) 229-705305-17-2025 Progress note Author [facility]or [facility] Note Date/Time July 18, 2024 2:00p m [facility] Medical Records Department [address] [place] [address] Progress Note - Hospitalist 07/18/24 1343 MR#: [id number] Acct: [id number] Name: EFRAIN GILLIAM Rep #:[id number] : 1955 69 From: Conor oNland DO PCP: BEVERLEY WALKER Status:ADM IN [facility] Reason for Visit Reason for Visit: Diagnoses [...] morning so that she can drive to [employer] to her old house. Patient will be [...] 17:25 IMPRESSION: Fluoroscopy as above. Reading Location: [id number] Hip X-Ray 07/17/24 19:00 IMPRESSION: Interval postoperative changes from right total hip arthroplasty, without immediate hardware complication. Soft tissues are unremarkable. Degenerative changes of the left hip. Reading Location: [id number] Physical Exam Const alert, oriented x3, no [...] 35 minutes Charges/Coding Visit Charges Inpatient E&M: 67935 Subs Hosp L2 07/18/24 1400 <Electronically signed by Conor Noland DO> Cosigner Signature (if applicable): CC: ~ Signed [facility] Work Phone: 1(685) 549-251805-17-2025 Progress note [facility] Medical Records Department [address] [place] [address] Progress Note - Orthopedic 07/18/24 1443 MR#: [id number] Acct: [id number] Name: EFRAIN GILLIAM Rep #:[id number] : 1955 69 From: Eloy Falk PCP: BEVERLEY WALKER Status:ADM IN Location: [place] [address]-1 Subjective Subjective Patient doing well. No acute [...] 17:25 IMPRESSION: Fluoroscopy as above. Reading Location: [id number]-MG Hip X-Ray 07/17/24 19:00 IMPRESSION: Interval postoperative changes from right total hip arthroplasty, without immediate hardware complication. Soft tissues are unremarkable. Degenerative changes of the left hip. Reading Location: [id number] Physical Exam Narrative Right lower extremity: Dressing [...] with any further questions or concerns. 07/18/24 1516 Cosigner Signature (if applicable): CC: ~ Signed [facility]05-17-2025 Progress note [facility] Medical Records Department [address] [place] [address] Progress Note - Hospitalist 07/18/24 1343 MR#: [id number] Acct: [id number] Name: EFRAIN GILLIAM Rep #:[id number] : 1955 69 From: Conor Noland DO PCP: BEVERLEY WALKER Status:ADM IN Location: [address] Reason for Visit Reason for Visit: [...] morning so that she can drive to [employer] to her old house. Patient will be [...] 17:25 IMPRESSION: Fluoroscopy as above. Reading Location: [facility] Hip X-Ray 07/17/24 19:00 IMPRESSION: Interval postoperative changes from right total hip arthroplasty, without immediate hardware complication. Soft tissues are unremarkable. Degenerative changes of the left hip. Reading Location: [facility] Physical Exam Const alert, oriented x3, no [...] 35 minutes Charges/Coding Visit Charges Inpatient E&M: 37627 Subs Hosp L2 07/18/24 1400 Cosigner Signature (if applicable): CC: ~ Signed [facility]05-17-2025 Progress note Author Conor [facility] Note Date/Time July 18, 2024 9:17a m [facility] Medical Records Department [address] [place] [address] Progress Note - Hospitalist 07/17/241925 MR#: [id number] Acct: [id number] Name: EFRAIN GILLIAM Rep #:[id number] : 1955 69 From: Conor Noland DO PCP: BEVERLEY WALKER Status:ADM IN Location: [place] [address]-1 Reason for Visit Reason for Visit: Diagnoses [...] [facility] patient feels that she would like [...] 75.8 H, Lymph % (Auto) 16.6 L, Treutlen % (Auto) 6.8, Eos % (Auto) 0.1, [...] patient may need temporary placement in a jail facility #2 essential hypertension-patient will remain on her present medications, the blood pressure medicines will be adjusted as needed #3 hyperlipidemia-patient is on Crestor as an outpatient, she will receive atorvastatin Total clinical time spent by myself addressing the patient's medical issues, reviewing all of his data, and collaborating with patient's care team: 35 minutes Charges/Coding Visit Charges Inpatient E&M: 25667 Subs Hosp L2 07/18/24 0917 <Electronically signed by Conor Noland DO> Cosigner Signature (if applicable): CC: ~ Signed [facility] Work Phone: 1(246) 970-325105-17-2025 Progress note [facility] Medical Records Department [address] [place] [address] Progress Note - Hospitalist 07/17/241925 MR#: [id number] Acct: [id number] Name: EFRAIN GILLIAM Rep #:[id number] : 1955 69 From: Conor Noland DO PCP: BEVERLEY WALKER Status:ADM IN Location: [facility] SI218-4 Reason for Visit Reason for Visit: Diagnoses [...] [facility] patient feels that she would like [...] 75.8 H, Lymph % (Auto) 16.6 L, Tre[place] % (Auto) 6.8, Eos % (Auto) 0.1, [...] patient may need temporary placement in a jail facility #2 essential hypertension-patient will remain on her present medications, the blood pressure medicines will be adjusted as needed #3 hyperlipidemia-patient is on Crestor as an outpatient, she will receive atorvastatin Total clinical time spent by myself addressing the patient's medical issues, reviewing all of his data, and collaborating with patient's care team: 35 minutes Charges/Coding Visit Charges Inpatient E&M: 39656 Subs Hosp L2 07/18/24 0917 Cosigner Signature (if applicable): CC: ~ Signed [facility]05-17-2025 Radiology Diagnostic study note [facility] Imaging Services [address] [place], [place] [address] Hip 1 view with Pelvis MR#: [id number] Acct: [id number] Name: EFRAIN GILLIAM Yomaira Rep #: [id number] : 1955 F 69 From: To Moore MD PCP: BEVERLEY WALKER Status: ADM IN Study:Hip 1 view with Pelvis Date of Exam: 07/17/24 Exam# [id number] Ordering Dr: Porsche Hamm MD PROCEDURE: HIP 1 VIEW WITH PELVIS 07/17/2024 REASON FOR EXAM: ANTERIOR HIP TECHNIQUE: Fluoroscopy with 4 spot images right hip replacement FINDINGS: Fluoroscopy time 7.3 seconds Cumulative dose 1.12 mGy 4 spot images with right hip replacement appears intact and anatomic. No fracture or dislocation identified. RAD/Hip 1 view with Pelvis IMPRESSION: Fluoroscopy as above. Reading Location: [id number] CC: Dr. Eloy Hamm MD; BEVERLEY WALKER ~ Physician Assistant Psychiatry: Signed [facility]05-16-2025 Procedure note [facility] Medical Records Department [address] [place] [address] Operative Report 07/17/24 1816 MR#: [id number] Acct: [id number] Name: EFRAIN GILLIAM Rep #:[id number] : 1955 69 From: Eloy Falk PCP: BEVERLEY WALKER Status:ADM IN Location: [facility] NH365-6 Operative Report (Standard) Operative Information Date of Procedure: 07/17/24 Pre-Operative Diagnosis: Right displaced femoral neck fracture, right hip osteoarthritis Post-Operative Diagnosis: Right displaced femoral neck fracture, right hip osteoarthritis Surgery/Procedure Performed: Right direct anterior total hip replacement datastage consultant: Yes Nuclear Weapons Custodian: Jeronimo Barber Tasks completed by multimedia assistant: Other (See body of operative report) Additionalassistant?: [...] 2 Dereje femoral stem size 5/127 2. [place]cott trident 2 acetabular shell size 52 mm 3. [place] X3 polyethylene E 4. Dereje Biolox delta [...] awakened by anesthesia and [facility]. Patient was then transferred to the PACU for recovery. Postoperative plan: Patient will get 24 hours postop antibiotics. Patient will get in-house physical therapy and will be weight-bear as tolerated. Patient will follow up in office in 2 weeks for a wound check and x-rays. Aspirin 81 mg twice daily. During the course of the procedure the physician artists' booking representative (PE) played a vital role. Their intimate [...] Dr. Eloy Hamm MD; BEVERLEY WALKER~ Signed [facility]05-16-2025 Consult note Author Zelalem Monroy [facility] Note Date/Time July 17, 2024 6:57p m [facility] Medical Records Department [address] [place] [address] Anesthesia Postop Eval I 07/17/241855 MR#: [id number] Acct: [id number] Name: EFRAIN GILLIAM Rep #:[id number] : 1955 69 From: Zelalem Monroy MD PCP: BEVERLEY WALKER Status:ADM IN Y Race: C Location: [facility] MS305 -1 Anesthesia: Postop Eval I Current [...] Monroy MD> Date _ Zelalem Monroy [facility] Signature: Date CC: ~ Signed [facility] Work Phone: 1(418) 932-823605-16-2025 Consult note Author Zelalem Retanaalbaro [facility] Note Date/Time July 17, 2024 6:57p m [facility] Medical Records Department [address] [place] [address] Anesthesia Postop Eval II 07/17/24 1857 MR#: [id number] Acct: [id number] Name: EFRAIN GILLIAM Rep #:[id number] : 1955 69 From: Zelalem Monroy MD PCP: BEVERLEY WALKER Status:ADM IN Y Race: C Location: [place] [address] Anesthesia Postop Eval I Sum Postop Eval [...] MD Cosigner Signature: Date CC: ~ Signed [facility] Work Phone: 1(181) 422-532905-16-2025 Radiology Diagnostic study note [facility] Imaging Services [address] [place] [id number] Hip Min 2 Views (Portable) MR#: [id number] Acct: [id number] Name: EFRAIN GILLIAM Rep #: [id number] : 1955 F 69 From: Lani Espinal MD PCP: BEVERLEY WALKER Status: ADM IN Study:Hip Min 2 Views (Portable) Date of Exam : 07/17/24 Exam# [id number] Ordering Dr: Porsche Hamm MD PROCEDURE: HIP [...] Dr. Eloy Hamm MD; BEVERLEY WALKER ~ Physician Assistant Psychiatry: Signed [facility]05-16-2025 Consult note [facility] Medical Records Department [address] [place] [address] Anesthesia Postop Eval I 07/17/241855 MR#: [id number] Acct: [id number] Name: TONYTRINDARIELA E Rep #:[id number] : 1955 69 From: Zelalem Monroy MD PCP: BEVERLEY WALKER Status:ADM IN Y Race: C Location: [facility] MS305 - Anesthesia: Postop Eval I Current [...] MD Cosigner Signature: Date CC: ~ Signed [facility]05-16-2025 Consult note [facility] Medical Records Department [address] [place] [address] Anesthesia Postop Eval II 07/17/241856 MR#: [id number] Acct: [id number] Name: RACHELTINOEFRAIN SPEARS E Rep #:[id number] : 1955 69 From: Zelalem Monroy MD PCP: BEVERLEY WALKER Status:ADM IN Y Race: C Location: [facility] MS305 - Anesthesia Postop Eval I Sum Postop Eval Completion status Anesthesia document: Postop Eval 1 completed: Yes Anesthesia Postop Eval I Summary Anesthesia Postop Eval I Summary: Anesthesia Postop Eval I: Assessment Summary Airway patent Yes 07/17/24 18:56 Spontaneous unlabored Yes 07/17/24 18:56 respirations Mental status Awake,Calm 07/17/24 14:44 MEDICAL LAB TECHNOLOGISTAddieSKOBY nausea No 07/17/24 18:56 Vomiting No 07/17/24 [...] Zelalem Ballardignmicheal Signature: Date CC: ~ Signed [facility]05-16-2025 Consult note Author Eloy Hamm [facility] Note Date/Time July 17, 2024 4:38p [facility] Medical Records Department [address] [place] [address] Consultation - Orthopedics 07/17/24 1631 MR#: [id number] Acct: [id number] Name: EFRAIN GILLIAM Yomaira Rep #:[id number] : 1955 69 From: Eloy Falk PCP: BEVERLEY WALKER Status:ADM IN [facility] Consult Data Date of Consult: 07/17/24 [...] does have a left total knee replacement [facility] Medical History Non-smoker Hypertension History of diabetes [...] % (Auto) 56.8, Lymph % (Auto) 32.5, [place] % (Auto) 6.9, Eos % (Auto) 2.1, [...] 75.8 H, Lymph % (Auto) 16.6 L, [place] % (Auto) 6.8, Eos % (Auto) 0.1, [...] 3. Additional description as above. Reading Location: [id number] Independent review of right hip films denotes [...] Signature (if applicable): CC: BEVERLEY WALKER~ Signed [facility] Work Phone: 1(771) 323-654205-16-2025 Consult note Author Zelalem Monroy [facility] Note Date/Time July 17, 2024 3:14p m [facility] Medical Records Department [address] [place] [address] Pre-Anesthesia Evaluation 07/17/24 1512 MR#: [id number] Acct: [id number] Name: EFRAIN GILLIAM Yomaira Rep #:[id number] : 1955 69 From: Zelalem Monroy MD PCP: BEVERLEY WALKER Status:ADM IN Y Race: C Location: [place] [address] ASA Classification* ASA Classification ASA Classification: 3 [...] a Hip Anesthesia History Anesthesia History - consultant nurse: Anesthesia History - consultant nurse Hx Hospitalization Any Problems With Anesthesia No [...] take am of surgery PONV PONV - consultant nurse: PONV - consultant nurse Female HX of Motion Sickness HX of N/V After Surgery Non-Smoker Duration of Surgery greater than 60 minutes Number of Risk Factors PONV Score Height & Weight Height & Weight: Anesthesia: Height & Weight Height 5 ft 8.9 in 07/17/24 13:26 Weight: 92.5 kg 07/17/24 13:26 Body Mass Index (BMI) 30.2 07/17/24 13:26 Respiratory Assessment Respiratory Assessment - consultant nurse: Respiratory Tract Infection Hx - consultant nurse Hx Respiratory Tract Infection No 07/16/24 19:57 STOP Sleep Apnea STOP Sleep Apnea - consultant nurse: STOP Sleep Apnea - consultant nurse Hx Hypertension Yes 07/16/24 19:27 Hx Sleep [...] Tobacco Use History Tobacco Use History - consultant nurse: Tobacco Use History - consultant nurse Tobacco Use Smoking Status Never smoker 07/16/24 19:27 Hx Tobacco Use No 07/16/24 19:27 Years Smoking Packs Smoked per Day Smoking Cessation Date was within the last 15 years Hx Smoking Cessation Date Hx Smoking Cessation Counseling Hematologic Medial History Hematologic Hx - consultant nurse: 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 Hx of Blood Transfusion No 07/16/24 19:27 [...] confused, unrespo /Reproduction History /Reproductive History - consultant nurse: /Reproductive Hx- consultant nurse Hx Now No 07/16/24 19:57 Gestational Age [...] mls @ 15 mls/hr 07/16/24 19:42 IV .[id number] PRN Saline Flush Sodium Chloride 250 mls @ 15 mls/hr 07/16/24 19:42 IV .[id number] PRN Additional IVPB Infusion Insulin Human Lispro [...] 10 ml UD PRN Administration SALINE FLUSH [facility] Medical History Non-smoker Hypertension History of diabetes [...] MD Cosigner Signature: Date CC: ~ Signed [facility] Work Phone: 1(208) 791-687005-16-2025 Consult note Author Ofelia Dowd [facility] Note Date/Time July 17, 2024 2:44p [facility] Medical Records Department [address] [place] [address] Anesthesia Postop Eval I 07/17/24 1444 MR#: [id number] Acct: [id number] Name: EFRAIN GILLIAM Rep #:[id number] : 1955 69 From: Ofelia driscoll CRNA PCP: BEVERLEY WALKER Status:ADM IN Y Race: C Location: [place] [address] Anesthesia: Postop Eval I Current Vital Signs [...] 1 completed: Yes 07/17/241443 <Electronically signed by Ofelia mendoza MEDICAL LAB TECHNOLOGIST> Date _ Ofelia Dowd MEDICAL LAB TECHNOLOGIST Cosigner Signature: Date CC: ~ Signed [facility] Work Phone: [phone] 410-662405-16-2025 Consult note [facility] Medical Records Department [address] [place] [address] Consultation - Orthopedics 07/17/24 1631 MR#: [id number] Acct: [id number] Name: EFRAIN GILLIAM Rep #:[id number] : 1955 69 From: Eloy Falk PCP: BEVERLEY WALKER Status:ADM IN Location: [place] [address] HPI Consult Data Date of Consult: 07/17/24 [...] does have a left total knee replacement [facility] Medical History Non-smoker Hypertension History of diabetes [...] % (Auto) 56.8, Lymph % (Auto) 32.5, Treutlen % (Auto) 6.9, Eos % (Auto) 2.1, [...] 75.8 H, Lymph % (Auto) 16.6 L, [place] % (Auto) 6.8, Eos % (Auto) 0.1, [...] 16:45 IMPRESSION: No acute findings. Reading [facility] Hip/Pelvis X-Ray 07/16/24 16:45 IMPRESSION: See above Reading [facility] Chest X-Ray 07/16/24 17:06 IMPRESSION: 1. Central vascular prominence without overt pulmonary edema. 2. Recommend outpatient CT chest, ideally with IV contrast for above mediastinalfindings, unless prior outside imaging is available to further delineate or establish long-term stability. 3. Additional description as above. Reading Location: [id number] Independent review of right hip films denotes [...] Signature (if applicable): CC: BEVERLEY WALKER~ Signed [facility]05-16-2025 Consult note [facility] Medical Records Department [address] [facility] [address] Pre-Anesthesia Evaluation 07/17/24 1512 MR#: [id number] Acct: [id number] Name: EFRAIN GILLIAM Rep #:[id number] : 1955 69 From: Zelalem Monroy MD PCP: BEVERLEY WALKER Status:ADM IN Y Race: C Location: [place] [address] ASA Classification* ASA Classification ASA Classification: 3 [...] a Hip Anesthesia History Anesthesia History - consultant nurse: Anesthesia History - consultant nurse Hx Hospitalization Any Problems With Anesthesia No [...] take am of surgery PONV PONV - consultant nurse: PONV - consultant nurse Female HX of Motion Sickness HX of N/V After Surgery Non-Smoker Duration of Surgery greater than 60 minutes Number of Risk Factors PONV Score Height & Weight Height & Weight: Anesthesia: Height & Weight Height 5 ft 8.9 in 07/17/24 13:26 Weight: 92.5 kg 07/17/24 13:26 Body Mass Index (BMI) 30.2 07/17/24 13:26 Respiratory Assessment Respiratory Assessment - consultant nurse: Respiratory Tract Infection Hx - consultant nurse Hx Respiratory Tract Infection No 07/16/24 19:57 STOP Sleep Apnea STOP Sleep Apnea - consultant nurse: STOP Sleep Apnea - consultant nurse Hx Hypertension Yes 07/16/24 19:27 Hx Sleep [...] Tobacco Use History Tobacco Use History - consultant nurse: Tobacco Use History - consultant nurse Tobacco Use Smoking Status Never smoker 07/16/24 19:27 Hx Tobacco Use No 07/16/24 19:27 Years Smoking Packs Smoked per Day Smoking Cessation Date was within the last 15 years Hx Smoking Cessation Date Hx Smoking Cessation Counseling Hematologic Medial History Hematologic Hx - consultant nurse: 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 Hx of Blood Transfusion No 07/16/24 19:27 [...] confused, unrespo /Reproduction History /Reproductive History - consultant nurse: /Reproductive Hx- consultant nurse Hx Now No 07/16/24 19:57 Gestational Age [...] mls @ 15 mls/hr 07/16/24 19:42 IV .[id number] PRN Saline Flush Sodium Chloride 250 mls @ 15 mls/hr 07/16/24 19:42 IV .[id number] PRN Additional IVPB Infusion Insulin Human Lispro [...] 10 ml UD PRN Administration SALINE FLUSH [facility] Medical History Non-smoker Hypertension History of diabetes [...] MD Cosigner Signature: Date CC: ~ Signed [facility]05-16-2025 Consult note [facility] Medical Records Department [address] [place] [address] Anesthesia Postop Eval I 07/17/24 1444 MR#: [id number] Acct: [id number] Name: EFRAIN GILLIAM Rep #:[id number] : 1955 69 From: Ofelia driscoll CRNA PCP: BEVERLEY WALKER Status:ADM IN Y Race: C Location: [place] [address] Anesthesia: Postop Eval I Current Vital Signs [...] Eval 1 completed: Yes 07/17/24 1444 kelly MEDICAL LAB TECHNOLOGIST> Date _ Ofelia Dowd MEDICAL LAB TECHNOLOGIST Cosigner Signature: Date CC: ~ Signed [facility]05-15-2025 Discharge summary Author Tian Evans [facility] Note Date/Time July 16, 2024 7:56p m [facility] Medical Records Department [address] [place] [address] Emergency Department Summary 07/16/24 MR#: [id number] Acct: [id number] Name: EFRAIN GILLIAM Yomaira Rep #:[id number] : 1955 69 From: Tian Evans MD PCP: BEVERLEY WALKER Status:ADM IN Location: [place] [address] Tian Evans MD on [...] pain is concentrated in her right hip. [facility] Medical History History of diabetes mellitus [...] % (Auto) 56.8 Lymph % (Auto) 32.5 Treutlen % (Auto) 6.9 Eos % (Auto) 2.1 [...] 16:45 IMPRESSION: No acute findings. Reading Location[facility] Hip/Pelvis X-Ray 07/16/24 16:45 IMPRESSION: See above Reading Location: [facility] Chest X-Ray 07/16/24 17:06 IMPRESSION: 1. Central vascular prominence without overt pulmonary edema. 2. Recommend outpatient CT chest, ideally with IV contrast for above mediastinalfindings, unless prior outside imaging is available to further delineate or establish long-term stability. 3. Additional description as above. Reading Location: [id number] Management Discussion w/another healthcare provider: Hospitalist (Dr. Mayi Avendaño) and Gas Plant Worker (Dr. Hamm, orthopedics) Discharge Plan Dx/Rx/DC Orders Clinical Impression: Fracture of femoral neck, closed, Fall, Hypertension Disposition Disposition: Acute Care Hospital [facility] Discharge Date/Time: 07/16/24 19:17 What to do if you have Problems For any increased pain, shortness of breath, bleeding, nausea or vomiting, chestpain, or any unexpected problems, contact your Primary Care Provider. Call [facility] ([phone]) or report to the closest Emergency Room. Call 911 if necessary. 07/16/241921 <Electronically signed by Tian Evans MD> Cosigner Signature (if applicable): CC: BEVERLEY WALKER ~ Signed [facility] Work Phone: 1(852) 342-410705-15-2025 History and physical note Author Mayi Avendaño [facility] Note Date/Time July 16, 2024 6:19p m [facility] Medical Records Department [address] [facility] [place] [address] H&P Exam - Hospitalist 07/16/24 1810 MR#: [id number] Acct: [id number] Name: EFRAIN GILLIAM Rep #:[id number] : 1955 69 From: Mayi Avendaño MD PCP: BEVERLEY WALKER Status:REG ER Location: ED HPI - General General Date of Admission: 07/16/24 Date of Service: 07/16/24 Chief Complaint: Fall, Hip pain. HPI Narrative The patient is a 69 y/o F w/ PMHx: HTN, HLD, GERD, Obesity, Hx Diabetes mellitustype II who presents to the [facility] ED on 07/16/2024 with history of [...] medial angulation of the proximal fracture fragment. [facility] Medical History History of diabetes mellitus Obesity [...] % (Auto) 56.8, Lymph % (Auto) 32.5, Treutlen % (Auto) 6.9, Eos % (Auto) 2.1, [...] 16:45 IMPRESSION: No acute findings. Reading [facility] Hip/Pelvis X-Ray 07/16/24 16:45 IMPRESSION: See above Reading [facility] Assessment & Plan Assessment/Plan (1) Fracture of femoral neck, closed: (2) Fall: PLAN: Plan The patient is a 69 y/o F w/ PMHx: HTN, HLD, GERD, Obesity, Hx Diabetes mellitustype II who presents to the [facility] ED on 07/16/2024 with history of [...] Code status. Charges/Coding Visit Charges Inpatient E&M: 97512 Init Hosp L3 07/16/241818 <Electronically signed by Mayi Avendaño MD> Cosigner Signature (if applicable): CC: Dr. Mayi Avendaño MD; BEVERLEY WALKER~ Signed [facility] Work Phone: 1(885) [phone] Evaluation note* Diagnosis Onset Date Resolution Status Admit Date Fall acute July 16, 2024 6:10pm Fracture of femoral neck, closed acu te July 16, 2024 6:10pm Osteoarthritis of right hip acute July 16, 2024 6:10pm Hypertension inactive July 16 6:10pm [facility] Work Phone: [phone]) 890-467905-15-2025 Evaluation note* Diagnosis Onset Date Resolution Status Admit Date Fall inactive July 16, 2024 6:10pm Fracture of femoral neck, closed katerine ctive July 16, 2024 6:10pm Hypertension inactive July 16 6:10pm Osteoarthritis of right hip inactive July 16, 2024 6:10pm [facility] Work Phone: 1(408) 499-810205-15-2025 Discharge summary [facility] Medical Records Department [address] [place] [address] Emergency Department Summary 07/16/24 MR#: [id number] Acct: [id number] Name: EFRAIN GILLIAM Rep #:[id number] : 1955 69 From: Tian Evans MD PCP: BEVERLEY WALKER Status:ADM IN Location: [facility] [id number] Tian Evans MD on [...] pain is concentrated in her right hip. [facility] Medical History History of diabetes mellitus [...] % (Auto) 56.8 Lymph % (Auto) 32.5 Treutlen % (Auto) 6.9 Eos % (Auto) 2.1 [...] 16:45 IMPRESSION: No acute findings. Reading Location[facility] Hip/Pelvis X-Ray 07/16/24 16:45 IMPRESSION: See above Reading Location[facility] Chest X-Ray 07/16/24 17:06 IMPRESSION: 1. Central vascular prominence without overt pulmonary edema. 2. Recommend outpatient CT chest, ideally with IV contrast for above mediastinalfindings, unless prior outside imaging is available to further delineate or establish long-term stability. 3. Additional description as above. Reading Location: [id number] Management Discussion w/another healthcare provider: Hospitalist (Dr. Mayi Avendaño) and Gas Plant Worker (Dr. Hamm, orthopedics) Discharge Plan Dx/Rx/DC Orders Clinical Impression: Fracture of femoral neck, closed, Fall, Hypertension Disposition Disposition: Acute Care Hospital [facility] Discharge Date/Time: 07/16/24 19:17 What to do if you have Problems For any increased pain, shortness of breath, bleeding, nausea or vomiting, chestpain, or any unexpected problems, contact your Primary Care Provider. Call [facility] ([phone]) or report tothe closest Emergency Room. Call 911 if necessary. 07/16/241921 Cosigner Signature (if applicable): CC: BEVERLEY WALKER ~ Signed [facility]05-15-2025 Radiology Diagnostic study note [facility] Imaging Services [address] [place] [address] Chest 1 View (Portable) MR#: [id number] Acct: [id number] Name: EFRAIN GILLIAM Rep #: [id number] : 1955 F 69 From: Delmis Vicente MD PCP: BEVERLEY WALKER Status: REG ER Study:Chest 1 View (Portable) Date of Exam: 07/16/24 Exam# [id number] Ordering Dr: Tian Evans MD PROCEDURE: CHEST [...] 3. Additional description as above. Reading Location: [id number] CC: Dr. Tian Evans MD; BEVERLEY WALKER ~ Physician Assistant Psychiatry: Signed [facility]05-15-2025 History and physical note [facility] Medical Records Department [address] [place] [address] H&P Exam - Hospitalist 07/16/24 1810 MR#: [id number] Acct: [id number] Name: EFRAIN GILLIAM Rep #:[id number] : 1955 69 From: Mayi Avendaño MD PCP: BEVERLEY WALKER Status:REG ER Location: ED HPI - General General Date of Admission: 07/16/24 Date of Service: 07/16/24 Chief Complaint: Fall, Hip pain. HPI Narrative The patient is a 69 y/o F w/ PMHx: HTN, HLD, GERD, Obesity, Hx Diabetes mellitustype II who presents to the [facility] ED on 07/16/2024 with history of [...] medial angulation of the proximal fracture fragment. [facility] Medical History History of diabetes mellitus Obesity [...] % (Auto) 56.8, Lymph % (Auto) 32.5, Treutlen % (Auto) 6.9, Eos % (Auto) 2.1, [...] 16:45 IMPRESSION: No acute findings. Reading Location[facility] Hip/Pelvis X-Ray 07/16/24 16:45 IMPRESSION: See above Reading Location[facility] Assessment & Plan Assessment/Plan (1) Fracture of femoral neck, closed: (2) Fall: PLAN: Plan The patient is a 69 y/o F w/ PMHx: HTN, HLD, GERD, Obesity, Hx Diabetes mellitustype II who presents to the [facility] ED on 07/16/2024 with history of [...] Code status. Charges/Coding Visit Charges Inpatient E&M: 82138 Init Hosp L3 07/16/24 1819 Cosigner Signature (if applicable): CC: Dr. Mayi Avendaño MD; BEVERLEY WALKER~ Signed [facility]05-15-2025 Radiology Diagnostic study note [facility] Imaging Services [address] [place] [address] HIP, UNI W/ Pelvis 2-3 Views MR#: [id number] Acct: [id number] Name: EFRAIN GILLIAM Rep #: [id number] : 1955 F 69 From: [place] MD PCP: BEVERLEY WALKER Status: REG ER Study:HIP, UNI W/ Pelvis 2-3 Views Date of Ex am: 07/16/24 Exam# [id number] Ordering Dr: Tian Evans MD PROCEDURE: HIP, [...] Dr. Tian Evans MD; BEVERLEY WALKER ~ Physician Assistant Psychiatry: Signed [facility]05-15-2025 Radiology Diagnostic study note [facility] Imaging Services [address] [place] [address] Foot min 3 Views MR#: [id number] Acct: [id number] Name: EFRAIN GILLIAM Rep #: [id number] : 1955 F 69 From: [place] MD PCP: BEVERLEY WALKER Status: REG ER Study:Foot min 3 Views Date of Exam: Exam# [id number] Ordering Dr: Tian Evans MD PROCEDURE: FOOT MIN 3 VIEWS 07/16/2024 REASON FOR EXAM: TRAUMA TECHNIQUE: 3 views of the left foot. COMPARISON: None FINDINGS: No acute fracture or dislocation. Mild multifocal osteoarthritis. No significant soft tissue swelling. No radiopaque foreign body. RAD/Foot min 3 Views IMPRESSION: No acute findings. Reading Location: [facility] CC: Dr. 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 documented in this [facility]08-20-2024 History of Present illness Narrative* KAYE [...] advance directive Living Will, Medical power of energy attorney, DNR papers Arthritis bilateral knees - worse [...] down 50 lbs today. [facility] of Present illness Narrative* KAYE Kent [...] on testing or procedures.) [facility] Instructions* Patient Instructions* KAYE Kent - 09/22/2021 [...] Everywhere. * [employer]: General Info (Greek) [facility] History of Present illness Narrative* KAYE Kent [...] was spent with/on patient [facility] Instructions* Patient Instructions* KAYE Kent - 05/31/2021 [...] months. Sooner if needed. documented in this [facility]03-30-2022 History of Present illness Narrative* KAYE [...] was spent with/on patient [facility]* Diagnosis Benign hypertension- Primary Essential hypertension, benign Mixed hyperlipidemia Heartburn Prediabetes Other abnormal glucose [facility] Diagnosis Anemia, unspecified type- Primary Hyponatremia Hyposmolality and/or hyponatremia Gastroesophageal reflux disease, unspecified whether esophagitis present Chronic left-sided low back pain with left-sided sciatica Chronic left-sided thoracic back pain Prediabetes Other abnormal glucose Mixed hyperlipidemia Essential hypertension, benign [facility]* Diagnosis Mixed hyperlipidemia- Primary Type 2 diabetes mellitus without complication, without long-term current use of insulin Essential hypertension, benign Gastroesophageal reflux disease without esophagitis Esophageal reflux documented in this [facility]* Diagnosis Knee joint replacement status- Primary [...] Undiagnosed cardiac murmurs documented [facility] this [facility]* Diagnosis Knee joint replacement status- Primary [...] use of insulin documented in this [facility]* Diagnosis Onset Date Resolution Status Admit Date Fall acute July 16, 2024 6:10pm Fracture of femoral neck, closed acu te July 16, 2024 6:10pm Hypertension inactive July 16 6:10pm [facility] Work Phone: History and physical note Author Mayi Avendaño [facility] Note Date/Time July 16, 2024 6:19p [facility] Medical Records Department [address] [place] [address] H&P Exam - Hospitalist 07/16/24 1810 MR#: [id number] Acct: [id number] Name: EFRAIN GILLIAM #[id number] : 1955 69 From: Mayi Avendaño MD PCP: BEVERLEY WALKER Status:REG ER Location: ED HPI - General General Date of Admission: 07/16/24 Date of Service: 07/16/24 Chief Complaint: Fall, Hip pain. HPI Narrative The patient is a 69 y/o F w/ PMHx: HTN, HLD, GERD, Obesity, Hx Diabetes mellitustype II who presents to the [facility] ED on 07/16/2024 with history of [...] medial angulation of the proximal fracture fragment. [facility] Medical History History of diabetes mellitus Obesity [...] % (Auto) 56.8, Lymph % (Auto) 32.5, [place] % (Auto) 6.9, Eos % (Auto) 2.1, [...] Diabetes mellitustype II who presents to the [facility] ED on 07/16/2024 with history of [...] Code status. Charges/Coding Visit Charges Inpatient E&M: 56851 Init Hosp L3 07/16/24 1819 <Electronically signed by Mayi Avendaño MD> Cosigner Signature (if applicable): CC: Dr. Mayi Avendaño MD; BEVERLEY WALKER~ Signed [facility] Work Phone: Reason for referral (narrative)* Consultation (Routine) - Open Specialty Diagnoses / Procedures Referred By Bobo oliveros Referred To Contact Gastroenterology Diagnoses Gastroesophageal reflux disease, unspecified whether esophagitis present Coby Rush APRN-CNP [address] [place] [address] Referral ID Status Reason Start Date Expiration Date Visits Re quested Visits Authorized [id number] Open 09/22/2021 10/17/2022 1 1 * Adjunctive Therapy (Routine) - Open Specialty Diagnoses / Procedures Referred By Bobo t Referred To Contact Physical Therapy Diagnoses Chronic left-sided low back pain with left-sided sciatica Chronic left-sided thoracic back pain Coby Rush, KAYE [address] [place] [address] Referral ID Status Reason Start Date Expiration Date Visits Re quested Visits Authorized [id number] Open 09/22/2021 10/17/2022 1 1 [facility] (narrative)No reason for referral information availableWSouthwest [facility] Work Phone: Summary Purpose Family History No Family History Records Found Relationship Condition Age at Onset Recorded Date/T kelly mother Nonalcoholic steatohepatitis ([place]) Unkno wn Heart failure Unknown Hypertension Unknown Cardiac disease Unknown father Cardiac disease Unknown Coronary artery disease Unknown Myocardial infarction Unknown Advance Directives No Advanced Directives Records FoundDocuments on File Type Date 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 No July 16, 2024 4:34pm Advance Directive Response Recorded Date/ Time Do you have a Healthcare Power of Remediation Technician? No July 16, 2024 7:27pm Advance Directive Response Recorded Date/ Time Do you have a Healthcare Power of Remediation Technician? No July 16, 2024 7:27pm Do you have a Healthcare Power of Remediation Technician? Yes July 31, 2024 4:32pm Discharge Instructions [...] Catherine in 10-14 days after surgery, call [phone] to schedule an appointment. documented in this encounter History of Present Illness * Dung Herman - 08/05/2019 9:42 AM EDT CLINICAL PHARMACY NOTE: MEDS TO [facility] Select Patient?: No Total # of Prescriptions [...] DATE CREATED AUTHOR AUTHOR'S ORGANIZ ATION 08/28/2017 [facility] DATE CREATED AUTHOR AUTHOR'S ORGANIZ ATION 08/02/2018 [facility] DATE CREATED AUTHOR AUTHOR'S ORGANIZ ATION 08/06/2019 [facility] DATE CREATED AUTHOR AUTHOR'S ORGANIZ ATION 08/08/2019 [facility] DATE CREATED AUTHOR AUTHOR'S ORGANIZ ATION 05/10/2024 [facility] DATE CREATED AUTHOR AUTHOR'S ORGANIZ ATION 08/07/2024 [facility] Reason for Visit (unrecogniz ed section and content) Status Reason Specialty Diagnoses / Procedures Referre d By Contact Referred To Contact Diagnoses Basal cell carcinoma of skin of nose BASAL CELL RIGHT NASAL BRIDGE Procedures DC OFFICE/OUTPT VISIT,PROCEDURE ONLY DC EXCIS NASAL DERMOID,COMPLX DC BIOPSY OF SKIN LESION DC ADJ TISS XFER LID,NOS,EAR <10SQCM DC EXC SKIN MALIG 0.6-1CM FACE,FACIAL NASAL LESION BIOPSY EXCISION - NASAL BRIDGE WITH FROZEN SECTION POSSIBLE *PATHOLOGY REQUIRED* Hank Catherine MD [facility] [place] [address] [facility] Reason Comments Hypertension Hyperlipidemia Esophageal [...] Provider Active S tart: July 18, 2024 Accident Examiner Relationship Specialty Start Date End Date Coby Rush APRN-CNP PCP - General Nurse Practitioner - Family 08/23/16 Accident Examiner Relationship Specialty Start Date End Date Coby Rush APRN-CNP PCP - General Nurse Practitioner - Family 08/23/16 Accident Examiner Relationship Specialty Start Date End Date Coby Rush APRN-NIK PCP - General Nurse Practitioner - Family 08/23/16 Accident Examiner Relationship Specialty Start Date End Date Rosalee Malave APRN-CNP [address] [place] [address] PCP - General Certified Nurse Practitioner 10/01/23 Accident Examiner Relationship Specialty Start Date End Date Rosalee Malave APRN-CNP [address] [place] [address] PCP - General Certified Nurse Practitioner 10/01/23 [...] BE BASED ON THE PRIMARY CLINICAL RECORDS. [employer] provides no warranty or guarantee of the accuracy or completeness of information in this document.
[2024-08-07] MEDS: Senna/Docusate Sodium 1 Tablet 2 TABLET PO (22:21)
[2024-08-07] MEDS: Aspirin 81 MG TAB.CHEW PO (22:21)
[2024-08-08 01:12] VITALS: BP 122/68; PULSE 78; RESP 16; TEMP 37.1; O2SAT 97
[2024-08-08 05:36] VITALS: BP 124/66; PULSE 65; RESP 14; TEMP 36.6; O2SAT 96
[2024-08-08 05:36] LABS: Absolute Lymphocyte Count 0.48 X10^3/uL (0.83-4.51); Hematocrit 32.8 % (37-47); Hemoglobin 10.8 g/dL (12.0-15.0); Lymphocyte # 0.48 X10^3/ul (0.83-4.51); Lymphocyte % 7.2 % (19-41); Mean Corp Hgb Conc 32.9 g/dL (32-36); Mean Corpuscular Hgb 28.6 pg (27.0-32.0); Mean Platelet Vol. 9.2 fl (6.2-12.0); Monocyte# 0.15 X10^3/uL; Monocyte% 2.3 % (0-10); NRBC Flagged by Analyzer 0 % (0-5); POSITIVE DIFFERENTIAL YES; Platelet Count 213 K/mm3 (150-450); RBC Distribution Width CV 13.5 % (11.6-14.6); RBC Distribution Width SD 43.2 fl (35.1-43.9); Red Blood Count 3.77 M/mm3 (4.2-5.4); White Blood Count 6.7 K/mm3 (4.4-11.0)
[2024-08-08] MEDS: Acetaminophen 500 MG Tablet 1000 MG PO ×2 (05:48→13:09)
[2024-08-08 06:12] LABS: Anion Gap 11 (5-15); BUN 12 mg/dL (4-19); BUN/Creat Ratio 14.2 RATIO (10-20); Calcium,Total 9.4 mg/dL (7.6-11.0); Carbon Dioxide 22.4 mmol/L (21.0-32.0); Chloride 101 mmol/L (98-108); Creatinine, Serum 0.81 mg/dL (0.70-1.20); EST Glomerular Filtration Rate 80 (>60); Estimated Creatinine Clearance 85.16 ml/min (50-250); Glucose 144 mg/dL (70-99); Potassium 4.5 mmol/L (3.3-5.1); Sodium Level 135 mmol/L (133-145)
[2024-08-08 08:23] VITALS: BP 135/68; PULSE 66; RESP 17; TEMP 36.7; O2SAT 97
[2024-08-08] MEDS: Senna/Docusate Sodium 1 Tablet 2 TABLET PO (08:36)
[2024-08-08] MEDS: Aspirin 81 MG TAB.CHEW PO (08:37)
[2024-08-08] MEDS: Famotidine 20 MG Tablet PO (08:38)
--- NOTE | 2024-08-08 09:45 | PCM.PN.ORT ---
Subjective Subjective 69-year-old female presents today 1 day after right revision total replacement for recurrent instability. Patient notes that pain is doing well. She is taking minimal pain medications. 1 dose of oxycodone last evening. She has been able to ambulate with her walker with the staff. Has not worked with physical therapy yet today. Overall is doing well and is hoping to be discharged home today if she passes therapy. Objective Data Objective Data Vital Signs: Vital Signs Temp Pulse Resp BP Pulse Ox O2 Del Method O2 Flow Rate 98.1 F 66 17 135/68 H 97 Room Air 2 08/08/24 08:23 08/08/24 08:23 08/08/24 08:23 08/08/24 08:23 08/08/24 08:23 08/08/24 08:23 08/07/24 19:48 Oxygen Flow Rate (L/min) 2 Oxygen Delivery Method Room Air Weight: 222 lb 3.615 oz Body Mass Index (BMI) 32.8 Intake & Output: Intake and Output for Last 24 Hours 08/06/24 08/07/24 08/08/24 23:59 23:59 23:59 Intake Total 2100 / 2100 Output Total 250 / 750 800 / 800 Balance 1850 / 1350 -800 / -800 Lab / Micro Data Attestation: I reviewed the patient's lab results. 08/08/24 05:20 08/08/24 05:20 Labs: Laboratory Results - last 24 hr 08/07/24 11:30: Magnesium 2.0 08/07/24 11:46: POC Glucose 82 08/08/24 05:20: WBC 6.7, RBC 3.77 L, Hgb 10.8 L, Hct 32.8 L, MCV 87.0, MCH 28.6, MCHC 32.9, RDW Std Deviation 43.2, RDW Coeff of Juany 13.5, Plt Count 213, MPV 9.2, Immature Gran % (Auto) 0.500, Neut % (Auto) 90.0 H, Lymph % (Auto) 7.2 L, [place] % (Auto) 2.3, Eos % (Auto) 0.0, Baso % (Auto) 0.0, Absolute Neuts (auto) 6.0, Absolute Lymphs (auto) 0.48 L, Nucleated RBC % 0, Sodium 135, Potassium 4.5, Chloride 101, Carbon Dioxide 22.4, Anion Gap 11, BUN 12, Creatinine 0.81, Estim Creat Clear Calc 85.16, Est GFR (MDRD) Non-Af 80, BUN/Creatinine Ratio 14.2, Glucose 144 H, Calcium 9.4 Radiography Diagnostic Testing: Radiology Impression Hip X-Ray 08/07/24 14:06 IMPRESSION: Fluoroscopic guidance was used intraoperatively. Please refer to operative note for further details. Reading Location: [id number] Hip X-Ray 08/07/24 15:40 IMPRESSION: Interval placement of the acetabular component of the right total hip prosthesis is seen, without apparent complication. Satisfactory alignment is noted. No fracture site is evident Reading Location: [address] Physical Exam Const alert and oriented x3 Extremity Extremity Narrative: Right lower extremity: Dressing is clean dry and intact Sensations intact to light touch saphenous, sural, superficial peroneal, deep peroneal, and tibial distributions Motors intact EHL, DF, PF calves are soft and supple Assessment & Plan Assessment/Plan (1) Status post right hip replacement: PLAN: Postop day 1 right revision total replacement. 1. Pain control: Patient is doing well we will continue on oxycodone as needed. Tylenol and meloxicam also ordered. 2. DVT prophylaxis: Patient is on aspirin 81 mg p.o. twice daily 3. Revision: Antibiotic prophylaxis will be used for 2 weeks as the wound heals. Doxycycline 100 mg p.o. twice daily 4. Respiration: Encourage incentive spirometry 5. Postop constipation: Patient will continue on stool softener upon discharge 6. Physical therapy: Weightbearing as tolerated, activity as tolerated, anterior precautions. 7. Disposition: Plan is for discharge today after working with physical therapy. If patient is stable she will call the office on Saturday morning to set up physical therapy. Patient has a postop appointment scheduled for 08/21/2024 at our office in [place]. She does wish to transition her physical therapy from [place] to our local location in [place] as well.
--- NOTE | 2024-08-08 10:04 | DCINST_ITS ---
Discharge Instructions Diet Discharge Diet: No restrictions DC O2, CPAP, BIPAP needs Home O2 Discharge instructions: No Dressing / Incision Discharge Activity: May Not Drive (while taking narcotic pain medications.) May shower in (days): 2 May resume sexual activity in: 6-8 weeks Ice area for (Minutes): 20 Weight Bearing Status: Weight bearing as tolerated Additional Activity Instructions:: Wear elastic stockings for 2 weeks. DO NOT use alcohol with narcotic pain medication. DO NOT make important decisions while taking narcotic medication. If you have problems with taking your medication (rash, itching, nausea, etc.) call the office at once. Dressing / Incision Call your doctor if your incision/area has: Increased Redness and Foul Smelling Discharge Call your doctor if you observe: Fever of 101 or Higher Remove Dressing in: 5 days Cleanse incision/area with: Soap & Water and Keep Dressing Clean & Dry Additional Dressing/Incision Instructions:: If incision is clean dry and intact may leave the wound open to air and continue showering. If there is continued drainage continue daily dry dressing changes and keep incision clean dry and intact until there is no drainage. If dressing becomes saturated with blood touching 3 sides of the dressing changed to dry dressing with skin friendly tape and discontinue showering until drainage is stopped for 48 hours. Follow Up Care Please Follow Up With: Amaya Maxwell PA When: August 21 as previously scheduled on the pink sheet Test Results: Test results from this visit will be discussed in further detail at your follow- up appointment, if applicable. Discharge Plan Admission Admit Date/Time: 08/07/24 14:45 Attending Provider: Eloy Hamm Primary Care Provider: BEVERLEY WALKER Consulting Providers: Aashish Rodrigez Discharge Orders/Prescriptions Prescriptions: New acetaminophen 500 mg Tablet 1,000 mg PO Q8 Qty: 0 0RF aspirin 81 mg Tablet,Chewable 81 mg PO BID Qty: 0 0RF doxycycline monohydrate 100 mg Capsule 100 mg PO BID 14 Days Qty: 28 0RF Ensure Surgery 0.08-1.4 gram-kcal/mL Liquid 237 ml PO TIDCM Qty: 0 0RF famotidine 20 mg Tablet 20 mg PO DAILY 28 Days Qty: 28 0RF meloxicam 7.5 mg Tablet 7.5 mg PO BID 30 Days Qty: 60 1RF oxycodone 5 mg Tablet 5 mg PO Q4H PRN PRN (Reason: Pain Score 4-10) 7 Days Qty: 42 0RF sennosides-docusate sodium [Stimulant Laxative Plus] 8.6-50 mg Tablet 2 tab PO BID Qty: 0 0RF Continued metoprolol succinate 50 mg tablet extended release 24 hr 75 mg PO DAILY pantoprazole 40 mg tablet,delayed release (DR/EC) 40 mg PO DAILY lisinopril 40 mg tablet 40 mg PO DAILY Zepbound 5 mg/0.5 mL pen injector 5 mg SUBCUT QWEEK Patient Comments: [NO ORIGINAL SIG] rosuvastatin 20 mg tablet 20 mg PO DAILY Discontinued acetaminophen 500 mg Tablet 1,000 mg PO Q8 PRN (Reason: pain) diclofenac sodium 50 mg tablet,delayed release (DR/EC) 50 mg PO BID aspirin 81 mg Tablet,Chewable 81 mg PO BIDCM Qty: 0 0RF Rx Instructions: Continue x 30 days then discontinue Referrals / Follow Up: BEVERLEY WALKER [Other] Amaya Maxwell PA [Med Staff - Adv Practice Prof] - 08/21/24 10:00 am (Appointment already scheduled) Disposition Disposition (needs filled in before D/C Order can be placed): Home, Self Care
[2024-08-08] MEDS: Ensure Surgery 237 ML LIQUID PO (13:09)
== END 2024-08-08 13:15 | disposition home or self-care (01) | DRG 470 ==
LOC: MS3 15:17
PROVIDERS: Student in an Organized Health Care Education/Training Program; Admitting Provider Specialist; Referring Provider Specialist; Visit Provider Specialist
PROC: 0SR902A Replacement of Right Hip Joint with Metal on Polyethylene Synthetic Substitute, Uncemented, Open Approach (ICD-10-PCS; principal; 2024-08-07 12:35)
DX: M25.351 Other instability, right hip (principal); E11.9 Type 2 diabetes mellitus without complications; I10 Essential (primary) hypertension; E66.9 Obesity, unspecified; M24.451 Recurrent dislocation, right hip; K21.9 Gastro-esophageal reflux disease without esophagitis; E78.5 Hyperlipidemia, unspecified; M16.11 Unilateral primary osteoarthritis, right hip; Z68.32 Body mass index [BMI] 32.0-32.9, adult; Z79.899 Other long term (current) drug therapy
CPT/HCPCS: 36415; 73502; 76000; 80048; 82962; 83735; 85025; 87077; 87081; 94668; 97161; 97165; 97802; C1776; J2405; J3475

== ENCOUNTER → 2024-08-21 | Outpatient (CLI) | payer OTHER, SELFPAY ==
--- NOTE | 2024-08-21 13:52 | VDLE_ITS ---
Reason For Study Reason For Study: Swelling RIGHT LEFT GSV is normal. CFV is compressible, spontaneous, phasic, competent, CFV is compressible, spontaneous, phasic, competent and demonstrates normal augmentation. and demonstrates normal augmentation. FV is compressible, spontaneous, phasic, competent and demonstrates normal augmentation. POP V is compressible, spontaneous, phasic, competent and demonstrates normal augmentation. T/P Trunk is compressible. PTV is compressible. RT PerV is compressible. Procedure This is a venous duplex using B-mode, color flow and spectral Doppler. Exam performed in department. A preliminary report was called and/or faxed to LENNIE Forrest. VL/Venous Duplex US, Unilateral Interpretation Summary Deep veins of the right lower extremity are patent and compressible segmentally . There is no evidence of right lower extremity deep vein thrombosis. Valvular competence appears intact within the p roximal deep venous system on the right . The right great saphenous vein appears patent and compressible segmentally. The left common femoral vein is patent and compressible . Ordering Physician: Amaya Maxwell Referring Physician: Amaya Maxwell Performed By: Debbie Roberts RVT
== END | disposition home or self-care (01) ==
LOC: CVS 13:49
DX: R22.41 Localized swelling, mass and lump, right lower limb (principal); M79.604 Pain in right leg; Z96.641 Presence of right artificial hip joint
CPT/HCPCS: 93971

== ENCOUNTER → 2024-12-01 | Outpatient (CLI) | payer MEDICARE, SELFPAY ==
[2024-12-01 08:13] LABS: Hematocrit 34.7 % (37-47); Hemoglobin 10.8 g/dL (12.0-15.0); Immature Granulocytes Count 0.010 X10^3/uL (0.0-0.0); Mean Corp Hgb Conc 31.1 g/dL (32-36); Mean Corpuscular Volume 86.1 fL (81-99); Mean Platelet Vol. 10.2 fl (6.2-12.0); NRBC Flagged by Analyzer 0 % (0-5); Platelet Count 187 K/mm3 (150-450); RBC Distribution Width CV 13.8 % (11.6-14.6); RBC Distribution Width SD 42.7 fl (35.1-43.9); Red Blood Count 4.03 M/mm3 (4.2-5.4); White Blood Count 4.0 K/mm3 (4.4-11.0)
[2024-12-01 08:23] LABS: Creatinine, Urine (random) 90.20 mg/dL (28.00-217.00); Microalbumin,Random Urine 29.5 mg/L (<20 mg/L)
[2024-12-01 09:15] LABS: AST(SGOT) 23 U/L (<=31); Alanine Aminotransfer ALT/SGPT 16 U/L (<=34); Albumin, Serum 4.4 g/dL (3.4-4.8); Alkaline Phosphatase 76 U/L (35-104); Anion Gap 12 (5-15); BUN 17 mg/dL (4-19); BUN/Creat Ratio 18.0 RATIO (10-20); Calcium,Total 9.7 mg/dL (7.6-11.0); Carbon Dioxide 24.2 mmol/L (21.0-32.0); Chloride 102 mmol/L (98-108); Cholesterol 148 mg/dL (<=200); Globulin 2.8 g/dL (2.2-4.2); Glucose 98 mg/dL (70-99); Low Density Lipoprotein Calc. 76 mg/dL; Potassium 4.5 mmol/L (3.3-5.1); Triglycerides 95 mg/dL; Very Low Density Lipoprotein 19 mg/dL (5-40); cholesterol:hdl ratio screen 2.80
== END | disposition home or self-care (01) ==
DX: I10 Essential (primary) hypertension (principal); E11.9 Type 2 diabetes mellitus without complications; E78.2 Mixed hyperlipidemia
CPT/HCPCS: 36415; 80053; 80061; 82043; 82570; 83036; 85025